=== PATIENT | female | born 1975 ===

== ENCOUNTER 2021-12-26 05:07 | Emergency (ER) | payer OTHER, SELFPAY ==
--- NOTE | ~2021-12-26 | XR_ITS ---
EXAMINATION: XR KNEE, LEFT CLINICAL INFORMATION: Pain, heard pop in knee COMPARISON: None TECHNIQUE: Four views of the left knee. FINDINGS: Osseous alignment is anatomic. No acute fracture is seen. There is mild narrowing of the medial joint space with associated spurring. Patellofemoral joint space is suspected to be narrowed, though suboptimally assessed due to positioning. Small chronic appearing calcification noted near the lateral joint space. Small to moderate joint effusion is present. XR/XR knee LT 3V IMPRESSION: Joint effusion without acute osseous findings.
[2021-12-26 05:25] VITALS: BP 148/90; PULSE 109; RESP 22; TEMP 36.8; O2SAT 97; BMI 43.2
[2021-12-26 06:14] VITALS: BP 132/87; PULSE 98; RESP 20; O2SAT 98
--- NOTE | 2021-12-26 07:34 | ED_ITS ---
HPI - Extremity Injury (Lower) General Chief Complaint: Extremity Injury, Lower Stated Complaint: Left Knee inj Time Seen by Provider: 12/26/21 06:54 Source: patient Mode of arrival: ambulatory Limitations: no limitations History of Present Illness HPI Narrative: 46-year-old female history of bipolar disorder presents to the emergency department complaining of left knee pain. She states 5 days ago she was standi ng when her left knee buckled inwards she states it band medially. Since then she has had increased pain she has been taking ibuprofen without relief she has tried ice once. Patient denies fevers chills cough nausea vomiting or diarrhea. States she has no history of any knee injuries. complaint: knee injury Related Data Allergies Allergy/AdvReac Type Severity Reaction Status Date / Time No Known Allergies Allergy Verified 12/26/21 05:28 [No Known Allergies*] Chantix AdvReac Unknown worsening Uncoded 12/26/21 05:28 bipolar disorder Review of Systems Review of Systems: Review of systems: General: Patient denies any fever chills recent illness or falls Musculoskeletal: Denies back pain or body aches or other injuries HEENT: denies headache, runny nose, ear pain Respiratory: denies shortness of breath, cough Cardiovascular: no chest pain or palpitations : denies dysuria, frequency Abdomen: no nausea vomiting denies abdominal pain Extremities: Left knee pain and swelling Skin: no diaphoresis Yes all other systems are reviewed and are negative PMFSH Social History Social History Advance Directives: No Advance Directives Information Provided: Yes Patient : No Physical Exam Vital Signs: Vital Signs: Last Vital Signs Temp 98.2 F 12/26/21 05:25 Pulse 98 12/26/21 06:14 Resp 20 12/26/21 06:14 BP 132/87 12/26/21 06:14 Pulse Ox 98 12/26/21 06:14 BMI result Body Mass Index 43.2 General: Well-appearing well-nourished in no signs of distress HEENT: Normocephalic atraumatic Neck: No signs of JVD, no masses no tenderness or lymphadenopathy Cardiovascular: Regular rate and rhythm Respiratory: Clear to auscultation bilaterally Abdomen: Soft nontender no masses rectal exam performed guia 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 Extremities: Left knee tender to palpation no redness mild swelling no obvious ligamental laxity that I do feel there is a little more laxity to the lateral collateral ligament Normal pedal pulses no signs of edema Skin: Dry warm no rashes Back: No tenderness full ROM MDM - Extremity Injury (Lower) MDM Narrative Medical decision making narrative: Concern for internal knee injury including meniscus MCL ACL or LCL tears. X-ray is normal other than a small effusion I do not think the patient needs a tap do not think that they have septic joint patient otherwise looks well I will with patient and wrap have patient follow up I explained the need to ice 20 minutes on 20 minutes off now give the patient a note for work and have her follow-up with orthopedics. Discharge Plan Discharge Clinical Impression: Acute pain of left knee Patient Disposition: Home, Self-Care Instructions: Knee Pain (ED), Patellofemoral Pain Syndrome Exercises (ED) Additional Instructions: Please call to follow up with Orthopedics. If you have any other concerns please return to the ED. Referrals: Car Ontiveros MD [Physician] - 2 days (Please call to followup for your knee pain)
== END 2021-12-26 07:47 | disposition home or self-care (01) ==
PROVIDERS: Emergency Provider Student in an Organized Health Care Education/Training Program
DX: M25.562 Pain in left knee (principal)
CPT/HCPCS: 73562; 99283

== ENCOUNTER 2022-01-03 03:57 | Emergency (ER) | payer OTHER, SELFPAY ==
--- NOTE | ~2022-01-03 | XR_ITS ---
EXAMINATION: XR CHEST CLINICAL INFORMATION: Chest pain COMPARISON: None TECHNIQUE: Frontal view of the chest was obtained. FINDINGS: The lungs are well expanded. There is no focal consolidation, edema, or effusion. No pneumothorax. The cardiomediastinal silhouette is within normal limits. No acute osseous abnormality. XR/XR chest 1V IMPRESSION: Clear lungs.
[2022-01-03 04:05] VITALS: BP 114/88; BP 126/75; PULSE 95; PULSE 96; RESP 22; TEMP 36.6; O2SAT 97; BMI 39.9
--- NOTE | 2022-01-03 04:11 | ED.CHESTPAIN ---
HPI - Chest Pain General Chief Complaint: Chest Pain Stated Complaint: CP Time Seen by Provider: 01/03/22 04:11 Source: patient Mode of arrival: EMS Limitations: no limitations History of Present Illness HPI narrative: Patient complaining of mid chest pain and epigastric pain for last 1 week patient says that he has history of hypertension diabetes but blood sugars is normal and blood pressure also normal and she is not taking any medication for last few months patient described pain as a sharp pain comes and goes no relation with food or breathing or cough Related Data Previous Rx's Medication Instructions Recorded pantoprazole 40 mg granules 40 mg PO DAILY #30 ea 01/03/22 delayed-release for susp in packet (Protonix) sucralfate 1 gram tablet 1 g PO TID #90 tab 01/03/22 Allergies Allergy/AdvReac Type Severity Reaction Status Date / Time No Known Allergies Allergy Verified 12/26/21 05:28 [No Known Allergies*] Chantix AdvReac Unknown worsening Uncoded 12/26/21 05:28 bipolar disorder Review of Systems Review of Systems: Yes all other systems are reviewed and are negative [facility] Social History Social History Advance Directives: No Patient : No Physical Exam Vital Signs: Vital Signs: Last Vital Signs Temp 97.9 F 01/03/22 04:05 Pulse 96 01/03/22 04:05 Resp 22 H 01/03/22 04:05 BP 126/75 01/03/22 04:05 Pulse Ox 97 01/03/22 04:05 BMI result Body Mass Index 39.9 Appearance: Alert. Oriented X3. No acute distress. ENT: Pharynx normal. Oral Mucosa moist Neck: Normal inspection. Neck supple. CVS: Normal heart rate and rhythm. Pulses normal. Respiratory: No respiratory distress. Equal air entry bilateral, no wheezing/rales/rhonchi Abdomen: Soft and mild epigastric tenderness, Bowel sounds are present, no mass palpable, no CVA tenderness Skin: Skin warm and dry. Normal skin color. Normal skin turgor. Extremities: No lower extremity edema. No calf tenderness Neuro: Oriented X 3. No motor deficit. No sensory deficit.No cerebellar signs , cranial nerves II-XII intact MDM - Chest Pain MDM Narrative Medical decision making narrative: Patient's epigastric pain likely gastritis patient also does have anxiety labs are stable discharge patient home on Protonix Lab Data Attestation: I reviewed the patient's lab results. Result diagrams: 01/03/22 04:30 01/03/22 04:27 Labs: Lab Results 01/03/22 01/03/22 01/03/22 Range/Units 04:27 04:30 04:30 WBC 12.1 H (4.8-10.8) X10*3/uL RBC 4.83 (4.20-5.50) X10*6/uL Hgb 14.4 (12.0-16.0) g/dl Hct 42.6 (37.0-47.0) % MCV 88.2 (80.0-98.0) fL MCH 29.8 (27.0-33.0) pg MCHC 33.8 (31.0-35.0) g/dl RDW 12.5 (11.0-16.0) % Plt Count 241 (160-400) X10*3/uL MPV 11.3 (9.4-12.3) fL Immature Gran % (Auto) 0.3 (0.0-0.4) % Neut % (Auto) 54.6 (45-73) % Lymph % (Auto) 36.9 (20-40) % Harvey % (Auto) 6.3 (2-11) % Eos % (Auto) 1.7 (0-4) % Baso % (Auto) 0.2 (0-2) % Lymph # (Auto) 4.5 (1.2-4.9) X10*3/uL Harvey # (Auto) 0.8 (0.1-1.2) X10*3/uL Eos # (Auto) 0.2 (0.0-0.4) X10*3/uL Baso # (Auto) 0.0 (0.0-0.2) X10*3/uL Abs Immat Gran (auto) 0.04 H (0.00-0.03) X10*3/uL Absolute Neuts (auto) 6.6 (2.0-8.3) x10*3/uL Absolute Nucleated RBC 0.000 (0.0-0.012) X10*3/uL Nucleated RBC % (auto) 0.0 (0.0-0.2) /100WBC Sodium 140 (135-145) mmol/L Potassium 3.9 (3.3-5.1) mmol/L Chloride 106 (96-108) mmol/L Carbon Dioxide 22 (22-29) mmol/L Anion Gap 16 (12-20) BUN 17 H (9-16) mg/dL Creatinine 0.90 (0.5-1.4) mg/dL Estim Creat Clear Calc 96.9 Estimated GFR > 60 Random Glucose 191 H (60-115) mg/dL Calcium 9.8 (8.4-10.2) mg/dL Total Bilirubin 0.3 (0.0-1.0) mg/dL AST 42 H (5-31) U/L ALT 58 H (0-31) U/L Alkaline Phosphatase 92 (39-117) U/L Troponin I High Sens < 3.5 (<3.5-17.0) ng/L Total Protein 7.5 (6.5-8.0) g/dL Albumin 4.1 (3.5-5.0) g/dL Lipase 37 (8-78) U/L Urine Color Urine Appearance Urine pH (5.0-8.0) Ur Specific [place] (1.005-1.025) Urine Protein (NEG-TRACE) MG/DL Urine Glucose (UA) (NEG) MG/DL Urine Ketones (NEG) MG/DL Urine Blood (NEG) Urine Nitrite (NEG) Ur Leukocyte Esterase (NEG) COVID-19 (ANDREW) (Negative) COVID-19 Clin Com 01/03/22 01/03/22 Range/Units 05:13 05:13 WBC (4.8-10.8) X10*3/uL RBC (4.20-5.50) X10*6/uL Hgb (12.0-16.0) g/dl Hct (37.0-47.0) % MCV (80.0-98.0) fL MCH (27.0-33.0) pg MCHC (31.0-35.0) g/dl RDW (11.0-16.0) % Plt Count (160-400) X10*3/uL MPV (9.4-12.3) fL Immature Gran % (Auto) (0.0-0.4) % Neut % (Auto) (45-73) % Lymph % (Auto) (20-40) % Harvey % (Auto) (2-11) % Eos % (Auto) (0-4) % Baso % (Auto) (0-2) % Lymph # (Auto) (1.2-4.9) X10*3/uL Harvey # (Auto) (0.1-1.2) X10*3/uL Eos # (Auto) (0.0-0.4) X10*3/uL Baso # (Auto) (0.0-0.2) X10*3/uL Abs Immat Gran (auto) (0.00-0.03) X10*3/uL Absolute Neuts (auto) (2.0-8.3) x10*3/uL Absolute Nucleated RBC (0.0-0.012) X10*3/uL Nucleated RBC % (auto) (0.0-0.2) /100WBC Sodium (135-145) mmol/L Potassium (3.3-5.1) mmol/L Chloride (96-108) mmol/L Carbon Dioxide (22-29) mmol/L Anion Gap (12-20) BUN (9-16) mg/dL Creatinine (0.5-1.4) mg/dL Estim Creat Clear Calc Estimated GFR Random Glucose (60-115) mg/dL Calcium (8.4-10.2) mg/dL Total Bilirubin (0.0-1.0) mg/dL AST (5-31) U/L ALT (0-31) U/L Alkaline Phosphatase (39-117) U/L Troponin I High Sens (<3.5-17.0) ng/L Total Protein (6.5-8.0) g/dL Albumin (3.5-5.0) g/dL Lipase (8-78) U/L Urine Color YELLOW Urine Appearance HAZY Urine pH 5.5 (5.0-8.0) Ur Specific [place] >= 1.030 H (1.005-1.025) Urine Protein NEG (NEG-TRACE) MG/DL Urine Glucose (UA) NEG (NEG) MG/DL Urine Ketones 5 (NEG) MG/DL Urine Blood NEG (NEG) Urine Nitrite NEG (NEG) Ur Leukocyte Esterase NEG (NEG) COVID-19 (ANDREW) Negative (Negative) COVID-19 Clin Com See Note ECG Data ECG #1: Attestation: I personally reviewed and interpreted this ECG as follows: Interpretation: Is normal sinus rhythm heart rate 95 beats per minute normal axis normal intervals no acute ST-T changes no acute ischemia impression normal EKG Discharge Plan Discharge Clinical Impression: Atypical chest pain, Gastritis Patient Disposition: Home, Self-Care Instructions: Chest Pain (ED), Gastritis (ED) Additional Instructions: Avoid spicy/fried diet Take medication for gastritis as prescribed Follow up with PCP Prescriptions: New pantoprazole [Protonix] [address] for susp in packet 40 mg PO DAILY Qty: 30 0RF sucralfate 1 gram tablet 1 g PO TID Qty: 90 0RF
[2022-01-03] MEDS: Famotidine/PF 20 MG/2 ML VIAL IVPUSH (04:36)
[2022-01-03 04:41] LABS: MANUAL DIFF FLAG NO
[2022-01-03 04:43] LABS: Basophils Percent Auto 0.2 % (0-2); Eosinophils Absolute Auto 0.2 X10*3/uL (0.0-0.4); Eosinophils Percent Auto 1.7 % (0-4); Hematocrit 42.6 % (37.0-47.0); Hemoglobin 14.4 g/dl (12.0-16.0); Imm Gran Abs Auto 0.04 X10*3/uL (0.00-0.03); Imm Gran Pct Auto 0.3 % (0.0-0.4); Lymphocytes Absolute Auto 4.5 X10*3/uL (1.2-4.9); Lymphocytes Percent Auto 36.9 % (20-40); Mean Corpuscular HGB Conc 33.8 g/dl (31.0-35.0); Mean Corpuscular Hemoglobin 29.8 pg (27.0-33.0); Mean Corpuscular Volume 88.2 fL (80.0-98.0); Mean Platelet Volume 11.3 fL (9.4-12.3); Monocytes Absolute Auto 0.8 X10*3/uL (0.1-1.2); Monocytes Percent Auto 6.3 % (2-11); Neutrophils Absolute Auto 6.6 x10*3/uL (2.0-8.3); Neutrophils Percent Auto 54.6 % (45-73); Platelet Count 241 X10*3/uL (160-400); Red Blood Count 4.83 X10*6/uL (4.20-5.50); Red Cell Distribution Width 12.5 % (11.0-16.0); White Blood Count 12.1 X10*3/uL (4.8-10.8)
[2022-01-03 04:58] LABS: Alanine Aminotransferase 58 U/L (0-31); Albumin Level 4.1 g/dL (3.5-5.0); Alkaline Phosphatase 92 U/L (39-117); Anion Gap 16 (12-20); Aspartate Amino Transferase 42 U/L (5-31); Bilirubin Total 0.3 mg/dL (0.0-1.0); Blood Urea Nitrogen 17 mg/dL (9-16); Calcium 9.8 mg/dL (8.4-10.2); Carbon Dioxide 22 mmol/L (22-29); Chloride 106 mmol/L (96-108); Creatinine Clr Calc Pharmacy 96.9; Estimated Glomerular Filt Rate > 60; Glucose Random 191 mg/dL (60-115); Lipase 37 U/L (8-78); Potassium 3.9 mmol/L (3.3-5.1); Sodium 140 mmol/L (135-145); Total Protein 7.5 g/dL (6.5-8.0)
[2022-01-03 05:07] LABS: Troponin-I High Sensitivity < 3.5 ng/L (<3.5-17.0)
[2022-01-03 05:21] LABS: Appearance Urine HAZY; Color Urine YELLOW; Glucose Urine UA NEG (NEG); Leukocyte Esterase Urine NEG (NEG); Nitrite Urine NEG (NEG); PH 5.5 (5.0-8.0); Specific Gravity - Urine >= 1.030 (1.005-1.025); Urine Blood NEG (NEG); Urine Ketones 5 MG/DL (NEG); Urine Protein NEG (NEG-TRACE)
[2022-01-03] MEDS: 0.9 % Sodium Chloride 1,000 ML 999 ML IV (05:21)
[2022-01-03 05:34] LABS: COVID-19 Test Negative (Negative)
[2022-01-03 06:18] VITALS: BP 131/80; PULSE 89; RESP 18; O2SAT 98
--- NOTE | 2022-01-03 08:59 | ECG_ITS ---
Test Reason : CHEST PAIN Blood Pressure : / mmHG Vent. Rate : 095 BPM Atrial Rate : 095 BPM P-R Int : 148 ms QRS Dur : 078 ms QT Int : 356 ms P-R-T Axes : 057 018 039 degrees QTc Int : 447 ms Normal sinus rhythm Normal ECG When compared with ECG of 29-MAR-2016 19:47, No significant change was found Referred By: Seth Jackson Electronically Signed By:DONNA THOMPSON
== END 2022-01-03 06:23 | disposition home or self-care (01) ==
PROVIDERS: Emergency Provider Internal Medicine; PCP Internal Medicine
DX: K29.70 Gastritis, unspecified, without bleeding (principal); R07.9 Chest pain, unspecified; R10.13 Epigastric pain; R05.9 Cough, unspecified; Z20.822 Contact with and (suspected) exposure to COVID-19; Z79.899 Other long term (current) drug therapy
CPT/HCPCS: 36415; 71045; 80053; 81003; 83690; 84484; 85025; 87635; 93005; 96361; 96374; 99284

== ENCOUNTER 2022-01-11 09:05 | Outpatient (REF) | payer OTHER, SELFPAY ==
--- NOTE | ~2022-01-11 | XR_ITS ---
EXAMINATION: LEFT KNEE X-RAY CLINICAL INFORMATION: Left knee pain COMPARISON: Left knee x-rays 12/26/2021 TECHNIQUE: Patellar sunrise view of the left knee XR/XR knee LT 1V FINDINGS/IMPRESSION: No gross patellar fracture. Patellofemoral joint space is relatively well-maintained. Prominent patellar osteophyte projecting laterally. No gross soft tissue swelling.
== END 2022-01-11 09:06 | disposition home or self-care (01) ==
LOC: HO.HOSX 09:05
PROVIDERS: Visit Provider Physician Assistant
DX: M17.12 Unilateral primary osteoarthritis, left knee (principal); F17.200 Nicotine dependence, unspecified, uncomplicated; Z71.6 Tobacco abuse counseling
CPT/HCPCS: 20610; 73560; 99202; J1040

== ENCOUNTER 2022-04-01 04:28 | Emergency (ER) | payer OTHER, SELFPAY ==
--- NOTE | ~2022-04-01 | XR_ITS ---
EXAMINATION: XR CHEST CLINICAL INFORMATION: Chest pain COMPARISON: Chest x-rays of 01/03/2022 TECHNIQUE: Frontal view of the chest was obtained. FINDINGS: The cardiomediastinal silhouette is normal. No abnormal tracheal deviation. The lungs are symmetrically well expanded. No focal consolidation, pleural effusions, pulmonary edema or pneumothorax. Right cardiophrenic density noted is a stable finding compared to last study and likely reflects prominent paracardiac fat pad. Regional skeleton is intact. Visualized upper abdomen is unremarkable. XR/XR chest 1V IMPRESSION: No radiographic evidence of pneumonia. No acute pulmonary process. No significant interval change is noted compared to last x-ray.
[2022-04-01 04:35] VITALS: BP 153/83; PULSE 82; RESP 16; TEMP 36.6; O2SAT 99; BMI 38.2
[2022-04-01 04:38] VITALS: BP 153/83; PULSE 87; RESP 16; TEMP 36.6; O2SAT 138
[2022-04-01 05:05] LABS: COVID-19 Test Negative (Negative)
[2022-04-01 05:06] LABS: Alanine Aminotransferase 37 U/L (0-31); Albumin Level 4.2 g/dL (3.5-5.0); Alkaline Phosphatase 98 U/L (39-117); Anion Gap 13 (12-20); Aspartate Amino Transferase 22 U/L (5-31); Bilirubin Total 0.4 mg/dL (0.0-1.0); Blood Urea Nitrogen 13 mg/dL (9-16); Calcium 9.2 mg/dL (8.4-10.2); Carbon Dioxide 26 mmol/L (22-29); Chloride 104 mmol/L (96-108); Creatinine Clr Calc Pharmacy 110.6; Estimated Glomerular Filt Rate > 60; Glucose Random 165 mg/dL (60-115); Potassium 3.8 mmol/L (3.3-5.1); Sodium 139 mmol/L (135-145); Total Protein 7.6 g/dL (6.5-8.0)
[2022-04-01 05:12] LABS: Troponin-I High Sensitivity < 3.5 ng/L (<3.5-17.0)
[2022-04-01 05:27] VITALS: BP 135/77; PULSE 93; RESP 17; O2SAT 96
--- NOTE | 2022-04-01 06:32 | ECG_ITS ---
Test Reason : CHEST PAIN Blood Pressure : / mmHG Vent. Rate : 089 BPM Atrial Rate : 089 BPM P-R Int : 148 ms QRS Dur : 080 ms QT Int : 372 ms P-R-T Axes : 057 028 038 degrees QTc Int : 452 ms Normal sinus rhythm Normal ECG When compared with ECG of 03-JAN-2022 04:02, No significant change was found Referred By: Tri Juares Electronically Signed By:DONNA THOMPSON
--- NOTE | 2022-04-01 06:47 | ED_ITS ---
HPI - Chest Pain General Chief Complaint: Chest Pain Stated Complaint: cp Time Seen by Provider: 04/01/22 06:32 History of Present Illness HPI narrative: Patient is a 46-year-old female with a history of hypertension history of smoking history of obesity presented today with having chest pain that is dull it is lasting for the last 5 hours it is ongoing. Not associated with shortness of breath or diaphoresis. No fever no chills no cough and no congestion or upper respiratory symptoms It is mid chest nonradiating. patient also has headache with nausea similar to previous bouts of migraine. It is worse with loud voice. Worse with light. Patient had workup for this headache and dizziness in the past. Including an MRI and a CT scan that were all negative for approximately 4 months prior. Patient denies any coughing congestion upper respiratory symptoms. She is immunized with COVID vaccine x1. There is no diaphoresis. No fever. No focal weakness. Related Data Previous Rx's Medication Instructions Recorded pantoprazole 40 mg granules 40 mg PO DAILY 30 days #30 ea 01/03/22 delayed-release for susp in packet (Protonix) quetiapine 100 mg tablet 100 mg PO BEDTIME 30 days #30 tabs 01/03/22 sucralfate 1 gram tablet 1 g PO TID 30 days #90 tabs 01/03/22 Allergies Allergy/AdvReac Type Severity Reaction Status Date / Time No Known Allergies Allergy Verified 01/11/22 12:19 [No Known Allergies*] Chantix AdvReac Unknown worsening Uncoded 01/11/22 12:19 bipolar disorder Review of Systems Review of Systems: Headache dizziness chest pain Yes all other systems are reviewed and are negative [facility] Past Medical History Attestation statement: The following information was validated with the patient. Medical History Bipolar disorder Bulimia nervosa Gastritis Hyperlipidemia Impaired fasting glucose Obesity (BMI 30-39.9) Surgical History H/O bursectomy History of carpal tunnel surgery History of cholecystectomy History of colonoscopy History of endometrial ablation History of hernia surgery History of tubal ligation Family History Family History Mother High blood pressure Dementia Kidney stones Arthritis Father Hepatitis B Cirrhosis of liver Other Mental health problem Social History Social History Housing: Apartment Alcohol intake: current Alcohol intake frequency: does not drink Patient Tobacco Use Status: Current everyday Tobacco user Cigarettes Per Day: 5 Second Hand Smoke Exposure: Yes Advance Directives: No Advance Directives Information Provided: Yes service: No Current occupational status: employed 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 Oriented X3. No acute distress. Eyes: Pupils equal, round and reactive to light. ENT: Pharynx normal. Neck: Normal inspection. Neck supple. No lymph nodes noted. No crepitus CVS: Normal heart rate and rhythm. Pulses normal. Normal S1 and S2 Respiratory: No respiratory distress. Breath sounds normal. No Wheezing. No rales Abdomen: Soft and nontender. No rigidity. No distention. good BS x4 Skin: Skin warm and dry. Normal skin color. Normal skin turgor. Extremities: No lower extremity edema. Neurovascular intact to all extremities. No Lacerations. No Rash Neuro: Oriented X 3. No motor deficit. No sensory deficit. Moving all extermities. No slurred speech MDM - Chest Pain MDM Narrative Medical decision making narrative: Patient's EKG showed a sinus pattern heart rate is 90 TN cares QT within normal limits is no acute ST segment elevation. Patient has atypical chest pain does have multiple risk factor is she is 46 however cardiac enzymes negative her EKG is normal. Her heart score still less than 3. Unlikely patient has ACS. Patient has headache along with nausea, worsening with noise and sound. This is similar to previous bouts of migraine. Will give treatment for migraine including Reglan IV fluid Benadryl. Will monitor patient carefully. In no distress.. Differential Diagnosis Differential diagnosis: Likely fracture of rib, stable angina, unstable angina pectoris, atypical chest pain, st elevation myocardial infarction, costochondritis and chest pain Lab Data Result diagrams: 04/01/22 04:45 Labs: Lab Results 04/01/22 04/01/22 04/01/22 Range/Units 04:45 04:45 04:45 Sodium 139 (135-145) mmol/L Potassium 3.8 (3.3-5.1) mmol/L Chloride 104 (96-108) mmol/L Carbon Dioxide 26 (22-29) mmol/L Anion Gap 13 (12-20) BUN 13 (9-16) mg/dL Creatinine 0.77 (0.5-1.4) mg/dL Estim Creat Clear Calc 110.6 Estimated GFR > 60 Random Glucose 165 H (60-115) mg/dL Calcium 9.2 D (8.4-10.2) mg/dL Total Bilirubin 0.4 (0.0-1.0) mg/dL AST 22 D (5-31) U/L ALT 37 H (0-31) U/L Alkaline Phosphatase 98 (39-117) U/L Troponin I High Sens < 3.5 (<3.5-17.0) ng/L Total Protein 7.6 (6.5-8.0) g/dL Albumin 4.2 (3.5-5.0) g/dL COVID-19 (ANDREW) Negative (Negative) COVID-19 Clin Com See Note Discharge Plan Discharge Clinical Impression: Chest pain, Migraine Patient Disposition: Still a Patient Prescriptions: No Action quetiapine 100 mg tablet 100 mg PO BEDTIME 30 Days Qty: 30 3RF pantoprazole [Protonix] [address] for susp in packet 40 mg PO DAILY 30 Days Qty: 30 3RF sucralfate 1 gram tablet 1 g PO TID 30 Days Qty: 90 2RF
[2022-04-01] MEDS: 0.9 % Sodium Chloride 1,000 ML 999 ML IV (06:50)
[2022-04-01] MEDS: diphenhydrAMINE HCL 50 MG/ML VIAL 25 MG IVPUSH (06:51)
[2022-04-01] MEDS: Ketorolac Tromethamine 15 MG/ML VIAL IVPUSH (06:52)
[2022-04-01] MEDS: Metoclopramide HCl 10 MG/2 ML VIAL IVPUSH (06:52)
[2022-04-01 08:01] LABS: Troponin-I High Sensitivity < 3.5 ng/L (<3.5-17.0)
[2022-04-01 08:12] VITALS: BP 131/74; PULSE 77; RESP 18; O2SAT 100
== END 2022-04-01 09:28 | disposition home or self-care (01) ==
PROVIDERS: Emergency Provider Emergency Medicine Emergency Medical Services; PCP Internal Medicine
DX: R07.9 Chest pain, unspecified (principal); G43.009 Migraine without aura, not intractable, without status migrainosus; I10 Essential (primary) hypertension; F17.210 Nicotine dependence, cigarettes, uncomplicated; Z20.822 Contact with and (suspected) exposure to COVID-19
CPT/HCPCS: 36415; 71045; 80053; 84484; 87635; 93005; 96361; 96374; 96375; 99284; 99285; J1200; J1885; J2765

== ENCOUNTER 2022-05-14 11:50 | Outpatient (REF) | payer OTHER, SELFPAY ==
--- NOTE | ~2022-05-14 | MM_ITS ---
EXAMINATION: MM SCREENING DIGITAL BREAST TOMOSYNTHESIS, BILATERAL CLINICAL INFORMATION: Screening. Asymptomatic. Benign left breast biopsy 11/12/2014 (fragments of benign breast tissue with fibrocystic changes, including an area of papillary apocrine metaplasia). The lifetime risk of breast cancer based on the Tyrer-Cuzick Model is 10%. COMPARISON: Mammography: 11/12/2014, 11/09/2014; ultrasound-guided biopsy left breast 11/12/2014. TECHNIQUE: Digital breast tomosynthesis is performed in both the craniocaudal and mediolateral oblique views along with computer-aided detection (CAD). Synthesized 2D images are generated from the tomosynthesis. FINDINGS: There are scattered areas of fibroglandular density (ACR BI-RADS breast composition Category b). There are no significant masses, abnormal calcifications, or other abnormalities. Parenchymal pattern is similar to prior studies. The axilla are unremarkable. MM/MM tomosynthesis screening BI IMPRESSION: No mammographic evidence of malignancy. ASSESSMENT: BI-RADS 1: Negative RECOMMENDATION: Routine annual mammography screening. This patient's information was entered into a reminder system with a target due date for their next mammogram.
== END 2022-05-14 11:51 | disposition home or self-care (01) ==
LOC: HO.MAMMO 11:50
PROVIDERS: Visit Provider Internal Medicine
DX: Z12.31 Encounter for screening mammogram for malignant neoplasm of breast (principal)
CPT/HCPCS: 77063; 77067

== ENCOUNTER 2022-06-05 10:15 | Outpatient (REF) | payer OTHER, SELFPAY ==
[2022-06-09 14:37] LABS: HPV mRNA E6/E7 rflx Not Detected (Not Detected)
== END 2022-06-05 10:16 | disposition home or self-care (01) ==
LOC: HO.LAB 10:15
PROVIDERS: Visit Provider Obstetrics & Gynecology
DX: Z01.419 Encounter for gynecological examination (general) (routine) without abnormal findings (principal)
CPT/HCPCS: 87624; 88142

== ENCOUNTER 2022-06-13 15:26 | Outpatient (REF) | payer OTHER, SELFPAY ==
--- NOTE | ~2022-06-13 | US_ITS ---
EXAMINATION: US THYROID CLINICAL INFORMATION: Dysphagia, unspecified. COMPARISON: None. TECHNIQUE: Linear transducer grayscale and color Doppler examination with attention to the region of the thyroid. FINDINGS: SIZE: Measurements of the thyroid lobes and nodules are given in sagittal, anteroposterior and transverse dimensions respectively. Right Thyroid Lobe: 4.9 x 1.4 x 2.0 cm, volume 7.2 mL. Parenchyma: The gland echotexture is homogeneous. Thyroid vascularity is normal. Left Thyroid Lobe: 5.1 x 1.1 x 1.6 cm, volume 4.7 mL. Parenchyma: The gland echotexture is homogeneous. Thyroid vascularity is normal. Isthmus: 0.4 cm in maximum AP dimension. No focal thyroid nodule is seen. NODES: No lymphadenopathy is seen in the tissue surrounding the thyroid gland. US/US thyroid IMPRESSION: Slight right thyroid enlargement compared to left side. No focal lesions or hypervascularity seen. ACR TI-RADS RECOMMENDATION REFERENCE: Ultrasound-guided fine-needle aspiration, followup ultrasound, no further follow up. * TR1 (0 point) and TR 2 (2 points): No FNA or follow up * TR3 (3 points): FNA if more than or equal to 2.5 cm in maximum dimension, followup ultrasound in 1, 3 and 5 years if 1.5 to 2.4 cm in maximum dimension. * TR4 (4-6 points): FNA if more than or equal to 1.5 cm in maximum dimension, followup ultrasound in 1, 2, 3 and 5 years if 1 to 1.4 cm in maximum dimension. * TR5 (more than or equal to 7 points): FNA if more than or equal to 1 cm in maximum dimension, followup ultrasound every year for 5 years if 0.5 to 0.9 cm in maximum dimension. * TR3, TR4 or TR5 nodules that are below the size threshold for follow up receive no follow up.
== END 2022-06-13 15:27 | disposition home or self-care (01) ==
LOC: HO.US 15:26
PROVIDERS: Visit Provider Nurse Practitioner Family
DX: R13.10 Dysphagia, unspecified (principal)
CPT/HCPCS: 76536

== ENCOUNTER 2022-06-15 11:45 | Outpatient (REF) | payer OTHER, SELFPAY ==
[2022-06-15 12:08] LABS: MANUAL DIFF FLAG NO
[2022-06-15 13:41] LABS: Basophils Absolute Auto 0.1 X10*3/uL (0.0-0.2); Basophils Percent Auto 0.6 % (0-2); Eosinophils Absolute Auto 0.2 X10*3/uL (0.0-0.4); Eosinophils Percent Auto 2.6 % (0-4); Hematocrit 43.7 % (37.0-47.0); Hemoglobin 14.7 g/dl (12.0-16.0); Imm Gran Abs Auto 0.03 X10*3/uL (0.00-0.03); Imm Gran Pct Auto 0.4 % (0.0-0.4); Lymphocytes Percent Auto 34.7 % (20-40); Mean Corpuscular HGB Conc 33.6 g/dl (31.0-35.0); Mean Corpuscular Hemoglobin 29.3 pg (27.0-33.0); Mean Corpuscular Volume 87.2 fL (80.0-98.0); Mean Platelet Volume 11.5 fL (9.4-12.3); Monocytes Absolute Auto 0.4 X10*3/uL (0.1-1.2); Monocytes Percent Auto 5.1 % (2-11); Neutrophils Absolute Auto 4.9 x10*3/uL (2.0-8.3); Neutrophils Percent Auto 56.6 % (45-73); Platelet Count 226 X10*3/uL (160-400); Red Blood Count 5.01 X10*6/uL (4.20-5.50); Red Cell Distribution Width 12.7 % (11.0-16.0); White Blood Count 8.6 X10*3/uL (4.8-10.8)
[2022-06-15 14:03] LABS: Alanine Aminotransferase 46 U/L (0-31); Albumin Level 4.2 g/dL (3.5-5.0); Alkaline Phosphatase 89 U/L (39-117); Anion Gap 16 (12-20); Aspartate Amino Transferase 34 U/L (5-31); Bilirubin Total 0.5 mg/dL (0.0-1.0); Blood Urea Nitrogen 11 mg/dL (9-16); Carbon Dioxide 24 mmol/L (22-29); Chloride 106 mmol/L (96-108); Cholesterol 211 mg/dL; Estimated Glomerular Filt Rate > 60; Glucose Fasting 157 mg/dL (60-99); HDL Cholesterol 37 mg/dL; LDL Cholesterol Calculated 138 mg/dl; Potassium 4.5 mmol/L (3.3-5.1); Sodium 141 mmol/L (135-145); Total Protein 7.3 g/dL (6.5-8.0); Triglycerides 183 mg/dL
[2022-06-15 14:25] LABS: TSH reflex Free T4 1.01 uIU/mL (0.32-4.0); Vitamin D 25-OH Total 10.2 ng/mL (>30)
== END 2022-06-15 11:46 | disposition home or self-care (01) ==
LOC: HO.LAB 11:45
PROVIDERS: PCP Internal Medicine; Visit Provider Nurse Practitioner Family
DX: Z13.29 Encounter for screening for other suspected endocrine disorder (principal); Z13.220 Encounter for screening for lipoid disorders; R43.9 Unspecified disturbances of smell and taste; R13.10 Dysphagia, unspecified
CPT/HCPCS: 36415; 80053; 80061; 82306; 84443; 85025

== ENCOUNTER → 2022-07-17 08:09 | Outpatient (BNVA) | payer OTHER, SELFPAY | PROVIDERS: PCP Internal Medicine; Visit Provider Internal Medicine Endocrinology, Diabetes & Metabolism | DX: E04.9 Nontoxic goiter, unspecified (principal) | CPT/HCPCS: 99202 ==

== ENCOUNTER 2022-10-05 23:13 | Emergency (ER) | payer OTHER, SELFPAY ==
[2022-10-05 23:28] VITALS: BP 155/98; PULSE 93; RESP 20; TEMP 36.8; O2SAT 98; BMI 38.4
[2022-10-05 23:57] VITALS: BP 151/77; PULSE 88; RESP 18; TEMP 37.2; O2SAT 98
--- NOTE | 2022-10-06 00:06 | ECG_ITS ---
Test Reason : CHEST PAIN Blood Pressure : / mmHG Vent. Rate : 085 BPM Atrial Rate : 085 BPM P-R Int : 162 ms QRS Dur : 082 ms QT Int : 362 ms P-R-T Axes : 049 007 022 degrees QTc Int : 430 ms Normal sinus rhythm Normal EKG When compared with ECG of 01-APR-2022 06:35, No significant change was found Referred By: Yamila Anand Electronically Signed By:DONNA THOMPSON
--- NOTE | 2022-10-06 00:23 | ED_ITS ---
HPI - General Adult General Chief complaint: General Medical Stated complaint: flu symptoms Time Seen by Provider: 10/05/22 23:51 Source: patient Mode of arrival: ambulatory History of Present Illness HPI narrative: 47-year-old female states that she is having cough, body aches as well as subjective fevers, chills and nasal congestion since Saturday. Patient denies any fevers today and states that she has recently returned from [place]. Related Data Previous Rx's Medication Instructions Recorded omeprazole 20 mg capsule,delayed 20 mg PO DAILY #30 caps 06/14/22 release cholecalciferol (vitamin D3) 50 50 mcg PO DAILY #90 tabs 06/19/22 mcg (2,000 unit) tablet quetiapine 100 mg tablet 100 mg PO BEDTIME 30 days #30 tabs 08/08/22 benzonatate 200 mg capsule 200 mg PO TID PRN cough #14 caps 10/06/22 Allergies Allergy/AdvReac Type Severity Reaction Status Date / Time No Known Allergies Allergy Verified 07/17/22 08:19 [No Known Allergies*] Chantix AdvReac Unknown worsening Uncoded 07/17/22 08:19 bipolar disorder Review of Systems Review of Systems: Pertinent positives and negatives as stated in HPI 10 point review of systems is otherwise negative. [facility] Past Medical History Source: nursing notes reviewed Medical History Bipolar disorder Bulimia nervosa Gastritis Hyperlipidemia Impaired fasting glucose Obesity (BMI 30-39.9) Surgical History H/O bursectomy History of carpal tunnel surgery History of cholecystectomy History of colonoscopy History of endometrial ablation History of hernia surgery History of tubal ligation Family History Family History Mother High blood pressure Dementia Kidney stones Arthritis Father Hepatitis B Cirrhosis of liver Other Mental health problem Social History Social History Household Members: None Housing: Apartment Alcohol intake: never Patient Tobacco Use Status: Current everyday Tobacco user Cigarettes Per Day: 5 Smoked in Last 30 Days: Yes Second Hand Smoke Exposure: Yes Use of substances other than those prescribed or required for medical reasons: No Advance Directives: No Advance Directives Information Provided: Yes Patient : No service: No Current occupational status: employed 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 GENERAL: Well developed, well nourished, in no acute distress. HEAD: Normocephalic/atraumatic EYES: PERRLA, EOMI EARS: Ext canals without abnormality, TMs non-bulging and non-erythematous NOSE: Nares patent bilateral OROPHARYNX: no oral lesions noted, posterior pharynx clear and non-erythematous without noted tonsillar enlargement/erythema/exudates NECK: Supple, no adenopathy LUNGS: Normal breath sounds. No adventitious sounds or accessory muscle use. SpO2<98> CARDIOVASCULAR: Regular rate and rhythm without noted murmurs ABDOMEN: Soft, non-tender, non-distended with bowel sounds. MUSCULOSKELETAL: No tenderness, deformities, or effusions noted on gross inspection. EXTREMITIES: No cyanosis, clubbing or edema. SKIN: Inspection of the skin reveals no rashes NEUROLOGIC: Alert and oriented x 4. Strength and sensation to light touch were grossly intact x 4. Course Course Course Narrative: 47-year-old female with history and clinical presentation most consistent with viral syndrome, patient is an everyday smoker which is likely contributing to her upper respiratory symptoms. I have reviewed all of the patient's lab work which does not suggest an acute bacterial infection, patient is afebrile here in the emergency room and is oxygenating well on room air. Patient received combination analgesics for body aches and also received Tessalon for cough control. Medical Decision Making Lab Data Result Diagrams: 10/06/22 00:27 10/06/22 00:27 Labs: Lab Results 10/05/22 10/06/22 10/06/22 Range/Units 23:34 00:26 00:27 WBC 6.2 (4.8-10.8) X10*3/uL RBC 4.90 (4.20-5.50) X10*6/uL Hgb 14.5 (12.0-16.0) g/dl Hct 42.5 (37.0-47.0) % MCV 86.7 (80.0-98.0) fL MCH 29.6 (27.0-33.0) pg MCHC 34.1 (31.0-35.0) g/dl RDW 12.4 (11.0-16.0) % Plt Count 180 (160-400) X10*3/uL MPV 11.8 (9.4-12.3) fL Absolute Nucleated RBC 0.000 (0.0-0.012) X10*3/uL Nucleated RBC % (auto) 0.0 (0.0-0.2) /100WBC Sodium (135-145) mmol/L Potassium (3.3-5.1) mmol/L Chloride (96-108) mmol/L Carbon Dioxide (22-29) mmol/L Anion Gap (12-20) BUN (9-16) mg/dL Creatinine (0.5-1.4) mg/dL Estim Creat Clear Calc Estimated GFR Random Glucose (60-115) mg/dL Calcium (8.4-10.2) mg/dL Troponin I High Sens < 3.5 (<3.5-17.0) ng/L Influenza Type A (PCR) NEGATIVE (Negative) Influenza Type B (PCR) NEGATIVE (Negative) RSV RNA Qual (PCR) POSITIVE A (Negative) SARS-CoV-2 RNA (RT-PCR) NEGATIVE (Negative) 10/06/22 Range/Units 00:27 WBC (4.8-10.8) X10*3/uL RBC (4.20-5.50) X10*6/uL Hgb (12.0-16.0) g/dl Hct (37.0-47.0) % MCV (80.0-98.0) fL MCH (27.0-33.0) pg MCHC (31.0-35.0) g/dl RDW (11.0-16.0) % Plt Count (160-400) X10*3/uL MPV (9.4-12.3) fL Absolute Nucleated RBC (0.0-0.012) X10*3/uL Nucleated RBC % (auto) (0.0-0.2) /100WBC Sodium 139 (135-145) mmol/L Potassium 4.4 (3.3-5.1) mmol/L Chloride 107 (96-108) mmol/L Carbon Dioxide 23 (22-29) mmol/L Anion Gap 13 (12-20) BUN 11 (9-16) mg/dL Creatinine 0.68 (0.5-1.4) mg/dL Estim Creat Clear Calc 124.2 Estimated GFR > 60 Random Glucose 185 H (60-115) mg/dL Calcium 9.3 (8.4-10.2) mg/dL Troponin I High Sens (<3.5-17.0) ng/L Influenza Type A (PCR) (Negative) Influenza Type B (PCR) (Negative) RSV RNA Qual (PCR) (Negative) SARS-CoV-2 RNA (RT-PCR) (Negative) Independent Interpretation I performed an independent interpretation of an: EKG Interpretation: Normal sinus rhythm, HR-85, no STEMI, VT/QRS/QTC is within normal limits. Discharge Plan Discharge Clinical Impression: Viral syndrome, Respiratory syncytial virus (RSV) Patient Disposition: Home, Self-Care Instructions: Respiratory Syncytial Virus (ED), Viral Syndrome (ED) Additional Instructions: 1. Tylenol 1000 mg, orally, every 6 hours as needed for body aches, headaches, temperatures greater than 100.4 Do not exceed 4000 mg within 24 hours. Be sure and check any [id number] cough medications that you by to ensure no additional Tylenol/acetaminophen is listed in the ingredients. 2. Ibuprofen 400 mg, orally with milk or food, every 6 hours as needed for body aches, headaches, temperatures greater than 100.4. You may take this medication with Tylenol. 3. Recommend bedside cool mist humidifier and do not lie completely flat at night instead proper self up on a couple of pills to help reduce nighttime cough. 4. Follow-up with your primary care provider in the next 2-3 days for re- evaluation. Return to the ER for worsening symptoms. Prescriptions: New benzonatate 200 mg capsule 200 mg PO TID PRN (Reason: cough) Qty: 14 0RF No Action omeprazole 20 mg capsule,delayed release(DR/EC) 20 mg PO DAILY Qty: 30 0RF cholecalciferol (vitamin D3) 50 mcg (2,000 unit) tablet 50 mcg PO DAILY Qty: 90 0RF quetiapine 100 mg tablet 100 mg PO BEDTIME 30 Days Qty: 30 3RF Referrals: Narendra Jeff MD [Primary Care Provider] - Stand Alone Forms: Work/School Release
[2022-10-06 00:33] LABS: Hematocrit 42.5 % (37.0-47.0); Hemoglobin 14.5 g/dl (12.0-16.0); Mean Corpuscular HGB Conc 34.1 g/dl (31.0-35.0); Mean Corpuscular Hemoglobin 29.6 pg (27.0-33.0); Mean Corpuscular Volume 86.7 fL (80.0-98.0); Mean Platelet Volume 11.8 fL (9.4-12.3); Platelet Count 180 X10*3/uL (160-400); Red Cell Distribution Width 12.4 % (11.0-16.0); White Blood Count 6.2 X10*3/uL (4.8-10.8)
[2022-10-06 00:50] LABS: Anion Gap 13 (12-20); Blood Urea Nitrogen 11 mg/dL (9-16); Calcium 9.3 mg/dL (8.4-10.2); Carbon Dioxide 23 mmol/L (22-29); Chloride 107 mmol/L (96-108); Creatinine Clr Calc Pharmacy 124.2; Estimated Glomerular Filt Rate > 60; Glucose Random 185 mg/dL (60-115); Potassium 4.4 mmol/L (3.3-5.1); Sodium 139 mmol/L (135-145)
[2022-10-06 00:56] LABS: Troponin-I High Sensitivity < 3.5 ng/L (<3.5-17.0)
[2022-10-06 01:12] LABS: Influenza A PCR NEGATIVE (Negative); Influenza B PCR NEGATIVE (Negative); Resp Syncy Virus RNA Qual PCR POSITIVE (Negative); SARS COV2 PCR INHOUSE NEGATIVE (Negative)
[2022-10-06] MEDS: Ibuprofen 400 MG TABLET PO (02:06)
[2022-10-06] MEDS: Benzonatate 100 MG CAPSULE 200 MG PO (02:06)
[2022-10-06] MEDS: Acetaminophen 325 MG TABLET 975 MG PO (02:06)
== END 2022-10-06 02:20 | disposition home or self-care (01) ==
PROVIDERS: Emergency Provider Student in an Organized Health Care Education/Training Program; PCP Internal Medicine
DX: R05.9 Cough, unspecified (principal); B97.4 Respiratory syncytial virus as the cause of diseases classified elsewhere; Z20.822 Contact with and (suspected) exposure to COVID-19
CPT/HCPCS: 0241U; 36415; 80048; 84484; 85027; 93005; 99283; 99284

== ENCOUNTER 2022-10-07 02:08 | Emergency (ER) | payer OTHER, SELFPAY ==
[2022-10-07 02:41] VITALS: BP 150/100; BP 158/107; PULSE 79; PULSE 85; RESP 20; TEMP 36.5; O2SAT 97; O2SAT 98; BMI 38.2
[2022-10-07 03:02] LABS: MANUAL DIFF FLAG NO
[2022-10-07 03:03] LABS: Basophils Percent Auto 0.6 % (0-2); Eosinophils Absolute Auto 0.2 X10*3/uL (0.0-0.4); Eosinophils Percent Auto 3.1 % (0-4); Hematocrit 40.9 % (37.0-47.0); Imm Gran Abs Auto 0.01 X10*3/uL (0.00-0.03); Imm Gran Pct Auto 0.2 % (0.0-0.4); Lymphocytes Absolute Auto 2.7 X10*3/uL (1.2-4.9); Mean Corpuscular HGB Conc 34.2 g/dl (31.0-35.0); Mean Corpuscular Hemoglobin 30.3 pg (27.0-33.0); Mean Corpuscular Volume 88.5 fL (80.0-98.0); Mean Platelet Volume 11.7 fL (9.4-12.3); Monocytes Absolute Auto 0.5 X10*3/uL (0.1-1.2); Monocytes Percent Auto 8.3 % (2-11); Neutrophils Absolute Auto 2.9 x10*3/uL (2.0-8.3); Neutrophils Percent Auto 44.8 % (45-73); Platelet Count 172 X10*3/uL (160-400); Red Blood Count 4.62 X10*6/uL (4.20-5.50); Red Cell Distribution Width 12.3 % (11.0-16.0); White Blood Count 6.4 X10*3/uL (4.8-10.8)
[2022-10-07 03:23] LABS: Anion Gap 13 (12-20); Blood Urea Nitrogen 11 mg/dL (9-16); Calcium 9.3 mg/dL (8.4-10.2); Carbon Dioxide 24 mmol/L (22-29); Chloride 104 mmol/L (96-108); Creatinine Clr Calc Pharmacy 106.7; Estimated Glomerular Filt Rate > 60; Glucose Random 173 mg/dL (60-115); Potassium 4.2 mmol/L (3.3-5.1); Sodium 137 mmol/L (135-145)
[2022-10-07 03:44] LABS: Influenza A PCR NEGATIVE (Negative); Influenza B PCR NEGATIVE (Negative); Resp Syncy Virus RNA Qual PCR POSITIVE (Negative); SARS COV2 PCR INHOUSE NEGATIVE (Negative)
--- NOTE | 2022-10-07 07:35 | ED.URI ---
HPI - URI/Sore Throat General Chief Complaint: Upper Respiratory Symptoms Stated Complaint: rsv+ multiple complaints Time Seen by Provider: 10/07/22 07:34 Source: patient Mode of arrival: ambulatory Limitations: no limitations History of Present Illness HPI Narrative: Feels worse for the past three days, diffuse myalgias MD elicited complaint: fever, cough and sore throat Onset (ago): day(s) Consistency: constant Severity: mild Context: sick contacts Associated symptoms: fever, chills and myalgias Treatments prior to arrival: none Related Data Previous Rx's Medication Instructions Recorded omeprazole 20 mg capsule,delayed 20 mg PO DAILY #30 caps 06/14/22 release cholecalciferol (vitamin D3) 50 50 mcg PO DAILY #90 tabs 06/19/22 mcg (2,000 unit) tablet quetiapine 100 mg tablet 100 mg PO BEDTIME 30 days #30 tabs 08/08/22 benzonatate 200 mg capsule 200 mg PO TID PRN cough #14 caps 10/06/22 fluticasone propionate 50 1 spray intranasal Q12H #16 grams 10/07/22 mcg/actuation nasal spray,suspension (Flonase Allergy Relief) naproxen 500 mg tablet (Naprosyn) 500 mg PO BID #20 tabs 10/07/22 [id number] 2.5 20 ml PO Q4H PRN cold symptoms 10/07/22 mg-5 mg-50 mg/5 mL oral liquid #118 mL (Robitussin Cough and Cold CF) Allergies Allergy/AdvReac Type Severity Reaction Status Date / Time No Known Allergies Allergy Verified 07/17/22 08:19 [No Known Allergies*] Chantix AdvReac Unknown worsening Uncoded 07/17/22 08:19 bipolar disorder Review of Systems Review of Systems: Yes all other systems are reviewed and are negative Constitutional: Constitutional: Reports fatigue, Reports fever(s) and Reports headache(s) ENT: Reports headache(s) Musculoskeletal: Musculoskeletal: Reports other (myalgias) Neurologic: Reports headache(s) and Denies Sensory deficit (Neuro) Endocrine: Endocrine: Reports fatigue PMFSH Past Medical History Medical History Bipolar disorder Bulimia nervosa Gastritis Hyperlipidemia Impaired fasting glucose Obesity (BMI 30-39.9) Surgical History H/O bursectomy History of carpal tunnel surgery History of cholecystectomy History of colonoscopy History of endometrial ablation History of hernia surgery History of tubal ligation Family History Family History Mother High blood pressure Dementia Kidney stones Arthritis Father Hepatitis B Cirrhosis of liver Other Mental health problem Social History Social History Household Members: None Housing: Apartment Alcohol intake: never Patient Tobacco Use Status: Current everyday Tobacco user Cigarettes Per Day: 5 Second Hand Smoke Exposure: Yes Advance Directives: No Advance Directives Information Provided: No service: No Current occupational status: employed 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[employer] 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 Exam Vital Signs: Vital Signs: Last Vital Signs Temp 97.7 F 10/07/22 02:41 Pulse 79 10/07/22 02:41 Resp 20 10/07/22 02:41 BP 158/107 H 10/07/22 02:41 Pulse Ox 97 10/07/22 02:41 O2 Del Method 10/07/22 02:41 BMI result Body Mass Index 38.2 Const: General: healthy appearing Nutritional Appearance: obese Orientation/consciousness: oriented to person and patient oriented x3 Limitations: no limitations HEENT: Head: Yes normal to inspection Ears: external ears normal General nose exam: Other nasal findings present (rhinorrhea and congestion) Mouth: Normal oral and palatal mucosa present and oropharynx normal Throat: Yes posterior oropharynx normal Eyes: General: appearance normal, both eyes and all related structures Neck: Other: supple Neck: Yes normal visual inspection Chest: Chest palpation & inspection: normal inspection of the chest Resp: Auscultation: clear to auscultation bilaterally Cardio: Jugular venous distension: no JVD Rate: regular rate Rhythm: regular rhythm Heart sounds: S1 normal heart sound present and S2 normal heart sound present GI: Inspection: Yes normal to inspection Palpation (GI): Soft to palpation, nontender and No hepatosplenomegaly present Auscultation: normal bowel sounds : General: Yes no CVA tenderness Back/Spine/Pelvis: Back: no CVA tenderness Skin: General skin exam: no rashes or lesions noted Neuro: General: oriented to person and patient oriented x3 Cranial nerves: Yes CN's II-XII intact bilaterally Motor exam (neuro): 5/5 motor strength present throughout Sensory Exam: No Sensory deficit (Neuro) Extrem: General: Yes normal to inspection Psych: Appearance: grossly normal Course Reevaluation(s) Reevaluation #1: patient with RSV will place on nasonex, robitussin and naprosyn for symptoms Time: 07:42 Medical Decision Making Lab Data Result Diagrams: 10/07/22 02:55 10/07/22 02:55 Labs: Lab Results 10/07/22 10/07/22 10/07/22 Range/Units 02:55 02:55 02:55 WBC 6.4 (4.8-10.8) X10*3/uL RBC 4.62 (4.20-5.50) X10*6/uL Hgb 14.0 (12.0-16.0) g/dl Hct 40.9 (37.0-47.0) % MCV 88.5 (80.0-98.0) fL MCH 30.3 (27.0-33.0) pg MCHC 34.2 (31.0-35.0) g/dl RDW 12.3 (11.0-16.0) % Plt Count 172 (160-400) X10*3/uL MPV 11.7 (9.4-12.3) fL Immature Gran % (Auto) 0.2 (0.0-0.4) % Neut % (Auto) 44.8 L (45-73) % Lymph % (Auto) 43.0 H (20-40) % Whiteside % (Auto) 8.3 (2-11) % Eos % (Auto) 3.1 (0-4) % Baso % (Auto) 0.6 (0-2) % Lymph # (Auto) 2.7 (1.2-4.9) X10*3/uL Whiteside # (Auto) 0.5 (0.1-1.2) X10*3/uL Eos # (Auto) 0.2 (0.0-0.4) X10*3/uL Baso # (Auto) 0.0 (0.0-0.2) X10*3/uL Abs Immat Gran (auto) 0.01 (0.00-0.03) X10*3/uL Absolute Neuts (auto) 2.9 (2.0-8.3) x10*3/uL Absolute Nucleated RBC 0.000 (0.0-0.012) X10*3/uL Nucleated RBC % (auto) 0.0 (0.0-0.2) /100WBC Sodium 137 (135-145) mmol/L Potassium 4.2 (3.3-5.1) mmol/L Chloride 104 (96-108) mmol/L Carbon Dioxide 24 (22-29) mmol/L Anion Gap 13 (12-20) BUN 11 (9-16) mg/dL Creatinine 0.79 (0.5-1.4) mg/dL Estim Creat Clear Calc 106.7 Estimated GFR > 60 Random Glucose 173 H (60-115) mg/dL Calcium 9.3 (8.4-10.2) mg/dL Influenza Type A (PCR) NEGATIVE (Negative) Influenza Type B (PCR) NEGATIVE (Negative) RSV RNA Qual (PCR) POSITIVE A (Negative) SARS-CoV-2 RNA (RT-PCR) NEGATIVE (Negative) Discharge Plan Discharge Clinical Impression: Upper respiratory infection, Respiratory syncytial virus (RSV) Patient Disposition: Home, Self-Care Prescriptions: New Robitussin Cough and Cold CF 2.5-5-50 mg/5 mL liquid 20 ml PO Q4H PRN (Reason: cold symptoms) Qty: 118 0RF naproxen [Naprosyn] 500 mg tablet 500 mg PO BID Qty: 20 0RF fluticasone propionate [Flonase Allergy Relief] 50 mcg/actuation spray,suspension 1 spray intranasal Q12H Qty: 16 0RF Rx Instructions: administer into each nostril No Action omeprazole 20 mg capsule,delayed release(DR/EC) 20 mg PO DAILY Qty: 30 0RF cholecalciferol (vitamin D3) 50 mcg (2,000 unit) tablet 50 mcg PO DAILY Qty: 90 0RF quetiapine 100 mg tablet 100 mg PO BEDTIME 30 Days Qty: 30 3RF benzonatate 200 mg capsule 200 mg PO TID PRN (Reason: cough) Qty: 14 0RF Referrals: Physician,Unknown J [Primary Care Provider] - 1 week
== END 2022-10-07 08:45 | disposition home or self-care (01) ==
PROVIDERS: Emergency Provider Emergency Medicine
DX: J06.9 Acute upper respiratory infection, unspecified (principal); B97.4 Respiratory syncytial virus as the cause of diseases classified elsewhere; R50.9 Fever, unspecified; M79.10 Myalgia, unspecified site; R05.9 Cough, unspecified; Z20.822 Contact with and (suspected) exposure to COVID-19; Z79.899 Other long term (current) drug therapy
CPT/HCPCS: 0241U; 80048; 85025; 99282; 99283

== ENCOUNTER 2022-11-02 11:10 | Emergency (ER) | payer OTHER, SELFPAY ==
--- NOTE | ~2022-11-02 | CT_ITS ---
EXAMINATION: CT HEAD WITHOUT CONTRAST CLINICAL INFORMATION: Dizziness. Numbness. COMPARISON: None. TECHNIQUE: Contiguous axial imaging was performed from the skull base to vertex without intravenous administration of contrast. Coronal and sagittal reformatted images are performed at the CT scanner. [This CT examination was performed using dose optimization techniques as appropriate, variously including the following: *Automated exposure control *Adjustment of mA and/or kV according to patient size (this includes techniques or standardized protocols for targeted exams where dose is matched to indication/reason for exam; i.e. extremities or head) *Use of iterative reconstruction technique] DLP: 782 mGy-cm. FINDINGS: There is no evidence of acute intracranial hemorrhage or territorial infarction. No abnormal mass-effect or midline shift is seen. Ross to white matter differentiation is well preserved. No extra-axial fluid collections are identified. The ventricles are normal in size. There is no abnormal attenuation within the brain parenchyma. There is no osseous abnormality. The mastoid air cells and visualized portions of the paranasal sinuses are well-aerated. CT/CT head/brain wo IV con IMPRESSION: No acute intracranial pathology.
--- NOTE | ~2022-11-02 | XR_ITS ---
EXAMINATION: XR CHEST CLINICAL INFORMATION: Weakness. COMPARISON: Chest x-ray 04/01/2022 TECHNIQUE: Frontal portable view of the chest was obtained. 1314 hours FINDINGS: No significant abnormality is noted involving the heart, lungs, mediastinum, bony thorax or soft tissues. XR/XR chest 1V IMPRESSION: Unremarkable examination.
[2022-11-02 11:21] VITALS: BP 175/88; PULSE 88; RESP 16; TEMP 36.6; O2SAT 96; BMI 38.2
--- NOTE | 2022-11-02 12:08 | ECG_ITS ---
Test Reason : WEAKNESS Blood Pressure : / mmHG Vent. Rate : 069 BPM Atrial Rate : 069 BPM P-R Int : 160 ms QRS Dur : 082 ms QT Int : 392 ms P-R-T Axes : 022 004 028 degrees QTc Int : 420 ms Normal sinus rhythm Normal ECG When compared to the previous EKG of No significant changes seen Referred By: Bailey Arteaga Electronically Signed By:Harpreet Terrell
--- NOTE | 2022-11-02 12:10 | ED.NEUROSD ---
HPI - Neuro Symptoms/Deficit General Chief Complaint: Neuro Symptoms/Deficit Stated Complaint: Body Numbness Diff Breathing Time Seen by Provider: 11/02/22 11:46 Source: patient Mode of arrival: ambulatory History of Present Illness HPI Narrative: 47-year-old female with a past medical history of bipolar, gastritis, HLD, obesity, presenting to the ED complaining of generalized fatigue, body numbness, intermittent room spinning dizziness and lightheadedness, nausea, intermittent chest pain and shortness of breath x2 weeks. Reports legs feel heavy. Also reports fingers and toes become cold and turn purple. Denies headache, vision change/loss, vomiting, diarrhea, abdominal pain Onset (ago): week(s) Related Data Previous Rx's Medication Instructions Recorded omeprazole 20 mg capsule,delayed 20 mg PO DAILY #30 caps 06/14/22 release cholecalciferol (vitamin D3) 50 50 mcg PO DAILY #90 tabs 06/19/22 mcg (2,000 unit) tablet quetiapine 100 mg tablet 100 mg PO BEDTIME 30 days #30 tabs 08/08/22 benzonatate 200 mg capsule 200 mg PO TID PRN cough #14 caps 10/06/22 fluticasone propionate 50 1 spray intranasal Q12H #16 grams 10/07/22 mcg/actuation nasal spray,suspension (Flonase Allergy Relief) naproxen 500 mg tablet (Naprosyn) 500 mg PO BID #20 tabs 10/07/22 [id number] 2.5 20 ml PO Q4H PRN cold symptoms 10/07/22 mg-5 mg-50 mg/5 mL oral liquid #118 mL (Robitussin Cough and Cold CF) meclizine 25 mg tablet 25 mg PO TID PRN dizziness #14 tabs 11/02/22 Allergies Allergy/AdvReac Type Severity Reaction Status Date / Time No Known Allergies Allergy Verified 07/17/22 08:19 [No Known Allergies*] Chantix AdvReac Unknown worsening Uncoded 07/17/22 08:19 bipolar disorder Review of Systems Review of Systems: Constitutional: No Fever, No Chills, No Fatigue, No Malaise ENT/Mouth: No Ear Pain, No Nasal Congestion, No sore throat, No Rhinorrhea, No Swallowing Difficulty Eyes: No Eye Pain, No Swelling, No Redness, No Vision Changes Cardiovascular: + Chest Pain, + SOB, No Edema, No Palpitations Respiratory: No Cough, No Sputum, No Dyspnea Gastrointestinal: + Nausea, No Vomiting, No Diarrhea, No Constipation, No Abdominal pain Genitourinary: No irregular bleeding, No Dysuria, No Urinary Frequency, No Hematuria, No Flank Pain Musculoskeletal: No joint pain, No Myalgias, No Joint Swelling Skin: No Skin Lesions, No rash Neuro: + Weakness, + Numbness, + Paresthesias, No Loss of Consciousness, + Dizziness, No Headache Yes all other systems are reviewed and are negative Constitutional: Constitutional: Reports as per HPI Neurologic: Denies Abnormal speech present [facility] Past Medical History Attestation statement: The following information was validated with the patient. Medical History Bipolar disorder Bulimia nervosa Gastritis Hyperlipidemia Impaired fasting glucose Obesity (BMI 30-39.9) Surgical History H/O bursectomy History of carpal tunnel surgery History of cholecystectomy History of colonoscopy History of endometrial ablation History of hernia surgery History of tubal ligation Family History Family History Mother High blood pressure Dementia Kidney stones Arthritis Father Hepatitis B Cirrhosis of liver Other Mental health problem Social History Social History Household Members: None Housing: Apartment Alcohol intake: never Patient Tobacco Use Status: Current everyday Tobacco user Cigarettes Per Day: 5 Smoked in Last 30 Days: Yes Second Hand Smoke Exposure: Yes Use of substances other than those prescribed or required for medical reasons: No Advance Directives: No Advance Directives Information Provided: No Patient : No service: No Current occupational status: employed 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[employer] Physical Exam Vital Signs: Vital Signs: Last Vital Signs Temp 98.0 F 11/02/22 14:32 Pulse 73 11/02/22 14:58 Resp 16 11/02/22 14:58 BP 186/91 H 11/02/22 14:58 Pulse Ox 99 11/02/22 14:58 O2 Del Method 11/02/22 14:58 BMI result Body Mass Index 38.2 Const: General: cooperative, healthy appearing, comfortable, no acute distress, alert and awake Orientation/consciousness: patient oriented x3 Limitations: no limitations HEENT: Head: Yes normal to inspection and Yes atraumatic Ears: hearing grossly normal bilaterally General nose exam: Normal external nose present Face and sinus: Yes normal facial exam Throat: Yes posterior oropharynx normal, Yes tonsils normal, Yes uvula midline, No peritonsillar mass and No uvular edema Eyes: General: appearance normal, both eyes and all related structures Pupils: Equal, round and reactive pupils present EOM: EOMs intact bilaterally Neck: Neck: Yes normal visual inspection and Yes no meningeal signs Resp: Effort & Inspection: normal respiratory effort and no respiratory distress Auscultation: clear to auscultation bilaterally, no crackles, no rales, no rhonchi and no wheezes Cardio: Rate: regular rate Heart sounds: S1 normal heart sound present and S2 normal heart sound present GI: Inspection: Yes normal to inspection Palpation (GI): Soft to palpation, nontender, no guarding and not rigid Skin: Rashes: no rashes Wounds: no wounds Neuro: General: patient oriented x3, gait normal, tone normal, moves all extremities, no meningeal signs, no focal motor deficits and CN's II-XI intact bilaterally Cranial nerves: Yes Equal, round and reactive pupils present Cognition (Neuro): normal cognition Speech: No Abnormal speech present Gait exam (Neuro): Normal gait present Motor exam (neuro): 5/5 motor strength present throughout and Pronator motor function not present Sensory Exam: other (Reported decreased/different sensation to light touch throughout) Deep tendon reflexes (DTR's): Right patellar reflex intensity grade: 2+ and Left patellar reflex intensity grade: 2+ Coordination: [id number] test normal Romberg Test: Negative Extrem: General: Yes normal to inspection Course Course Course Narrative: -labs reassuring. Chronic elevated AST/ALT. Troponin negative -UA not infected. COVID 19/influenza negative -head CT and chest x-ray unremarkable -orthostatic vital signs negative 1507--on re-evaluation patient reports mild symptomatic improvement. Results discussed. Recommended close PCP follow-up. Results discussed with patient including worrisome signs and symptoms and strict return precautions, and when to return to the emergency department. They verbalized understanding and feel safe for discharge at this time. Medications Administered Discontinued Medications Generic Name Dose Route Start Last Admin Trade Name Freq PRN Reason Stop Dose Admin Diphenhydramine HCl 12.5 mg 11/02/22 14:43 11/02/22 14:54 Diphenhydramine Hcl 50 Mg/Ml Vial IVPUSH 11/02/22 14:44 12.5 mg ONCE ONE Administration Sodium Chloride 1,000 mls @ 999 mls/hr 11/02/22 12:15 11/02/22 13:57 Ns IV 11/02/22 13:15 Infused .Q1H1M CHRIS Infusion Lorazepam 0.5 mg 11/02/22 14:43 11/02/22 14:54 Lorazepam 0.5 Mg Tablet PO 11/02/22 14:44 Not Given ONCE ONE Meclizine HCl 25 mg 11/02/22 12:08 11/02/22 12:49 Meclizine Hcl 25 Mg Tablet PO 11/02/22 12:09 25 mg ONCE ONE Administration Medical Decision Making Medical Decision Making MDM Narrative: 47-year-old female with a past medical history of bipolar, gastritis, HLD, obesity, presenting to the ED complaining of generalized fatigue, body numbness, intermittent room spinning dizziness and lightheadedness, nausea, intermittent chest pain and shortness of breath x2 weeks. On exam vital signs stable, NAD, nontoxic appearing, no focal neuro deficits, ambulating with steady gait. Reported decreased sensation throughout to light touch. Patellar DTRs WNL. Concern for paresthesias vs viral illness vs dehydration/metabolic abnormalities. Symptoms atypical for ACS/PE or CVA/TIA. Low suspicion for SAH. Plan: EKG, labs, UA, CXR, head CT, IVF, orthostatics, re-evaluate Please refer to course for remaining clinical decision making, interpretation of labs/imaging results, and discussions with consultants and/or family members. Differential Diagnosis Differential Diagnoses: The differential diagnosis associated with the presentation includes As above Admission/Observation Consideration of admission/observation: Escalation of care including admission/observation considered Lab Data [facility] Lab Attestation statement: I reviewed the patient's lab results. 11/02/22 12:28 11/02/22 12:28 Labs: Lab Results 11/02/22 11/02/22 11/02/22 Range/Units 12:28 12:28 12:28 WBC 8.8 (4.8-10.8) X10*3/uL RBC 5.15 (4.20-5.50) X10*6/uL Hgb 15.3 (12.0-16.0) g/dl Hct 44.7 (37.0-47.0) % MCV 86.8 (80.0-98.0) fL MCH 29.7 (27.0-33.0) pg MCHC 34.2 (31.0-35.0) g/dl RDW 12.4 (11.0-16.0) % Plt Count 207 (160-400) X10*3/uL MPV 11.2 (9.4-12.3) fL Immature Gran % (Auto) 0.3 (0.0-0.4) % Neut % (Auto) 54.7 (45-73) % Lymph % (Auto) 37.5 (20-40) % Sur[place] % (Auto) 4.1 (2-11) % Eos % (Auto) 2.8 (0-4) % Baso % (Auto) 0.6 (0-2) % Lymph # (Auto) 3.3 (1.2-4.9) X10*3/uL Surry # (Auto) 0.4 (0.1-1.2) X10*3/uL Eos # (Auto) 0.3 (0.0-0.4) X10*3/uL Baso # (Auto) 0.1 (0.0-0.2) X10*3/uL Abs Immat Gran (auto) 0.03 (0.00-0.03) X10*3/uL Absolute Neuts (auto) 4.8 (2.0-8.3) x10*3/uL Absolute Nucleated RBC 0.000 (0.0-0.012) X10*3/uL Nucleated RBC % (auto) 0.0 (0.0-0.2) /100WBC Sodium 138 (135-145) mmol/L Potassium 4.1 (3.3-5.1) mmol/L Chloride 105 (96-108) mmol/L Carbon Dioxide 24 (22-29) mmol/L Anion Gap 13 (12-20) BUN 8 L (9-16) mg/dL Creatinine 0.75 (0.5-1.4) mg/dL Estim Creat Clear Calc 112.3 Estimated GFR > 60 Random Glucose 172 H (60-115) mg/dL Calcium 9.3 (8.4-10.2) mg/dL Magnesium 2.0 (1.6-2.6) mg/dL Total Bilirubin 0.4 (0.0-1.0) mg/dL Direct Bilirubin < 0.2 (0.0-0.5) mg/dL AST 48 H (5-31) U/L ALT 70 H (0-31) U/L Alkaline Phosphatase 98 (39-117) U/L Troponin I High Sens < 3.5 (<3.5-17.0) ng/L Total Protein 7.1 (6.5-8.0) g/dL Albumin 4.2 (3.5-5.0) g/dL Urine Color Urine Appearance Urine pH (5.0-9.0) Ur Specific [place] (1.005-1.025) Urine Protein (Neg-Trace) mg/dL Urine Glucose (UA) (Negative) mg/dL Urine Ketones (Negative) mg/dL Urine Blood (Negative) Urine Nitrite (Negative) Ur Leukocyte Esterase (Negative) Urine RBC (0-2) /HPF Urine WBC (0-5) /HPF Ur Squamous Epith Cells (0-2) /HPF Urine Bacteria (None Seen) Hyaline Casts (0-2) /LPF COVID-19 (ANDREW) (Negative) COVID-19 Clin Com Influenza Type A ([facility]ILTON) (Negative) Influenza Type B ([facility]ILTON) (Negative) Influenza A & B Note 11/02/22 11/02/22 11/02/22 Range/Units 12:28 12:28 12:29 WBC (4.8-10.8) X10*3/uL RBC (4.20-5.50) X10*6/uL Hgb (12.0-16.0) g/dl Hct (37.0-47.0) % MCV (80.0-98.0) fL MCH (27.0-33.0) pg MCHC (31.0-35.0) g/dl RDW (11.0-16.0) % Plt Count (160-400) X10*3/uL MPV (9.4-12.3) fL Immature Gran % (Auto) (0.0-0.4) % Neut % (Auto) (45-73) % Lymph % (Auto) (20-40) % Surry % (Auto) (2-11) % Eos % (Auto) (0-4) % Baso % (Auto) (0-2) % Lymph # (Auto) (1.2-4.9) X10*3/uL Surry # (Auto) (0.1-1.2) X10*3/uL Eos # (Auto) (0.0-0.4) X10*3/uL Baso # (Auto) (0.0-0.2) X10*3/uL Abs Immat Gran (auto) (0.00-0.03) X10*3/uL Absolute Neuts (auto) (2.0-8.3) x10*3/uL Absolute Nucleated RBC (0.0-0.012) X10*3/uL Nucleated RBC % (auto) (0.0-0.2) /100WBC Sodium (135-145) mmol/L Potassium (3.3-5.1) mmol/L Chloride (96-108) mmol/L Carbon Dioxide (22-29) mmol/L Anion Gap (12-20) BUN (9-16) mg/dL Creatinine (0.5-1.4) mg/dL Estim Creat Clear Calc Estimated GFR Random Glucose (60-115) mg/dL Calcium (8.4-10.2) mg/dL Magnesium (1.6-2.6) mg/dL Total Bilirubin (0.0-1.0) mg/dL Direct Bilirubin (0.0-0.5) mg/dL AST (5-31) U/L ALT (0-31) U/L Alkaline Phosphatase (39-117) U/L Troponin I High Sens (<3.5-17.0) ng/L Total Protein (6.5-8.0) g/dL Albumin (3.5-5.0) g/dL Urine Color Yellow Urine Appearance Cloudy Urine pH 5.5 (5.0-9.0) Ur Specific [place] 1.010 (1.005-1.025) Urine Protein Negative (Neg-Trace) mg/dL Urine Glucose (UA) Negative (Negative) mg/dL Urine Ketones Negative (Negative) mg/dL Urine Blood Negative (Negative) Urine Nitrite Negative (Negative) Ur Leukocyte Esterase Trace H (Negative) Urine RBC 0-2 (0-2) /HPF Urine WBC 0-5 (0-5) /HPF Ur Squamous Epith Cells 11-20 (0-2) /HPF Urine Bacteria Trace (None Seen) Hyaline Casts 0-2 (0-2) /LPF COVID-19 (ANDREW) Negative (Negative) COVID-19 Clin Com See Note Influenza Type A (MILTON) Negative (Negative) Influenza Type B ([facility]ILTON) Negative (Negative) Influenza A & B Note See Note Independent Interpretation I performed an independent interpretation of an: EKG Radiology Impression Discussion of test interpretation with radiology: I have reviewed the radiologist's reading. External Record Review External record reviewed: Office record Prior ED record Chronic Conditions Patient?s care impacted by: Hypertension Discharge Plan Discharge Clinical Impression: Paresthesia, Dizziness Patient Disposition: Home, Self-Care Instructions: Paresthesia (ED), Dizziness (ED) Additional Instructions: Your blood work and CT scan were unremarkable/reassuring today in the emergency department. Please follow-up with her doctor Meclizine is for dizziness, take as needed. Stay hydrated. If symptoms persist or worsen you develop weakness, headache, your unable to eat or drink return to the emergency department Prescriptions: New meclizine 25 mg tablet 25 mg PO TID PRN (Reason: dizziness) Qty: 14 0RF No Action omeprazole 20 mg capsule,delayed release(DR/EC) 20 mg PO DAILY Qty: 30 0RF cholecalciferol (vitamin D3) 50 mcg (2,000 unit) tablet 50 mcg PO DAILY Qty: 90 0RF quetiapine 100 mg tablet 100 mg PO BEDTIME 30 Days Qty: 30 3RF benzonatate 200 mg capsule 200 mg PO TID PRN (Reason: cough) Qty: 14 0RF Robitussin Cough and Cold CF 2.5-5-50 mg/5 mL liquid 20 ml PO Q4H PRN (Reason: cold symptoms) Qty: 118 0RF naproxen [Naprosyn] 500 mg tablet 500 mg PO BID Qty: 20 0RF fluticasone propionate [Flonase Allergy Relief] 50 mcg/actuation spray,suspension 1 spray intranasal Q12H Qty: 16 0RF Rx Instructions: administer into each nostril Referrals: [facility] [place] Neuro/Sleep [Provider Group] (Call to make an appointment) Narendra Jeff MD [Primary Care Provider] - 3 days Interventions: ED Discharge Assessment Last Done: 11/02/22 15:49 Discharge Date/Time: 11/02/22 15:50
[2022-11-02 12:36] LABS: MANUAL DIFF FLAG NO
[2022-11-02 12:37] VITALS: BP 174/89; PULSE 69
[2022-11-02 12:37] LABS: Basophils Absolute Auto 0.1 X10*3/uL (0.0-0.2); Basophils Percent Auto 0.6 % (0-2); Eosinophils Absolute Auto 0.3 X10*3/uL (0.0-0.4); Eosinophils Percent Auto 2.8 % (0-4); Hematocrit 44.7 % (37.0-47.0); Hemoglobin 15.3 g/dl (12.0-16.0); Imm Gran Abs Auto 0.03 X10*3/uL (0.00-0.03); Imm Gran Pct Auto 0.3 % (0.0-0.4); Lymphocytes Absolute Auto 3.3 X10*3/uL (1.2-4.9); Lymphocytes Percent Auto 37.5 % (20-40); Mean Corpuscular HGB Conc 34.2 g/dl (31.0-35.0); Mean Corpuscular Hemoglobin 29.7 pg (27.0-33.0); Mean Corpuscular Volume 86.8 fL (80.0-98.0); Mean Platelet Volume 11.2 fL (9.4-12.3); Monocytes Absolute Auto 0.4 X10*3/uL (0.1-1.2); Monocytes Percent Auto 4.1 % (2-11); Neutrophils Absolute Auto 4.8 x10*3/uL (2.0-8.3); Neutrophils Percent Auto 54.7 % (45-73); Platelet Count 207 X10*3/uL (160-400); Red Blood Count 5.15 X10*6/uL (4.20-5.50); Red Cell Distribution Width 12.4 % (11.0-16.0); White Blood Count 8.8 X10*3/uL (4.8-10.8)
[2022-11-02 12:40] LABS: Appearance Urine Cloudy; Color Urine Yellow; Glucose Urine UA Negative (Negative); Leukocyte Esterase Urine Trace (Negative); Nitrite Urine Negative (Negative); PH 5.5 (5.0-9.0); UMIC TRIGGER UACC YES; Urine Blood Negative (Negative); Urine Ketones Negative (Negative); Urine Protein Negative (Neg-Trace)
[2022-11-02 12:41] VITALS: BP 165/99; PULSE 70
[2022-11-02 12:42] VITALS: BP 174/96; PULSE 79
[2022-11-02] MEDS: 0.9 % Sodium Chloride 1,000 ML 999 ML IV (12:49)
[2022-11-02] MEDS: Meclizine HCl 25 MG TABLET PO (12:49)
[2022-11-02 12:54] LABS: COVID-19 Test Negative (Negative); IDNOW Serial# 16C4AD1C
[2022-11-02 12:55] LABS: IDNOW Serial# BCCEAD1C; Influenza A Negative (Negative); Influenza B2 Negative (Negative)
[2022-11-02 13:02] LABS: Alanine Aminotransferase 70 U/L (0-31); Albumin Level 4.2 g/dL (3.5-5.0); Alkaline Phosphatase 98 U/L (39-117); Anion Gap 13 (12-20); Aspartate Amino Transferase 48 U/L (5-31); Bilirubin Direct < 0.2 mg/dL (0.0-0.5); Bilirubin Total 0.4 mg/dL (0.0-1.0); Blood Urea Nitrogen 8 mg/dL (9-16); Calcium 9.3 mg/dL (8.4-10.2); Carbon Dioxide 24 mmol/L (22-29); Chloride 105 mmol/L (96-108); Creatinine Clr Calc Pharmacy 112.3; Estimated Glomerular Filt Rate > 60; Glucose Random 172 mg/dL (60-115); Potassium 4.1 mmol/L (3.3-5.1); Sodium 138 mmol/L (135-145); Total Protein 7.1 g/dL (6.5-8.0)
[2022-11-02 13:09] LABS: Troponin-I High Sensitivity < 3.5 ng/L (<3.5-17.0)
--- NOTE | 2022-11-02 13:14 | PC.NURSE ---
negative orthos, states slight dizziness when sitting to standing though steady and able to do so without assistance.
[2022-11-02 13:55] LABS: Bacteria Urine Trace (None Seen); Hyaline Casts Urine 0-2 /LPF (0-2); RBC Urine 0-2 /HPF (0-2); WBC Urine 0-5 /HPF (0-5)
[2022-11-02 14:32] VITALS: BP 181/93; PULSE 70; RESP 16; TEMP 36.7; O2SAT 96
[2022-11-02] MEDS: diphenhydrAMINE HCL 50 MG/ML VIAL 12.5 MG IVPUSH (14:54)
[2022-11-02 14:58] VITALS: BP 186/91; PULSE 73; RESP 16; O2SAT 99
== END 2022-11-02 15:50 | disposition home or self-care (01) ==
PROVIDERS: Physician Assistant; Emergency Provider Emergency Medicine; PCP Internal Medicine
DX: R06.02 Shortness of breath (principal); M79.10 Myalgia, unspecified site; R53.1 Weakness; R20.2 Paresthesia of skin; R42 Dizziness and giddiness; R51.9 Headache, unspecified; F17.210 Nicotine dependence, cigarettes, uncomplicated; Z20.822 Contact with and (suspected) exposure to COVID-19; Z20.828 Contact with and (suspected) exposure to other viral communicable diseases; Z71.6 Tobacco abuse counseling
CPT/HCPCS: 36415; 70450; 71045; 80048; 80076; 81001; 83735; 84484; 85025; 87502; 87635; 93005; 96361; 96374; 99284; 99285; J1200

== ENCOUNTER 2022-11-16 16:16 | Outpatient (REF) | payer OTHER, SELFPAY ==
[2022-11-16 17:01] LABS: Estimated Average Glucose 157 mg/dL; Hemoglobin A1c % 7.1 %
[2022-11-16 17:46] LABS: TSH reflex Free T4 0.74 uIU/mL (0.32-4.0); Vitamin D 25-OH Total 10.2 ng/mL (>30)
[2022-11-16 17:59] LABS: Folate 12.8 ng/mL (> or = 4.0); Vitamin B12 540 pg/mL (200-900)
== END 2022-11-16 16:17 | disposition home or self-care (01) ==
LOC: HO.LAB 16:16
PROVIDERS: PCP Internal Medicine; Visit Provider Nurse Practitioner Family
DX: R20.0 Anesthesia of skin (principal); R73.01 Impaired fasting glucose
CPT/HCPCS: 36415; 82306; 82607; 82746; 83036; 84443

== ENCOUNTER 2023-01-07 09:28 | Outpatient (REF) | payer OTHER, SELFPAY ==
[2023-01-07 09:57] LABS: MANUAL DIFF FLAG NO
[2023-01-07 10:37] LABS: Basophils Absolute Auto 0.1 X10*3/uL (0.0-0.2); Basophils Percent Auto 0.9 % (0-2); Eosinophils Absolute Auto 0.5 X10*3/uL (0.0-0.4); Eosinophils Percent Auto 4.9 % (0-4); Hematocrit 43.1 % (37.0-47.0); Hemoglobin 14.7 g/dl (12.0-16.0); Imm Gran Abs Auto 0.04 X10*3/uL (0.00-0.03); Imm Gran Pct Auto 0.4 % (0.0-0.4); Lymphocytes Absolute Auto 3.4 X10*3/uL (1.2-4.9); Mean Corpuscular HGB Conc 34.1 g/dl (31.0-35.0); Mean Corpuscular Hemoglobin 30.2 pg (27.0-33.0); Mean Corpuscular Volume 88.7 fL (80.0-98.0); Mean Platelet Volume 11.6 fL (9.4-12.3); Monocytes Absolute Auto 0.6 X10*3/uL (0.1-1.2); Monocytes Percent Auto 5.8 % (2-11); Neutrophils Absolute Auto 4.9 x10*3/uL (2.0-8.3); Platelet Count 199 X10*3/uL (160-400); Red Blood Count 4.86 X10*6/uL (4.20-5.50); Red Cell Distribution Width 12.2 % (11.0-16.0); White Blood Count 9.5 X10*3/uL (4.8-10.8)
[2023-01-07 10:45] LABS: Estimated Average Glucose 197 mg/dL; Hemoglobin A1c % 8.5 %
[2023-01-07 11:07] LABS: Appearance Urine Turbid; Color Urine Dark Yellow; Glucose Urine UA 100 mg/dL (Negative); Leukocyte Esterase Urine Trace (Negative); Nitrite Urine Negative (Negative); Specific Gravity - Urine >= 1.030 (1.005-1.025); UMIC TRIGGER UACC YES; Urine Blood Negative (Negative); Urine Ketones Negative (Negative); Urine Protein 30 (1+) mg/dL (Neg-Trace)
[2023-01-07 11:23] LABS: Bacteria Urine 4+ (None Seen); Squamous Epithelial Cell Urine >20 /HPF (0-2); UACC Culture Trigger YES
[2023-01-07 12:02] LABS: Alanine Aminotransferase 91 U/L (0-31); Albumin Level 4.2 g/dL (3.5-5.0); Alkaline Phosphatase 105 U/L (39-117); Anion Gap 19 (12-20); Aspartate Amino Transferase 83 U/L (5-31); Bilirubin Total 0.5 mg/dL (0.0-1.0); Blood Urea Nitrogen 13 mg/dL (9-16); Calcium 9.6 mg/dL (8.4-10.2); Carbon Dioxide 22 mmol/L (22-29); Chloride 102 mmol/L (96-108); Cholesterol 246 mg/dL; Estimated Glomerular Filt Rate > 60; Glucose Fasting 240 mg/dL (60-99); HDL Cholesterol 37 mg/dL; LDL Cholesterol Calculated 133 mg/dl; Potassium 4.7 mmol/L (3.3-5.1); Sodium 138 mmol/L (135-145); Total Protein 7.3 g/dL (6.5-8.0); Triglycerides 380 mg/dL
[2023-01-07 12:05] LABS: TSH reflex Free T4 1.89 uIU/mL (0.32-4.0); Vitamin D 25-OH Total 12.1 ng/mL (>30)
[2023-01-07 12:05] LABS: Microalbum/Creatinine Ratio Ur 39.9 ug/mg cr
[2023-01-08 17:38] LABS: C Peptide 3.81 ng/mL (0.80-3.85)
[2023-01-12 20:53] LABS: Glutamic acid decarboxylase Ab <5 IU/mL (<5)
== END 2023-01-07 09:29 | disposition home or self-care (01) ==
LOC: HO.LAB 09:28
PROVIDERS: PCP Internal Medicine; Visit Provider Internal Medicine
DX: E11.9 Type 2 diabetes mellitus without complications (principal); I10 Essential (primary) hypertension; E55.9 Vitamin D deficiency, unspecified; E78.00 Pure hypercholesterolemia, unspecified
CPT/HCPCS: 36415; 80053; 80061; 81001; 81003; 82043; 82306; 83036; 84443; 84681; 85025; 86341; 87086

== ENCOUNTER 2023-07-03 10:18 | Outpatient (AMB) | payer OTHER, SELFPAY ==
--- NOTE | 2023-07-03 10:21 | MHC.PC.OV ---
Vital Signs 07/03/23 10:39 07/03/23 11:14 Height 5 ft 5 in Weight 217 lb BMI 36.1 BP 150/98 H 166/100 H Blood Pressure Location Lt brachial Lt brachial Position Sitting Sitting Pulse 101 H Pulse Source Pulse Oximeter Temp Source Skin Pulse Oximetry (%) 99 Oxygen Delivery Method Room Air Intake Visit Reasons: DM, chest pressure, HTN, hyperlipidemia Allergies Chantix Adverse Reaction (Unknown, Uncoded 07/03/23 10:59) worsening bipolar disorder Medication List - Last Reconciled 07/03/23 by RAYMOND Vazquez blood pressure kit-extra large As directed lisinopril 5 mg PO DAILY metformin ER 1,000 mg (2 x 500 mg) PO BID 30 days Tobacco use date assessed: 07/03/23 Dental Screening Dental Screen Date: 07/03/23 Did you have a dental visit in the last 12 months?: Yes Did you have a dental problem in the last 6 months where you did not have access to dental care?: No Was dental information given to patient?: Patient has dentist HPI DM, chest pressure, HTN, hyperlipidemia HPI Details Patient is a 47-year-old female who presents today to follow-up on her chronic conditions. Patient of Dr. Jeff. Medical history significant for bipolar disorder obesity, migraine, GERD, fatty liver, hypertension, diabetes, intermittent chest pressure-has order for stress test-will follow-up on this, elevated LFTs. Patient has requested STI screening, denies STI exposure. Patient reports that she stopped all of her medications 3 months ago, patient reports that she is sick and tired of taking medications . Patient reports systolic blood pressures at home in 130s and 140s. She has an upcoming diabetic eye exam 07/2023. In addition, patient reports that she is following low-sodium, low-cholesterol, low-carbohydrate diet. She did lost some weight intentionally. In addition, patient reports left hand 2nd finger skin lump which is increasing in size for the past some time and would like evaluation for this. No shortness of breath or chest pain. FORMERLY [facility], [facility]–1983 Medical History Elevated LFTs Vitamin D deficiency Pure hypercholesterolemia Benign essential hypertension Obesity (BMI 30-39.9) Gastritis Bulimia nervosa Bipolar disorder Impaired fasting glucose Hyperlipidemia Surgical History History of endometrial ablation History of cholecystectomy History of colonoscopy History of hernia surgery History of tubal ligation History of carpal tunnel surgery H/O bursectomy Family History Mother High blood pressure Dementia Kidney stones Arthritis Father Hepatitis B Cirrhosis of liver Other Mental health problem Social History Household Members: None Housing: Apartment Alcohol intake: never Patient Tobacco Use Status: Current everyday Tobacco user Tobacco use type: Cigarette Cigarettes Per Day: 5 e-Cigarette/Vaping Use: Never Used Second Hand Smoke Exposure: Yes service: No Current occupational status: employed 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 How often do you have a drink containing alcohol?: Monthly or less 2. How many drinks containing alcohol do you have on a typical day when you are drinking?: 1 or 2 3. How often do you have six or more drinks on one occasion?: Never Total Score: 1 Score Reviewed/Action Taken: No GABI-7 AMB Questionnaire GABI-7 Date GABI - 7 assessed: 11/16/22 Source: Developed by Drs. Malcolm Sauceda, Lilliana Biswas, Francis Schmitt and colleagues, with an educational rich from [employer]. Review of Systems Const Denies body aches, Denies chills, Denies fever(s) and Reports headache(s) Eyes Denies change in vision ENT Reports dizziness, Denies otalgia, Reports headache(s), Denies nasal discharge, Denies sinus pain and Denies sore throat Card Details: Intermittent chest pressure/palpitations Reports as per HPI, Denies chest pain, Denies edema, Denies lightheadedness and Denies dyspnea Resp Denies cough and Denies dyspnea GI Denies constipation, Denies diarrhea, Denies nausea and Denies vomiting Denies dysuria Musc Denies myalgias, Denies arthralgias, Denies joint swelling, Reports numbness and Reports tingling Skin/Breast Denies lesions and Denies rash Neuro Reports dizziness, Reports headache(s), Reports numbness and Reports tingling Physical exam (Primary Care) Vital Signs: Last Vital Signs Pulse 101 H 07/03/23 10:39 BP 166/100 H 07/03/23 11:14 Pulse Ox 99 07/03/23 10:39 Oxygen Delivery Method Room Air 07/03/23 10:39 BMI result Body Mass Index 36.1 Tobacco/Smoking Status: Tobacco use Status Tobacco use date assessed 07/03/23 07/03/23 10:44 Patient Tobacco Use Status Current everyday Tobacco 07/03/23 10:21 Tobacco use type Cigarette 07/03/23 10:21 e-Cigarette/Vaping Use Never Used 07/03/23 10:21 Thrive Assessment: Date of Thrive Assessment Date Thrive assessed 12/04/22 07/03/23 10:21 Const General: cooperative and no acute distress Orientation/consciousness: patient oriented x3 HENMT Head: Yes normocephalic and Yes atraumatic Mouth: oropharynx normal and moist mucous membranes Throat: Yes posterior oropharynx normal Eyes General: appearance normal, both eyes and all related structures Pupils: Equal, round and reactive pupils present Neck Neck: Yes normal visual inspection, Yes full ROM and Yes no lymphadenopathy Resp Effort & Inspection: normal respiratory effort and able to speak in complete sentences Auscultation: clear to auscultation bilaterally, no crackles, no rales, no rhonchi and no wheezes Cardio Rate: regular rate Rhythm: regular rhythm Heart sounds: S1 normal heart sound present, S2 normal heart sound present and no murmurs GI Auscultation: normal bowel sounds Skin Other: Left hand 2nd finger dorsal aspect raised area about 5mm diameter, skin is intact, no signs of infection noted Neuro General: patient oriented x3 Cranial nerves: Yes Equal, round and reactive pupils present Gait exam (Neuro): Normal gait present Extrem General: Yes full ROM and No edema Results AMB Hemoglobin A1c AMB Hemoglobin A1c 12.2 % Last Edit by ALMA Lagunas on 07/03/23 10:51 Results Reviewed Results Reviewed: Laboratory Last Values Hgb A1c (Clinic) 12.2 % (4.0-6.0) H 07/03/23 10:22 Assessment and Plan Assessment & Plan (1) Routine screening for STI (sexually transmitted infection): Code(s): Z11.3 - Encounter for screening for infections with a predominantly sexual mode of transmission Plan: STI screening ordered (2) Lump of skin: Code(s): R22.9 - Localized swelling, mass and lump, unspecified Plan: Left hand 2nd finger dorsal aspect raised area about 5mm diameter, skin is intact, no signs of infection noted Will obtain ultrasound ? cyst/lipoma (3) Pure hypercholesterolemia: Code(s): E78.00 - Pure hypercholesterolemia, unspecified Plan: LDL 133 12/2022, goal less than 100 Reinforced low-cholesterol diet (4) Benign essential hypertension: Code(s): I10 - Essential (primary) hypertension Plan: Goal BP equal or less than 140/90 Patient reports better blood pressures at home Blood pressure is elevated in the office today Patient was educated to restart her lisinopril 5 mg daily-patient agreed with the plan Follow-up with nurse in 2 weeks for BP recheck Continue low-sodium diet Signs and symptoms reviewed when to notify provider go to the emergency department Monitor blood pressures at home (5) Chest pressure: Comment: intermittent Code(s): R07.89 - Other chest pain Plan: Patient reports intermittent chest pressure, denies shortness of breath or chest pain, will follow-up on stress test (6) Diabetes mellitus: Code(s): E11.9 - Type 2 diabetes mellitus without complications Qualifiers: Diabetes mellitus type: type 2 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 Diabetes mellitus complication status: with hyperglycemia Qualified Code(s): E11.65 - Type 2 diabetes mellitus with hyperglycemia Plan: A1c 12.2 today, previous 8.5, goal less than 7 Patient reports that she stopped taking all of her medications 3 months ago due to being sick and tired of taking medications and also them not working per patient Patient reports that she is following low-carbohydrate diet Patient was educated on the benefit of restarting diabetes medication, patient declined restarting metformin or ozempic - patient agreed to try Januvia Started Januvia 50 mg daily-possible adverse reactions reviewed with the patient and when to notify provider Patient declined referral for diabetes Education Reinforced low-carbohydrate diet Patient was educated about diabetes complications Check blood sugars at home daily Plan Follow-up with PCP in 3 months or sooner as needed Orders: Orders Microalbumin, Random (w Creat) Today E11.9 - Type 2 diabetes mellitus without complications, I10 - Essential (primary) hypertension US extremity nonvascular melvin Today R22.9 - Localized swelling, mass and lump, unspecified Syphilis Screen Today Z11.3 - Encounter for screening for infections with a predominantly sexual mode of transmission Hepatitis B,C Profile Today Z11.3 - Encounter for screening for infections with a predominantly sexual mode of transmission HIV Ab/Ag Today Z11.3 - Encounter for screening for infections with a predominantly sexual mode of transmission AMB Hemoglobin A1c Today E11.9 - Type 2 diabetes mellitus without complications Medications: New blood sugar diagnostic (FreeStyle Lite Strips) test daily 100 ea 2RF E11.9 - Type 2 diabetes mellitus without complications sitagliptin phosphate (Januvia) 50 mg PO DAILY 90 tabs 1RF E11.9 - Type 2 diabetes mellitus without complications blood-glucose meter (FreeStyle Lite Meter kit) test daily 1 ea 0RF E11.9 - Type 2 diabetes mellitus without complications lancets (FreeStyle Lancets) test daily 100 ea 2RF E11.9 - Type 2 diabetes mellitus without complications Refilled blood pressure kit-extra large As directed 1 ea 0RF I10 - Essential (primary) hypertension lisinopril 5 mg PO DAILY 90 tabs 1RF I10 - Essential (primary) hypertension Discontinued metformin ER Discontinued Reason: Patient no longer taking 1,000 mg (2 x 500 mg) PO BID 30 days 120 tabs 3RF E11.9 - Type 2 diabetes mellitus without complications Coding Level of Care Code Est Pt Level 4 (78249) Diagnoses Routine screening for STI (sexually transmitted infection) Z11.3 Lump of skin R22.9 Pure hypercholesterolemia E78.00 Benign essential hypertension I10 Chest pressure R07.89 Type 2 diabetes mellitus with hyperglycemia, without long-term current use of insulin E11.65 Diabetes mellitus type: type 2 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
[2023-07-03 10:39] VITALS: BP 150/98; PULSE 101; O2SAT 99; BMI 36.1
[2023-07-03 11:14] VITALS: BP 166/100
== END 2023-07-03 11:35 | disposition home or self-care (01) ==
PROVIDERS: PCP Internal Medicine; Visit Provider Nurse Practitioner Family
DX: I10 Essential (primary) hypertension (principal); E11.65 Type 2 diabetes mellitus with hyperglycemia; Z11.3 Encounter for screening for infections with a predominantly sexual mode of transmission; R22.9 Localized swelling, mass and lump, unspecified; E78.00 Pure hypercholesterolemia, unspecified; R07.89 Other chest pain
CPT/HCPCS: 83036; 99214

== ENCOUNTER 2023-07-08 08:37 | Outpatient (REF) | payer OTHER, SELFPAY ==
[2023-07-08 10:34] LABS: Creatinine Urine 355.18 mg/dL; Microalbum/Creatinine Ratio Ur 37.7 ug/mg cr (<30)
[2023-07-09 04:46] LABS: Syphilis Screen Nonreactive (Nonreactive)
[2023-07-09 05:00] LABS: HBS Num1 0.08 mIU/mL (0-7.99); HBc Num1 0.08 S/CO (0.00-0.79); HBsAGNum1 0.32 S/CO (0.00-0.99); HIV AB/AG Nonreactive (Nonreactive); HIV Num 1 0.05 S/CO (0.00-0.99); Hepatitis B Core Antibody Nonreactive (Nonreactive); Hepatitis B Surface Antigen Negative (Negative); ~Hepatitis B Surface Antibody NONREACTIVE (Nonreactive); ~Hepatitis C Antibody Nonreactive (Nonreactive)
== END 2023-07-08 08:38 | disposition home or self-care (01) ==
LOC: HO.LAB 08:37
PROVIDERS: PCP Internal Medicine; Visit Provider Nurse Practitioner Family
DX: I10 Essential (primary) hypertension (principal); E11.9 Type 2 diabetes mellitus without complications; Z11.3 Encounter for screening for infections with a predominantly sexual mode of transmission
CPT/HCPCS: 36415; 82043; 82570; 86704; 86706; 86780; 86803; 87340; 87389

== ENCOUNTER 2023-07-12 11:29 | Outpatient (REF) | payer OTHER, SELFPAY ==
--- NOTE | ~2023-07-12 | MM_ITS ---
EXAMINATION: MM SCREENING DIGITAL BREAST TOMOSYNTHESIS, BILATERAL CLINICAL INFORMATION: Screening. Asymptomatic. COMPARISON: Mammography: This study is compared with prior exams dating back to 2015. TECHNIQUE: Digital breast tomosynthesis is performed in both the craniocaudal and mediolateral oblique views along with computer-aided detection (CAD). Synthesized 2D images are generated from the tomosynthesis. FINDINGS: There are scattered areas of fibroglandular density (ACR BI-RADS breast composition Category b). There are no significant masses, abnormal calcifications, or other abnormalities. There is a tissue marker in the upper outer quadrant of the left breast from prior benign percutaneous biopsy. . MM/MM tomosynthesis screening BI IMPRESSION: No mammographic evidence of malignancy. ASSESSMENT: BI-RADS BI-RADS 2 - Benign Findings RECOMMENDATION: Routine annual mammography screening. 1 year F/U This examination should not preclude the clinical evaluation of a suspicious palpable abnormality. This patient's information was entered into a reminder system with a target due date for their next mammogram.
== END 2023-07-12 11:30 | disposition home or self-care (01) ==
LOC: HO.MAMMO 11:29
PROVIDERS: PCP Internal Medicine; Visit Provider Internal Medicine
DX: Z12.31 Encounter for screening mammogram for malignant neoplasm of breast (principal)
CPT/HCPCS: 77063; 77067

== ENCOUNTER → 2023-07-12 12:15 | Outpatient (BNV) | payer OTHER, SELFPAY | PROVIDERS: PCP Internal Medicine; Visit Provider Radiology Diagnostic Radiology | DX: Z12.31 Encounter for screening mammogram for malignant neoplasm of breast (principal) | CPT/HCPCS: 77063; 77067 ==

== ENCOUNTER 2023-07-16 12:11 | Outpatient (REF) | payer OTHER, SELFPAY ==
--- NOTE | ~2023-07-16 | US_ITS ---
EXAMINATION: Left upper extremity nonvascular ultrasound limited CLINICAL INFORMATION: Palpable lump left index finger COMPARISON: None. TECHNIQUE: The patient directed the cutter aluminum sheet to the area of palpable concern. Targeted ultrasound was performed. FINDINGS: 2 x 3 x 2 mm simple cyst. US/US extremity nonvascular melvin IMPRESSION: 3 mm simple cyst at the area of palpable concern.
== END 2023-07-16 12:12 | disposition home or self-care (01) ==
LOC: HO.US 12:11
PROVIDERS: PCP Internal Medicine; Visit Provider Nurse Practitioner Family
DX: R22.9 Localized swelling, mass and lump, unspecified (principal)
CPT/HCPCS: 76882

== ENCOUNTER 2023-08-20 23:31 | Emergency (ER) | payer OTHER, SELFPAY ==
--- NOTE | 2023-08-20 | ECG_ITS ---
Test Reason : CHEST TIGHTNESS Blood Pressure : / mmHG Vent. Rate : 089 BPM Atrial Rate : 089 BPM P-R Int : 162 ms QRS Dur : 092 ms QT Int : 370 ms P-R-T Axes : 046 004 033 degrees QTc Int : 450 ms Normal sinus rhythm Nonspecific ST abnormality Lateral leads Abnormal ECG When compared with ECG of 02-NOV-2022 12:31, No significant change was found Referred By: Generic ED Physician Electronically Signed By:DEANNE FRANCO MD
[2023-08-20 23:34] VITALS: BP 146/91; PULSE 98; RESP 16; TEMP 36.6; O2SAT 97; BMI 36.3
--- NOTE | 2023-08-20 23:52 | MHC.EDTECH ---
Patient brought in from triage,EKG taken and labs were obtained and sent to lab and patient brought back to waiting room.
[2023-08-20 23:57] LABS: MANUAL DIFF FLAG NO
[2023-08-21 00:14] LABS: COVID-19 Test Negative (Negative); IDNOW Serial# 08D9AD1C; IDNOW Serial# BCCEAD1C; Influenza A Negative (Negative); Influenza B2 Negative (Negative)
[2023-08-21 00:15] LABS: Basophils Absolute Auto 0.1 X10*3/uL (0.0-0.2); Basophils Percent Auto 0.5 % (0-2); Eosinophils Absolute Auto 0.2 X10*3/uL (0.0-0.4); Hematocrit 43.5 % (37.0-47.0); Hemoglobin 15.2 g/dl (12.0-16.0); Imm Gran Abs Auto 0.03 X10*3/uL (0.00-0.03); Imm Gran Pct Auto 0.3 % (0.0-0.4); Lymphocytes Absolute Auto 4.2 X10*3/uL (1.2-4.9); Lymphocytes Percent Auto 37.9 % (20-40); Mean Corpuscular HGB Conc 34.9 g/dl (31.0-35.0); Mean Corpuscular Hemoglobin 29.4 pg (27.0-33.0); Mean Corpuscular Volume 84.1 fL (80.0-98.0); Mean Platelet Volume 11.6 fL (9.4-12.3); Monocytes Absolute Auto 0.6 X10*3/uL (0.1-1.2); Monocytes Percent Auto 5.4 % (2-11); Neutrophils Percent Auto 53.9 % (45-73); Platelet Count 202 X10*3/uL (160-400); Red Blood Count 5.17 X10*6/uL (4.20-5.50); White Blood Count 11.2 X10*3/uL (4.8-10.8)
[2023-08-21 00:27] LABS: Alanine Aminotransferase 90 U/L (0-31); Alkaline Phosphatase 111 U/L (39-117); Anion Gap 16 (12-20); Aspartate Amino Transferase 71 U/L (5-31); Bilirubin Total 0.5 mg/dL (0.0-1.0); Blood Urea Nitrogen 13 mg/dL (9-16); Carbon Dioxide 22 mmol/L (22-29); Chloride 106 mmol/L (96-108); Creatinine Clr Calc Pharmacy 94.1; Estimated Glomerular Filt Rate > 60; Glucose Random 200 mg/dL (60-115); Lipase 70 U/L (8-78); Potassium 4.1 mmol/L (3.3-5.1); Sodium 140 mmol/L (135-145); Total Protein 7.9 g/dL (6.5-8.0)
[2023-08-21 00:35] LABS: Troponin-I High Sensitivity < 2.7 ng/L (<3.5-17.0)
--- NOTE | 2023-08-21 00:48 | ED_ITS ---
HPI - General Adult General Chief complaint: General Medical Stated complaint: body aches Time Seen by Provider: 08/21/23 00:37 Source: patient Mode of arrival: ambulatory Limitations: no limitations History of Present Illness HPI narrative: Patient complaining of generalized body aches chills nausea and had 5 loose bowels in last few hours No cough no upper respiratory symptoms no urinary symptom no vomiting does feel very tired no fever or chills no other family member sick no recent travel no seafood Related Data Previous Rx's Medication Instructions Recorded blood pressure kit-extra large #1 ea 07/03/23 blood sugar diagnostic (FreeStyle #100 ea 07/03/23 Lite Strips) blood-glucose meter (FreeStyle #1 ea 07/03/23 Lite Meter kit) lancets 28 gauge (FreeStyle #100 ea 07/03/23 Lancets) lisinopril 5 mg tablet 5 mg PO DAILY #90 tabs 07/03/23 semaglutide 0.25 mg or 0.5 mg (2 0.25 mg (0.368 mL) subcut QWEEK #3 07/18/23 mg/3 mL) subcutaneous pen injector mL (Ozempic) loperamide 2 mg tablet (Imodium 2 mg PO Q6H PRN loose stool #7 tabs 08/21/23 A-D) ondansetron 4 mg disintegrating 4 mg PO Q6-8H PRN nausea and 08/21/23 tablet vomiting #7 tabs Allergies Allergy/AdvReac Type Severity Reaction Status Date / Time Chantix AdvReac Unknown worsening Uncoded 07/03/23 10:59 bipolar disorder Review of Systems 2 Review of Systems: Yes all other systems are reviewed and are negative PMFSH Past Medical History Medical History Elevated LFTs Vitamin D deficiency Pure hypercholesterolemia Benign essential hypertension Obesity (BMI 30-39.9) Gastritis Bulimia nervosa Bipolar disorder Impaired fasting glucose Hyperlipidemia Surgical History History of endometrial ablation History of cholecystectomy History of colonoscopy History of hernia surgery History of tubal ligation History of carpal tunnel surgery H/O bursectomy Family History Family History Mother High blood pressure Dementia Kidney stones Arthritis Father Hepatitis B Cirrhosis of liver Other Mental health problem Social History Social History Household Members: None Housing: Apartment Alcohol intake: never Patient Tobacco Use Status: Current everyday Tobacco user Tobacco use type: Cigarette Cigarettes Per Day: 5 Smoked in Last 30 Days: No e-Cigarette/Vaping Use: Never Used Second Hand Smoke Exposure: Yes Use of substances other than those prescribed or required for medical reasons: No Advance Directives: No Advance Directives Information Provided: No Patient : No service: No Current occupational status: employed 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 Oriented X3. No acute distress. Eyes: PERRLA, No Nystagmus ENT: Pharynx normal. Oral Mucosa moist Neck: Normal inspection. Neck supple. CVS: Normal heart rate and rhythm. Pulses normal. Respiratory: No respiratory distress. Equal air entry bilateral, no wheezing/rales/rhonchi Abdomen: Soft and nontender. Bowel sounds are present, no mass palpable, no CVA tenderness Skin: Skin warm and dry. Normal skin color. Normal skin turgor. Extremities: No lower extremity edema. No calf tenderness Neuro: Oriented X 3. No motor deficit. No sensory deficit.No cerebellar signs , cranial nerves II-XII intact Medical Decision Making Medical Decision Making MDM Narrative: Patient is stable will give symptomatic treatment for diarrhea and nausea Differential Diagnosis Differential Diagnoses: The differential diagnosis associated with the presentation includes Viral gastroenteritis/enteritis Lab Data [facility] Lab Attestation statement: I reviewed the patient's lab results. 08/20/23 23:47 08/20/23 23:47 Labs: Lab Results 08/20/23 08/21/23 Range/Units 23:47 01:21 WBC 11.2 H (4.8-10.8) X10*3/uL RBC 5.17 (4.20-5.50) X10*6/uL Hgb 15.2 (12.0-16.0) g/dl Hct 43.5 (37.0-47.0) % MCV 84.1 (80.0-98.0) fL MCH 29.4 (27.0-33.0) pg MCHC 34.9 (31.0-35.0) g/dl RDW 12.0 (11.0-16.0) % Plt Count 202 (160-400) X10*3/uL MPV 11.6 (9.4-12.3) fL Immature Gran % (Auto) 0.3 (0.0-0.4) % Neut % (Auto) 53.9 (45-73) % Lymph % (Auto) 37.9 (20-40) % [place] % (Auto) 5.4 (2-11) % Eos % (Auto) 2.0 (0-4) % Baso % (Auto) 0.5 (0-2) % Lymph # (Auto) 4.2 (1.2-4.9) X10*3/uL [place] # (Auto) 0.6 (0.1-1.2) X10*3/uL Eos # (Auto) 0.2 (0.0-0.4) X10*3/uL Baso # (Auto) 0.1 (0.0-0.2) X10*3/uL Abs Immat Gran (auto) 0.03 (0.00-0.03) X10*3/uL Absolute Neuts (auto) 6.0 (2.0-8.3) x10*3/uL Absolute Nucleated RBC 0.000 (0.0-0.012) X10*3/uL Nucleated RBC % (auto) 0.0 (0.0-0.2) /100WBC Sodium 140 (135-145) mmol/L Potassium 4.1 (3.3-5.1) mmol/L Chloride 106 (96-108) mmol/L Carbon Dioxide 22 (22-29) mmol/L Anion Gap 16 (12-20) BUN 13 (9-16) mg/dL Creatinine 0.86 (0.5-1.4) mg/dL Estim Creat Clear Calc 94.1 Estimated GFR > 60 Random Glucose 200 H (60-115) mg/dL Calcium 10.0 (8.4-10.2) mg/dL Total Bilirubin 0.5 (0.0-1.0) mg/dL AST 71 H (5-31) U/L ALT 90 H (0-31) U/L Alkaline Phosphatase 111 (39-117) U/L Troponin I High Sens < 2.7 (<3.5-17.0) ng/L Total Protein 7.9 (6.5-8.0) g/dL Albumin 4.0 (3.5-5.0) g/dL Lipase 70 (8-78) U/L Urine Color Dark Yellow Urine Appearance Cloudy Urine pH 5.5 (5.0-9.0) Ur Specific [place] >= 1.030 H (1.005-1.025) Urine Protein Trace (Neg-Trace) mg/dL Urine Glucose (UA) 100 H (Negative) mg/dL Urine Ketones Trace (Negative) mg/dL Urine Blood Negative (Negative) Urine Nitrite Negative (Negative) Ur Leukocyte Esterase Trace H (Negative) Urine RBC 0-2 (0-2) /HPF Urine WBC 0-5 (0-5) /HPF Ur Squamous Epith Cells >20 (0-2) /HPF Calcium Oxalate Crystal Present Urine Bacteria 4+ (None Seen) Hyaline Casts 3-5 (0-2) /LPF COVID-19 ([facility]W) Negative (Negative) COVID-19 Clin Com See Note Influenza Type A ([facility]) Negative (Negative) Influenza Type B ([facility]) Negative (Negative) Influenza A & B Note See Note Discharge Plan Discharge Clinical Impression: Viral gastroenteritis Patient Disposition: Home, Self-Care Instructions: Gastroenteritis (ED) Additional Instructions: Drink plenty of fluids Medicine for nausea as prescribed Imodium for severe diarrhea Follow-up with PCP if not better Prescriptions: New ondansetron 4 mg tablet,disintegrating 4 mg PO Q6-8H PRN (Reason: nausea and vomiting) Qty: 7 0RF loperamide [Imodium A-D] 2 mg tablet 2 mg PO Q6H PRN (Reason: loose stool) Qty: 7 0RF No Action Ozempic 0.25 mg or 0.5 mg (2 mg/3 mL) pen injector 0.25 mg subcut QWEEK Qty: 3 0RF (DME) blood pressure kit-extra large Kit See Rx Instructions .Route Qty: 1 0RF Rx Instructions: As directed (DME) blood-glucose meter [FreeStyle Lite Meter] Kit See Rx Instructions .MEDSUPPLY Qty: 1 0RF Rx Instructions: test daily (DME) FreeStyle Lite Strips Strip See Rx Instructions .MEDSUPPLY Qty: 100 2RF Rx Instructions: test daily (DME) lancets [FreeStyle Lancets] 28 gauge misc See Rx Instructions .MEDSUPPLY Qty: 100 2RF Rx Instructions: test daily lisinopril 5 mg tablet 5 mg PO DAILY Qty: 90 1RF Interventions: ED Discharge Assessment Last Done: 08/21/23 02:13
[2023-08-21 01:28] LABS: Appearance Urine Cloudy; Color Urine Dark Yellow; Glucose Urine UA 100 mg/dL (Negative); Leukocyte Esterase Urine Trace (Negative); Nitrite Urine Negative (Negative); PH 5.5 (5.0-9.0); Specific Gravity - Urine >= 1.030 (1.005-1.025); UMIC TRIGGER UACC YES; Urine Blood Negative (Negative); Urine Ketones Trace mg/dL (Negative); Urine Protein Trace mg/dL (Neg-Trace)
[2023-08-21 01:39] LABS: Bacteria Urine 4+ (None Seen); Calcium Oxalate Crystals Urine Present; RBC Urine 0-2 /HPF (0-2); Squamous Epithelial Cell Urine >20 /HPF (0-2); WBC Urine 0-5 /HPF (0-5)
[2023-08-21 01:48] VITALS: BP 143/83; PULSE 87; RESP 18; TEMP 36.7; O2SAT 98
[2023-08-21] MEDS: Ondansetron ODT 4 MG TAB.RAPDIS TRANSLINGU (02:10)
[2023-08-21] MEDS: Loperamide HCl 2 MG CAPSULE 4 MG PO (02:10)
== END 2023-08-21 02:13 | disposition home or self-care (01) ==
PROVIDERS: Emergency Provider Internal Medicine; PCP Internal Medicine
DX: A08.4 Viral intestinal infection, unspecified (principal); M79.10 Myalgia, unspecified site; Z11.52 Encounter for screening for COVID-19; I10 Essential (primary) hypertension; E78.00 Pure hypercholesterolemia, unspecified; F17.210 Nicotine dependence, cigarettes, uncomplicated
CPT/HCPCS: 36415; 80053; 81001; 83690; 84484; 85025; 87502; 87635; 93005; 99283; 99284

== ENCOUNTER 2023-08-27 22:54 | Emergency (ER) | payer OTHER, SELFPAY ==
[2023-08-27 23:23] VITALS: BP 170/102; PULSE 87; RESP 20; TEMP 36.1; O2SAT 99; BMI 37.5
[2023-08-28 00:44] VITALS: BP 156/117; PULSE 96; RESP 18; TEMP 36.6; O2SAT 100
--- NOTE | 2023-08-28 00:46 | ED_ITS ---
HPI - Headache General Chief Complaint: Headache Stated Complaint: Migraine Time Seen by Provider: 08/28/23 00:42 Source: patient Mode of arrival: ambulatory Limitations: no limitations History of Present Illness HPI Narrative: 48 yo female with PMH of HLD, HTN, DM, GERD, migraines, bipolar disorder here with c/o being at rest tonight then around 730am started with a typical headache and then it worsened throughout the night and she started with photophobia, vomiting, temporal throbbing. She notes she has had a headache this severe before. She denies trauma, fevers, or AC therapy MD elicited complaint: migraine Pertinent past history: migraines Onset (ago): hour(s) (730pm) Onset description: gradually Location: temporal Severity: similar to previous episodes Quality & Timing: throbbing Exacerbating factors: light and noise Relieving factors: rest Context: occurred at rest Associated symptoms: nausea, vomiting and photophobia Treatments prior to arrival: other (benadryl) Related Data Previous Rx's Medication Instructions Recorded blood pressure kit-extra large #1 ea 07/03/23 blood sugar diagnostic (FreeStyle #100 ea 07/03/23 Lite Strips) blood-glucose meter (FreeStyle #1 ea 07/03/23 Lite Meter kit) lancets 28 gauge (FreeStyle #100 ea 07/03/23 Lancets) lisinopril 5 mg tablet 5 mg PO DAILY #90 tabs 07/03/23 semaglutide 0.25 mg or 0.5 mg (2 0.25 mg (0.368 mL) subcut QWEEK #3 07/18/23 mg/3 mL) subcutaneous pen injector mL (Ozempic) loperamide 2 mg tablet (Imodium 2 mg PO Q6H PRN loose stool #7 tabs 08/21/23 A-D) ondansetron 4 mg disintegrating 4 mg PO Q6-8H PRN nausea and 08/21/23 tablet vomiting #7 tabs ondansetron 4 mg disintegrating 4 mg PO Q8H PRN nausea and 08/28/23 tablet vomiting #20 tabs Allergies Allergy/AdvReac Type Severity Reaction Status Date / Time Chantix AdvReac Unknown worsening Uncoded 07/03/23 10:59 bipolar disorder Review of Systems 2 Review of Systems: Constitutional : No Fever, No Chills, No Fatigue ENT/Mouth : No sore throat, No Rhinorrhea Eyes: No Eye Pain, No Swelling, No Redness Cardiovascular : No Chest Pain, No SOB, No Dyspnea on Exertion Respiratory : No Cough, No Sputum Gastrointestinal : pos Nausea, pos Vomiting, No Diarrhea, No abdominal Pain Genitourinary : No Dysuria, No Urinary Frequency, No Hematuria, Musculoskeletal : No joint pain, No Myalgias, No Joint Swelling Skin : No Skin Lesions, No rash Neuro : No Weakness, No Numbness, No Dizziness, positive Headache Psych : No Anxiety/Panic, No Depression Heme/Lymph: No Bruising, No Bleeding,No Lymphadenopathy Endocrine : No Polyuria, No Polydipsia All other systems reviewed and are negative [facility] Past Medical History Attestation statement: The following information was validated with the patient. Source: old records reviewed Medical History Elevated LFTs Vitamin D deficiency Pure hypercholesterolemia Benign essential hypertension Obesity (BMI 30-39.9) Gastritis Bulimia nervosa Bipolar disorder Impaired fasting glucose Hyperlipidemia Surgical History History of endometrial ablation History of cholecystectomy History of colonoscopy History of hernia surgery History of tubal ligation History of carpal tunnel surgery H/O bursectomy Family History Family History Mother High blood pressure Dementia Kidney stones Arthritis Father Hepatitis B Cirrhosis of liver Other Mental health problem Social History Social History Household Members: None Housing: Apartment Alcohol intake: never Patient Tobacco Use Status: Current everyday Tobacco user Tobacco use type: Cigarette Cigarettes Per Day: 5 Smoked in Last 30 Days: No e-Cigarette/Vaping Use: Never Used Second Hand Smoke Exposure: Yes Use of substances other than those prescribed or required for medical reasons: No Advance Directives: No Advance Directives Information Provided: Yes service: No Current occupational status: employed 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 Oriented X3. anxious in pain mild acute distress. Eyes: Pupils equal, round and reactive to light. ENT: Pharynx normal. Neck: Normal inspection. Neck supple. no meningeal signs CVS: Normal heart rate and rhythm. Pulses normal. Respiratory: No respiratory distress. Breath sounds normal. Abdomen: Soft and nontender. Skin: Skin warm and dry. Normal skin color. Normal skin turgor. Extremities: No lower extremity edema. No calf ttp Neuro: Oriented X 3. No motor deficit. No sensory deficit. CN2-12 intact Medications Administered Discontinued Medications Generic Name Dose Route Start Last Admin Trade Name Freq PRN Reason Stop Dose Admin Sodium Chloride 1,000 mls @ 999 mls/hr 08/28/23 01:00 08/28/23 02:20 Ns IV 08/28/23 02:00 Infused .Q1H1M CHRIS Infusion Ketorolac Tromethamine 15 mg 08/28/23 00:59 08/28/23 01:03 Ketorolac Tromethamine 15 Mg/Ml Vial IVPUSH 08/28/23 01:00 15 mg ONCE ONE Administration Metoclopramide HCl 10 mg 08/28/23 00:59 08/28/23 01:03 Metoclopramide Hcl 10 Mg/2 Ml Vial IVPUSH 08/28/23 01:00 10 mg ONCE ONE Administration Medical Decision Making Medical Decision Making [facility] Narrative: 48 yo female with PMH of HLD, HTN, DM, GERD, migraines, bipolar disorder here with gradual onset headache that worsened now with photophobia n/v and hx of severe migraine like this in the past. At this time will need basic labs, IV migraine cocktail. 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 She reports hx of same in past and gradual onset doubt SAH. Differential Diagnosis Differential Diagnoses: The differential diagnosis associated with the presentation includes dehydration, migraine, tension headache Admission/Observation Consideration of admission/observation: Escalation of care including admission/observation considered feels much better stable for DC Lab Data [facility] Lab Attestation statement: I reviewed the patient's lab results. 08/28/23 00:43 08/28/23 00:43 Labs: Lab Results 08/28/23 Range/Units 00:43 WBC 13.5 H (4.8-10.8) X10*3/uL RBC 5.23 (4.20-5.50) X10*6/uL Hgb 15.3 (12.0-16.0) g/dl Hct 44.4 (37.0-47.0) % MCV 84.9 (80.0-98.0) fL MCH 29.3 (27.0-33.0) pg MCHC 34.5 (31.0-35.0) g/dl RDW 11.9 (11.0-16.0) % Plt Count 211 (160-400) X10*3/uL MPV 11.7 (9.4-12.3) fL Immature Gran % (Auto) 0.3 (0.0-0.4) % Neut % (Auto) 49.4 (45-73) % Lymph % (Auto) 43.0 H (20-40) % [place] % (Auto) 5.2 (2-11) % Eos % (Auto) 1.7 (0-4) % Baso % (Auto) 0.4 (0-2) % Lymph # (Auto) 5.8 H (1.2-4.9) X10*3/uL [place] # (Auto) 0.7 (0.1-1.2) X10*3/uL Eos # (Auto) 0.2 (0.0-0.4) X10*3/uL Baso # (Auto) 0.1 (0.0-0.2) X10*3/uL Abs Immat Gran (auto) 0.04 H (0.00-0.03) X10*3/uL Absolute Neuts (auto) 6.7 (2.0-8.3) x10*3/uL Absolute Nucleated RBC 0.000 (0.0-0.012) X10*3/uL Nucleated RBC % (auto) 0.0 (0.0-0.2) /100WBC Smear Tech's Comments VERIFIED Sodium 138 (135-145) mmol/L Potassium 4.1 (3.3-5.1) mmol/L Chloride 101 (96-108) mmol/L Carbon Dioxide 27 (22-29) mmol/L Anion Gap 14 (12-20) BUN 10 (9-16) mg/dL Creatinine 0.87 (0.5-1.4) mg/dL Estim Creat Clear Calc 94.7 Estimated GFR > 60 Random Glucose 253 H (60-115) mg/dL Calcium 9.7 (8.4-10.2) mg/dL Total Bilirubin 0.5 (0.0-1.0) mg/dL Direct Bilirubin 0.1 (0.0-0.5) mg/dL AST 52 H (5-31) U/L ALT 66 H (0-31) U/L Alkaline Phosphatase 115 (39-117) U/L Total Protein 8.2 H (6.5-8.0) g/dL Albumin 4.3 (3.5-5.0) g/dL Lipase 32 (8-78) U/L External Record Review External record reviewed: Inpatient record Discharge Plan Discharge Clinical Impression: Migraine Qualifiers: Migraine type: unspecified Status migrainosus presence: without status migrainosus Intractability: not intractable Qualified Code(s): G43.909 - Migraine, unspecified, not intractable, without status migrainosus Patient Disposition: Home, Self-Care Instructions: Migraine Headache (ED) Additional Instructions: return for worsening symptoms - confusion, pain, vomiting, numbness, weakness or any other concerns. Prescriptions: New ondansetron 4 mg tablet,disintegrating 4 mg PO Q8H PRN (Reason: nausea and vomiting) Qty: 20 0RF No Action Ozempic 0.25 mg or 0.5 mg (2 mg/3 mL) pen injector 0.25 mg subcut QWEEK Qty: 3 0RF ondansetron 4 mg tablet,disintegrating 4 mg PO Q6-8H PRN (Reason: nausea and vomiting) Qty: 7 0RF loperamide [Imodium A-D] 2 mg tablet 2 mg PO Q6H PRN (Reason: loose stool) Qty: 7 0RF (DME) blood pressure kit-extra large Kit See Rx Instructions .Route Qty: 1 0RF Rx Instructions: As directed (DME) blood-glucose meter [FreeStyle Lite Meter] Kit See Rx Instructions .MEDSUPPLY Qty: 1 0RF Rx Instructions: test daily (DME) FreeStyle Lite Strips Strip See Rx Instructions .MEDSUPPLY Qty: 100 2RF Rx Instructions: test daily (DME) lancets [FreeStyle Lancets] 28 gauge misc See Rx Instructions .MEDSUPPLY Qty: 100 2RF Rx Instructions: test daily lisinopril 5 mg tablet 5 mg PO DAILY Qty: 90 1RF
[2023-08-28 00:53] LABS: Basophils Absolute Auto 0.1 X10*3/uL (0.0-0.2); Basophils Percent Auto 0.4 % (0-2); Eosinophils Absolute Auto 0.2 X10*3/uL (0.0-0.4); Eosinophils Percent Auto 1.7 % (0-4); Hematocrit 44.4 % (37.0-47.0); Hemoglobin 15.3 g/dl (12.0-16.0); Imm Gran Abs Auto 0.04 X10*3/uL (0.00-0.03); Imm Gran Pct Auto 0.3 % (0.0-0.4); Lymphocytes Absolute Auto 5.8 X10*3/uL (1.2-4.9); MANUAL DIFF FLAG SCAN; Mean Corpuscular HGB Conc 34.5 g/dl (31.0-35.0); Mean Corpuscular Hemoglobin 29.3 pg (27.0-33.0); Mean Corpuscular Volume 84.9 fL (80.0-98.0); Mean Platelet Volume 11.7 fL (9.4-12.3); Monocytes Absolute Auto 0.7 X10*3/uL (0.1-1.2); Monocytes Percent Auto 5.2 % (2-11); Neutrophils Absolute Auto 6.7 x10*3/uL (2.0-8.3); Neutrophils Percent Auto 49.4 % (45-73); Platelet Count 211 X10*3/uL (160-400); Red Blood Count 5.23 X10*6/uL (4.20-5.50); Red Cell Distribution Width 11.9 % (11.0-16.0); SCAN SMEAR FLAG 1; White Blood Count 13.5 X10*3/uL (4.8-10.8)
[2023-08-28] MEDS: Ketorolac Tromethamine 15 MG/ML VIAL IVPUSH (01:03)
[2023-08-28] MEDS: Metoclopramide HCl 10 MG/2 ML VIAL IVPUSH (01:03)
[2023-08-28] MEDS: 0.9 % Sodium Chloride 1,000 ML 999 ML IV (01:04)
[2023-08-28 01:09] LABS: Alanine Aminotransferase 66 U/L (0-31); Albumin Level 4.3 g/dL (3.5-5.0); Alkaline Phosphatase 115 U/L (39-117); Anion Gap 14 (12-20); Aspartate Amino Transferase 52 U/L (5-31); Bilirubin Direct 0.1 mg/dL (0.0-0.5); Bilirubin Total 0.5 mg/dL (0.0-1.0); Blood Urea Nitrogen 10 mg/dL (9-16); Calcium 9.7 mg/dL (8.4-10.2); Carbon Dioxide 27 mmol/L (22-29); Chloride 101 mmol/L (96-108); Creatinine Clr Calc Pharmacy 94.7; Estimated Glomerular Filt Rate > 60; Glucose Random 253 mg/dL (60-115); Lipase 32 U/L (8-78); Potassium 4.1 mmol/L (3.3-5.1); Sodium 138 mmol/L (135-145); Total Protein 8.2 g/dL (6.5-8.0)
[2023-08-28 01:28] LABS: SLIDE REVIEW VERIFIED
[2023-08-28 02:31] VITALS: BP 131/72; PULSE 90; RESP 16; TEMP 36.7; O2SAT 96
[2023-08-28] MEDS: diazePAM 2 MG TABLET PO (02:50)
== END 2023-08-28 02:59 | disposition home or self-care (01) ==
PROVIDERS: Emergency Provider Emergency Medicine; PCP Internal Medicine
DX: G43.909 Migraine, unspecified, not intractable, without status migrainosus (principal); R11.2 Nausea with vomiting, unspecified; F17.210 Nicotine dependence, cigarettes, uncomplicated; Z71.6 Tobacco abuse counseling; Z79.899 Other long term (current) drug therapy
CPT/HCPCS: 36415; 80048; 80076; 83690; 85025; 96361; 96374; 96375; 99284; J1885; J2765

== ENCOUNTER 2023-09-04 10:21 | Outpatient (AMB) | payer OTHER, SELFPAY ==
[2023-09-04 10:43] VITALS: BP 132/80; BMI 37.4
--- NOTE | 2023-09-04 10:43 | A.OFFVIS_ITS ---
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 No complaints. Last Pap/HPV was negative in 06/11 Last Mammogram was BI-RADS 2 in 07/13 Last screening colonoscopy was in 2019, the patient is due for next screening colonoscopy in 2029 according to her [facility] Medical History Elevated LFTs Vitamin D deficiency Pure hypercholesterolemia Benign essential hypertension Obesity (BMI 30-39.9) Gastritis Bulimia nervosa Bipolar disorder Impaired fasting glucose Hyperlipidemia Surgical History History of endometrial ablation History of cholecystectomy History of colonoscopy History of hernia surgery History of tubal ligation History of carpal tunnel surgery H/O bursectomy Family History Mother High blood pressure Dementia Kidney stones Arthritis Father Hepatitis B Cirrhosis of liver Other Mental health problem Social History Household Members: None Housing: Apartment Alcohol intake: never Patient Tobacco Use Status: Current everyday Tobacco user Tobacco use type: Cigarette Cigarettes Per Day: 5 e-Cigarette/Vaping Use: Never Used Second Hand Smoke Exposure: Yes service: No Current occupational status: employed 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[employer] Current occupational exposures/hazards: No Cognitive needs: No Hearing needs: No Vision needs: Yes Female Reproductive History Menstrual Age of Menarche: 13 control method: permanent sterilization Total pregnancies: 3 Full term: 2 Ab spontaneous: 1 Date of last pap smear: 06/06/22 Date of Mammogram: 07/12/23 Review of Systems Const All systems reviewed & are unremarkable except as noted in HPI and below Card Reports as per HPI Resp Reports as per HPI GI Reports as per HPI and Reports no additional complaints Reports as per HPI Physical Exam Vital Signs: Last Vital Signs BP 132/80 09/04/23 10:43 BMI result Body Mass Index 37.4 Const General: cooperative, healthy appearing and comfortable Chest Chest palpation & inspection: normal inspection of the chest and normal palpation of entire chest wall Breast/axilla inspection: normal inspection of the breasts and normal inspection of the axillae Breast/axilla palpation: normal palpation of the breasts, normal palpation of the axillae and no axillary lymphadenopathy Resp Effort & Inspection: normal respiratory effort Auscultation: clear to auscultation bilaterally Percussion: percussion normal Cardio Palpation: normal PMI Rate: regular rate Rhythm: regular rhythm Heart sounds: no murmurs and no rubs Peripheral pulses: Peripheral pulses 2+ throughout GI Inspection: Yes normal to inspection Palpation (GI): Soft to palpation, nontender, no guarding, not rigid and No hepatosplenomegaly present Percussion: Yes normal to percussion Auscultation: normal bowel sounds Rectal Exam - Female: deferred General: Yes bladder normal to palpation External Female Exam: No lesion Speculum Exam - Vagina: normal appearance of the vagina, normal palpation, normal vaginal discharge and not erythematous Speculum Exam - Cervix: normal appearance of the cervix and normal palpation Bimanual exam- vagina & uterus: normal bimanual exam, normal palpation, uterine size normal, bladder normal to palpation, consistency normal and normal palpation Bimanual Exam- Adnexa, other: normal adnexae, no masses and no tenderness Assessment & Plan Assessment & Plan (1) Well woman exam: Code(s): Z01.419 - Encounter for gynecological examination (general) (routine) without abnormal findings Plan: Cotesting not indicated. Instructions given the patient to schedule her next screening Mammogram in 07/14 Counseled the patient about the recommended dietary allowance of 1000 mg of Calcium & 600 IU of vitamin D. The patient was instructed to perform monthly self-breast exams and to schedule an annual exam in a year; All questions answered and the patient verbalized understanding. Instructed the patient to schedule annual exam in a year Coding Level of Care Code Est Pt Prev Care 40-64y(18216) Diagnoses Well woman exam Z01.419
== END 2023-09-04 11:31 | disposition home or self-care (01) ==
PROVIDERS: PCP Internal Medicine; Visit Provider Obstetrics & Gynecology
DX: Z01.419 Encounter for gynecological examination (general) (routine) without abnormal findings (principal)
CPT/HCPCS: 99396

== ENCOUNTER → 2023-09-04 10:21 | Outpatient (BNVA) | payer OTHER, SELFPAY | PROVIDERS: PCP Internal Medicine; Visit Provider Obstetrics & Gynecology ==

== ENCOUNTER 2023-10-09 01:24 | Emergency (ER) | payer OTHER, SELFPAY ==
--- NOTE | 2023-10-09 | ECG_ITS ---
Test Reason : CHEST APIN Blood Pressure : / mmHG Vent. Rate : 095 BPM Atrial Rate : 095 BPM P-R Int : 152 ms QRS Dur : 082 ms QT Int : 358 ms P-R-T Axes : 040 000 020 degrees QTc Int : 449 ms Normal sinus rhythm Normal ECG When compared with ECG of 20-AUG-2023 23:41, No significant change was found Referred By: Generic ED Physician Electronically Signed By:CELINA WILKINS MD
--- NOTE | ~2023-10-09 | CT_ITS ---
EXAMINATION: CT HEAD WITHOUT CONTRAST CT ANGIOGRAM HEAD AND NECK CLINICAL INFORMATION: Right-sided numbness COMPARISON: 11/02/2022 TECHNIQUE: CT evaluation of the head was performed initially without contrast. Test bolus sequences followed by intravenous administration 70 mL of Omnipaque 300 intravenous contrast. Helical imaging was performed in the axial plane from the mediastinum to the skull vertex. Delayed postcontrast imaging of the head was also performed. The data was processed at the registered vascular technologist (rvt)'s workstation for generation of MIP sequences. Three-dimensional volume rendered reformatted images were also generated at an offline 3-D workstation. This CT examination was performed using dose optimization techniques as appropriate, variously including the following: *Automated exposure control *Adjustment of mA and/or kV according to patient size (this includes techniques or standardized protocols for targeted exams where dose is matched to indication/reason for exam; i.e. extremities or head) *Use of iterative reconstruction technique The degree of stenosis determined by NASCET criteria. DLP: 2394 mGy-cm FINDINGS: BONES, SOFT TISSUES AND LUNG APICES: No overt abnormality is appreciated. CTA NECK: The aortic arch has a classic configuration and the major arch vessel origins are non-stenotic. The vertebral arteries are co-dominant and both vertebral origins are widely patent. Both common carotid arteries are normal in course and caliber. Both internal carotid arteries are widely patent. CTA HEAD: There is normal opacification of the major intracranial vessels. Bilateral P1 segments are diminutive with larger bilateral posterior communicating arteries ie bilateral origins of the posterior cerebral arteries. No acute proximal large vessel occlusion, focal flow-limiting stenosis, or saccular intracranial aneurysm is identified. No abnormal parenchymal enhancement or regional oligemia is visualized. HEAD (noncontrast and delayed): No intracranial mass, intercerebral edema, hemorrhage, or midline shift is evident. The ventricles and sulci are stable in size and configuration. No extra-axial collections are appreciated. No pathologic intracranial enhancement. Dural sinuses are patent. Mucous retention cysts in the bilateral maxillary sinuses. CT/CT angio head neck IMPRESSION: * No acute intracranial pathology. * No large vessel occlusion or hemodynamically significant stenosis within the intracranial or extracranial arterial vasculature.
--- NOTE | ~2023-10-09 | MR_ITS ---
MRI OF THE BRAIN WITHOUT IV CONTRAST INDICATION: Right-sided numbness/paresthesias. COMPARISON: CTA head and neck October 09, 2023 TECHNIQUE: Multiplanar multisequence MR imaging of the brain was obtained without IV contrast. FINDINGS: There are multiple T2 signal hyperintense lesions within the supratentorial periventricular and subcortical white matter with the distribution suggestive of the sequela of demyelinating disease. Clinical correlation is advised. If there is any clinical concern for active demyelination. There is no hydrocephalus, extra-axial surface collection, or herniation. The major flow voids at the skull base are preserved. There is no acute infarct on diffusion-weighted imaging. There is no intracranial hemorrhage on the gradient recalled echo acquisition. The midline structures are normal. The cerebellar tonsils are normally positioned. The cerebellum and brainstem are normal. The craniocervical junction is normal. 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 High resolution post contrast imaging advised to exclude alternative etiologies. Retention cysts within the maxillary sinuses bilaterally. MR/MR head/brain wo con IMPRESSION: - There are multiple T2 signal hyperintense lesions within the supratentorial periventricular and subcortical white matter with the distribution suggestive of the sequela of demyelinating disease. Clinical correlation is advised. If there is any clinical concern for active demyelination. 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 High resolution post contrast imaging advised to exclude alternative etiologies.
[2023-10-09 01:30] VITALS: BP 133/93; PULSE 92; RESP 18; TEMP 36.8; O2SAT 100; BMI 36.3
[2023-10-09 01:56] VITALS: PULSE 101
--- NOTE | 2023-10-09 03:23 | ED_ITS ---
HPI - Neuro Symptoms/Deficit General Chief Complaint: Weakness Stated Complaint: right sided numbness Time Seen by Provider: 10/09/23 02:57 Source: patient Mode of arrival: ambulatory Limitations: no limitations History of Present Illness HPI Narrative: 48 yo female with PMH of HTN, DM, bipolar disorder, notes she donated blood in R arm for the second time yesterday finished around 6/630pm she then started to feel funny during it her arm was heavy and tingling, she states it was very fast donation and when she went to her car she was very dizzy and her whole R side of the body went numb. Bystanders helped her and EMS brought her to [facility] [place] she sat in the waiting room and could not wait any longer so she came here. She states her numbness remains in the fingers a little and the thigh. Onset (ago): day(s) (yesterday 630pm) Location: other (numbness R side of body) History of same: No Severity: moderate Quality: numb Relieving factors: none Exacerbating factors: none Context: sudden onset On Anticoagulants: No Associated symptoms: other (felt dizzy and fatigued) Treatments Prior to Arrival: none Related Data Previous Rx's Medication Instructions Recorded blood pressure kit-extra large #1 ea 07/03/23 blood sugar diagnostic (FreeStyle #100 ea 07/03/23 Lite Strips) blood-glucose meter (FreeStyle #1 ea 07/03/23 Lite Meter kit) lancets 28 gauge (FreeStyle #100 ea 07/03/23 Lancets) lisinopril 5 mg tablet 5 mg PO DAILY #90 tabs 07/03/23 semaglutide 0.25 mg or 0.5 mg (2 0.25 mg (0.368 mL) subcut QWEEK #3 07/18/23 mg/3 mL) subcutaneous pen injector mL (Ozempic) loperamide 2 mg tablet (Imodium 2 mg PO Q6H PRN loose stool #7 tabs 08/21/23 A-D) ondansetron 4 mg disintegrating 4 mg PO Q6-8H PRN nausea and 08/21/23 tablet vomiting #7 tabs ondansetron 4 mg disintegrating 4 mg PO Q8H PRN nausea and 08/28/23 tablet vomiting #20 tabs Allergies Allergy/AdvReac Type Severity Reaction Status Date / Time Chantix AdvReac Unknown worsening Uncoded 10/09/23 01:36 bipolar disorder Review of Systems 2 Review of Systems: Constitutional : No Fever, No Chills, No Fatigue ENT/Mouth : No sore throat, No Rhinorrhea Eyes: No Eye Pain, No Swelling, No Redness Cardiovascular : No Chest Pain, No SOB, No Dyspnea on Exertion Respiratory : No Cough, No Sputum Gastrointestinal : No Nausea, No Vomiting, No Diarrhea, No abdominal Pain Genitourinary : No Dysuria, No Urinary Frequency, No Hematuria, Musculoskeletal : No joint pain, No Myalgias, No Joint Swelling Skin : No Skin Lesions, No rash Neuro : No Weakness, pos Numbness, No Dizziness, no Headache Psych : No Anxiety/Panic, No Depression Heme/Lymph: No Bruising, No Bleeding,No Lymphadenopathy Endocrine : No Polyuria, No Polydipsia All other systems reviewed and are negative [facility] Past Medical History Attestation statement: The following information was validated with the patient. Medical History Elevated LFTs Vitamin D deficiency Pure hypercholesterolemia Benign essential hypertension Obesity (BMI 30-39.9) Gastritis Bulimia nervosa Bipolar disorder Impaired fasting glucose Hyperlipidemia Surgical History History of endometrial ablation History of cholecystectomy History of colonoscopy History of hernia surgery History of tubal ligation History of carpal tunnel surgery H/O bursectomy Family History Family History Mother High blood pressure Dementia Kidney stones Arthritis Father Hepatitis B Cirrhosis of liver Other Mental health problem Social History Social History Household Members: None Housing: Apartment Alcohol intake: never Patient Tobacco Use Status: Current everyday Tobacco user Tobacco use type: Cigarette Cigarettes Per Day: 5 e-Cigarette/Vaping Use: Never Used Second Hand Smoke Exposure: Yes Advance Directives: No Advance Directives Information Provided: No service: No Current occupational status: employed 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 Oriented X3. No acute distress. Eyes: Pupils equal, round and reactive to light. ENT: Pharynx normal. Neck: Normal inspection. Neck supple. CVS: Normal heart rate and rhythm. Pulses normal. Respiratory: No respiratory distress. Breath sounds normal. Abdomen: Soft and nontender. Skin: Skin warm and dry. Normal skin color. Normal skin turgor. Extremities: No lower extremity edema. No calf ttp Neuro: Oriented X 3. No motor deficit. No sensory deficit. Medications Administered Discontinued Medications Generic Name Dose Route Start Last Admin Trade Name Freq PRN Reason Stop Dose Admin Sodium Chloride 1,000 mls @ 999 mls/hr 10/09/23 04:00 10/09/23 05:33 Ns IV 10/09/23 05:00 Infused .Q1H1M CHRIS Infusion Iohexol 70 ml 10/09/23 04:37 10/09/23 04:37 Iohexol 350 Mg/Ml 100 Ml Infus..Btl IV 10/09/23 04:38 70 ml ONCE ONE Administration Medical Decision Making Medical Decision Making [facility] Narrative: 48 yo female with PMH of HTN, DM donated blood today then reports feeling dizzy and resulting R sided numbness - started at 6pm has residual feelings of numbness on R fingers and R thigh NIH is 0. At this time will obtain labs, CTA. presenting 6.5 to 7 hours after onset and it is very atypical without deficits would not be candidate for TNK and doubt LVO Differential Diagnosis Differential Diagnoses: The differential diagnosis associated with the presentation includes anxiety, weakness, parasthesias Admission/Observation Consideration of admission/observation: Escalation of care including admission/observation considered patient wants MRI to be sure it was not stroke clinically would be very low risk but she does have some risk factors and I have no other reason as to why this happened Lab Data [facility] Lab Attestation statement: I reviewed the patient's lab results. 10/09/23 03:36 10/09/23 03:36 Labs: Lab Results 10/09/23 Range/Units 03:36 WBC 15.3 H (4.8-10.8) X10*3/uL RBC 5.60 H (4.20-5.50) X10*6/uL Hgb 16.3 H (12.0-16.0) g/dl Hct 47.9 H (37.0-47.0) % MCV 85.5 (80.0-98.0) fL MCH 29.1 (27.0-33.0) pg MCHC 34.0 (31.0-35.0) g/dl RDW 12.3 (11.0-16.0) % Plt Count 262 (160-400) X10*3/uL MPV 10.9 (9.4-12.3) fL Immature Gran % (Auto) 0.5 H (0.0-0.4) % Neut % (Auto) 63.4 (45-73) % Lymph % (Auto) 30.9 (20-40) % [place] % (Auto) 3.9 (2-11) % Eos % (Auto) 0.9 (0-4) % Baso % (Auto) 0.4 (0-2) % Lymph # (Auto) 4.7 (1.2-4.9) X10*3/uL [place] # (Auto) 0.6 (0.1-1.2) X10*3/uL Eos # (Auto) 0.1 (0.0-0.4) X10*3/uL Baso # (Auto) 0.1 (0.0-0.2) X10*3/uL Abs Immat Gran (auto) 0.08 H (0.00-0.03) X10*3/uL Absolute Neuts (auto) 9.7 H (2.0-8.3) x10*3/uL Absolute Nucleated RBC 0.000 (0.0-0.012) X10*3/uL Nucleated RBC % (auto) 0.0 (0.0-0.2) /100WBC Sodium 137 (135-145) mmol/L Potassium 4.4 (3.3-5.1) mmol/L Chloride 103 (96-108) mmol/L Carbon Dioxide 24 (22-29) mmol/L Anion Gap 14 (12-20) BUN 15 (9-16) mg/dL Creatinine 0.72 (0.5-1.4) mg/dL Estim Creat Clear Calc 112.5 Estimated GFR > 60 Random Glucose 311 H (60-115) mg/dL Calcium 9.2 (8.4-10.2) mg/dL Magnesium 1.8 (1.6-2.6) mg/dL Total Bilirubin 0.6 (0.0-1.0) mg/dL Direct Bilirubin 0.2 (0.0-0.5) mg/dL AST 70 H (5-31) U/L ALT 77 H (0-31) U/L Alkaline Phosphatase 93 (39-117) U/L Troponin I High Sens < 2.7 (<3.5-17.0) ng/L Total Protein 7.1 (6.5-8.0) g/dL Albumin 3.7 (3.5-5.0) g/dL Independent Interpretation I performed an independent interpretation of an: EKG and CT Scan (normal ) Interpretation: Rate: 90 Rhythm: NSR [place]: normal Normal P waves. Normal PRIYANK. Normal QRS complex. ST T wave : normal no REJI, inverted t wave III qTC: normal prior studies: no acute ischemia The study has been interpreted contemporaneously by me. . Radiology Impression Discussion of test interpretation with radiology: I have reviewed the radiologist's reading. External Record Review External record reviewed: Inpatient record NIH Stroke Scale Internal: Initial- Upon Arrival Level of Consciousness: Alert Level of Consciousness Questions: Answers both questions correctly Level of Consciousness Commands: Performs both tasks correctly Best Gaze: Normal Visual: No visual loss Facial Palsy: Normal Motor Arm (Right): No drift Motor Arm (Left): No drift Motor Leg (Right): No drift Motor Leg (Left): No drift Limb Ataxia: Absent Sensory: Normal Best Language: No aphasia Dysarthia: Normal Extinction and Inattention: No abnormality Score: 0 Discharge Plan Discharge Clinical Impression: Paresthesia Patient Disposition: Still a Patient Instructions: Paresthesia (ED) Additional Instructions: return for fevers, vomiting, weakness, chest pain, trouble breathing or any other concerns. Prescriptions: No Action Ozempic 0.25 mg or 0.5 mg (2 mg/3 mL) pen injector 0.25 mg subcut QWEEK Qty: 3 0RF ondansetron 4 mg tablet,disintegrating 4 mg PO Q6-8H PRN (Reason: nausea and vomiting) Qty: 7 0RF loperamide [Imodium A-D] 2 mg tablet 2 mg PO Q6H PRN (Reason: loose stool) Qty: 7 0RF ondansetron 4 mg tablet,disintegrating 4 mg PO Q8H PRN (Reason: nausea and vomiting) Qty: 20 0RF (DME) blood pressure kit-extra large Kit See Rx Instructions .Route Qty: 1 0RF Rx Instructions: As directed (DME) blood-glucose meter [FreeStyle Lite Meter] Kit See Rx Instructions .MEDSUPPLY Qty: 1 0RF Rx Instructions: test daily (DME) FreeStyle Lite Strips Strip See Rx Instructions .MEDSUPPLY Qty: 100 2RF Rx Instructions: test daily (DME) lancets [FreeStyle Lancets] 28 gauge misc See Rx Instructions .MEDSUPPLY Qty: 100 2RF Rx Instructions: test daily lisinopril 5 mg tablet 5 mg PO DAILY Qty: 90 1RF Referrals: Narendra Jeff MD [Primary Care Provider] - (as needed) Stand Alone Forms: Work/School Release
[2023-10-09 03:41] LABS: Basophils Absolute Auto 0.1 X10*3/uL (0.0-0.2); Basophils Percent Auto 0.4 % (0-2); Eosinophils Absolute Auto 0.1 X10*3/uL (0.0-0.4); Eosinophils Percent Auto 0.9 % (0-4); Hematocrit 47.9 % (37.0-47.0); Hemoglobin 16.3 g/dl (12.0-16.0); Imm Gran Abs Auto 0.08 X10*3/uL (0.00-0.03); Imm Gran Pct Auto 0.5 % (0.0-0.4); Lymphocytes Absolute Auto 4.7 X10*3/uL (1.2-4.9); Lymphocytes Percent Auto 30.9 % (20-40); MANUAL DIFF FLAG NO; Mean Corpuscular Hemoglobin 29.1 pg (27.0-33.0); Mean Corpuscular Volume 85.5 fL (80.0-98.0); Mean Platelet Volume 10.9 fL (9.4-12.3); Monocytes Absolute Auto 0.6 X10*3/uL (0.1-1.2); Monocytes Percent Auto 3.9 % (2-11); Neutrophils Absolute Auto 9.7 x10*3/uL (2.0-8.3); Neutrophils Percent Auto 63.4 % (45-73); Platelet Count 262 X10*3/uL (160-400); Red Cell Distribution Width 12.3 % (11.0-16.0); White Blood Count 15.3 X10*3/uL (4.8-10.8)
[2023-10-09 03:57] LABS: Alanine Aminotransferase 77 U/L (0-31); Albumin Level 3.7 g/dL (3.5-5.0); Alkaline Phosphatase 93 U/L (39-117); Anion Gap 14 (12-20); Aspartate Amino Transferase 70 U/L (5-31); Bilirubin Direct 0.2 mg/dL (0.0-0.5); Bilirubin Total 0.6 mg/dL (0.0-1.0); Blood Urea Nitrogen 15 mg/dL (9-16); Calcium 9.2 mg/dL (8.4-10.2); Carbon Dioxide 24 mmol/L (22-29); Chloride 103 mmol/L (96-108); Creatinine Clr Calc Pharmacy 112.5; Estimated Glomerular Filt Rate > 60; Glucose Random 311 mg/dL (60-115); Magnesium 1.8 mg/dL (1.6-2.6); Potassium 4.4 mmol/L (3.3-5.1); Sodium 137 mmol/L (135-145); Total Protein 7.1 g/dL (6.5-8.0)
[2023-10-09 04:00] VITALS: BP 142/77; PULSE 93; RESP 12; O2SAT 98
[2023-10-09 04:03] LABS: Troponin-I High Sensitivity < 2.7 ng/L (<3.5-17.0)
[2023-10-09] MEDS: 0.9 % Sodium Chloride 1,000 ML 999 ML IV (04:37)
[2023-10-09] MEDS: iohexoL 350 MG/ML 100 ML INFUS..BTL 70 ML IV (04:37)
--- NOTE | 2023-10-09 07:28 | PC.NURSE ---
Assumed care of pt at this time.
--- NOTE | 2023-10-09 07:28 | PC.NURSE ---
Pt being transported to MRI at this time.
[2023-10-09 08:17] VITALS: BP 145/71; PULSE 99; RESP 16; TEMP 36.5; O2SAT 96
== END 2023-10-09 11:19 | disposition home or self-care (01) ==
PROVIDERS: Emergency Medicine; Emergency Provider Emergency Medicine Emergency Medical Services; PCP Internal Medicine
DX: R20.2 Paresthesia of skin (principal); E11.9 Type 2 diabetes mellitus without complications; I10 Essential (primary) hypertension; E78.00 Pure hypercholesterolemia, unspecified; F17.210 Nicotine dependence, cigarettes, uncomplicated; R29.700 NIHSS score 0; Z79.899 Other long term (current) drug therapy
CPT/HCPCS: 36415; 70496; 70498; 70551; 80048; 80076; 83735; 84484; 85025; 93005; 96360; 99285; Q9967

== ENCOUNTER → 2023-10-09 01:42 | Outpatient (BNV) | payer OTHER, SELFPAY | PROVIDERS: Emergency Provider Emergency Medicine; PCP Internal Medicine; Visit Provider Internal Medicine Cardiovascular Disease | DX: R07.89 Other chest pain (principal) | CPT/HCPCS: 93010 ==

== ENCOUNTER 2023-10-10 10:02 | Emergency (ER) | payer OTHER, SELFPAY ==
[2023-10-10 10:04] VITALS: BP 145/83; PULSE 94; RESP 20; TEMP 37.2; O2SAT 98; BMI 38.2
--- OUTSIDE RECORDS SUMMARY | 2023-10-10 18:42 | XMS_ITS | Continuity of Care Document ---
Author Name Unknown Organization [facility] ter Address [address] [place] [id number]- Care Team Providers Care Residential Sales Executive Name Role Phone Narendra Jeff MD Primary Care Physician [phone] Encounter [facility] Date(s): 10/08/23 - 10/09/[address] [id number]- Discharge Disposition: A-D/C Walkout Attending Physician: Not on Staff, Attending MD Admitting Physician: Not on Staff, Admitting MD Referring Physician: Not on Staff, Referring MD Allergies, Adverse Reactions, Alerts No Known Allergies Medications lorazepam 2 mg oral tablet 1 tablet = 2 mg, By Mouth, Daily, 0 Refills, Maintenance Start Date: 11/03/13 Status: Ordered Seroquel 50 mg oral tablet 2 tablet = 100 mg, By Mouth, Daily, 0 Refills, Maintenance Start Date: 11/03/13 Status: Ordered Problem List Condition Confirmation Course Effective Dates Status Health St atus Informant Low back pain Confirmed Active Results Radiology Reports * Exam Date Time Procedure Performing Provider Status 10/08/23 10:45 PM Chest 2 Views Frontal and Lat Laport e , Mazin; Auth (Verified) Notes: (Chest 2 Views Frontal and Lat) Reason For Exam: Chest Pain;Other: RESULT: Chest 2 Views Frontal and Lat Chest 2 Views Frontal and Lat Hx of Present Illness: Was walking to car after donating blood and felt right sdied tingling, dizziness, and reproducable chest pain on deep insp and cough.; Reason: Other:; Chest Pain; Clinical Question(s): Other: COMPARISON: None. FINDINGS: LINES AND TUBES: None. LUNGS AND PLEURA: Clear lungs. Normal pulmonary vascularity. No pleural effusion. No pneumothorax. HEART, MEDIASTINUM AND ASTRID: Heart is normal in size. Normal mediastinal and hilar contour. BONES AND SOFT TISSUES: No acute abnormality. IMPRESSION: No acute abnormality. WSN: [id number] Ordering Physician: Margaret Burciaga Dictated By: Gabe Leon MD Dictated Date/Time: 10/08/23 11:11 p Reviewed By: Gabe Leon MD Signed By: Gabe Leon MD Signed Date/Time: 10/08/23 11:11 pm Transcribed By: CHASE Transcribed Date/Time: 10/08/23 11:11 pm Vital Signs Most recent to oldest [Reference Range]: 1 2 Oxygen Saturation [94-100 %] 99 % (10/08/23 10:03 PM) 99 % (10/08/23 9:04 PM) Pulse Rate [55-90 bpm] 92 bpm *H* (10/08/23 10:03 PM) 98 bpm *H* (10/08/23 9:04 PM) Blood Pressure [90-138/55-84 mm Hg] 136/ 108mm Hg (10/08/23 10:03 PM) 126/80mm Hg (10/08/23 9:04 PM) Respiratory Rate [16-30 br/min] 18 br/mi n (10/08/23 10:03 PM) 16 br/min (10/08/23 9:04 PM) Temperature [96.8-100.4 DegF] 97.9 DegF (10/08/23 9:04 PM) Mode of Delivery (Oxygen) Room air (10/08/23 10:03 PM) Room air (10/08/23 9:04 PM) Blood pressure sites Arm, left (10/08/23 10:03 PM) Arm, right (10/08/23 9:04 PM) Temperature Route Oral (10/08/23 9:04 PM) EKG study * Event Display: EKG Authored Date: Patient Care team information Care Team Personnel Name: Narendra Jeff MD Position: Reference Physician Member Role: PCP Address: Address: [address] [place] [address] Drive [address] [place] [id number]- Care Team Related Persons Name: TYRESE TAYLOR Address: home [address] [place] [id number]
== END 2023-10-10 18:46 | disposition left against medical advice (07) ==
LOC: HO.ED 18:41
PROVIDERS: Emergency Provider Emergency Medicine; PCP Internal Medicine
DX: R42 Dizziness and giddiness (principal); R06.02 Shortness of breath
CPT/HCPCS: 99281

== ENCOUNTER 2023-10-12 17:53 | Inpatient (IN) | payer OTHER, SELFPAY ==
--- NOTE | ~2023-10-12 | MR_ITS ---
MRI OF THE BRAIN WITH AND WITHOUT IV CONTRAST INDICATION: Question MS flare. COMPARISON: Brain MRI 10/09/2023. TECHNIQUE: Multiplanar multisequence MR imaging of the brain was obtained without and following the administration of 10 mL of Gadavist without complication. FINDINGS: Redemonstrated multiple T2 signal hyperintense lesions within the supratentorial periventricular and subcortical white matter that remain most suggestive of the sequela of demyelinating disease. There are no enhancing lesions to suggest active demyelination. 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 There is no hydrocephalus, extra-axial surface collection, or herniation. The major flow voids at the skull base are preserved. There is no acute infarct on diffusion-weighted imaging. There is no intracranial hemorrhage on the gradient recalled echo acquisition. The midline structures are normal. The cerebellar tonsils are normally positioned. The cerebellum and brainstem are normal. The craniocervical junction is normal. Retention cysts within the maxillary sinuses bilaterally. There is a partially imaged lesion within the upper cervical spinal cord at C1-C2. If there is any clinical concern for spinal cord pathology causing the patient's right-sided weakness and numbness given the above findings, a dedicated cervical and thoracic spine MRI with and without IV contrast can be obtained. MR/MR head/brain wo/w con IMPRESSION: - Redemonstrated multiple T2 signal hyperintense lesions within the supratentorial periventricular and subcortical white matter that remain most suggestive of the sequela of demyelinating disease. There are no enhancing lesions to suggest active demyelination. - There is a partially imaged lesion within the upper cervical spinal cord at C1-C2. If there is any clinical concern for spinal cord pathology causing the patient's right-sided weakness and numbness given the above findings, a dedicated cervical and thoracic spine MRI with and without IV contrast can be obtained. 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
--- NOTE | ~2023-10-12 | CT_ITS ---
EXAMINATION: CT HEAD WITHOUT CONTRAST CLINICAL INFORMATION: Right-sided weakness and numbness. COMPARISON: MRI brain dated 10/09/2023. TECHNIQUE: Contiguous axial imaging was performed from the skullbase to vertex without intravenous administration of contrast. This CT examination was performed using dose optimization techniques as appropriate, variously including the following: *Automated exposure control *Adjustment of mA and/or kV according to patient size (this includes techniques or standardized protocols for targeted exams where dose is matched to indication/reason for exam; i.e. extremities or head) *Use of iterative reconstruction technique DLP: 649 mGy-cm. FINDINGS: There is no evidence of acute intracranial hemorrhage or territorial infarction. No abnormal mass effect or midline shift is seen. Ross to white matter differentiation is well preserved. No extra-axial fluid collections are identified. The ventricles are normal in size. Subcentimeter low-attenuation foci in the cerebral white matter are better characterized on the recent prior MRI study. The osseous structures and soft tissues are normal. The mastoid air cells and visualized portions of the paranasal sinuses are well aerated. CT/CT head/brain wo IV con IMPRESSION: No acute intracranial hemorrhage or territorial infarction. Given prior MRI findings in the cerebral white matter, correlate for any history or symptomatology relating to underlying demyelinating disease.
[2023-10-12 17:56] VITALS: BP 157/91; PULSE 90; RESP 18; TEMP 36.6; O2SAT 98; BMI 38.5
--- NOTE | 2023-10-12 17:57 | ED.GENADULT ---
HPI - General Adult General Chief complaint: General Medical Stated complaint: right side of body numbness Time Seen by Provider: 10/12/23 18:30 Source: patient Mode of arrival: ambulatory Limitations: no limitations History of Present Illness HPI narrative: A 48-year-old female came in for evaluation of intermittent episodes of numbness in the right side of her body. Patient's symptoms started 4 days ago with right-sided numbness and weakness lasted for about 15 minutes patient came to the hospital for evaluation after all her symptoms were resolved, patient had negative CT/CTA and MRI which is questioning demyelinating disease, patient returned today for feeling tongue numbness, right-sided numbness and right upper extremities heaviness. Patient declined taking any hormonal therapy or contraception. Strong family history of stroke mother started to have a stroke in her 40s. Patient otherwise healthy. Related Data Previous Rx's Medication Instructions Recorded blood pressure kit-extra large #1 ea 07/03/23 blood sugar diagnostic (FreeStyle #100 ea 07/03/23 Lite Strips) blood-glucose meter (FreeStyle #1 ea 07/03/23 Lite Meter kit) lancets 28 gauge (FreeStyle #100 ea 07/03/23 Lancets) lisinopril 5 mg tablet 5 mg PO DAILY #90 tabs 07/03/23 semaglutide 0.25 mg or 0.5 mg (2 0.25 mg (0.368 mL) subcut QWEEK #3 07/18/23 mg/3 mL) subcutaneous pen injector mL (Ozempic) loperamide 2 mg tablet (Imodium 2 mg PO Q6H PRN loose stool #7 tabs 08/21/23 A-D) ondansetron 4 mg disintegrating 4 mg PO Q6-8H PRN nausea and 08/21/23 tablet vomiting #7 tabs ondansetron 4 mg disintegrating 4 mg PO Q8H PRN nausea and 08/28/23 tablet vomiting #20 tabs Allergies Allergy/AdvReac Type Severity Reaction Status Date / Time Chantix AdvReac Unknown worsening Uncoded 10/09/23 01:36 bipolar disorder Review of Systems Review of Systems: All other systems are reviewed and are negative Constitutional: Reports as per HPI and Reports no additional constitutional complaints Eyes: Reports as per HPI and Reports no additional eye complaints Reports system reviewed and no additional complaints, except as documented Cardiovascular: Reports as per HPI and Reports no additional cardiovascular complaints Respiratory: Reports as per HPI and Reports no additional respiratory complaints Gastrointestinal: Reports as per HPI and Reports no additional gastrointestinal complaints Genitourinary: Reports no additional female genitourinary complaints Musculoskeletal: Reports no additional musculoskeletal complaints Skin/Breast: Reports system reviewed and no additional complaints, except as docu Psychiatric: Reports no additional psychiatric complaints Endocrine: Reports no additional endocrine complaints Hematologic/Lymphatic: Reports no additional hematologic/lymphatic complaints Allergic/Immunologic: Reports no additional allergic/immunologic complaints Reports system reviewed and no additional complaints, except as documented and Reports Abnormal speech present [facility] Past Medical History Medical History Elevated LFTs Vitamin D deficiency Pure hypercholesterolemia Benign essential hypertension Obesity (BMI 30-39.9) Gastritis Bulimia nervosa Bipolar disorder Impaired fasting glucose Hyperlipidemia Surgical History History of endometrial ablation History of cholecystectomy History of colonoscopy History of hernia surgery History of tubal ligation History of carpal tunnel surgery H/O bursectomy Family History Family History Mother High blood pressure Dementia Kidney stones Arthritis Father Hepatitis B Cirrhosis of liver Other Mental health problem Social History Social History Household Members: None Housing: Apartment Alcohol intake: never Patient Tobacco Use Status: Current everyday Tobacco user Tobacco use type: Cigarette Cigarettes Per Day: 5 e-Cigarette/Vaping Use: Never Used Second Hand Smoke Exposure: Yes Advance Directives: No Advance Directives Information Provided: No service: No Current occupational status: employed 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 Blood pressure elevated. Heart rate normal. Respiratory rate normal. Temperature normal. Oxygen saturation normal. Appearance: Alert. Oriented X3. No acute distress. Head: Normal external exam. Normocephalic. Atraumatic. No Mckinley signs noted. No raccoon eyes noted Eyes: PERRLA. EOMI. Conjunctiva and sclera normal. Eyelids normal. ENT: TM's Normal. Pharynx normal. Uvula midline. Moist mucous membranes. No trismus noted. No drooling noted. No muffled voice noted. Neck: Normal inspection. Neck supple. FROM. No adenopathy. Thyroid Normal. No meningeal signs. No neck mass noted. CVS: Normal heart rate and rhythm. Heart sound normal. No murmurs noted. Pulses normal throughout. Respiratory: No respiratory distress. Painless inspiration. Breath sounds normal. No wheezes/rales/rhonchi noted. Chest nontender. No accessory muscle usage noted or decreased air movement noted. Abdomen: Soft and nontender. Bowel sounds normal in all 4 quadrants. No distention noted. No organomegaly noted. No visible injury noted. Back: No CVA tenderness. Full range of motion noted. Skin: Skin warm and dry. Normal skin color. Normal skin turgor. No rashes/lesions/lacerations noted. Extremities: No lower extremity edema. Extremities exhibit normal range of motion. Extremities nontender. Neuro: Oriented X 3. Cranial nerve exam: II-XII are grossly intact Mild right pronator drift, decreased light touch sensation. Reflexes normal. NIH Stroke Scale Time: 19:21 Level of Consciousness: Alert Level of Consciousness Questions: Answers both questions correctly Level of Consciousness Commands: Performs both tasks correctly Best Gaze: Normal Visual: No visual loss Facial Palsy: Normal Motor Arm (Right): Drift Motor Arm (Left): No drift Motor Leg (Right): No drift Motor Leg (Left): No drift Limb Ataxia: Absent Sensory: Mild to moderate sensory loss Best Language: No aphasia Dysarthia: Normal Extinction and Inattention: No abnormality Score: 2 Course Course Course Narrative: RME performed by Elisha Khoury PA-C. Patient is a 48 year old assigned female at presenting to the emergency department with right sided numbness. Patient was seen here on 10/09/2023 for a similar presentation and had a brain MRI and head / neck CTA. MRI findings suggestive of MS, was discharged at that time. Labs ordered. Patient placed back in the waiting room pending room availability and results. Reevaluation(s) Reevaluation #1: The case discussed with Dr. Hogan all the radiographic studies were reviewed, recommended to start the patient on Solu-Medrol 1 g IV and admit, repeat MRI in the morning. Time: 20:02 Medical Decision Making Differential Diagnosis Differential Diagnoses: The differential diagnosis associated with the presentation includes (CVA, intracranial hemorrhage, demyelinating disease, severe electrolyte abnormality, severe anemia.) Admission/Observation Consideration of admission/observation: Escalation of care including admission/observation considered Consult Healthcare Provider Management of the patient was discussed with: Hospitalist (Dr. Galeana) Lab Data MDM Lab Attestation statement: I reviewed the patient's lab results. 10/12/23 18:09 10/12/23 18:09 Labs: Lab Results 10/12/23 Range/Units 18:09 WBC 9.4 (4.8-10.8) X10*3/uL RBC 4.82 (4.20-5.50) X10*6/uL Hgb 14.3 (12.0-16.0) g/dl Hct 40.9 (37.0-47.0) % MCV 84.9 (80.0-98.0) fL MCH 29.7 (27.0-33.0) pg MCHC 35.0 (31.0-35.0) g/dl RDW 12.1 (11.0-16.0) % Plt Count 224 (160-400) X10*3/uL MPV 11.2 (9.4-12.3) fL Immature Gran % (Auto) 0.2 (0.0-0.4) % Neut % (Auto) 56.0 (45-73) % Lymph % (Auto) 36.2 (20-40) % Duchesne % (Auto) 5.3 (2-11) % Eos % (Auto) 1.9 (0-4) % Baso % (Auto) 0.4 (0-2) % Lymph # (Auto) 3.4 (1.2-4.9) X10*3/uL Duchesne # (Auto) 0.5 (0.1-1.2) X10*3/uL Eos # (Auto) 0.2 (0.0-0.4) X10*3/uL Baso # (Auto) 0.0 (0.0-0.2) X10*3/uL Abs Immat Gran (auto) 0.02 (0.00-0.03) X10*3/uL Absolute Neuts (auto) 5.3 (2.0-8.3) x10*3/uL Absolute Nucleated RBC 0.000 (0.0-0.012) X10*3/uL Nucleated RBC % (auto) 0.0 (0.0-0.2) /100WBC Sodium 140 (135-145) mmol/L Potassium 4.0 (3.3-5.1) mmol/L Chloride 104 (96-108) mmol/L Carbon Dioxide 25 (22-29) mmol/L Anion Gap 15 (12-20) BUN 10 (9-16) mg/dL Creatinine 0.68 (0.5-1.4) mg/dL Estim Creat Clear Calc 122.9 Estimated GFR > 60 Random Glucose 235 H (60-115) mg/dL Calcium 9.2 (8.4-10.2) mg/dL Magnesium 1.8 (1.6-2.6) mg/dL Total Bilirubin 0.3 (0.0-1.0) mg/dL AST 116 H (5-31) U/L ALT 115 H (0-31) U/L Alkaline Phosphatase 101 (39-117) U/L Total Protein 7.1 (6.5-8.0) g/dL Albumin 3.9 (3.5-5.0) g/dL Independent Interpretation I performed an independent interpretation of an: CT Scan (Head:No acute intracranial hemorrhage or territorial infarction. Given prior MRI findings in the cerebral white matter, correlate for any history or symptomatology relating to underlying demyelinating disease.) Radiology Impression Discussion of test interpretation with radiology: I have reviewed the radiologist's reading. Discharge Plan Discharge Clinical Impression: Paresthesia, Demyelinating disease Patient Disposition: Admitted As Inpatient Prescriptions: No Action Ozempic 0.25 mg or 0.5 mg (2 mg/3 mL) pen injector 0.25 mg subcut QWEEK Qty: 3 0RF ondansetron 4 mg tablet,disintegrating 4 mg PO Q6-8H PRN (Reason: nausea and vomiting) Qty: 7 0RF loperamide [Imodium A-D] 2 mg tablet 2 mg PO Q6H PRN (Reason: loose stool) Qty: 7 0RF ondansetron 4 mg tablet,disintegrating 4 mg PO Q8H PRN (Reason: nausea and vomiting) Qty: 20 0RF (DME) blood pressure kit-extra large Kit See Rx Instructions .Route Qty: 1 0RF Rx Instructions: As directed (DME) blood-glucose meter [FreeStyle Lite Meter] Kit See Rx Instructions .MEDSUPPLY Qty: 1 0RF Rx Instructions: test daily (DME) FreeStyle Lite Strips Strip See Rx Instructions .MEDSUPPLY Qty: 100 2RF Rx Instructions: test daily (DME) lancets [FreeStyle Lancets] 28 gauge misc See Rx Instructions .MEDSUPPLY Qty: 100 2RF Rx Instructions: test daily lisinopril 5 mg tablet 5 mg PO DAILY Qty: 90 1RF
[2023-10-12 18:13] LABS: MANUAL DIFF FLAG NO
[2023-10-12 18:17] LABS: Basophils Percent Auto 0.4 % (0-2); Eosinophils Absolute Auto 0.2 X10*3/uL (0.0-0.4); Eosinophils Percent Auto 1.9 % (0-4); Hematocrit 40.9 % (37.0-47.0); Hemoglobin 14.3 g/dl (12.0-16.0); Imm Gran Abs Auto 0.02 X10*3/uL (0.00-0.03); Imm Gran Pct Auto 0.2 % (0.0-0.4); Lymphocytes Absolute Auto 3.4 X10*3/uL (1.2-4.9); Lymphocytes Percent Auto 36.2 % (20-40); Mean Corpuscular Hemoglobin 29.7 pg (27.0-33.0); Mean Corpuscular Volume 84.9 fL (80.0-98.0); Mean Platelet Volume 11.2 fL (9.4-12.3); Monocytes Absolute Auto 0.5 X10*3/uL (0.1-1.2); Monocytes Percent Auto 5.3 % (2-11); Neutrophils Absolute Auto 5.3 x10*3/uL (2.0-8.3); Platelet Count 224 X10*3/uL (160-400); Red Blood Count 4.82 X10*6/uL (4.20-5.50); Red Cell Distribution Width 12.1 % (11.0-16.0); White Blood Count 9.4 X10*3/uL (4.8-10.8)
[2023-10-12 18:31] LABS: Alanine Aminotransferase 115 U/L (0-31); Albumin Level 3.9 g/dL (3.5-5.0); Alkaline Phosphatase 101 U/L (39-117); Anion Gap 15 (12-20); Aspartate Amino Transferase 116 U/L (5-31); Bilirubin Total 0.3 mg/dL (0.0-1.0); Blood Urea Nitrogen 10 mg/dL (9-16); Calcium 9.2 mg/dL (8.4-10.2); Carbon Dioxide 25 mmol/L (22-29); Chloride 104 mmol/L (96-108); Creatinine Clr Calc Pharmacy 122.9; Estimated Glomerular Filt Rate > 60; Glucose Random 235 mg/dL (60-115); Magnesium 1.8 mg/dL (1.6-2.6); Sodium 140 mmol/L (135-145); Total Protein 7.1 g/dL (6.5-8.0)
[2023-10-12] MEDS: Enoxaparin Sodium 40 MG/0.4 ML SYRINGE SUBCUT (20:27)
[2023-10-12] MEDS: methylPREDNISolone Sod Succ 125 MG/2 ML VIAL IVPUSH (20:27)
--- NOTE | 2023-10-12 20:32 | P.HPHOSP_ITS ---
History of Present Illness Date of Service: 10/12/23 Attending physician on admission: Edgar Galeana Chief Complaint: Right-sided numbness and weakness Pt is a 48-year-old female with a PMH significant for?HTN, [id number] diabetes type 2, depression and anxiety, and bipolar disorder who presents to the ED with?right-sided numbness and weakness. Patient states symptoms began 3 days ago when she initially presented to the ED complaining of right-sided numbness of face, arm, and leg, along with SOB, lightheadedness, dizziness, and blurred vision. Pt had just given blood and was getting into her car when symptoms started. Found herself unable to open her car door with her right arm and then had difficulty speaking d/t numbness of the tongue. Symptoms lasted 15 minutes with only residual slight tingling in her fingers and feet. In the ED her neurologic exam was nonfocal but MRI showed multiple T2 signal hyperintense lesions within the supratentorial periventricular and subcortical white matter with a distribution suggestive of demyelinating disease. Patient was sent home then with a working diagnosis of a hyperventilation/panic attack from an unknown trigger, and was started on aspirin 81 mg daily. Patient states that after being home she has had 3 more similar episodes, though not as serious or as prolonged. This morning when she had a repeat episode of right sided numbness and heaviness she decided to re-present to the emergency department. Patient states she currently feels ?unbalanced? and has a ?heaviness in her head?, but otherwise her numbness and weakness have resolved. Of note, she had a previous MRI in 2004 that showed similar findings of T2 hypodense foci, and she reports having similar episodes of lightheadedness, tingling, and lack of coordination throughout the past 10+ years, though nothing as serious or significant as those she has experienced this past week. In the ED pt was slightly hypertensive up to 157/91, but vitals otherwise WNL. Labs were significant for POC of 207, otherwise grossly unremarkable. No leukocytosis. Stable H&H. Electrolytes WNL. Renal and hepatic function WNL. CT?of head showed no acute intracranial hemorrhage or territorial infarction. Pt was treated with Solu-Medrol 125 mg IV. The ED contacted Neurology who suggested admission, treating with high dosed steroids, and obtaining an MRI of the brain with and without contrast tomorrow. Pt will be admitted to the hospital for treatment and further workup of potential potential demyelinating disease. Review of Systems 2 Review of Systems: Right-sided numbness, tingling, weakness of face, arm and leg Ataxia Dysarthria Denies chest pain/pressure, palpitations No shortness of breath [facility] Medical History (Updated 10/12/23 @ 21:36 by OMAR De La Cruz) Elevated LFTs Vitamin D deficiency Pure hypercholesterolemia Benign essential hypertension Obesity (BMI 30-39.9) Gastritis Bulimia nervosa Bipolar disorder Impaired fasting glucose Hyperlipidemia Family History Mother High blood pressure Dementia Kidney stones Arthritis Father Hepatitis B Cirrhosis of liver Other Mental health problem Surgical History History of endometrial ablation History of cholecystectomy History of colonoscopy History of hernia surgery History of tubal ligation History of carpal tunnel surgery H/O bursectomy Social History Household Members: None Housing: Apartment Alcohol intake: never Patient Tobacco Use Status: Never used Tobacco Tobacco use type: Cigarette Cigarettes Per Day: 5 Smoked in Last 30 Days: No e-Cigarette/Vaping Use: Never Used Second Hand Smoke Exposure: Yes Use of substances other than those prescribed or required for medical reasons: No Advance Directives: No Advance Directives Information Provided: No Nutrition Risks: No Nutritional Risk Patient : No service: No Current occupational status: employed 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 Enoxaparin Sodium (Enoxaparin Sodium 40 Mg/0.4 Ml Syringe) 40 mg SUBCUT Q24H [facility] Last Admin: 10/12/23 20:27 Dose: 40 mg Glucose (Glucose Gel 15 Gm Gel..Gram.) 15 gm PO Q15M PRN; Protocol PRN Reason: per Hypoglycemia Standing Ord. Methylprednisolone Sodium Succinate 1,000 mg/ Sodium Chloride 66 mls @ 66 mls/hr IV DAILY@2100 [facility] Insulin Human Lispro (Insulin Lispro 100 Unit/Ml 3 Ml Vial) 0 unit SUBCUT QIDACHS [facility]; Protocol Melatonin (Melatonin 3 Mg Tablet) 6 mg PO BEDTIME PRN PRN Reason: Insomnia Ondansetron HCl (Ondansetron Hcl 4 Mg/2 Ml Vial) 4 mg IVPUSH Q8H PRN PRN Reason: Nausea and Vomiting Sodium Chloride (0.9 % Sodium Chloride Flush 3 Ml Syringe) 3 ml IVFLUSH QSHIFT [facility] Physical Exam 2 Vital Signs and Narrative: Vital Signs: Last Vital Signs Temp 97.8 F 10/12/23 17:56 Pulse 90 10/12/23 17:56 Resp 18 10/12/23 17:56 BP 157/91 H 10/12/23 17:56 Pulse Ox 98 10/12/23 17:56 O2 Del Method Room Air 10/12/23 17:56 BMI result Body Mass Index 38.5 Constitutional: Alert, in no acute distress. Mental Status: Oriented to person, place and time. Eyes: Pupils are equal, round, and reactive to light. Ear, Nose, and Throat: Oropharynx clear, mucous membranes moist. Ears and nose without deformities. Trachea midline. Respiratory: Clear to auscultation bilaterally. No wheezing, rales, or rhonchi. Cardiovascular: S1, S2 regular. No murmurs, rubs, or gallops. Gastrointestinal: Abdomen soft, non-tender, non-distended. Normal bowel sounds. Neurologic: Cranial nerves II-XII are grossly intact bilaterally. No focal neurological deficits. Moves all extremities spontaneously. Negative pronator drift. Sensation to light touch intact bilaterally on face, upper extremities, and lower extremities. Negative [id number] test. Negative heel to campbell test. Skin: Warm, dry. Musculoskeletal: No cyanosis or clubbing. Extremities: No edema. Psychiatric: Normal mood and affect. Results Labs 10/12/23 18:09 10/12/23 18:09 Labs: Laboratory Results - last 24 hr 10/12/23 18:09 MCV 84.9 MCH 29.7 MCHC 35.0 RDW 12.1 Plt Count 224 MPV 11.2 Immature Gran % (Auto) 0.2 Neut % (Auto) 56.0 Lymph % (Auto) 36.2 [place] % (Auto) 5.3 Eos % (Auto) 1.9 Baso % (Auto) 0.4 Lymph # (Auto) 3.4 [place] # (Auto) 0.5 Eos # (Auto) 0.2 Baso # (Auto) 0.0 Abs Immat Gran (auto) 0.02 Absolute Neuts (auto) 5.3 Absolute Nucleated RBC 0.000 Nucleated RBC % (auto) 0.0 Anion Gap 15 Estim Creat Clear Calc 122.9 Estimated GFR > 60 Random Glucose 235 H Calcium 9.2 Magnesium 1.8 Total Bilirubin 0.3 AST 116 H ALT 115 H Alkaline Phosphatase 101 Total Protein 7.1 Albumin 3.9 Imaging Radiologist's Impressions: Impressions Head CT 10/12/23 19:31 IMPRESSION: No acute intracranial hemorrhage or territorial infarction. Given prior MRI findings in the cerebral white matter, correlate for any history or symptomatology relating to underlying demyelinating disease. Assessment and Plan (1) Right sided weakness: Status: Acute (2) Right sided numbness: Status: Acute Plan Pt is a 48-year-old female with a PMH significant for?HTN, sue-dttycoq-jiyublzjm diabetes type 2, depression and anxiety, and bipolar disorder who presents to the ED with?right-sided numbness and weakness. Pt will be admitted to the hospital for treatment and further workup of potential potential demyelinating disease. Right-sided numbness and weakness Pt with intermittent episodes x4 days, with similar less severe episodes over the past 10+ years MRI showing multiple T2 signal hyperintense lesions suggestive of demyelinating disease, similar findings on MRI from 2004 Will treat with high-dose steroids, Solu-Medrol 1g IV, day 1/5 MRI of head/brain wo/w contrast Neurology consult HTN Continue lisinopril Bul-jpuubpk-plzywstht diabetes type 2 Hold metformin Sliding-scale insulin, diabetic diet Mood disorder Continue home meds Full Code Attending:?Dr. Galeana DVT Prophylaxis: Lovenox Pt will require a hospitalization of at least two nights for treatment of?right- sided numbness and weakness concerning for demyelinating disease. Patient require high dose IV steroids and specialist consultation. Quality Stroke Does the patient have a stroke diagnosis?: No VTE Prior VTE?: No VTE Risk Level:: Medical - moderate - high VTE Device Contraindication: Treatment Not Indicated VTE Drug Contraindication: N/A - Med Ordered
[2023-10-12] MEDS: Insulin Lispro 100 UNIT/ML 3 ML VIAL SUBCUT (20:38)
[2023-10-12 20:39] LABS: Glucose, Whole Blood 207 mg/dL (60-115)
[2023-10-12] MEDS: methylPREDNISolone Sod Succ 1,000 MG in 0.9 % Sodium Chloride 50 ML 66 MG IV (20:47)
[2023-10-12 22:12] VITALS: BP 154/81; PULSE 83; RESP 22; TEMP 36.9; O2SAT 92
[2023-10-12] MEDS: 0.9 % Sodium Chloride Flush 3 ML SYRINGE IVFLUSH (23:02)
[2023-10-12 23:03] VITALS: BP 180/92; PULSE 92; RESP 20; TEMP 36.6; O2SAT 96
[2023-10-12 23:04] VITALS: BMI 38.2
[2023-10-13 00:37] VITALS: BP 140/84
[2023-10-13 03:40] VITALS: BP 148/84; PULSE 94; RESP 18; TEMP 36.5; O2SAT 98
--- NOTE | 2023-10-13 05:40 | ECG_ITS ---
Test Reason : chest tightness Blood Pressure : / mmHG Vent. Rate : 100 BPM Atrial Rate : 100 BPM P-R Int : 178 ms QRS Dur : 090 ms QT Int : 366 ms P-R-T Axes : 034 005 029 degrees QTc Int : 472 ms Normal sinus rhythm Normal ECG When compared with ECG of 09-OCT-2023 01:42, No significant change was found Referred By: Jonathan Galeana Electronically Signed By:CELINA WILKINS MD
[2023-10-13 06:01] LABS: Glucose, Whole Blood 345 mg/dL (60-115)
[2023-10-13 06:17] LABS: MANUAL DIFF FLAG NO
[2023-10-13 06:22] LABS: Basophils Percent Auto 0.1 % (0-2); Eosinophils Percent Auto 0.1 % (0-4); Hematocrit 42.7 % (37.0-47.0); Imm Gran Abs Auto 0.04 X10*3/uL (0.00-0.03); Imm Gran Pct Auto 0.4 % (0.0-0.4); Lymphocytes Absolute Auto 1.7 X10*3/uL (1.2-4.9); Lymphocytes Percent Auto 16.7 % (20-40); Mean Corpuscular HGB Conc 35.1 g/dl (31.0-35.0); Mean Corpuscular Hemoglobin 29.4 pg (27.0-33.0); Mean Corpuscular Volume 83.7 fL (80.0-98.0); Mean Platelet Volume 11.2 fL (9.4-12.3); Monocytes Percent Auto 0.3 % (2-11); Neutrophils Absolute Auto 8.6 x10*3/uL (2.0-8.3); Neutrophils Percent Auto 82.4 % (45-73); Platelet Count 221 X10*3/uL (160-400); Red Cell Distribution Width 12.1 % (11.0-16.0); White Blood Count 10.5 X10*3/uL (4.8-10.8)
[2023-10-13 07:27] LABS: Glucose, Whole Blood 364 mg/dL (60-115)
[2023-10-13 07:29] LABS: Troponin-I High Sensitivity < 2.7 ng/L (<3.5-17.0)
[2023-10-13 07:32] VITALS: BP 130/100; PULSE 105; RESP 18; TEMP 36.7; O2SAT 98
[2023-10-13 07:35] LABS: Estimated Average Glucose 229 mg/dL; Hemoglobin A1c % 9.6 % (<6.0)
[2023-10-13 07:41] LABS: Anion Gap 17 (12-20); Blood Urea Nitrogen 13 mg/dL (9-16); Calcium 9.8 mg/dL (8.4-10.2); Carbon Dioxide 19 mmol/L (22-29); Chloride 105 mmol/L (96-108); Creatinine Clr Calc Pharmacy 100.2; Estimated Glomerular Filt Rate > 60; Glucose Random 379 mg/dL (60-115); Potassium 3.8 mmol/L (3.3-5.1); Sodium 137 mmol/L (135-145)
[2023-10-13] MEDS: Insulin Lispro 100 UNIT/ML 3 ML VIAL SUBCUT ×5 (08:03→20:25)
--- NOTE | 2023-10-13 08:12 | PHA.MEDREC ---
Pharmacy Consult ? Medication Reconciliation Pharmacy has completed the medication reconciliation. spoke with patient to confirm medications.
--- NOTE | 2023-10-13 09:51 | P.PNIM_ITS ---
Subjective Subjective Date of Service: 10/13/23 Review of Systems Follow up numbness and weakness still with some numbness to hands and some speech difficulties Physical Exam 2 Vital Signs: Vital Signs: Last Vital Signs Temp 98.0 F 10/13/23 07:32 Pulse 105 H 10/13/23 07:32 Resp 18 10/13/23 07:32 BP 130/100 H 10/13/23 07:32 Pulse Ox 98 10/13/23 07:32 O2 Del Method Room Air 10/13/23 07:32 BMI result Body Mass Index 38.2 Appearing in no acute distress lung sounds are clear to auscultation heart regular rate rhythm, clear S1, S2 positive bowel sounds, abdomen is soft, nontender neuro patient is alert x3, no focal deficits Objective Data Active Medications Acetaminophen (Acetaminophen 325 Mg Tablet) 650 mg PO Q6H PRN PRN Reason: Pain, Mild (Pain Scale 1-3) Dextrose (Dextrose 50 % 25 Gm/50 Ml Syringe) 25 gm IVPUSH Q15M PRN; Protocol PRN Reason: per Hypoglycemia Standing Ord. Enoxaparin Sodium (Enoxaparin Sodium 40 Mg/0.4 Ml Syringe) 40 mg SUBCUT Q24H [facility] Last Admin: 10/12/23 20:27 Dose: 40 mg Documented By: ARAM Glucose (Glucose Gel 15 Gm Gel..Gram.) 15 gm PO Q15M PRN; Protocol PRN Reason: per Hypoglycemia Standing Ord. Methylprednisolone Sodium Succinate 1,000 mg/ Sodium Chloride 66 mls @ 66 mls/hr IV DAILY@2100 [facility] Last Infusion: 10/12/23 22:04 Dose: Infused Documented By: ZEKE Insulin Human Lispro (Insulin Lispro 100 Unit/Ml 3 Ml Vial) 0 unit SUBCUT QIDACHS [facility]; Protocol Last Admin: 10/13/23 08:03 Dose: 10 unit Documented By: NIRAJ Lisinopril (Lisinopril 5 Mg Tablet) 5 mg PO DAILY [facility]; Protocol Melatonin (Melatonin 3 Mg Tablet) 6 mg PO BEDTIME PRN PRN Reason: Insomnia Ondansetron HCl (Ondansetron Hcl 4 Mg/2 Ml Vial) 4 mg IVPUSH Q8H PRN PRN Reason: Nausea and Vomiting Sodium Chloride (0.9 % Sodium Chloride Flush 3 Ml Syringe) 3 ml IVFLUSH QSHIFT [facility] Last Admin: 10/13/23 08:04 Dose: Not Given Documented By: NIRAJ Non-Admin Reason: Previously Administered Labs 10/13/23 05:58 10/13/23 05:58 Labs: Laboratory Results - last 24 hr 10/12/23 10/12/23 10/13/23 18:09 20:32 05:54 MCV 84.9 MCH 29.7 MCHC 35.0 RDW 12.1 Plt Count 224 MPV 11.2 Immature Gran % (Auto) 0.2 Neut % (Auto) 56.0 Lymph % (Auto) 36.2 [place] % (Auto) 5.3 Eos % (Auto) 1.9 Baso % (Auto) 0.4 Lymph # (Auto) 3.4 [place] # (Auto) 0.5 Eos # (Auto) 0.2 Baso # (Auto) 0.0 Abs Immat Gran (auto) 0.02 Absolute Neuts (auto) 5.3 Absolute Nucleated RBC 0.000 Nucleated RBC % (auto) 0.0 Anion Gap 15 Estim Creat Clear Calc 122.9 Estimated GFR > 60 POC Glucose 207 H 345 H Random Glucose 235 H Estimat Average Glucose 229 Hemoglobin A1c % 9.6 H Calcium 9.2 Magnesium 1.8 Total Bilirubin 0.3 AST 116 H ALT 115 H Alkaline Phosphatase 101 Total Protein 7.1 Albumin 3.9 10/13/23 10/13/23 05:58 07:16 MCV 83.7 MCH 29.4 MCHC 35.1 H RDW 12.1 Plt Count 221 MPV 11.2 Immature Gran % (Auto) 0.4 Neut % (Auto) 82.4 H Lymph % (Auto) 16.7 L [place] % (Auto) 0.3 L Eos % (Auto) 0.1 Baso % (Auto) 0.1 Lymph # (Auto) 1.7 [place] # (Auto) 0.0 L Eos # (Auto) 0.0 Baso # (Auto) 0.0 Abs Immat Gran (auto) 0.04 H Absolute Neuts (auto) 8.6 H Absolute Nucleated RBC 0.000 Nucleated RBC % (auto) 0.0 Anion Gap 17 Estim Creat Clear Calc 100.2 Estimated GFR > 60 POC Glucose 364 H* Random Glucose 379 H* Estimat Average Glucose Hemoglobin A1c % Calcium 9.8 D Magnesium Total Bilirubin AST ALT Alkaline Phosphatase Total Protein Albumin Assessment and Plan (1) Right sided numbness: Status: Acute Plan Pt is a 48-year-old female with a PMH significant for?HTN, fbh-bnkisqa-qmzjwkghn diabetes type 2, depression and anxiety, and bipolar disorder who presents to the ED with?right-sided numbness and weakness. Pt will be admitted to the hospital for treatment and further workup of potential potential demyelinating disease. Right-sided numbness and weakness Pt with intermittent episodes x4 days, with similar less severe episodes over the past 10+ years MRI showing multiple T2 signal hyperintense lesions suggestive of demyelinating disease, similar findings on MRI from 2004 Will treat with high-dose steroids, Solu-Medrol 1g IV, day 1/ MRI of head/brain wo/w contrast pending Neurology consult pending HTN Continue lisinopril Yqr-pyhkaqb-jiekvghly diabetes type 2 A1C 9.6 Hold metformin Sliding-scale insulin, diabetic diet Mood disorder Continue home meds Full Code Attending:? DVT Prophylaxis: Lovenox continue hospital stay for treatment of?right-sided numbness and weakness concerning for demyelinating disease. Patient require high dose IV steroids and specialist consultation. Quality Stroke Does the patient have a stroke diagnosis?: No VTE Prior VTE?: No VTE Risk Level:: Medical - moderate - high VTE Device Contraindication: Treatment Not Indicated VTE Drug Contraindication: N/A - Med Ordered
[2023-10-13 09:55] VITALS: BP 142/83
[2023-10-13] MEDS: lisinopriL 5 MG TABLET PO (09:58)
[2023-10-13] MEDS: gadobutroL 10 ML VIAL IVPUSH (11:01)
[2023-10-13 11:42] LABS: Glucose, Whole Blood 340 mg/dL (60-115)
--- NOTE | 2023-10-13 15:40 | PM.NEUROCN ---
History of Present Illness Data of Consult Service Date: 10/13/23 Primary Care Provider: Narendra Jeff MD HPI Reason for consult: Right sided numbness This is a 48-year-old female with a h/o ?HTN, jud-kglqqsq-zjbmbzdci diabetes type 2, depression and anxiety, and bipolar disorder who presented to the ED with?right-sided numbness and weakness. Patient states symptoms began 3 days ago when she initially presented to the ED complaining of right-sided numbness of face, arm, and leg, along with SOB, lightheadedness, dizziness, and blurred vision. Found herself unable to open her car door with her right arm and then had difficulty speaking d/t numbness of the tongue. Symptoms lasted 15 minutes with only residual slight tingling in her fingers and feet. In the ED her neurologic exam was nonfocal but MRI showed multiple T2 signal hyperintense lesions within the supratentorial periventricular and subcortical white matter with a distribution suggestive of demyelinating disease. CTA of heaad and neck were negative. Patient was sent home with a working diagnosis of a hyperventilation/panic attack from an unknown trigger, and was started on aspirin 81 mg daily. Patient states that after being home she has had 3 more similar episodes, though not as serious or as prolonged. This morning when she had a repeat episode of right sided numbness and heaviness she decided to re-present to the emergency department. Patient states she currently feels ?unbalanced? and has a ?heaviness in her head?, but otherwise her numbness and weakness have resolved. Of note, she was seen by Dr. Ojeda and had a previous MRI in 2004 that showed a few T2 hyperintense foci, and she reports having similar episodes of lightheadedness, tingling, and lack of coordination throughout the past 10+ years, though nothing as serious or significant as those she has experienced this past week. She has had 2 doses of Solumedrol and her symptoms have resolved. Review of Systems Review of Systems: Follow up numbness and weakness still with some numbness to hands and some speech difficulties PMFSH Past Medical History Medical History (Updated 10/12/23 @ 21:36 by OMAR De La Cruz) Elevated LFTs Vitamin D deficiency Pure hypercholesterolemia Benign essential hypertension Obesity (BMI 30-39.9) Gastritis Bulimia nervosa Bipolar disorder Impaired fasting glucose Hyperlipidemia Family History Family History Mother High blood pressure Dementia Kidney stones Arthritis Father Hepatitis B Cirrhosis of liver Other Mental health problem Surgical History Surgical History History of endometrial ablation History of cholecystectomy History of colonoscopy History of hernia surgery History of tubal ligation History of carpal tunnel surgery H/O bursectomy Social History Social History Household Members: None Housing: Apartment Do you presently have visiting nurse or other home services: No Alcohol intake: never Patient Tobacco Use Status: Never used Tobacco Tobacco use type: Cigarette Cigarettes Per Day: 5 e-Cigarette/Vaping Use: Never Used Second Hand Smoke Exposure: No service: No Current occupational status: employed 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 Enoxaparin Sodium (Enoxaparin Sodium 40 Mg/0.4 Ml Syringe) 40 mg SUBCUT Q24H [facility] Last Admin: 10/12/23 20:27 Dose: 40 mg Glucose (Glucose Gel 15 Gm Gel..Gram.) 15 gm PO Q15M PRN; Protocol PRN Reason: per Hypoglycemia Standing Ord. Methylprednisolone Sodium Succinate 1,000 mg/ Sodium Chloride 66 mls @ 66 mls/hr IV DAILY@2100 [facility] Last Infusion: 10/12/23 22:04 Dose: Infused Insulin Human Lispro (Insulin Lispro 100 Unit/Ml 3 Ml Vial) 0 unit SUBCUT QIDACHS [facility]; Protocol Last Admin: 10/13/23 12:16 Dose: 8 unit Lisinopril (Lisinopril 5 Mg Tablet) 5 mg PO DAILY [facility]; Protocol Last Admin: 10/13/23 09:58 Dose: 5 mg Melatonin (Melatonin 3 Mg Tablet) 6 mg PO BEDTIME PRN PRN Reason: Insomnia Ondansetron HCl (Ondansetron Hcl 4 Mg/2 Ml Vial) 4 mg IVPUSH Q8H PRN PRN Reason: Nausea and Vomiting Sodium Chloride (0.9 % Sodium Chloride Flush 3 Ml Syringe) 3 ml IVFLUSH QSHIFT [facility] Last Admin: 10/13/23 08:04 Dose: Not Given Home Medications Medication Instructions Recorded Confirmed Last Taken Type semaglutide 0.25 mg or 0.5 mg (2 0.25 mg subcut SA 10/13/23 10/13/23 10/12/23 History mg/3 mL) subcutaneous pen injector (Ozempic) Physical Exam Vital Signs: Vital Signs: Last Vital Signs Temp 98.0 F 10/13/23 07:32 Pulse 105 H 10/13/23 07:32 Resp 18 10/13/23 07:32 BP 142/83 H 10/13/23 09:55 Pulse Ox 98 10/13/23 07:32 O2 Del Method Room Air 10/13/23 07:32 BMI result Body Mass Index 38.2 Neuro: Other: Normal , non focal exam except right plantar response is equivocal , while left is cleraly flexor Results Labs 10/13/23 05:58 10/13/23 05:58 Labs: Short CBC 10/12/23 10/13/23 Range/Units 18:09 05:58 WBC 9.4 10.5 (4.8-10.8) X10*3/uL Hgb 14.3 15.0 (12.0-16.0) g/dl Hct 40.9 42.7 (37.0-47.0) % Plt Count 224 221 (160-400) X10*3/uL BMP 10/12/23 10/13/23 18:09 05:58 Sodium 140 137 Potassium 4.0 3.8 Chloride 104 105 Carbon Dioxide 25 19 L BUN 10 13 Creatinine 0.68 0.83 Calcium 9.2 9.8 D Liver Function 10/12/23 Range/Units 18:09 Total Bilirubin 0.3 (0.0-1.0) mg/dL AST 116 H (5-31) U/L ALT 115 H (0-31) U/L Alkaline Phosphatase 101 (39-117) U/L Albumin 3.9 (3.5-5.0) g/dL Assessment and Plan (1) Right sided numbness: Status: Acute Sx related to MS rather than vascular disease. Recom. IV Solumedrol 1gm x 3 days. Can be discharged tomorrow after her Solumedrol dose. OP f/u with Dr. Rusty Leavitt Pt is a 48-year-old female with a PMH significant for?HTN, gms-zstfzxa-lrltosiwm diabetes type 2, depression and anxiety, and bipolar disorder who presents to the ED with?right-sided numbness and weakness. Pt will be admitted to the hospital for treatment and further workup of potential potential demyelinating disease. Right-sided numbness and weakness Pt with intermittent episodes x4 days, with similar less severe episodes over the past 10+ years MRI showing multiple T2 signal hyperintense lesions suggestive of demyelinating disease, similar findings on MRI from 2004 Will treat with high-dose steroids, Solu-Medrol 1g IV, day 1/5 MRI of head/brain wo/w contrast pending Neurology consult pending HTN Continue lisinopril Mif-ubkcszu-yidkknxug diabetes type 2 A1C 9.6 Hold metformin Sliding-scale insulin, diabetic diet Mood disorder Continue home meds Full Code Attending:? DVT Prophylaxis: Lovenox continue hospital stay for treatment of?right-sided numbness and weakness concerning for demyelinating disease. Patient require high dose IV steroids and specialist consultation. Procedures Date of Service Date of Service: 10/13/23
[2023-10-13 15:57] VITALS: BP 134/72; PULSE 99; RESP 16; TEMP 36.3; O2SAT 97
--- NOTE | 2023-10-13 16:10 | MHC.CM.PN ---
PT REPORTS SHE LIVES ALONE AND IS INDEPENDENT WITH CARE SHE HAS NO SERVICES AND NO DME PT COMPLETED A HCP TODAY NAMING HER DAUGHTER, LIANER, HER AGENT PCP: KARINA GIL DCP: HOME NO SERVICES VIA SELF TRANSPORT
[2023-10-13 16:30] LABS: Glucose, Whole Blood 280 mg/dL (60-115)
[2023-10-13] MEDS: 0.9 % Sodium Chloride Flush 3 ML SYRINGE IVFLUSH ×2 (17:17→20:26)
[2023-10-13 19:47] VITALS: BP 147/77; PULSE 103; RESP 16; TEMP 36; O2SAT 96
[2023-10-13 20:17] LABS: Glucose, Whole Blood 302 mg/dL (60-115)
[2023-10-13] MEDS: Enoxaparin Sodium 40 MG/0.4 ML SYRINGE SUBCUT (20:24)
[2023-10-13] MEDS: methylPREDNISolone Sod Succ 1,000 MG in 0.9 % Sodium Chloride 50 ML 66 MG IV (20:26)
[2023-10-13] MEDS: diphenhydrAMINE HCL 25 MG CAPSULE 50 MG PO (21:34)
--- NOTE | 2023-10-14 03:36 | PC.NURSE ---
Pt requested for a sleep med and claimed she used 50 mg benadryl and Unisom at home, Dr. Galeana was notified, Benadryl 50 mgpo ordered, pt slept well.
[2023-10-14 03:43] VITALS: BP 136/72; PULSE 104; RESP 14; TEMP 36.1; O2SAT 96
[2023-10-14 07:19] LABS: Glucose, Whole Blood 386 mg/dL (60-115)
[2023-10-14 07:29] VITALS: BP 141/83; PULSE 86; RESP 20; TEMP 36.5; O2SAT 97
[2023-10-14] MEDS: Insulin Lispro 100 UNIT/ML 3 ML VIAL SUBCUT ×4 (07:50→21:16)
[2023-10-14] MEDS: lisinopriL 5 MG TABLET PO (07:50)
[2023-10-14] MEDS: 0.9 % Sodium Chloride Flush 3 ML SYRINGE IVFLUSH ×3 (07:53→21:02)
--- NOTE | 2023-10-14 08:58 | HO.PM.IMPN ---
Subjective Subjective Date of Service: 10/14/23 Review of Systems Follow up numbness and weakness still with some numbness to hands and some speech difficulties Physical Exam Vital Signs: Vital Signs: Last Vital Signs Temp 97.7 F 10/14/23 07:29 Pulse 86 10/14/23 07:29 Resp 20 10/14/23 07:29 BP 141/83 H 10/14/23 07:29 Pulse Ox 97 10/14/23 07:29 O2 Del Method Room Air 10/14/23 07:29 BMI result Body Mass Index 38.2 Appearing in no acute distress, some occasional slow speech lung sounds are clear to auscultation heart regular rate rhythm, clear S1, S2 positive bowel sounds, abdomen is soft, nontender neuro patient is alert x3, no focal deficits Objective Data Active Medications Acetaminophen (Acetaminophen 325 Mg Tablet) 650 mg PO Q6H PRN PRN Reason: Pain, Mild (Pain Scale 1-3) Dextrose (Dextrose 50 % 25 Gm/50 Ml Syringe) 25 gm IVPUSH Q15M PRN; Protocol PRN Reason: per Hypoglycemia Standing Ord. Enoxaparin Sodium (Enoxaparin Sodium 40 Mg/0.4 Ml Syringe) 40 mg SUBCUT Q24H [facility] Last Admin: 10/13/23 20:24 Dose: 40 mg Documented By: ANG Glucose (Glucose Gel 15 Gm Gel..Gram.) 15 gm PO Q15M PRN; Protocol PRN Reason: per Hypoglycemia Standing Ord. Methylprednisolone Sodium Succinate 1,000 mg/ Sodium Chloride 66 mls @ 66 mls/hr IV DAILY@2100 [facility] Last Infusion: 10/13/23 21:38 Dose: Infused Documented By: ANG Insulin Human Lispro (Insulin Lispro 100 Unit/Ml 3 Ml Vial) 0 unit SUBCUT QIDACHS [facility]; Protocol Last Admin: 10/14/23 07:50 Dose: 10 unit Documented By: CHASIDY Lisinopril (Lisinopril 5 Mg Tablet) 5 mg PO DAILY [facility]; Protocol Last Admin: 10/14/23 07:50 Dose: 5 mg Documented By: CHASIDY Melatonin (Melatonin 3 Mg Tablet) 6 mg PO BEDTIME PRN PRN Reason: Insomnia Ondansetron HCl (Ondansetron Hcl 4 Mg/2 Ml Vial) 4 mg IVPUSH Q8H PRN PRN Reason: Nausea and Vomiting Sodium Chloride (0.9 % Sodium Chloride Flush 3 Ml Syringe) 3 ml IVFLUSH QSHIFT [facility] Last Admin: 10/14/23 07:53 Dose: 3 ml Documented By: CHASIDY Labs 10/13/23 05:58 10/13/23 05:58 Labs: Laboratory Results - last 24 hr 10/13/23 10/13/23 10/13/23 11:35 16:17 19:49 POC Glucose 340 H 280 H 302 H 10/14/23 07:09 POC Glucose 386 H* Assessment and Plan (1) Right sided numbness: Status: Acute Plan Pt is a 48-year-old female with a PMH significant for?HTN, oiy-dvtvnnk-lxjsecnbe diabetes type 2, depression and anxiety, and bipolar disorder who presents to the ED with?right-sided numbness and weakness. Pt will be admitted to the hospital for treatment and further workup of potential potential demyelinating disease. Right-sided numbness and weakness with mild speech impairment Pt with intermittent episodes x4 days, with similar less severe episodes over the past 10+ years Will treat with high-dose steroids, Solu-Medrol 1g IV, day 1/5 MRI of head/brain wo/w contrast showing T2 signal hyperintense lesions within the supratentorial prep periventricular and subcortical white matter suggestive of demyelinating disease, also lesions within the upper cervical spinal cord as C1-C2. Plan for MRI of C-spine and thoracic spine tomorrow Neurology consult> symptoms related to MS rather than vascular disease, complete 3 days of 1 g of IV Solu-Medrol then discharge to follow-up with Neurology outpatient HTN Continue lisinopril Bcs-piqaxua-lcrovlude diabetes type 2 A1C 9.6 Hold metformin Sliding-scale insulin, diabetic diet Mood disorder Continue home meds Full Code Attending:? DVT Prophylaxis: Lovenox continue hospital stay for treatment of?right-sided numbness and weakness concerning for demyelinating disease. Patient require high dose IV steroids and specialist consultation. Quality Stroke Does the patient have a stroke diagnosis?: No VTE Prior VTE?: No VTE Risk Level:: Medical - moderate - high VTE Device Contraindication: Treatment Not Indicated VTE Drug Contraindication: N/A - Med Ordered
--- NOTE | 2023-10-14 10:10 | MHC.CM.PN ---
HCP SCANNED IN TO EMR. COPIES GIVEN TO THE PATIENT.
[2023-10-14 11:10] LABS: Glucose, Whole Blood 389 mg/dL (60-115)
[2023-10-14 13:04] LABS: Glucose, Whole Blood 381 mg/dL (60-115)
[2023-10-14 14:44] VITALS: BP 129/65; PULSE 74; RESP 20; TEMP 36.1; O2SAT 96
[2023-10-14] MEDS: polyethylene glycoL 3350 17 GM POWD.PACK PO (14:46)
[2023-10-14] MEDS: ondansetron HCL 4 MG/2 ML VIAL IVPUSH (14:46)
[2023-10-14 15:22] VITALS: BP 152/83; PULSE 72; RESP 18; TEMP 36.6; O2SAT 99
[2023-10-14 16:29] LABS: Glucose, Whole Blood 234 mg/dL (60-115)
[2023-10-14 18:58] VITALS: BP 126/71; PULSE 67; RESP 18; TEMP 37; O2SAT 96
[2023-10-14] MEDS: methylPREDNISolone Sod Succ 1,000 MG in 0.9 % Sodium Chloride 50 ML 66 MG IV (21:01)
[2023-10-14] MEDS: diphenhydrAMINE HCL 25 MG CAPSULE 50 MG PO (21:03)
[2023-10-14 21:16] LABS: Glucose, Whole Blood 249 mg/dL (60-115)
[2023-10-14] MEDS: Insulin Glargine,Hum.rec.anlog 100 UNIT/ML 10 ML VIAL 12 UNIT SUBCUT (21:16)
[2023-10-15 04:00] VITALS: BP 135/62; PULSE 70; RESP 16; TEMP 36; O2SAT 96
[2023-10-15 07:10] VITALS: BP 138/66; PULSE 94; RESP 18; TEMP 36.6; O2SAT 95
--- NOTE | 2023-10-15 07:12 | PM.DS ---
DS: Providers Provider Date of Service: 10/15/23 Date of admission: 10/12/23 20:00 Primary care physician: Narendra Jeff MD Consults: 10/12/23 20:04 Consult to Neurology Routine Consulting Provider: [facility] Reason for consultation: right sided numbness ?MS flare DS: Diagnosis Discharge Diagnosis (1) Right sided numbness: Status: Acute DS: Summary Hospital Course Hospital Course: History and physical as per admitting provider. Pt is a 48-year-old female with a PMH significant for?HTN, tmg-lrouxxu-updawnhji diabetes type 2, depression and anxiety, and bipolar disorder who presents to the ED with?right-sided numbness and weakness. Patient states symptoms began 3 days ago when she initially presented to the ED complaining of right-sided numbness of face, arm, and leg, along with SOB, lightheadedness, dizziness, and blurred vision. Pt had just given blood and was getting into her car when symptoms started. Found herself unable to open her car door with her right arm and then had difficulty speaking d/t numbness of the tongue. Symptoms lasted 15 minutes with only residual slight tingling in her fingers and feet. In the ED her neurologic exam was nonfocal but MRI showed multiple T2 signal hyperintense lesions within the supratentorial periventricular and subcortical white matter with a distribution suggestive of demyelinating disease. Patient was sent home then with a working diagnosis of a hyperventilation/panic attack from an unknown trigger, and was started on aspirin 81 mg daily. Patient states that after being home she has had 3 more similar episodes, though not as serious or as prolonged. This morning when she had a repeat episode of right sided numbness and heaviness she decided to re-present to the emergency department. Patient states she currently feels ?unbalanced? and has a ?heaviness in her head?, but otherwise her numbness and weakness have resolved. Of note, she had a previous MRI in 2004 that showed similar findings of T2 hypodense foci, and she reports having similar episodes of lightheadedness, tingling, and lack of coordination throughout the past 10+ years, though nothing as serious or significant as those she has experienced this past week. In the ED pt was slightly hypertensive up to 157/91, but vitals otherwise WNL. Labs were significant for POC of 207, otherwise grossly unremarkable. No leukocytosis. Stable H&H. Electrolytes WNL. Renal and hepatic function WNL. CT?of head showed no acute intracranial hemorrhage or territorial infarction. Pt was treated with Solu-Medrol 125 mg IV. The ED contacted Neurology who suggested admission, treating with high dosed steroids, and obtaining an MRI of the brain with and without contrast tomorrow. Pt will be admitted to the hospital for treatment and further workup of potential potential demyelinating disease. 48 year old women treated for right sided numbness and weakness. MRI showing T2 signal hyperintense lesions within the supratentorial periventricular and subcortical white matter suggestive of demyelinating disease with lesions in the upper cervical spine at C1-C2. MRI from 2004 showing similar lesions. She was seen evaluated by Neurology who thought symptoms were more related to muscular sclerosis rather than vascular disease. She completed 3 doses of 1 g of IV Solu-Medrol. She will need to follow-up closely with Neurology for treatment of multiple sclerosis. She does have some mild speech difficulties such as slow speech. She did report some continued numbness in her hands that waxes and wanes. She should follow-up with primary care provider to refer her for MRI of the cervical and thoracic spine to further investigate lesions that were found on brain MRI. She will also be sent home with a new Lantus pen, 12 units at bedtime. At this time patient is stable for discharge and should follow-up with Neurology and her primary care provider. Hypertension. Continue lisinopril Diabetes mellitus type 2. Continue metformin, Lantus added Time Attestation Discharge coordination time: Greater than 30 minutes Quality: Safe Use of Opioids Does Pt have an Active Cancer Diagnosis on the Problem List?: No Quality: Stroke Does the patient have a stroke diagnosis?: No Physical Exam Vital Signs: Vital Signs: Last Vital Signs Temp 96.8 F 10/15/23 04:00 Pulse 70 10/15/23 04:00 Resp 16 10/15/23 04:00 BP 135/62 10/15/23 04:00 Pulse Ox 96 10/15/23 04:00 O2 Del Method Room Air 10/15/23 04:00 BMI result Body Mass Index 38.2 Appearing in no acute distress head is normocephalic atraumatic eyes pupils are PERRLA sclera is anicteric mouth throat mucous membranes are intact and moist neck is supple no lymphadenopathy, no JVD noted lung sounds are clear to auscultation heart regular rate rhythm, clear S1, S2 positive bowel sounds, abdomen is soft, nontender neuro patient is alert x3, no focal deficits DS: Data Data Completed and Pending Labs on day of discharge: Laboratory Results - last 24 hr 10/14/23 10/14/23 10/14/23 07:09 11:04 13:00 POC Glucose 386 H* 389 H* 381 H* 10/14/23 10/14/23 16:24 21:10 POC Glucose 234 H 249 H Discharge Plan Discharge Anticipated Discharge Date/Time: 10/15/23 07:10 Patient Disposition: Home, Self-Care Discharge Diagnosis: Weakness, numbness Multiple sclerosis symptoms Referrals: Narendra Jeff MD [Primary Care Provider] - 1 Week Selene Ojeda MD [Physician] - 1 Week (Follow up for multiple sclerosis symptoms ) Discharge Medications: New insulin glargine [Lantus Solostar U-100 Insulin] 100 unit/mL (3 mL) insulin pen 12 unit SUBCUT DAILY Qty: 15 0RF (DME) pen needle, diabetic 32 gauge x 1/4 needle Qty: 100 0RF Rx Instructions: Use four times a day or as directed. Continued Ozempic 0.25 mg or 0.5 mg (2 mg/3 mL) pen injector 0.25 mg subcut SA (DME) blood pressure kit-extra large Kit See Rx Instructions .Route Qty: 1 0RF Rx Instructions: As directed (DME) blood-glucose meter [FreeStyle Lite Meter] Kit See Rx Instructions .MEDSUPPLY Qty: 1 0RF Rx Instructions: test daily (DME) FreeStyle Lite Strips Strip See Rx Instructions .MEDSUPPLY Qty: 100 2RF Rx Instructions: test daily (DME) lancets [FreeStyle Lancets] 28 gauge misc See Rx Instructions .MEDSUPPLY Qty: 100 2RF Rx Instructions: test daily lisinopril 5 mg tablet 5 mg PO DAILY Qty: 90 1RF Discharge Orders: Discharge Order (Routine); Ordered 10/15/23 Ordered By: Thu Schwartz Diet: Advance to usual diet Activity on Discharge: As tolerated Stand Alone Forms: Patient Portal Discharge page Other Ambulatory Orders: MR cervical spine wo/w con (Routine) Timeframe: 1 Day Facility: [facility] - Location: MRI Ordered By: Thu Schwartz MR thoracic spine wo/w con (Routine) Timeframe: 1 Week Facility: [facility] - Location: MRI Ordered By: Thu Schwartz Care Plan Goals: Complete resolution of symptoms Give the MRI requisitions to your primary care provider so their office can send a referral to have MRIs completed Take Lantus at Bedtime Health Concerns: Weakness, numbness Multiple sclerosis symptoms Plan of Treatment: Follow up with neurology for symptoms of Multiple Sclerosis Completed 3 doses of high dose solumedrol Assessment: See discharge summary
[2023-10-15 07:28] LABS: Glucose, Whole Blood 384 mg/dL (60-115)
[2023-10-15] MEDS: Insulin Lispro 100 UNIT/ML 3 ML VIAL SUBCUT (07:52)
[2023-10-15] MEDS: 0.9 % Sodium Chloride Flush 3 ML SYRINGE IVFLUSH (07:53)
[2023-10-15] MEDS: lisinopriL 5 MG TABLET PO (07:53)
--- NOTE | 2023-10-15 10:13 | MHC.CM.PN ---
pt dcd home no skilled services will be mneeeded
== END 2023-10-15 10:51 | disposition home or self-care (01) | DRG 43 ==
LOC: HO.ED 20:05 → HO.EDOVER 20:24 → HO.S3 21:08
PROVIDERS: Physician Assistant Medical; Admitting Provider Student in an Organized Health Care Education/Training Program; Emergency Provider Emergency Medicine; PCP Internal Medicine; Visit Provider Nurse Practitioner Acute Care
DX: G35 Multiple sclerosis (principal); R20.2 Paresthesia of skin; Z79.4 Long term (current) use of insulin; Z87.891 Personal history of nicotine dependence; Z79.85 Long-term (current) use of injectable non-insulin antidiabetic drugs
CPT/HCPCS: 36415; 70450; 70553; 80048; 80053; 82947; 83036; 83735; 84484; 85025; 93005; 99285; A9585; J1650; J2405; J2930

== ENCOUNTER 2023-10-12 20:00 | Outpatient (BNV) | payer OTHER, SELFPAY | END 2023-10-13 05:40 | PROVIDERS: Admitting Provider Student in an Organized Health Care Education/Training Program; Emergency Provider Emergency Medicine; PCP Internal Medicine; Visit Provider Internal Medicine Cardiovascular Disease | DX: R07.89 Other chest pain (principal) | CPT/HCPCS: 93010 ==

== ENCOUNTER → 2023-10-12 20:00 | Outpatient (BNV) | payer OTHER, SELFPAY | PROVIDERS: Admitting Provider Student in an Organized Health Care Education/Training Program; Emergency Provider Emergency Medicine; PCP Internal Medicine; Visit Provider Student in an Organized Health Care Education/Training Program | DX: R20.0 Anesthesia of skin (principal) | CPT/HCPCS: 99223; 99232; 99239 ==

== ENCOUNTER 2023-10-18 12:25 | Outpatient (AMB) | payer OTHER, SELFPAY ==
--- NOTE | 2023-10-18 12:32 | MHC.PC.OV ---
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 semaglutide (Ozempic) 0.25 mg subcut SA Tobacco use date assessed: 07/03/23 Dental Screening Dental Screen Date: 10/18/23 Did you have a dental visit in the last 12 months?: Yes Did you have a dental problem in the last 6 months where you did not have access to dental care?: No Was dental information given to patient?: Patient has dentist HPI DM, HTN, HLD HPI Details Patient comes in today for her follow up visit Patient went to the hospital a couple of times over the past 2 weeks - the 1st time was on 10/09/2023 after she donated blood when her arm started tingling and feeling heavy while she was on her way to the car States that she started feeling dizzy and the whole right side of her body went numb when she got into the car She was brought by bystanders to the emergency room at [facility] but states that she left after waiting for what she felt was a long time in the waiting room and came to the emergency room here at [facility] instead Relates that by the time she got to the ER here, the numbness on her right side have subsided a little bit with only her fingers and her right thigh feeling numb at the time On workup, [place] [address]; her H/H were slightly elevated at 16.3/47.9; random blood sugar was high at 311 mg/dL and LFTs were elevated with AST at 70 and ALT at 77 EKG done came back normal MRI of the brain done revealed multiple T2 signal hyperintense lesions within the supratentorial, periventricular and subcortical white matter with distributions suggestive of sequela of demyelinating disease She was started on low-dose aspirin 81 mg QD, was reassured that she did not have any evidence of a stroke and was discharged home with instructions to follow-up with PCP AKILA Patient states that she had recurrence of the same symptoms a few times over the next 3 days, prompting her to go back to the ER for further evaluation Neurology was consulted again and they recommended admission to the hospital, treating with high-dose steroids and obtaining an MRI of the brain with and without contrast for further evaluation She was treated with and completed 3 doses of 1 g of IV Solu-Medrol, which appears to have stabilized her symptoms Repeat MRI showed T2 signal hyperintense lesions within the supratentorial, periventricular and subcortical white matter suggestive of demyelinating disease with lesions and upper cervical spine at C1-C2 She has MRI of the cervical and thoracic spine ordered upon discharge for further evaluation of her cervical and thoracic spine lesion seen incidentally on brain MRI and these are still pending scheduling at present Patient reports that she continues to experience some mild slow speech and recurrent numbness in her hands She denies any headaches or dizziness lately Denies any chest pains, no shortness of breath No nausea/ vomiting, no abdominal pain No change in bowel habits noted PFSH Medical History Demyelinating disease Elevated LFTs Vitamin D deficiency Pure hypercholesterolemia Benign essential hypertension Obesity (BMI 30-39.9) Gastritis Bulimia nervosa Bipolar disorder Impaired fasting glucose Hyperlipidemia Surgical History History of endometrial ablation History of cholecystectomy History of colonoscopy History of hernia surgery History of tubal ligation History of carpal tunnel surgery H/O bursectomy Family History Mother High blood pressure Dementia Kidney stones Arthritis Father Hepatitis B Cirrhosis of liver Other Mental health problem Social History Household Members: None Housing: Apartment Do you presently have visiting nurse or other home services: No Alcohol intake: never Patient Tobacco Use Status: Never used Tobacco Tobacco use type: Cigarette Cigarettes Per Day: 5 e-Cigarette/Vaping Use: Never Used Second Hand Smoke Exposure: No service: No Current occupational status: employed 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[employer] Current occupational exposures/hazards: No Cognitive needs: No Hearing needs: No Vision needs: Yes Female Reproductive History Menstrual Age of Menarche: 13 Questionnaire Thrive Questionnaire Date Thrive assessed: 10/13/23 I am a: Patient What is your living situation today?: I have a steady place to live Within the past 12 months, did the food you bought not last and you didn't have the money to get more?: Never true Within the past 12 months, did you worry whether your food would run out before you got money to buy more?: Never true Do you have trouble paying for medicines?: No Do you have trouble getting transportation to medical appointments?: No Do you have trouble paying your heating and electricity bill?: No Do you have trouble taking care of your child, family member or friend?: No Do you have trouble with day-to-day activities such as bathing, preparing meals, shopping, managing finances, etc.?: No Are you currently unemployed and looking for a job?: No Are you interested in more education?: No Currently or been in a relationship where the following occur: no concerns reported GABI-7 AMB Questionnaire GABI-7 Date GABI - 7 assessed: 11/16/22 Source: Developed by Drs. Malcolm Sauceda, Lilliana Biswas, Francis Schmitt and colleagues, with an educational rich from [employer]. Review of Systems Const Denies chills, Reports fatigue, Denies fever(s), Denies headache(s) and Reports weight gain ENT Denies dysphagia, Denies dizziness, Denies otalgia, Denies headache(s), Denies odynophagia and Denies sore throat Card Denies chest pain, Denies palpitations and Denies dyspnea Resp Denies cough, Denies dyspnea and Denies wheezing GI Denies abdominal pain, Denies constipation, Denies dysphagia, Denies heartburn, Denies diarrhea, Denies nausea, Denies odynophagia and Denies vomiting Denies difficulty voiding, Denies nocturia, Denies dysuria and Denies urinary incontinence Musc Denies numbness (on and off, over the right side and in both hands recently) and Reports tingling (right-sided, on and off) Skin/Breast Denies rash Neuro Reports Abnormal speech present (slow speech), Denies confusion, Denies dizziness, Denies headache(s), Denies numbness (on and off, over the right side and in both hands recently) and Reports tingling (right-sided, on and off) Psych Denies confusion Endo Reports fatigue and Denies palpitations Aller/Immun Denies wheezing Physical exam (Primary Care) Vital Signs: Last Vital Signs Pulse 94 10/18/23 12:33 BP 150/88 H 10/18/23 12:33 Pulse Ox 99 10/18/23 12:33 Oxygen Delivery Method Room Air 10/18/23 12:33 BMI result Body Mass Index 37.4 Tobacco/Smoking Status: Tobacco use Status Tobacco use date assessed 07/03/23 10/18/23 12:33 Patient Tobacco Use Status Never used Tobacco 10/18/23 12:33 Tobacco use type Cigarette 10/18/23 12:33 e-Cigarette/Vaping Use Never Used 10/18/23 12:33 Thrive Assessment: Date of Thrive Assessment Date Thrive assessed 10/13/23 10/18/23 12:33 Currently or been in a relationship where the following occur: no concerns reported Const General: no acute distress and alert; No confusion Orientation/consciousness: patient oriented x3 and No confusion HENMT Ears: TM's normal bilaterally and EAC's normal Throat: Yes posterior oropharynx normal and Yes tonsils normal (no TP congestion) Neck Neck: Yes no lymphadenopathy and Yes supple Thyroid: Thyroid normal Resp Auscultation: clear to auscultation bilaterally, no rales and no wheezes Cardio Rate: regular rate Rhythm: regular rhythm Heart sounds: no murmurs GI Palpation (GI): Soft to palpation and nontender Auscultation: normal bowel sounds Skin Rashes: no rashes Neuro General: patient oriented x3, gait normal, moves all extremities, no focal motor deficits, CN's II-XI intact bilaterally and No confusion Speech: Abnormal speech present (slow speech) Gait exam (Neuro): Normal gait present Extrem General: Yes no clubbing, cyanosis or edema Results Reviewed Results Reviewed: Laboratory Tests 10/12/23 10/12/23 10/13/23 18:09 18:09 05:58 WBC 10.5 Hgb 15.0 Hct 42.7 Plt Count 221 Sodium Potassium Creatinine 0.83 Estimated GFR > 60 Hemoglobin A1c % 9.6 H Calcium Magnesium 1.8 AST 116 H ALT 115 H 10/13/23 10/13/23 05:58 05:58 WBC Hgb Hct Plt Count Sodium 137 Potassium 3.8 Creatinine Estimated GFR Hemoglobin A1c % Calcium 9.8 D Magnesium AST ALT Assessment and Plan Assessment & Plan (1) Multiple sclerosis: Code(s): G35 - Multiple sclerosis Plan: Her brain MRI done recently revealed the presence of multiple T2 signal hyperintense lesions within the supratentorial, periventricular and subcortical white matter with distribution suggestive of sequela of demyelinating disease Advised patient that coupled with her recent recurrent symptoms, these are all suggestive of a demyelinating disorder of which multiple sclerosis is the most likely She recently received 3 doses of 1 g IV Solu-Medrol in the hospital with some relief of her symptoms She is also referred for an MRI of the cervical and thoracic spine for further evaluation of lesion seen incidentally on her brain imaging and these are currently still awaiting scheduling Will refer her to Neurology for further evaluation and management (2) Diabetes mellitus: Code(s): E11.9 - Type 2 diabetes mellitus without complications Qualifiers: Diabetes mellitus type: type 2 Diabetes mellitus halfway insulin use: without intermediate designer use Diabetes mellitus complication status: with hyperglycemia Qualified Code(s): E11.65 - Type 2 diabetes mellitus with hyperglycemia Plan: HgbA1c was at 9.6% when checked last week (in-office HgbA1c was at 12.2 back in June 2023) - goal is <7.0% Reinforced diabetic diet Continue Lantus Solostar 12 units QD and Ozempic 0.25 mg SQ once a week She was previously on Metformin ER 1000 mg BID as well and at one point was started on Januvia 50 mg QD but patient self-discontinued her meds a few months ago, claiming that she was sick and tired of taking so many medications She was previously also being seen by Dr. Tinajero for endocrinology follow-up but it appears that she has not been seen in over a year now Will refer patient to filler machine operator for diabetes education - she appears to need a lot of help in managing her conditions as despite all of our past efforts, she clearly does not seem to comprehend the severity of her medical issues; compliance has also been a problem for patient as she tends to miss several of her appointments Will also try referring her back to Endocrinology for further evaluation and management of her diabetes (3) Benign essential hypertension: Code(s): I10 - Essential (primary) hypertension Plan: Reinforced low sodium diet - goal is systolic BP of 120 mm or less Continue Lisinopril 5 mg QD - she stopped taking all of her meds a while back and just started back on Lisinopril sometime in June 2023 Patient is reminded to monitor her BP regularly although doubt that she is going to be able to do this (4) Pure hypercholesterolemia: Code(s): E78.00 - Pure hypercholesterolemia, unspecified Plan: Reinforced low cholesterol diet We have been unable to start her on statins in the past due to frequent elevations of LFTs on her part (5) Elevated LFTs: Code(s): R79.89 - Other specified abnormal findings of blood chemistry Plan: Is most likely related to her weight (hepatosteatosis) Will continue to monitor her LFTs regularly She has been advised that this should improve with weight loss but her weight continues to be a struggle for her Will need abdominal US if her LFTs continue to increase (6) Vitamin D deficiency: Code(s): E55.9 - Vitamin D deficiency, unspecified Plan: Continue Vitamin D3 2000 units QD (7) Gastritis: Code(s): K29.70 - Gastritis, unspecified, without bleeding Qualifiers: Gastritis type: unspecified gastritis Chronicity: unspecified Gastritis bleeding: without bleeding Qualified Code(s): K29.70 - Gastritis, unspecified, without bleeding Plan: Dietary restrictions reinforced Was on Pantoprazole 40 mg QD and Carafate 1 gm TID previously but states that she has not taken these or any PPI in a while now (8) Bipolar disorder: Code(s): F31.9 - Bipolar disorder, unspecified Qualifiers: Active/Remission status: currently active Current bipolar episode type: mixed Current episode severity: unspecified Qualified Code(s): F31.60 - Bipolar disorder, current episode mixed, unspecified Plan: Patient used to take Hydroxyzine 25 mg Q HS and Quetiapine 100 mg Q HS but she has not taken these in months since she decided to stop taking all of her meds earlier this year (9) Obesity (BMI 30-39.9): Code(s): E66.9 - Obesity, unspecified Plan: Reinforced diet/exercise as tolerated/lose weight Plan Follow up in 2 months Orders: Referrals Neurology Referral G35 - Multiple sclerosis Endocrinology Referral E11.65 - Type 2 diabetes mellitus with hyperglycemia Intelligence Group Supervisor Nutrition Referral E11.65 - Type 2 diabetes mellitus with hyperglycemia Coding Level of Care Code Est Pt Level 4 (46675) Diagnoses Multiple sclerosis G35 Type 2 diabetes mellitus with hyperglycemia, without long-term current use of insulin E11.65 Diabetes mellitus type: type 2 Diabetes mellitus intermediate designer insulin use: without intermediate designer use Diabetes mellitus complication status: with hyperglycemia Benign essential hypertension I10 Pure hypercholesterolemia E78.00 Elevated LFTs R79.89 Vitamin D deficiency E55.9 Gastritis without bleeding, unspecified chronicity, unspecified gastritis type K29.70 Gastritis type: unspecified gastritis Chronicity: unspecified Gastritis bleeding: without bleeding Bipolar affective disorder, current episode mixed, current episode severity unspecified F31.60 Active/Remission status: currently active Current bipolar episode type: mixed Current episode severity: unspecified Obesity (BMI 30-39.9) E66.9
[2023-10-18 12:33] VITALS: BP 150/88; PULSE 94; O2SAT 99; BMI 37.4
== END 2023-10-18 13:17 | disposition home or self-care (01) ==
PROVIDERS: PCP Internal Medicine; Visit Provider Internal Medicine
DX: G35 Multiple sclerosis (principal); E11.65 Type 2 diabetes mellitus with hyperglycemia; F31.60 Bipolar disorder, current episode mixed, unspecified; I10 Essential (primary) hypertension; E78.00 Pure hypercholesterolemia, unspecified; R79.89 Other specified abnormal findings of blood chemistry; E55.9 Vitamin D deficiency, unspecified; K29.70 Gastritis, unspecified, without bleeding; E66.9 Obesity, unspecified; Z68.37 Body mass index [BMI] 37.0-37.9, adult
CPT/HCPCS: 99214

== ENCOUNTER 2023-10-22 09:33 | Outpatient (REF) | payer OTHER, SELFPAY ==
[2023-10-24 16:52] LABS: H Pylori Breath Test Negative (Negative)
== END 2023-10-22 09:34 | disposition home or self-care (01) ==
LOC: HO.LNP 09:33
PROVIDERS: PCP Internal Medicine; Visit Provider Physician Assistant
DX: K21.9 Gastro-esophageal reflux disease without esophagitis (principal); E66.9 Obesity, unspecified; Z68.37 Body mass index [BMI] 37.0-37.9, adult; Z87.19 Personal history of other diseases of the digestive system; Z11.0 Encounter for screening for intestinal infectious diseases
CPT/HCPCS: 83013; 99202

== ENCOUNTER 2023-10-22 09:33 | Outpatient (AMB) | payer OTHER, SELFPAY ==
--- NOTE | 2023-10-22 09:45 | A.OFFVIS_ITS ---
Intake Vital Signs 10/22/23 09:56 Height 5 ft 5 in Weight 228 lb BMI 37.9 BP 132/72 Blood Pressure Location Lt brachial Position Sitting Pulse 102 H Intake Visit Reasons: Diverticulitis of intestine Intake Note: Patient new consult for Diverticulitis of intestine. Patient cc: abdominal pain with bloating, nauseas, GERD with burning sensation, swallowing problems, and between diarrhea and constipation. 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 Accompanied by: Self / Same As Patient Allergies Chantix Adverse Reaction (Unknown, Uncoded 10/21/23 14:10) worsening bipolar disorder Medication List - Last Reconciled 10/22/23 by Valeria Shanks PA-C blood pressure kit-extra large As directed blood sugar diagnostic (FreeStyle Lite Strips) test daily blood-glucose meter (FreeStyle Lite Meter kit) test daily insulin glargine (Lantus Solostar U-100 Insulin) 12 units (0.12 mL) subcut DAILY lancets (FreeStyle Lancets) test daily lisinopril 5 mg PO DAILY pantoprazole 40 mg (2 x 20 mg) PO ONCE 30 days pen needle, diabetic Use four times a day or as directed. semaglutide (Ozempic) 0.25 mg subcut SA HPI HPI Comments History of Present Illness Details 48-year-old female - for the past years she has c/o abdominal pain- when she has a BM-she has rectal pain- BRBPR-on occasion when she pushes- She has acid reflux- with everything- food or liquid-no dysphagia-feels like food is not digesting She has lost 80 pounds in the past year- not intentional-she was a smoker quit 9 months ago She has previous GI following well in [place] history of diverticulitis.She had a colonoscopy - GI history is unclear, will need further evaluation Recent DX- MS-awaiting appointment with Dr. Ojeda Diabetes, blood sugars well controlled, she is prescribed Ozempic however she does not take it-does not like to induce chemicals in to her body No vomiting, hematemesis, fever or chills PFSH Medical History Demyelinating disease Elevated LFTs Vitamin D deficiency Pure hypercholesterolemia Benign essential hypertension Obesity (BMI 30-39.9) Gastritis Bulimia nervosa Bipolar disorder Impaired fasting glucose Hyperlipidemia Surgical History History of endometrial ablation History of cholecystectomy History of colonoscopy History of hernia surgery History of tubal ligation History of carpal tunnel surgery H/O bursectomy Family History Mother High blood pressure Dementia Kidney stones Arthritis Father Hepatitis B Cirrhosis of liver Other Mental health problem Social History Household Members: None Housing: Apartment Do you presently have visiting nurse or other home services: No Alcohol intake: never Patient Tobacco Use Status: Never used Tobacco Tobacco use type: Cigarette Cigarettes Per Day: 5 e-Cigarette/Vaping Use: Never Used Second Hand Smoke Exposure: No service: No Current occupational status: employed 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[employer] Current occupational exposures/hazards: No Cognitive needs: No Hearing needs: No Vision needs: Yes Female Reproductive History Menstrual Age of Menarche: 13 Review of Systems Const All systems reviewed & are unremarkable except as noted in HPI and below ENT Denies neck pain Card Denies chest pain and Denies dyspnea Resp Denies dyspnea GI Reports abdominal pain (Vague epigastric intermittent), Reports constipation and Reports heartburn Musc Denies back pain, Denies myalgias, Denies arthralgias and Denies neck pain Psych Reports anxiety Aller/Immun Reports GI upset with certain foods Physical Exam Vital Signs: Last Vital Signs Pulse 102 H 10/22/23 09:56 BP 132/72 10/22/23 09:56 BMI result Body Mass Index 37.9 Const General: cooperative, comfortable and anxious Orientation/consciousness: patient oriented x3 Limitations: no limitations Eyes Sclerae: sclerae normal Resp Effort & Inspection: normal respiratory effort and able to speak in complete sentences Auscultation: clear to auscultation bilaterally, no rales, no rhonchi and no wheezes Cardio Rate: tachycardic (Jan) Rhythm: regular rhythm Heart sounds: S1 normal heart sound present and S2 normal heart sound present GI Other: Declined rectal exam/inspection Palpation (GI): Soft to palpation, Tenderness to palpation present (GI) in the epigastrum (mild), no guarding and not rigid Percussion: Yes normal to percussion Auscultation: normal bowel sounds Skin General skin exam: no rashes or lesions noted Neuro General: patient oriented x3 Extrem General: Yes full ROM Psych Appearance: well kempt Mental Status: mental status grossly normal Speech and movement: Normal speech and movement present Affect: Animated affect present and Anxious affect present Attitude: cooperative Assessment & Plan Assessment & Plan (1) Obesity (BMI 30-39.9): Comment: Pleasant, anxious/animated 48-year-old recent MS-presents with persistent acid reflux, bloating, chronic constipation-may likely have functional component however needs further eval GI history is unclear- Code(s): E66.9 - Obesity, unspecified Plan: dietary precautions (2) History of diverticulitis: Comment: 3 years ago-maintain high-fiber diet Code(s): Z87.19 - Personal history of other diseases of the digestive system Plan: schedule colonoscopy- when able to have routine BM (3) GERD (gastroesophageal reflux disease): Comment: HP if-pos tx Code(s): K21.9 - Gastro-esophageal reflux disease without esophagitis Plan: HP- if positive will tx may take pantoprazole 20 mg Qd She will call for results Plan HP if pos tx pantoprazole/ carafate reflux precautions GES- DM- consistent bowel regimen High-fiber diet, Orders: Orders H Pylori Breath Test 6 Weeks A04.8 - Other specified bacterial intestinal infections Medications: New sucralfate 1 g PO BID 4 weeks PRN 56 tabs 0RF reflux polyethylene glycol 3350 (Miralax) 17 grams PO DAILY 510 grams 6RF pantoprazole 40 mg (2 x 20 mg) PO ONCE 30 days 60 tabs 6RF hydrocortisone 2.5% (Proctosol HC) 1 appl [place] BEDTIME PRN 30 grams 3RF hemorrhoids Patient Instructions: HP if pos tx pantoprazole/ carafate reflux precautions GES- DM- consistent bowel regimen Maintain high-fiber diet Avoid straining Rectal cream Encouraged to call questions or concerns Coding Level of Care Code New Pt Level 4 (85280) Diagnoses Obesity (BMI 30-39.9) E66.9 History of diverticulitis Z87.19 GERD (gastroesophageal reflux disease) K21.9 Time Spent (min) 40
[2023-10-22 09:56] VITALS: BP 132/72; PULSE 102; BMI 37.9
== END 2023-10-22 10:33 | disposition home or self-care (01) ==
PROVIDERS: PCP Internal Medicine; Visit Provider Physician Assistant
DX: E66.9 Obesity, unspecified (principal); Z87.19 Personal history of other diseases of the digestive system; K21.9 Gastro-esophageal reflux disease without esophagitis
CPT/HCPCS: 99204

== ENCOUNTER 2023-12-17 09:57 | Outpatient (AMB) | payer OTHER, SELFPAY ==
[2023-12-17 10:00] VITALS: BP 133/89; PULSE 92; BMI 37.8
--- NOTE | 2023-12-17 10:00 | MHC.OFFVIS ---
Intake Vital Signs 12/17/23 10:00 Height 5 ft 5 in Weight 227 lb BMI 37.8 BP 133/89 Blood Pressure Location Lt brachial Position Sitting Pulse 92 Intake Visit Reasons: 8 week follow up Intake Note: 8 week follow-up. Pt c/o; reports no changes. 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 Accompanied by: Self / Same As Patient Allergies Chantix Adverse Reaction (Unknown, Uncoded 12/17/23 10:03) worsening bipolar disorder Medication List - Last Reconciled 12/17/23 by Valeria Shanks PA-C blood pressure kit-extra large As directed blood sugar diagnostic (FreeStyle Lite Strips) test daily blood-glucose meter (FreeStyle Lite Meter kit) test daily hydrocortisone 2.5% (Proctosol HC) 1 appl [place] BEDTIME PRN insulin glargine (Lantus Solostar U-100 Insulin) 12 units (0.12 mL) subcut DAILY lancets (FreeStyle Lancets) test daily lisinopril 5 mg PO DAILY pantoprazole 40 mg (2 x 20 mg) PO ONCE 30 days pen needle, diabetic Use four times a day or as directed. polyethylene glycol 3350 (Miralax) 17 grams PO DAILY semaglutide (Ozempic) 0.25 mg subcut SA sucralfate 1 g PO BID PRN 4 weeks HPI HPI Comments History of Present Illness Details A 48 y/o f/u with acid reflux- episode of bloating- gas-symptoms have been chronic chronic nausea-early satiety-for years- now taking Ozempic- had d/cd no her symptoms Hpylori negative BS elevated- No vomiting, hematemesis, hematochezia fever or chills PFSH Medical History Demyelinating disease Elevated LFTs Vitamin D deficiency Pure hypercholesterolemia Benign essential hypertension Obesity (BMI 30-39.9) Gastritis Bulimia nervosa Bipolar disorder Impaired fasting glucose Hyperlipidemia Surgical History History of endometrial ablation History of cholecystectomy History of colonoscopy History of hernia surgery History of tubal ligation History of carpal tunnel surgery H/O bursectomy Family History Mother High blood pressure Dementia Kidney stones Arthritis Father Hepatitis B Cirrhosis of liver Other Mental health problem Social History Household Members: None Housing: Apartment Do you presently have visiting nurse or other home services: No Alcohol intake: never Patient Tobacco Use Status: Never used Tobacco Tobacco use type: Cigarette Cigarettes Per Day: 5 e-Cigarette/Vaping Use: Never Used Second Hand Smoke Exposure: No service: No Current occupational status: employed 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[employer] Current occupational exposures/hazards: No Cognitive needs: No Hearing needs: No Vision needs: Yes Female Reproductive History Menstrual Age of Menarche: 13 Review of Systems Const All systems reviewed & are unremarkable except as noted in HPI and below Card Denies chest pain and Denies dyspnea Resp Denies dyspnea GI Reports abdominal pain, Reports early satiety, Reports heartburn, Reports nausea and Denies vomiting Physical Exam Vital Signs: Last Vital Signs Pulse 92 12/17/23 10:00 BP 133/89 12/17/23 10:00 BMI result Body Mass Index 37.8 Const General: cooperative, healthy appearing, comfortable and no acute distress Orientation/consciousness: patient oriented x3 Limitations: no limitations Eyes Sclerae: sclerae normal Resp Effort & Inspection: normal respiratory effort and able to speak in complete sentences Auscultation: clear to auscultation bilaterally, no rhonchi and no wheezes Cardio Rate: regular rate Rhythm: regular rhythm Heart sounds: S1 normal heart sound present and S2 normal heart sound present GI Inspection: Yes obesity Palpation (GI): Soft to palpation and nontender Auscultation: normal bowel sounds Skin General skin exam: no rashes or lesions noted Neuro General: patient oriented x3 Extrem General: Yes full ROM Psych Appearance: grossly normal and well kempt Mental Status: mental status grossly normal Speech and movement: Normal speech and movement present Affect: normal affect Attitude: cooperative Thought process: Normal thought process present Thought content: Normal thought content present Assessment & Plan Assessment & Plan (1) Chronic constipation: Code(s): K59.09 - Other constipation (2) GERD (gastroesophageal reflux disease): Code(s): K21.9 - Gastro-esophageal reflux disease without esophagitis (3) Early satiety: Code(s): R68.81 - Early satiety (4) Fatty liver: Comment: per patient Code(s): K76.0 - Fatty (change of) liver, not elsewhere classified (5) Elevated LFTs: Comment: Patient very frustrated since she has been diagnosed with fatty liver-I will do liver workup to include labs and ultrasound Code(s): R79.89 - Other specified abnormal findings of blood chemistry Plan EGD-stop Oempic stop x 7 days Half dose insulin evening before note diabetes medication morning of procedure U/S-assess for fatty liver/GB Labs Orders: Orders Smooth Muscle Antibody 12/17/23 R74.8 - Abnormal levels of other serum enzymes YAQUELIN Reflex Titer and Pattern 12/17/23 R74.01 - Elevation of levels of liver transaminase levels Ceruloplasmin 12/17/23 K76.0 - Fatty (change of) liver, not elsewhere classified, R79.89 - Other specified abnormal findings of blood chemistry Hemoglobin A1c 12/17/23 E11.9 - Type 2 diabetes mellitus without complications Mitochondrial Antibody 12/17/23 R74.01 - Elevation of levels of liver transaminase levels Soluble Liver Ag Autoantibody 12/17/23 R79.89 - Other specified abnormal findings of blood chemistry EDG - GI Use Only 12/17/23 K21.9 - Gastro-esophageal reflux disease without esophagitis, R68.81 - Early satiety Comprehensive Met. Panel 12/17/23 K58.9 - Irritable bowel syndrome without diarrhea Complete Blood Count Auto Diff 12/17/23 R68.81 - Early satiety, R79.89 - Other specified abnormal findings of blood chemistry Lipid Panel 12/17/23 K76.0 - Fatty (change of) liver, not elsewhere classified Thyroid Stimulating Hormone 12/17/23 R19.8 - Other specified symptoms and signs involving the digestive system and abdomen Ferritin 12/17/23 D64.9 - Anemia, unspecified US abdomen complete 12/17/23 E11.9 - Type 2 diabetes mellitus without complications, K76.0 - Fatty (change of) liver, not elsewhere classified, R79.89 - Other specified abnormal findings of blood chemistry Patient Instructions: Pleasant 48-year-old diabetic female acid reflux, early satiety EGD-rule out pud, nonulcer dyspepsia, esophagitis or other endoscopic findings to account for her symptoms Discussed procedure, rare risks need for escort Reviewed diabetes/fatty liver will proceed with workup to include ultrasound as well as blood work to rule out other underlying causes of elevated liver enzymes Opportunity for questions Encouraged to call with questions or concerns We will see her back in follow-up , plan of care dependent on above Coding Level of Care Code Est Pt Level 4 (04680) Diagnoses Chronic constipation K59.09 GERD (gastroesophageal reflux disease) K21.9 Early satiety R68.81 Fatty liver K76.0 Elevated LFTs R79.89 Time Spent (min) 40
== END 2023-12-17 11:46 | disposition home or self-care (01) ==
PROVIDERS: PCP Internal Medicine; Visit Provider Physician Assistant
DX: K59.09 Other constipation (principal); K21.9 Gastro-esophageal reflux disease without esophagitis; R68.81 Early satiety; K76.0 Fatty (change of) liver, not elsewhere classified; R79.89 Other specified abnormal findings of blood chemistry
CPT/HCPCS: 99214

== ENCOUNTER → 2023-12-17 09:57 | Outpatient (BNVA) | payer OTHER, SELFPAY | PROVIDERS: PCP Internal Medicine; Visit Provider Physician Assistant | DX: K59.09 Other constipation (principal); K21.9 Gastro-esophageal reflux disease without esophagitis; K76.0 Fatty (change of) liver, not elsewhere classified; R68.81 Early satiety; R79.89 Other specified abnormal findings of blood chemistry | CPT/HCPCS: 99212 ==

== ENCOUNTER 2024-01-01 08:43 | Outpatient (REF) | payer OTHER, SELFPAY ==
--- NOTE | ~2024-01-01 | US_ITS ---
EXAMINATION: US ABDOMEN COMPLETE CLINICAL INFORMATION: Elevated liver function. Comment on CBD. COMPARISON: CT abdomen and pelvis 06/06/2016. TECHNIQUE: Real-time imaging of the abdominal viscera. FINDINGS: PANCREAS: Normal. ABDOMINAL AORTA: The proximal, mid, and distal segments are normal in caliber. INFERIOR VENA CAVA: Visualized portions are normal. LIVER: The liver is normal in size. The liver contour is normal. Increased echogenicity and attenuation of the sound beam suggesting steatosis. No focal hepatic lesion. There is no intrahepatic biliary duct dilatation seen. GALLBLADDER: Surgically absent. COMMON BILE DUCT: Normal in caliber measuring 0.6 cm in diameter. RIGHT KIDNEY: Normal. No hydronephrosis. No renal calculi or focal parenchymal lesions. The kidney measures 11.7 cm in maximum dimension. LEFT KIDNEY: Normal. No hydronephrosis. No renal calculi or focal parenchymal lesions. The kidney measures 11.5 cm in maximum dimension. SPLEEN: Normal in size measuring 12.4 cm in maximum dimension. A splenule is seen. FREE FLUID: None. US/US abdomen complete IMPRESSION: Hepatic steatosis. No biliary ductal dilatation.
[2024-01-01 09:08] LABS: MANUAL DIFF FLAG NO
[2024-01-01 09:30] LABS: Basophils Absolute Auto 0.1 X10*3/uL (0.0-0.2); Basophils Percent Auto 0.6 % (0-2); Eosinophils Absolute Auto 0.2 X10*3/uL (0.0-0.4); Eosinophils Percent Auto 2.3 % (0-4); Hematocrit 44.3 % (37.0-47.0); Hemoglobin 15.1 g/dl (12.0-16.0); Imm Gran Abs Auto 0.05 X10*3/uL (0.00-0.03); Imm Gran Pct Auto 0.5 % (0.0-0.4); Lymphocytes Absolute Auto 3.9 X10*3/uL (1.2-4.9); Lymphocytes Percent Auto 37.2 % (20-40); Mean Corpuscular HGB Conc 34.1 g/dl (31.0-35.0); Mean Corpuscular Hemoglobin 29.3 pg (27.0-33.0); Mean Corpuscular Volume 85.9 fL (80.0-98.0); Mean Platelet Volume 11.4 fL (9.4-12.3); Monocytes Absolute Auto 0.6 X10*3/uL (0.1-1.2); Monocytes Percent Auto 5.8 % (2-11); Neutrophils Absolute Auto 5.7 x10*3/uL (2.0-8.3); Neutrophils Percent Auto 53.6 % (45-73); Platelet Count 241 X10*3/uL (160-400); Red Blood Count 5.16 X10*6/uL (4.20-5.50); White Blood Count 10.6 X10*3/uL (4.8-10.8)
[2024-01-01 09:39] LABS: Estimated Average Glucose 209 mg/dL; Hemoglobin A1c % 8.9 % (<6.0)
[2024-01-01 10:14] LABS: Alanine Aminotransferase 63 U/L (0-31); Albumin Level 4.2 g/dL (3.5-5.0); Alkaline Phosphatase 104 U/L (39-117); Anion Gap 13 (12-20); Aspartate Amino Transferase 44 U/L (5-31); Bilirubin Total 0.4 mg/dL (0.0-1.0); Blood Urea Nitrogen 10 mg/dL (9-16); Calcium 9.5 mg/dL (8.4-10.2); Carbon Dioxide 26 mmol/L (22-29); Chloride 100 mmol/L (96-108); Cholesterol 224 mg/dL (<200); Estimated Glomerular Filt Rate > 60; Glucose Random 316 mg/dL (60-115); HDL Cholesterol 37 mg/dL (>40); LDL Cholesterol Calculated 136 mg/dL (<100); Sodium 135 mmol/L (135-145); Total Protein 7.6 g/dL (6.5-8.0); Triglycerides 255 mg/dL (<150)
[2024-01-01 10:22] LABS: Ferritin 262 ng/mL (10-250); Thyroid Stimulating Hormone 1.22 uIU/mL (0.32-4.0)
[2024-01-03 13:29] LABS: Mitochondrial Antibodies NEGATIVE (NEGATIVE)
[2024-01-03 21:13] LABS: Ceruloplasmin 31 mg/dL (18-53)
[2024-01-05 11:48] LABS: Smooth Muscle Antibody <20 U (<20)
[2024-01-07 13:39] LABS: Soluble Liver Ag Autoantibody <20.1 U (0.0-20.0)
[2024-01-07 13:47] LABS: Anti Nuclear Antibody Screen NEGATIVE (NEGATIVE)
== END 2024-01-01 08:44 | disposition home or self-care (01) ==
LOC: HO.US 08:43
PROVIDERS: PCP Internal Medicine; Visit Provider Physician Assistant
DX: R74.01 Elevation of levels of liver transaminase levels (principal)
CPT/HCPCS: 36415; 76700; 80053; 80061; 82390; 82728; 83036; 83520; 84443; 85025; 86015; 86038; 86381

== ENCOUNTER 2024-03-24 10:16 | Day surgery (SDC) | payer OTHER, SELFPAY ==
--- NOTE | 2023-12-18 08:36 | HO.ANESPROP2 ---
HPI - Anesthesia Eval Anesthesia Pre-Procedure Meds Is the patient on any of the following meds?: Semaglutide (Ozempic) PMFSH Active Problems Active Problems: All Active Problems (Updated 12/17/23 @ 10:42 by Valeria Shanks PA-C) Early satiety (Acute) Chronic constipation (Acute) History of diverticulitis (Acute) Multiple sclerosis (Acute) Routine screening for STI (sexually transmitted infection) (Acute) Lump of skin (Acute) Elevated LFTs (Acute) Vitamin D deficiency (Acute) Pure hypercholesterolemia (Acute) Benign essential hypertension (Acute) Chest pressure (Acute) Insomnia (Acute) Diabetes mellitus (Acute) Hypertension (Acute) Dizziness (Acute) Numbness in both hands (Acute) Fatty liver (Acute) Elevated fasting glucose (Acute) Low vitamin D level (Acute) Enlarged thyroid gland (Acute) GERD (gastroesophageal reflux disease) (Acute) Well woman exam (Acute) Dysphagia (Acute) Screening for hypothyroidism (Acute) Screening for hyperlipidemia (Acute) Screening for diabetes mellitus (Acute) Smell and taste disorder (Acute) Migraine (Acute) Osteoarthritis of left knee (Acute) Internal derangement of left knee (Acute) Obesity (BMI 30-39.9) (Acute) Gastritis (Acute) Bipolar disorder (Acute) Past Medical History Medical History Demyelinating disease Elevated LFTs Vitamin D deficiency Pure hypercholesterolemia Benign essential hypertension Obesity (BMI 30-39.9) Gastritis Bulimia nervosa Bipolar disorder Impaired fasting glucose Hyperlipidemia Family History Family History Mother High blood pressure Dementia Kidney stones Arthritis Father Hepatitis B Cirrhosis of liver Other Mental health problem Surgical History Surgical History History of endometrial ablation History of cholecystectomy History of colonoscopy History of hernia surgery History of tubal ligation History of carpal tunnel surgery H/O bursectomy Social History Social History Household Members: None Housing: Apartment Do you presently have visiting nurse or other home services: No Alcohol intake: never Patient Tobacco Use Status: Never used Tobacco Tobacco use type: Cigarette Cigarettes Per Day: 5 e-Cigarette/Vaping Use: Never Used Second Hand Smoke Exposure: No service: No Current occupational status: employed 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[employer] Current occupational exposures/hazards: No Cognitive needs: No Hearing needs: No Vision needs: Yes Meds Allergies Allergy/AdvReac Type Severity Reaction Status Date / Time Chantix AdvReac Unknown worsening Uncoded 12/17/23 10:03 bipolar disorder Home Medications Medication Instructions Recorded Confirmed Last Taken Type semaglutide 0.25 mg or 0.5 mg (2 0.25 mg subcut SA 10/13/23 12/17/23 10/12/23 History mg/3 mL) subcutaneous pen injector (Ozempic) Exam Pertinent Lab Results Pertinent Lab Results: Laboratory Tests 10/13/23 05:58 WBC 10.5 Hgb 15.0 Hct 42.7 Plt Count 221 Sodium 137 Potassium 3.8 Chloride 105 Carbon Dioxide 19 L BUN 13 Creatinine 0.83 Narrative Narrative: EKG 09/2023 Vent. Rate : 100 BPM Atrial Rate : 100 BPM P-R Int : 178 ms QRS Dur : 090 ms QT Int : 366 ms P-R-T Axes : 034 005 029 degrees QTc Int : 472 ms Normal sinus rhythm Normal ECG When compared with ECG of 09-OCT-2023 01:42, No significant change was found
--- NOTE | 2024-03-20 14:43 | HO.ANESPROP2 ---
Documented by User: Susan Woodall NP 03/20/24 14:43 HPI - Anesthesia Eval Consult details Narrative: 48yo F for Upper Endoscopy Anesthesia Pre-Procedure Meds Is the patient on any of the following meds?: GLP1/DPP4 PMFSH Active Problems Active Problems: All Active Problems Early satiety (Acute) Chronic constipation (Acute) History of diverticulitis (Acute) Multiple sclerosis (Acute) Routine screening for STI (sexually transmitted infection) (Acute) Lump of skin (Acute) Elevated LFTs (Acute) Vitamin D deficiency (Acute) Pure hypercholesterolemia (Acute) Benign essential hypertension (Acute) Chest pressure (Acute) Insomnia (Acute) Diabetes mellitus (Acute) Hypertension (Acute) Dizziness (Acute) Numbness in both hands (Acute) Fatty liver (Acute) Elevated fasting glucose (Acute) Low vitamin D level (Acute) Enlarged thyroid gland (Acute) GERD (gastroesophageal reflux disease) (Acute) Well woman exam (Acute) Dysphagia (Acute) Screening for hypothyroidism (Acute) Screening for hyperlipidemia (Acute) Screening for diabetes mellitus (Acute) Smell and taste disorder (Acute) Migraine (Acute) Osteoarthritis of left knee (Acute) Internal derangement of left knee (Acute) Obesity (BMI 30-39.9) (Acute) Gastritis (Acute) Bipolar disorder (Acute) Past Medical History Medical History Demyelinating disease Elevated LFTs Vitamin D deficiency Pure hypercholesterolemia Benign essential hypertension Obesity (BMI 30-39.9) Gastritis Bulimia nervosa Bipolar disorder Impaired fasting glucose Hyperlipidemia Family History Family History Mother High blood pressure Dementia Kidney stones Arthritis Father Hepatitis B Cirrhosis of liver Other Mental health problem Surgical History Surgical History Hx of Achilles tendon repair History of endometrial ablation History of cholecystectomy History of colonoscopy History of hernia surgery History of tubal ligation History of carpal tunnel surgery H/O bursectomy Social History Social History Household Members: None Housing: Apartment Do you presently have visiting nurse or other home services: No Alcohol intake: never Patient Tobacco Use Status: Never used Tobacco Tobacco use type: Cigarette Cigarettes Per Day: 5 e-Cigarette/Vaping Use: Never Used Second Hand Smoke Exposure: No Use of substances other than those prescribed or required for medical reasons: No Are you DNR?: No Advance Directives: No Advance Directives Information Provided: Yes service: No Current occupational status: employed 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[employer] Current occupational exposures/hazards: No Cognitive needs: No Hearing needs: No Vision needs: Yes Meds Allergies Allergy/AdvReac Type Severity Reaction Status Date / Time Chantix AdvReac Unknown worsening Uncoded 03/24/24 12:03 bipolar disorder Assessment and Plan Assessment Anesthesia Assessment: Chart Reviewed Documented by User: Yamila Singh MD 03/24/24 12:59 PMFSH Past Medical History Medical History Demyelinating disease Elevated LFTs Vitamin D deficiency Pure hypercholesterolemia Benign essential hypertension Obesity (BMI 30-39.9) Gastritis Bulimia nervosa Bipolar disorder Impaired fasting glucose Hyperlipidemia Family History Family History Mother High blood pressure Dementia Kidney stones Arthritis Father Hepatitis B Cirrhosis of liver Other Mental health problem Surgical History Surgical History Hx of Achilles tendon repair History of endometrial ablation History of cholecystectomy History of colonoscopy History of hernia surgery History of tubal ligation History of carpal tunnel surgery H/O bursectomy History of Problems with Anesthesia: No Social History Social History Household Members: None Housing: Apartment Do you presently have visiting nurse or other home services: No Alcohol intake: never Patient Tobacco Use Status: Never used Tobacco Tobacco use type: Cigarette Cigarettes Per Day: 5 e-Cigarette/Vaping Use: Never Used Second Hand Smoke Exposure: No Use of substances other than those prescribed or required for medical reasons: No Are you DNR?: No Advance Directives: No Advance Directives Information Provided: Yes service: No Current occupational status: employed 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[employer] Current occupational exposures/hazards: No Cognitive needs: No Hearing needs: No Vision needs: Yes Meds Allergies Allergy/AdvReac Type Severity Reaction Status Date / Time Chantix AdvReac Unknown worsening Uncoded 03/24/24 12:03 bipolar disorder Exam Airway Mallampati Class: III TM Dist: >3cm Neck ROM: Full Loose/Missing/Broken Teeth: No Heart: RRR Lungs: CTA Assessment and Plan Final Anesthetic Review History of Problems with Anesthesia: No NPO: Yes ASA Class: III Final Preanesthetic Review: Meds/Allgs Chart Reviewed, Consent Obtained/Reviewed and Anes Risks/Benef Reviewed Patient Risk: Intermediate Procedure Risk: Intermediate Anesthetic Plan Anesthetic Plan: MAC: Disposition: Standard PACU
[2024-03-24 12:38] VITALS: BMI 36.6
[2024-03-24 12:40] VITALS: BP 157/92; PULSE 81; RESP 16; TEMP 36.7; O2SAT 96
[2024-03-24] MEDS: Lactated Ringers 1,000 ML 100 ML IVCONT (12:45)
--- NOTE | 2024-03-24 12:51 | MHC.SHP ---
Pre-Procedural Eval Section A - 24 Hr Update-Section A only Date of Service: 03/24/24 Section B - Complete if H&P > 30 days Chief Complaint: Gastro-esophageal reflux disease without esophagit Details of Present Illness: Demyelinating disease Elevated LFTs Vitamin D deficiency Pure hypercholesterolemia Benign essential hypertension Obesity (BMI 30-39.9) Gastritis Bulimia nervosa Bipolar disorder Impaired fasting glucose Hyperlipidemia Surgical History History of endometrial ablation History of cholecystectomy History of colonoscopy History of hernia surgery History of tubal ligation History of carpal tunnel surgery H/O bursectomy Allergies: Allergies Allergy/AdvReac Type Severity Reaction Status Date / Time Chantix AdvReac Unknown worsening Uncoded 03/24/24 12:03 bipolar disorder Review of Systems Review of Systems Comment: Ten point ROS negative Exam Exam Comment: Gen appear: No acute distress HEENT: no icterus Chest: No overt resp distress Abd: soft, nontender, nondistended Psych: Stable affect, answering questions appropriately Neuro: A/Ox3 noted to move all extremities spontaneously Ext: no peripheral edema Plan Diagnosis/Plan: Unchanged I have reviewed the history and physical and performed a pertinent physical examination on my patient. No changes have occurred unless specified. Of note - pt reports stopping Ozempic in December and symptoms of abd discomfort and N/V almost gone since then. Time Spent With Patient Time: Total time managing care of this patient today ____ minutes.
[2024-03-24 13:25] VITALS: BP 117/56; PULSE 88; RESP 18; TEMP 36.3; O2SAT 98
--- NOTE | 2024-03-24 13:28 | P.OP_ITS ---
Operative Note Operative Note Date of Service: 03/24/24 Narrative: Procedure: Esophagogastroduodenoscopy Endoscopist: Pita Velazquez MD Indication: Abd pain, N,V Anesthesia Provider: Dr Sharon Singh Anesthesia Type: MAC ?? EGD Procedure:?? The procedure, indications, preparation and potential complications were reviewed with the patient, who indicated understanding and gave written informed consent to proceed. A physical exam was performed. The endoscope was introduced through the mouth, and advanced to the second part of duodenum. The mucosa was carefully examined on slow withdrawal of the endoscope. The patient tolerated the procedure well. There were no immediate complications.? ? EGD Findings:? * Esophagus:? A small focus of heterotopic gastric mucosa was noted at the level of cricopharyngeus. Linear erosions and ulceration measuring > 5mm at the GEJ but not crossing across mucosal folds. The Z line was at 40 cm. Lower esophagus forceps biopsies were obtained for histology. * Stomach:? Erythema erosions and scant heme were noted in body and antrum. Retroflexion was performed in the cardia. Random gastric biopsies were taken to rule out H Pylori infection. * Duodenum:? Small ulcerations and edema in the duodenum to the extent examined. Cold forceps biopsies were taken from duodenal bulb and second portion of the duodenum to rule out celiac sprue. ? EGD Impressions:? * Inlet patch * Grade B esophagitis (biopsy) * Gastritis (biopsy) * Duodenitis (biopsy) ?? Recommendations:?? * Follow biopsy results. Our office will call or send a letter with results within 7-10 days. * Start PPI therapy. * Pt was also encouraged to discuss resumption of DM meds, as high blood sugars can also delayed gastric emptying. Above has been reviewed with the patient.
[2024-03-24 13:40] VITALS: BP 137/91; PULSE 87; RESP 18; TEMP 36.3; O2SAT 99
[2024-03-24 13:40] LABS: Glucose, Whole Blood 317 mg/dL (60-115)
== END 2024-03-24 13:57 | disposition home or self-care (01) ==
PROVIDERS: PCP Internal Medicine; Visit Provider Internal Medicine
PROC: 0DJ08ZZ Inspection of Upper Intestinal Tract, Via Natural or Artificial Opening Endoscopic (ICD-10-PCS; CPT 43235; principal; 2024-03-24 12:20)
DX: K21.00 Gastro-esophageal reflux disease with esophagitis, without bleeding (principal); R11.2 Nausea with vomiting, unspecified; R10.9 Unspecified abdominal pain; K29.90 Gastroduodenitis, unspecified, without bleeding; K29.80 Duodenitis without bleeding; I10 Essential (primary) hypertension; Q39.8 Other congenital malformations of esophagus
CPT/HCPCS: 43239; 82947; 88305; 88313; 88342; J2704

== ENCOUNTER → 2024-03-24 10:16 | Outpatient (BNV) | payer OTHER, SELFPAY | PROVIDERS: PCP Internal Medicine; Visit Provider Internal Medicine | DX: R11.2 Nausea with vomiting, unspecified (principal); K29.70 Gastritis, unspecified, without bleeding; K29.80 Duodenitis without bleeding; K20.90 Esophagitis, unspecified without bleeding | CPT/HCPCS: 43239 ==

== ENCOUNTER 2024-03-30 22:18 | Emergency (ER) | payer OTHER, SELFPAY ==
--- NOTE | ~2024-03-30 | XR_ITS ---
EXAMINATION: XR CHEST CLINICAL INFORMATION: Recent endoscopy. Concern for free intra-abdominal air. COMPARISON: 11/02/2022 TECHNIQUE: Frontal view of the chest was obtained. FINDINGS: No significant abnormality is noted involving the heart, lungs, mediastinum, bony thorax or soft tissues. XR/XR chest 1V IMPRESSION: Unremarkable examination.
[2024-03-30 22:26] VITALS: BP 167/96; PULSE 97; RESP 22; TEMP 36.5; O2SAT 95; BMI 37.7
[2024-03-31 00:41] VITALS: BP 192/80; PULSE 95; RESP 20; TEMP 36.5; O2SAT 95
[2024-03-31] MEDS: predniSONE 20 MG TABLET 60 MG PO (01:20)
[2024-03-31] MEDS: Ketorolac Tromethamine 30 MG/ML VIAL IM (01:20)
[2024-03-31] MEDS: Lidocaine 4 % Patch ADH..PATCH 1 PATCH TRANSDERMA (02:10)
[2024-03-31] MEDS: Morphine Sulfate 4 MG/ML CARTRIDGE IM (02:10)
[2024-03-31] MEDS: Cyclobenzaprine HCl 10 MG TABLET PO (02:10)
--- NOTE | 2024-03-31 02:12 | ED.GENADULT ---
HPI - General Adult General Chief complaint: Back Pain/Injury Stated complaint: R sided neck pain into arm Time Seen by Provider: 03/31/24 00:45 Source: patient, RN notes reviewed and old records reviewed Mode of arrival: ambulatory Limitations: no limitations History of Present Illness ED Provider: Cornell HPI narrative: 48-year-old female presents for evaluation of upper back and neck pain since yesterday. She reports the pain starts in her neck and radiates to her right arm. The pain is worse with any kind of movement Does have a history of MS but states this is different from the MS flare that she had last year as her symptoms are mostly numbness to her entire right side and she did not have significant pain Today her symptoms only involve the right upper back, neck and radiates to her right arm She denies any trauma, heavy lifting, twisting injuries or falls She has tried Naproxen, Jarvis-Gonzalez without any improvement Her pain is 10/10, dull, constant but worse with movement The patient reports that she had an upper endoscopy 6 days ago Related Data Previous Rx's ?Medication ?Instructions ?Recorded blood pressure kit-extra large #1 ea 07/03/23 blood sugar diagnostic (FreeStyle #100 ea 07/03/23 Lite Strips) blood-glucose meter (FreeStyle #1 ea 07/03/23 Lite Meter kit) lancets 28 gauge (FreeStyle #100 ea 07/03/23 Lancets) pen needle, diabetic 32 gauge x #100 ea 10/15/23 1/ lisinopril 5 mg tablet 5 mg PO DAILY #90 tabs 12/21/23 omeprazole 20 mg capsule,delayed 20 mg PO BID #60 caps 03/24/24 release cyclobenzaprine 10 mg tablet 10 mg PO TID PRN muscle spasm #15 03/31/24 tabs morphine 15 mg immediate release 15 mg PO Q8H PRN pain #9 tabs 03/31/24 tablet prednisone 20 mg tablet 40 mg (2 x 20 mg) PO DAILY #8 tabs 03/31/24 Allergies Allergy/AdvReac Type Severity Reaction Status Date / Time Chantix AdvReac Unknown worsening Uncoded 03/30/24 22:27 bipolar disorder Review of Systems Constitutional: Constitutional: Denies chills, Denies fever(s) and Denies headache(s) Eyes: Eyes: Denies blurry vision ENT: Denies vertigo, Denies dizziness, Denies headache(s), Denies neck mass and Reports neck pain Cardiovascular: Cardiovascular: Denies chest pain and Denies dyspnea Respiratory: Respiratory: Denies cough and Denies dyspnea Gastrointestinal: Gastrointestinal: Denies abdominal pain, Denies nausea and Denies vomiting Musculoskeletal: Musculoskeletal: Reports back pain, Reports arthralgias, Denies joint swelling, Denies limited range of motion, Reports neck pain and Reports radiating pain into limb Integumentary/Breasts: Skin/Breast: Denies rash Neurologic: Denies vertigo, Denies dizziness and Denies headache(s) [facility] Past Medical History Medical History Demyelinating disease Elevated LFTs Vitamin D deficiency Pure hypercholesterolemia Benign essential hypertension Obesity (BMI 30-39.9) Gastritis Bulimia nervosa Bipolar disorder Impaired fasting glucose Hyperlipidemia Surgical History Hx of Achilles tendon repair History of endometrial ablation History of cholecystectomy History of colonoscopy History of hernia surgery History of tubal ligation History of carpal tunnel surgery H/O bursectomy Family History Family History Mother High blood pressure Dementia Kidney stones Arthritis Father Hepatitis B Cirrhosis of liver Other Mental health problem Social History Social History Household Members: None Housing: Apartment Do you presently have visiting nurse or other home services: No Alcohol intake: never Patient Tobacco Use Status: Never used Tobacco Tobacco use type: Cigarette Cigarettes Per Day: 5 e-Cigarette/Vaping Use: Never Used Second Hand Smoke Exposure: No Use of substances other than those prescribed or required for medical reasons: No Advance Directives: No Advance Directives Information Provided: Yes Do you have a plan to hurt others: No Plan Patient : No service: No Current occupational status: employed 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[employer] Current occupational exposures/hazards: No Cognitive needs: No Hearing needs: No Vision needs: Yes Physical Exam ED Vital Signs: Vital Signs - 24 hr 03/30/24 22:26 03/31/24 00:41 Temperature 97.7 F 97.7 F Pulse Rate 97 95 Respiratory Rate 22 H 20 Blood Pressure 167/96 H 192/80 H Pulse Oximetry 95 95 Oxygen Delivery Method Room Air Room Air BMI result Body Mass Index 37.7 Const General: healthy appearing, no acute distress, alert and awake Nutritional Appearance: well nourished Orientation/consciousness: patient oriented x3 HENMT Head: Yes normocephalic and Yes atraumatic Eyes Eyelids: Yes eyelids normal Conjunctivae: conjunctivae normal Sclerae: sclerae normal Corneas: corneas normal Pupils: Equal, round and reactive pupils present EOM: EOMs intact bilaterally Neck Neck: Yes full ROM Resp Effort & Inspection: normal respiratory effort, able to speak in complete sentences and not labored Cardio Rate: regular rate Rhythm: regular rhythm GI Inspection: No distended Palpation (GI): Soft to palpation, not firm, nontender, no guarding and not rigid Back/Spine/Pelvis Other: Tenderness to the right lateral neck, right trapezius muscle group. There is no vertebral tenderness. Cervical Spine: cervical spasm and No Cervical spine tenderness Skin General skin exam: elasticity normal Neuro General: patient oriented x3 Cranial nerves: Yes Equal, round and reactive pupils present and Yes Bilaterally intact EOM present Cognition (Neuro): normal cognition Gait exam (Neuro): Normal gait present Motor exam (neuro): 5/5 motor strength present throughout and pronator drift Extrem Other: Moving all extremities well without any obvious deformities. Medications Administered Discontinued Medications Generic Name Dose Route Start Last Admin Trade Name Freq PRN Reason Stop Dose Admin Cyclobenzaprine HCl 10 mg 03/31/24 02:03 03/31/24 02:10 Cyclobenzaprine Hcl 10 Mg Tablet PO 03/31/24 02:04 10 mg ONCE ONE Administration Ketorolac Tromethamine 30 mg 03/31/24 01:07 03/31/24 01:20 Ketorolac Tromethamine 30 Mg/Ml Vial IM 03/31/24 01:08 30 mg ONCE ONE Administration Lidocaine 1 patch 03/31/24 02:03 03/31/24 02:10 Lidocaine 4 % Patch Adh..Patch TRANSDERMA 03/31/24 02:04 1 patch ONCE ONE Administration Protocol Morphine Sulfate 4 mg 03/31/24 02:03 03/31/24 02:10 Morphine Sulfate 4 Mg/Ml Cartridge IM 03/31/24 02:04 4 mg ONCE ONE Administration Protocol Prednisone 60 mg 03/31/24 01:03/31/24 01:20 Prednisone 20 Mg Tablet PO 03/31/24 01:08 60 mg ONCE ONE Administration Medical Decision Making Medical Decision Making MDM Narrative: 8-year-old female presents for evaluation of right-sided neck and upper back pain. Her history exam is most consistent with radiculopathy/muscle spasms. There was no traumatic event. She did have a colonoscopy 6 days ago, so a chest x-ray was ordered to rule out free air under the diaphragm. This chest x-ray was negative. I do not suspect a multiple sclerosis flare as the patient has no weakness. Her strength is 5/5 to the affected upper extremities as well as the bilateral lower extremities. The patient has no fever to suggest infectious cause of her symptoms. The patient was given Toradol and prednisone which did not touch her symptoms. States that she can not get a ride to pick her up this late at night. I discussed possible treatments the patient, she would like to be given morphine IM with cyclobenzaprine and agrees to wait in the ER a minimum of hours prior to being discharged home Differential Diagnosis Differential Diagnoses: The differential diagnosis associated with the presentation includes Muscle strain Radiculopathy Neck pain Disc herniation MS flare less likely Gastric perforation Independent Interpretation I performed an independent interpretation of an: Plain X-Ray (No free air) Discharge Plan Discharge Clinical Impression: Cervical radiculopathy Patient Disposition: Home, Self-Care Instructions: Cervical Radiculopathy (ED), Neck Pain (ED) Additional Instructions: Your symptoms are not consistent with a multiple sclerosis flare. Your pain is most likely related to muscle spasms and or a pinched nerve in your neck. Take prednisone 40 mg daily for the next 4 days. You may continue to use Tylenol as needed for pain. Use morphine as needed for severe breakthrough pain This may make you sleepy, did not drink alcohol or drive after taking it Follow-up with your primary doctor Prescriptions: New prednisone 20 mg tablet 40 mg PO DAILY Qty: 8 0RF cyclobenzaprine 10 mg tablet 10 mg PO TID PRN (Reason: muscle spasm) Qty: 15 0RF morphine 15 mg tablet 15 mg PO Q8H PRN (Reason: pain) Qty: 9 0RF Rx Instructions: Partial Fill upon patient request. No Action lisinopril 5 mg tablet 5 mg PO DAILY Qty: 90 1RF (DME) pen needle, diabetic 32 gauge x 1/4 needle Qty: 100 0RF Rx Instructions: Use four times a day or as directed. omeprazole 20 mg capsule,delayed release(DR/EC) 20 mg PO BID Qty: 60 1RF (DME) blood pressure kit-extra large Kit See Rx Instructions .Route Qty: 1 0RF Rx Instructions: As directed (DME) blood-glucose meter [FreeStyle Lite Meter] Kit See Rx Instructions .MEDSUPPLY Qty: 1 0RF Rx Instructions: test daily (DME) FreeStyle Lite Strips Strip See Rx Instructions .MEDSUPPLY Qty: 100 2RF Rx Instructions: test daily (DME) lancets [FreeStyle Lancets] 28 gauge misc See Rx Instructions .MEDSUPPLY Qty: 100 2RF Rx Instructions: test daily Stand Alone Forms: Work/School Release Print Language: Indonesian
--- NOTE | 2024-03-31 02:15 | PC.NURSE ---
Patient given PO cyclobenzaprine and 4m IM Morphine. Will need to stay 4 hours post administration per Grabiel NELSON due to driving self home.
[2024-03-31 05:01] VITALS: BP 184/80; PULSE 96; RESP 18; TEMP 36.4; O2SAT 95
--- NOTE | 2024-03-31 05:03 | PC.NURSE ---
Pt aox4, resting at the bedside. No apparent distress noted. Reports continued neck pain. MD made aware. Pt expresses desire to go home at this time as pt is not feeling drowsy or sleepy after Morphine administration. Ambulatory with steady gait. Discharge instructions reviewed with pt. Pt verbalizes understanding.
[2024-03-31 05:06] VITALS: BP 184/80; PULSE 96; RESP 18; TEMP 36.4; O2SAT 95
== END 2024-03-31 05:07 | disposition home or self-care (01) ==
PROVIDERS: Emergency Provider Student in an Organized Health Care Education/Training Program; PCP Internal Medicine
DX: M54.12 Radiculopathy, cervical region (principal); M79.601 Pain in right arm; M54.2 Cervicalgia; M54.50 Low back pain, unspecified; F17.210 Nicotine dependence, cigarettes, uncomplicated
CPT/HCPCS: 71045; 96372; 99284; J1885; J2270

== ENCOUNTER 2024-04-01 09:00 | Emergency (ER) | payer OTHER, SELFPAY ==
--- NOTE | 2024-04-01 09:02 | ECG_ITS ---
Test Reason : CHEST PAIN Blood Pressure : / mmHG Vent. Rate : 091 BPM Atrial Rate : 091 BPM P-R Int : 152 ms QRS Dur : 092 ms QT Int : 346 ms P-R-T Axes : 037 -06 009 degrees QTc Int : 425 ms Normal sinus rhythm Normal ECG When compared with ECG of 13-OCT-2023 05:37, No significant change was found Referred By: Generic ED Physician Electronically Signed By:DONNA THOMPSON
[2024-04-01 09:06] VITALS: BP 142/87; PULSE 96; RESP 18; TEMP 36.2; O2SAT 98; BMI 36.9
--- NOTE | 2024-04-01 09:36 | ED_ITS ---
HPI - General Adult General Chief complaint: General Medical Stated complaint: Chest pain, numbness R side Time Seen by Provider: 04/01/24 09:36 Source: patient Mode of arrival: ambulatory Limitations: no limitations History of Present Illness ED Provider: Dr. Rylan Lima HPI narrative: 48-year-old female with a history of demyelinating disease, elevated LFTs, hypercholesterolemia, hypertension, obesity, gastritis, bulimia nervosa, bipolar disorder, hyperlipidemia , diabetes who presents emergency department for evaluation of neck pain, right arm pain and numbness and chest pain. Patient states that she had gradual onset of pain in the back of her head radiating down her right neck and down her right arm since Saturday (2 days prior to evaluation) she states that the pain is now a constant, sharp, numb pain. The pain is worse with movement. She states the pain is 10/10. Patient states she has had similar pain in the past secondary to multiple sclerosis. She states the pain was severe in September of 2023, that time she was admitted to the hospital and treated with IV steroids. She states that the pain did improve but the pain is been constant since the 10/09/2023 admission. The patient was seen here in the emergency department yesterday with similar complaints. She was diagnosed with cervical radiculopathy. She was treated with cyclobenzaprine 10 mg orally, Toradol 30 mg IM, lidocaine patch, morphine 4 mg IM and prednisone 60 mg. She states she got no improved. She was discharged with prescriptions for prednisone 40 mg daily, morphine 15 mg every 8 hours as needed for pain and cyclobenzaprine 10 mg 3 times a day as needed for spasm. She states she has been taking these medications with no relief. She states that this morning she became concerned she developed chest pain. She states that the pain occurred at 07:30 hours, came on gradually, is located in the center of her chest, is a stabbing pain that comes and goes. She states she also felt her heart was beating rapidly. Related Data Previous Rx's ?Medication ?Instructions ?Recorded blood pressure kit-extra large #1 ea 07/03/23 blood sugar diagnostic (FreeStyle #100 ea 07/03/23 Lite Strips) blood-glucose meter (FreeStyle #1 ea 07/03/23 Lite Meter kit) lancets 28 gauge (FreeStyle #100 ea 07/03/23 Lancets) pen needle, diabetic 32 gauge x #100 ea 10/15/23 1/4 lisinopril 5 mg tablet 5 mg PO DAILY #90 tabs 12/21/23 omeprazole 20 mg capsule,delayed 20 mg PO BID #60 caps 03/24/24 release cyclobenzaprine 10 mg tablet 10 mg PO TID PRN muscle spasm #15 03/31/24 tabs morphine 15 mg immediate release 15 mg PO Q8H PRN pain #9 tabs 03/31/24 tablet prednisone 20 mg tablet 40 mg (2 x 20 mg) PO DAILY #8 tabs 03/31/24 acetaminophen 500 mg tablet 1,000 mg (2 x 500 mg) PO Q6H PRN 04/01/24 (Tylenol Extra Strength) fever or pain #20 tabs hydromorphone 4 mg tablet 4 mg PO Q6H PRN pain #10 tabs 04/01/24 (Dilaudid) ibuprofen 400 mg tablet 400 mg PO TID PRN fever or pain 04/01/24 #30 tabs Allergies Allergy/AdvReac Type Severity Reaction Status Date / Time Chantix AdvReac Unknown worsening Uncoded 04/01/24 09:09 bipolar disorder Review of Systems 2 Review of Systems: Yes all other systems are reviewed and are negative [facility] Past Medical History [facility] Narrative: Social history: She denies tobacco, alcohol and drug use Medical History Demyelinating disease Elevated LFTs Vitamin D deficiency Pure hypercholesterolemia Benign essential hypertension Obesity (BMI 30-39.9) Gastritis Bulimia nervosa Bipolar disorder Impaired fasting glucose Hyperlipidemia Surgical History Hx of Achilles tendon repair History of endometrial ablation History of cholecystectomy History of colonoscopy History of hernia surgery History of tubal ligation History of carpal tunnel surgery H/O bursectomy Family History Family History Mother High blood pressure Dementia Kidney stones Arthritis Father Hepatitis B Cirrhosis of liver Other Mental health problem Social History Social History Household Members: None Housing: Apartment Do you presently have visiting nurse or other home services: No Alcohol intake: never Patient Tobacco Use Status: Never used Tobacco Tobacco use type: Cigarette Cigarettes Per Day: 5 e-Cigarette/Vaping Use: Never Used Second Hand Smoke Exposure: No service: No Current occupational status: employed 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 She is moving around in the stretcher and can not get into a comfortable position Head: Normocephalic, atraumatic EENT: PERRL, Lids normal, sclera normal, conjunctiva normal, nose normal , ears normal, throat without erythema or exudates Neck: Tenderness palpation of the right trapezius muscle and right occipital area, his muscles are in spasm Lung: breath sounds symmetric, no wheezing, rales or rhonchi Chest: symmetric movement, nontender Heart: regular rate and rhythm, normal S1, S2 no murmurs or rubs Abdomen: soft, non-tender, nondistended, normal bowel sounds Back: no vertebral tenderness, no CVAT Extremities: no deformities, moves all extremities symmetrically Neuro: Awake, alert, oriented, normal speech, cranial nerves intact, moves all extremities symmetrically Psych: Pleasant, cooperative Medications Administered Discontinued Medications Generic Name Dose Route Start Last Admin Trade Name Freq PRN Reason Stop Dose Admin Cyclobenzaprine HCl 10 mg 04/01/24 10:44 04/01/24 11:04 Cyclobenzaprine Hcl 10 Mg Tablet PO 04/01/24 10:45 10 mg ONCE ONE Administration Hydromorphone HCl 1 mg 04/01/24 13:53 04/01/24 14:10 Hydromorphone Hcl 1 Mg/Ml Syringe IVPUSH 04/01/24 13:54 1 mg ONCE STA Administration Protocol Sodium Chloride 1,000 mls @ 999 mls/hr 04/01/24 10:44 06/12/24 12:06 Ns IV 04/01/24 11:44 Infused .Q1H1M STA Infusion Sodium Chloride 1,000 mls @ 999 mls/hr 04/01/24 13:53 04/01/24 14:10 Ns IV 04/01/24 14:53 999 mls/hr .Q1H1M STA Administration Insulin Human Regular 10 unit 04/01/24 10:44 04/01/24 11:08 Insulin Regular, Human 100 Unit/Ml 10 Ml Vial IVPUSH 04/01/24 10:45 10 unit ONCE ONE Administration Ketorolac Tromethamine 15 mg 04/01/24 10:44 04/01/24 11:04 Ketorolac Tromethamine 15 Mg/Ml Vial IVPUSH 04/01/24 10:45 15 mg ONCE STA Administration Medical Decision Making Medical Decision Making MDM Narrative: 48-year-old female with a history of demyelinating disease, elevated LFTs, hypercholesterolemia, hypertension, obesity, gastritis, bulimia nervosa, bipolar disorder, hyperlipidemia , diabetes who presents emergency department for evaluation of neck pain, right arm pain and numbness and chest pain. Patient was seen yesterday in the emergency department for similar pain in the right side of her neck radiating down her right arm and was diagnosed with radiculopathy. Patient was prescribed prednisone, lidocaine patches, cyclobenzaprine and morphine with no relief for pain. She states this pain is a chronic pain that she has had in the past and she attributes to her MS. She was concerned this morning since she developed chest pain at 07:30 hours, the pain is located in the center of her chest is intermittent, and a stabbing pain. Vital signs were normal physical examination did reveal right-sided trapezius muscle tenderness and spasm Differential diagnosis: ?Includes but is not limited to myocardial infarction, myocardial ischemia, musculoskeletal pain, musculoskeletal spasm, MS flare, anemia, electrolyte abnormalities Following evaluation was ordered: CBC, CMP, point of care glucose, troponin, EKG, chest x-ray Patient was initially treated with the following: Toradol 15 mg IV, insulin 10 units IV, cyclobenzaprine 10 mg orally, normal saline x2 L. Course: 15:49 hours My interpretation patient's laboratory evaluation is as follows: WBC elevated 12,900. Sodium low 134, BUN elevated 17, glucose elevated 442. AST and ALT elevated 45/91. Alk-phos elevated 135. High sensitive troponin I was below detectable limits. Chest x-ray revealed no evidence for pneumonia. Patient initially got no improvement with the above treatment of her neck pain with the above treatment. The patient was then given Dilaudid 1 mg IV and she has significant relief for pain at this time. The patient was advised to stop taking morphine and prednisone. She was prescribed ibuprofen and Dilaudid. She was advised to continue taking your cyclobenzaprine. Patient's glucose did improve. I did tell her that she will need to follow-up with her PCP to start insulin for diabetes. Admission/Observation Consideration of admission/observation: Escalation of care including admission/observation considered Lab Data MDM Lab Attestation statement: I reviewed the patient's lab results. 04/01/24 10:59 04/01/24 10:59 Labs: Lab Results 04/01/24 04/01/24 04/01/24 Range/Units 09:21 10:59 12:08 WBC 12.9 H (4.8-10.8) X10*3/uL RBC 5.32 (4.20-5.50) X10*6/uL Hgb 15.9 (12.0-16.0) g/dl Hct 44.7 (37.0-47.0) % MCV 84.0 (80.0-98.0) fL MCH 29.9 (27.0-33.0) pg MCHC 35.6 H (31.0-35.0) g/dl RDW 12.2 (11.0-16.0) % Plt Count 213 (160-400) X10*3/uL MPV 12.0 (9.4-12.3) fL Immature Gran % (Auto) 0.5 H (0.0-0.4) % Neut % (Auto) 65.1 (45-73) % Lymph % (Auto) 28.8 (20-40) % Dickson % (Auto) 4.3 (2-11) % Eos % (Auto) 0.9 (0-4) % Baso % (Auto) 0.4 (0-2) % Lymph # (Auto) 3.7 (1.2-4.9) X10*3/uL Dickson # (Auto) 0.6 (0.1-1.2) X10*3/uL Eos # (Auto) 0.1 (0.0-0.4) X10*3/uL Baso # (Auto) 0.1 (0.0-0.2) X10*3/uL Abs Immat Gran (auto) 0.07 H (0.00-0.03) X10*3/uL Absolute Neuts (auto) 8.4 H (2.0-8.3) x10*3/uL Absolute Nucleated RBC 0.000 (0.0-0.012) X10*3/uL Nucleated RBC % (auto) 0.0 (0.0-0.2) /100WBC Sodium 134 L (135-145) mmol/L Potassium 4.7 (3.3-5.1) mmol/L Chloride 99 (96-108) mmol/L Carbon Dioxide 26 (22-29) mmol/L Anion Gap 14 (12-20) BUN 17 H (9-16) mg/dL Creatinine 0.88 (0.5-1.4) mg/dL Estim Creat Clear Calc 92.9 Estimated GFR > 60 POC Glucose 467 H* 332 H (60-115) mg/dL Random Glucose 442 H* (60-115) mg/dL Calcium 10.1 D (8.4-10.2) mg/dL Total Bilirubin 0.4 (0.0-1.0) mg/dL AST 45 H (5-31) U/L ALT 91 H (0-31) U/L Alkaline Phosphatase 135 H (39-117) U/L Troponin I High Sens < 2.7 (<3.5-17.0) ng/L Total Protein 7.9 (6.5-8.0) g/dL Albumin 4.4 (3.5-5.0) g/dL Independent Interpretation I performed an independent interpretation of an: EKG and Plain X-Ray Interpretation: My independent interpretation patient's 12 EKG is as follows: Normal sinus rhythm with a rate of 91, normal CT interval, QRS duration QTC interval, no ST segment elevation, no ST segment depression, inverted T-wave in lead 3 and V1, no PACs, no PVCs. Compared to EKG dated 10/13/2023 there has no significant change. My impression of the patient's chest x-ray is as follows: No acute disease. Radiology Impression Discussion of test interpretation with radiology: I have reviewed the radiologist's reading. Radiologist Impression: XR chest 1V IMPRESSION: Unremarkable examination. Dictated By: Malcolm Huynh Prescription Management I considered prescription management with: Pain Medication Chronic Conditions Patient?s care impacted by: Diabetes Discharge Plan Discharge Clinical Impression: Cervical radiculopathy, Acute hyperglycemia, Volume depletion Patient Disposition: Home, Self-Care Instructions: Cervical Radiculopathy (ED) Additional Instructions: Your blood work was unremarkable except for an elevated blood sugar. You were treated with 2 L of normal saline IV and 10 units of insulin IV. You will need to talk to your doctor about starting insulin to help control your diabetes. If you get your sugars under control this will give you more energy and make you feel better. At this time, I do not have a clear cause for your neck pain, it is possible you may have a bulging disc or just pain/inflammation in the muscles of your neck causing inflammation of the nerves going down your arm. This is called cervical radiculopathy. I want you to stop taking prednisone and to stop taking morphine. Take ibuprofen 400 mg pills, 1 pills every 6 hours as needed for pain. Take Tylenol (acetaminophen) 2 pills every 6 hours as needed for pain. For pain not relieved by ibuprofen or Tylenol take Dilaudid 4 mg pills, 1 pill every 6 hours as needed for pain. This medication will make you sleepy, do not drive or work while taking this medication. Dilaudid is a narcotic medication and can be addicting. If you are concerned about addiction you can ask the pharmacist for less pills or do not get this prescription filled. Follow-up with your doctor in 2 days. Please return to the emergency department if your symptoms get worse or if you develop any symptoms that are concerning to you. Prescriptions: New hydromorphone [Dilaudid] 4 mg tablet 4 mg PO Q6H PRN (Reason: pain) Qty: 10 0RF Rx Instructions: Partial Fill upon patient request. acetaminophen [Tylenol Extra Strength] 500 mg tablet 1,000 mg PO Q6H PRN (Reason: fever or pain) Qty: 20 0RF ibuprofen 400 mg tablet 400 mg PO TID PRN (Reason: fever or pain) Qty: 30 0RF No Action lisinopril 5 mg tablet 5 mg PO DAILY Qty: 90 1RF (DME) pen needle, diabetic 32 gauge x 1/4 needle Qty: 100 0RF Rx Instructions: Use four times a day or as directed. omeprazole 20 mg capsule,delayed release(DR/EC) 20 mg PO BID Qty: 60 1RF prednisone 20 mg tablet 40 mg PO DAILY Qty: 8 0RF cyclobenzaprine 10 mg tablet 10 mg PO TID PRN (Reason: muscle spasm) Qty: 15 0RF morphine 15 mg tablet 15 mg PO Q8H PRN (Reason: pain) Qty: 9 0RF Rx Instructions: Partial Fill upon patient request. (DME) blood pressure kit-extra large Kit See Rx Instructions .Route Qty: 1 0RF Rx Instructions: As directed (DME) blood-glucose meter [FreeStyle Lite Meter] Kit See Rx Instructions .MEDSUPPLY Qty: 1 0RF Rx Instructions: test daily (DME) FreeStyle Lite Strips Strip See Rx Instructions .MEDSUPPLY Qty: 100 2RF Rx Instructions: test daily (DME) lancets [FreeStyle Lancets] 28 gauge misc See Rx Instructions .MEDSUPPLY Qty: 100 2RF Rx Instructions: test daily Print Language: Greek
[2024-04-01 09:58] LABS: Glucose, Whole Blood 467 mg/dL (60-115)
[2024-04-01 11:03] LABS: MANUAL DIFF FLAG NO
[2024-04-01] MEDS: Ketorolac Tromethamine 15 MG/ML VIAL IVPUSH (11:04)
[2024-04-01] MEDS: 0.9 % Sodium Chloride 1,000 ML 999 ML IV ×2 (11:04→14:10)
[2024-04-01] MEDS: Cyclobenzaprine HCl 10 MG TABLET PO (11:04)
[2024-04-01 11:08] LABS: Basophils Absolute Auto 0.1 X10*3/uL (0.0-0.2); Basophils Percent Auto 0.4 % (0-2); Eosinophils Absolute Auto 0.1 X10*3/uL (0.0-0.4); Eosinophils Percent Auto 0.9 % (0-4); Hematocrit 44.7 % (37.0-47.0); Hemoglobin 15.9 g/dl (12.0-16.0); Imm Gran Abs Auto 0.07 X10*3/uL (0.00-0.03); Imm Gran Pct Auto 0.5 % (0.0-0.4); Lymphocytes Absolute Auto 3.7 X10*3/uL (1.2-4.9); Lymphocytes Percent Auto 28.8 % (20-40); Mean Corpuscular HGB Conc 35.6 g/dl (31.0-35.0); Mean Corpuscular Hemoglobin 29.9 pg (27.0-33.0); Monocytes Absolute Auto 0.6 X10*3/uL (0.1-1.2); Monocytes Percent Auto 4.3 % (2-11); Neutrophils Absolute Auto 8.4 x10*3/uL (2.0-8.3); Neutrophils Percent Auto 65.1 % (45-73); Platelet Count 213 X10*3/uL (160-400); Red Blood Count 5.32 X10*6/uL (4.20-5.50); Red Cell Distribution Width 12.2 % (11.0-16.0); White Blood Count 12.9 X10*3/uL (4.8-10.8)
[2024-04-01] MEDS: Insulin Regular, Human 100 UNIT/ML 10 ML VIAL 10 UNIT IVPUSH (11:08)
[2024-04-01 11:20] VITALS: BP 173/88; PULSE 87; RESP 14; TEMP 36.4; O2SAT 94
[2024-04-01 11:20] LABS: Alanine Aminotransferase 91 U/L (0-31); Albumin Level 4.4 g/dL (3.5-5.0); Alkaline Phosphatase 135 U/L (39-117); Anion Gap 14 (12-20); Aspartate Amino Transferase 45 U/L (5-31); Bilirubin Total 0.4 mg/dL (0.0-1.0); Blood Urea Nitrogen 17 mg/dL (9-16); Calcium 10.1 mg/dL (8.4-10.2); Carbon Dioxide 26 mmol/L (22-29); Chloride 99 mmol/L (96-108); Creatinine Clr Calc Pharmacy 92.9; Estimated Glomerular Filt Rate > 60; Potassium 4.7 mmol/L (3.3-5.1); Sodium 134 mmol/L (135-145); Total Protein 7.9 g/dL (6.5-8.0)
[2024-04-01 11:24] LABS: Glucose Random 442 mg/dL (60-115)
[2024-04-01 11:26] LABS: Troponin-I High Sensitivity < 2.7 ng/L (<3.5-17.0)
[2024-04-01 12:13] LABS: Glucose, Whole Blood 332 mg/dL (60-115)
[2024-04-01] MEDS: HYDROmorphone HCl 1 MG/ML SYRINGE IVPUSH (14:10)
[2024-04-01 14:45] VITALS: BP 155/84; PULSE 87; RESP 16; TEMP 36.5; O2SAT 98
[2024-04-01 16:05] LABS: Glucose, Whole Blood 284 mg/dL (60-115)
[2024-04-01 16:11] VITALS: BP 163/91; PULSE 80; RESP 16; TEMP 36.6; O2SAT 98
[2024-04-01 16:22] VITALS: BP 153/87; PULSE 80; RESP 16; TEMP 36.6; O2SAT 95
== END 2024-04-01 16:23 | disposition home or self-care (01) ==
PROVIDERS: Emergency Provider Emergency Medicine Emergency Medical Services; PCP Internal Medicine
DX: M54.12 Radiculopathy, cervical region (principal); E11.65 Type 2 diabetes mellitus with hyperglycemia; E86.9 Volume depletion, unspecified; R07.9 Chest pain, unspecified; I10 Essential (primary) hypertension; M54.2 Cervicalgia; M79.601 Pain in right arm; Z79.4 Long term (current) use of insulin; Z79.899 Other long term (current) drug therapy
CPT/HCPCS: 36415; 80053; 82947; 84484; 85025; 93005; 96361; 96374; 96375; 99284; J1170; J1885

== ENCOUNTER → 2024-04-01 09:02 | Outpatient (BNV) | payer OTHER, SELFPAY | PROVIDERS: Emergency Provider Emergency Medicine Emergency Medical Services; PCP Internal Medicine; Visit Provider Internal Medicine | DX: R07.9 Chest pain, unspecified (principal) | CPT/HCPCS: 93010 ==

== ENCOUNTER 2024-04-10 10:30 | Outpatient (RCR) | payer OTHER, SELFPAY ==
[2024-04-07 09:49] VITALS: BMI 36.6
[2024-04-07 10:16] VITALS: BP 140/95; PULSE 118; RESP 20; TEMP 36.1; O2SAT 99
[2024-04-07] MEDS: methylPREDNISolone Sod Succ 1,000 MG in 0.9 % Sodium Chloride 100 ML 116 MG IV (10:34)
[2024-04-09 10:56] VITALS: BP 147/90; PULSE 106; RESP 20; TEMP 36.6; O2SAT 97
[2024-04-09] MEDS: methylPREDNISolone Sod Succ 1,000 MG in 0.9 % Sodium Chloride 100 ML 116 MG IV (11:14)
[2024-04-10 10:22] VITALS: BP 131/81; PULSE 101; RESP 18; TEMP 36.1
[2024-04-10] MEDS: methylPREDNISolone Sod Succ 1,000 MG in 0.9 % Sodium Chloride 100 ML 116 MG IV (10:34)
== END 2024-04-10 11:45 | disposition home or self-care (01) ==
LOC: HO.INF 10:30
PROVIDERS: Visit Provider Registered Nurse
DX: G35 Multiple sclerosis (principal)
CPT/HCPCS: 96365; J2919

== ENCOUNTER 2024-07-03 15:46 | Outpatient (AMB) | payer OTHER, SELFPAY ==
--- NOTE | 2024-07-03 16:00 | A.OFFPC_ITS ---
Vital Signs 07/03/24 16:01 Height 5 ft 5 in Weight 212 lb 4 oz BMI 35.3 BP 124/86 Blood Pressure Location Lt brachial Position Sitting Pulse 106 H Pulse Source Pulse Oximeter Pulse Oximetry (%) 97 Oxygen Delivery Method Room Air Intake Visit Reasons: annual exam/ med review Tack Cutter Required: No Accompanied by: Self / Same As Patient Allergies Chantix Adverse Reaction (Unknown, Uncoded 07/03/24 17:00) worsening bipolar disorder Medication List - Last Reconciled 07/03/24 by Narendra Jeff MD acetaminophen (Tylenol Extra Strength) 1,000 mg (2 x 500 mg) PO Q6H PRN blood pressure kit-extra large As directed blood sugar diagnostic (FreeStyle Lite Strips) test daily blood-glucose meter (FreeStyle Lite Meter kit) test daily cyclobenzaprine 10 mg PO TID PRN ibuprofen 400 mg PO TID PRN lancets (FreeStyle Lancets) test daily lisinopril 5 mg PO DAILY 90 days ofatumumab (Kesimpta Pen) 20 mg subcut .once a month omeprazole 20 mg PO BID pen needle, diabetic Use four times a day or as directed. Tobacco use date assessed: 07/03/24 Dental Screening Dental Screen Date: 07/03/24 Did you have a dental visit in the last 12 months?: Yes Did you have a dental problem in the last 6 months where you did not have access to dental care?: No Was dental information given to patient?: Patient has dentist HPI annual exam/ med review HPI Details Patient comes in today for her annual physical examination States that she has been very worried about what her EGD revealed when she had it done here at [facility] [facility] a few months ago in March 2024 States that she has tried contacting GI a few times about this after her procedure and has never gotten any response back from them and she finds this troubling but as she did not want to cause any problems for anyone, she did not pursue this further She also states that when she had her EGD done back in March 2024, she does not even recall seeing the doctor who did her procedure and it was a nurse who eventually gave her a copy of her EGD images but she does not know how to interpret the findings States that she has been taking her Omeprazole 20 mg BID as prescribed and that overall, her stomach has been feeling somewhat better recently although she still has a lot of problems with her bowel movements and still has constipation with intermittent bouts of diarrhea States that she had a lot of stomach problems, including abdominal pain, bloating and early satiety and now thinks that the Ozempic that she was taking before really messed up her stomach States that she has not taken her Ozempic in a while now but she is still inexplicably losing weight even though she has been eating a lot lately - is wondering if this is something she has to worry about now She was diagnosed with MS by neurology late last year when she was admitted for recurrent weakness, especially on the right side and she thinks that she may have had a flare up of her MS a couple of weeks after her EGD in March 2024 when she went to the ER with similar right-sided weakness (from last year) as well as chest pains She recall being given some Morphine or Dilaudid for pain and receiving IV Solumedrol infusion weekly for a while following her discharge to help calm down her symptoms She is currently on Kesimpta injections 20 mg SQ once a month for her MS She denies any headaches or dizziness Denies any exertional chest pains, no increased SOB No nausea/vomiting but still has on and off mild bloating; denies any abdominal pains lately She denies any acute urinary symptoms States that she had labs done over the past several months, most recently back in March 2024 when she went to the ER, but has not had any other labs done since She had her mammogram done last June (2022) and will be due for her yearly mammogram in another week or so She is scheduled to see Dr. Garcia in August 2024 for her yearly gynecology exam and pap smear States that she last had her colonoscopy sometime in 2019 when she was still residing in [facility] and recalls being advised that she will need repeat colonoscopy in about 5 years (2024) [facility] Medical History (Updated 07/03/24 @ 19:11 by Narendra Jeff MD) Multiple sclerosis Demyelinating disease Elevated LFTs Vitamin D deficiency Pure hypercholesterolemia Benign essential hypertension Obesity (BMI 30-39.9) Gastritis Bulimia nervosa Bipolar disorder Impaired fasting glucose Hyperlipidemia Surgical History Hx of Achilles tendon repair History of endometrial ablation History of cholecystectomy History of colonoscopy History of hernia surgery History of tubal ligation History of carpal tunnel surgery H/O bursectomy Family History Mother High blood pressure Dementia Kidney stones Arthritis Father Hepatitis B Cirrhosis of liver Other Mental health problem Social History Household Members: None Housing: Apartment Do you presently have visiting nurse or other home services: No Alcohol intake: never Patient Tobacco Use Status: Never used Tobacco Tobacco use type: Cigarette Cigarettes Per Day: 5 e-Cigarette/Vaping Use: Never Used Second Hand Smoke Exposure: No service: No Current occupational status: employed 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 1. Little interest or pleasure in doing things: not at all 2. Feeling down, depressed, or hopeless: nearly every day 3. Trouble falling or staying asleep, or sleeping too much: not at all 4. Feeling tired or having little energy: not at all 5. Poor appetite or overeating: not at all 6. Feeling bad about yourself - or that you are a failure or have let yourself or your family down: not at all 7. Trouble concentrating on things, such as reading the newspaper or watching television: not at all 8. Moving or speaking so slowly that other people could have noticed. Or the opposite - being so fidgety or restless that you have been moving around a lot more than usual: not at all 9. Thoughts that you would be better off or of hurting yourself in some way: not at all Total score: 3 Depression Screening Interpretation: Negative Depression Screening Done: Yes 31711 - PHQ-9 Billing: Yes Source: Developed by Drs. Malcolm Sauceda, Lilliana Biswas, Francis Schmitt and colleagues, with an educational rich from [employer]. Thrive Questionnaire Date Thrive assessed: 07/03/24 I am a: Patient What is your living situation today?: I have a steady place to live Within the past 12 months, did the food you bought not last and you didn't have the money to get more?: Often true Within the past 12 months, did you worry whether your food would run out before you got money to buy more?: Sometimes True Do you have trouble paying for medicines?: No Do you have trouble getting transportation to medical appointments?: Yes Do you have trouble paying your heating and electricity bill?: No Do you have trouble taking care of your child, family member or friend?: I choose not to answer this question Do you have trouble with day-to-day activities such as bathing, preparing meals, shopping, managing finances, etc.?: Yes Are you currently unemployed and looking for a job?: No Are you interested in more education?: No Please select the resources that you would like help with: Daily support and None Currently or been in a relationship where the following occur: No concerns reported THRIVE Score: 3 AUDIT C Alcohol Use Questionnaire (AUDIT-C) 1. How often do you have a drink containing alcohol?: Never 3. How often do you have six or more drinks on one occasion?: Never Total Score: 0 Score Reviewed/Action Taken: Yes GABI-7 AMB Questionnaire GABI-7 Date GABI - 7 assessed: 07/03/24 Feeling nervous, anxious, or on edge: 3 = Nearly every day Not being able to stop or control worryin = More than half the days Worrying too much about different things: 3 = Nearly every day Trouble relaxin = Nearly every day Being so restless that it is hard to sit still: 3 = Nearly every day Becoming easily annoyed or irritable: 2 = More than half the days Feeling afraid as if something awful might happen: 1 = Several days Total GABI-7 score (0-4 normal; 5-9 mild; 10-14 moderate; 15-21 severe): 17 Source: Developed by Drs. Malcolm Sauceda, Lilliana Biswas, Francis Schmitt and colleagues, with an educational rich from [employer]. Review of Systems Const Denies chills, Reports fatigue, Denies fever(s), Denies headache(s) and Reports weight loss Eyes Denies blurry vision, Denies diplopia, Denies irritation and Denies itchy eyes ENT Denies dysphagia, Denies dizziness, Denies otalgia, Denies headache(s), Denies neck pain, Denies odynophagia and Denies sore throat Card Denies chest pain, Denies palpitations and Denies dyspnea Resp Denies cough, Denies dyspnea and Denies wheezing GI Denies abdominal pain, Reports bloating, Reports constipation, Denies dysphagia, Denies heartburn, Reports diarrhea (intermittent, occurring between bouts of constipation), Denies nausea, Denies odynophagia and Denies vomiting Denies difficulty voiding, Denies nocturia, Denies dysuria and Denies urinary incontinence Musc Reports back pain (on and off), Denies neck pain, Reports numbness (on and off, over the right side and in both hands ) and Reports tingling (right-sided, on and off) Skin/Breast Denies breast pain, Denies breast mass, Denies lesions and Denies rash Neuro Denies Abnormal speech present, Denies confusion, Denies dizziness, Denies headache(s), Reports numbness (on and off, over the right side and in both hands ) and Reports tingling (right-sided, on and off) Psych Denies confusion Endo Reports fatigue and Denies palpitations Dorian/Lymph Denies easy bruising Aller/Immun Denies itchy eyes and Denies wheezing Physical exam (Primary Care) Vital Signs: Last Vital Signs Pulse 106 H 07/03/24 16:01 BP 124/86 07/03/24 16:01 Pulse Ox 97 07/03/24 16:01 Oxygen Delivery Method Room Air 07/03/24 16:01 BMI result Body Mass Index 35.3 Tobacco/Smoking Status: Tobacco use Status Tobacco use date assessed 07/03/24 07/03/24 16:02 Patient Tobacco Use Status Never used Tobacco 07/03/24 16:02 Tobacco use type Cigarette 07/03/24 16:02 e-Cigarette/Vaping Use Never Used 07/03/24 16:02 PHQ-9: PHQ-9 Score PHQ-9: Total score 3 07/03/24 16:19 Depression Screening Interpretation: Negative Thrive Assessment: Date of Thrive Assessment Date Thrive assessed 07/03/24 07/03/24 16:02 Currently or been in a relationship where the following occur: No concerns reported Const General: no acute distress and alert; No confusion Orientation/consciousness: patient oriented x3 and No confusion HENMT Head: Yes normocephalic and Yes atraumatic Ears: TM's normal bilaterally and EAC's normal General nose exam: No nasal discharge present Face and sinus: Yes normal facial exam and Yes sinuses nontender Teeth and gingiva: dentition normal Throat: Yes posterior oropharynx normal and Yes tonsils normal (no TP congestion) Eyes Eyelids: Yes eyelids normal Conjunctivae: conjunctivae normal Pupils: Equal, round and reactive pupils present EOM: EOMs intact bilaterally Neck Neck: Yes no lymphadenopathy and Yes supple Thyroid: Thyroid normal Resp Auscultation: clear to auscultation bilaterally, no rales and no wheezes Cardio Rate: regular rate Rhythm: regular rhythm Heart sounds: no murmurs GI Palpation (GI): Soft to palpation and nontender Auscultation: normal bowel sounds General: Yes no CVA tenderness Back/Spine/Pelvis Back: no CVA tenderness Cervical Spine: No Cervical spine tenderness Thoracic/Lumbar Spine: No lumbar spinal tenderness Skin Lesions: no lesions Rashes: no rashes Neuro General: patient oriented x3, moves all extremities, no focal motor deficits and No confusion Cranial nerves: Yes Equal, round and reactive pupils present Cognition (Neuro): normal cognition Speech: No Abnormal speech present Gait exam (Neuro): Normal gait present Extrem General: Yes no clubbing, cyanosis or edema Results Reviewed Results Reviewed: Laboratory Tests 01/01/24 04/01/24 09:05 10:59 WBC 10.6 12.9 H Hgb 15.1 15.9 Hct 44.3 44.7 Plt Count 241 213 Sodium 135 134 L Potassium 4.0 4.7 Creatinine 0.77 0.88 Estimated GFR > 60 > 60 Hemoglobin A1c % 8.9 H Calcium 9.5 10.1 D AST 44 H 45 H ALT 63 H 91 H Triglycerides 255 H Cholesterol 224 H LDL Cholesterol, Calc 136 H HDL Cholesterol 37 L TSH 1.22 Assessment and Plan Assessment & Plan (1) Annual physical exam: Code(s): Z00.00 - Encounter for general adult medical examination without abnormal findings Plan: Check labs Results of her previous labs reviewed and discussed with patient today She is up-to-date with her screening colonoscopy - reportedly has this done in [place] in 2019 and was advised repeat in 5 years (2024) She is scheduled to see Dr. Garcia in August 2024 for her annual gynecology exam and pap smear She will be due for her repeat annual mammogram in a couple of weeks - ordered (2) Multiple sclerosis: Code(s): G35 - Multiple sclerosis Plan: Her brain MRI done last year revealed the presence of multiple T2 signal hyperintense lesions within the supratentorial, periventricular and subcortical white matter with distribution suggestive of sequela of demyelinating disease She received 3 doses of 1 g IV Solu-Medrol in the hospital back then with some relief of her symptoms; went through similar issues in March 2024 that also eventually subsided with IV Solumedrol treatments She was seen by neurology last year and was diagnosed with multiple sclerosis and was started on Kesimpta, which she is still on at 20 mg SQ once a month Follow up with neurology as scheduled (3) Diabetes mellitus: Code(s): E11.9 - Type 2 diabetes mellitus without complications Qualifiers: Diabetes mellitus type: type 2 Diabetes mellitus usp insulin use: without long term care social worker use Diabetes mellitus complication status: with hyperglycemia Qualified Code(s): E11.65 - Type 2 diabetes mellitus with hyperglycemia Plan: HgbA1c was at 8.9% when last checked in December 2023 - goal is <7.0% Reinforced diabetic diet Continue Lantus Solostar 12 units QD; she used to take Ozempic 0.25 mg SQ once a week but has stopped taking this months ago She was previously on Metformin ER 1000 mg BID as well and at one point was started on Januvia 50 mg QD but patient self-discontinued her meds last year, claiming that she was sick and tired of taking so many medications She was previously also being seen by Dr. Tinajero for endocrinology follow-up but she has not followed up with them in over a year We referred patient to it associate for diabetes education when she was last seen in September 2023 as she appeared to need a lot of help in managing her conditions As previously mentioned, she seems to not truly comprehend the severity of her medical issues and compliance has often been a problem for her - she tends to miss her appointments and also has a tendency to self-discontinue her meds whenever she feels like it We tried referring her back to Endocrinology for further evaluation and management of her diabetes last year but it does not look like she was ever seen by them over the past year We will see how she is on her current labs once she gets them done and will then proceed appropriately (4) Benign essential hypertension: Code(s): I10 - Essential (primary) hypertension Plan: Reinforced low sodium diet - goal is systolic BP of 120 mm or less Continue Lisinopril 5 mg QD - she stopped taking all of her meds a while back and just started back on Lisinopril sometime in June 2023 and has been taking this regularly since Patient is reminded to monitor her BP regularly (5) Pure hypercholesterolemia: Code(s): E78.00 - Pure hypercholesterolemia, unspecified Plan: Reinforced low cholesterol diet Will recheck her labs and fasting lipids AKILA for follow up We have been unable to start her on statins in the past due to frequent eleva tions of LFTs on her part (6) Gastritis: Code(s): K29.70 - Gastritis, unspecified, without bleeding Qualifiers: Gastritis type: unspecified gastritis Chronicity: unspecified Gastritis bleeding: without bleeding Qualified Code(s): K29.70 - Gastritis, unspecified, without bleeding Plan: Dietary restrictions reinforced She was on Pantoprazole 40 mg QD and Carafate 1 gm TID previously but states that she has not taken these or any PPI in a while now She had her EGD done back in March 2024 but does not know how her test came out as no one has reportedly reached out to her to help explain these even though she has reportedly left messages to GI a few times asking for a call back Have advised her that based on her EGD findings, she has grade B esophagitis, gastritis and duodenitis and her biopsies have all come back normal or negative Continue Omeprazole 20 mg BID Follow up with GI as scheduled (7) Elevated LFTs: Comment: Patient very frustrated since she has been diagnosed with fatty liver-I will do liver workup to include labs and ultrasound Code(s): R79.89 - Other specified abnormal findings of blood chemistry Plan: This is most likely related to her weight (hepatosteatosis) Abdominal US done in December 2023 confirmed this - (+) hepatic steatosis and no biliary ductal dilatation seen She has been advised that this should improve with weight loss but her weight continues to be a struggle for her Will continue to monitor her LFTs regularly (8) Vitamin D deficiency: Code(s): E55.9 - Vitamin D deficiency, unspecified Plan: Continue Vitamin D3 2000 units QD (9) Bipolar disorder: Code(s): F31.9 - Bipolar disorder, unspecified Qualifiers: Active/Remission status: currently active Current bipolar episode type: mixed Current episode severity: unspecified Qualified Code(s): F31.60 - Bipolar disorder, current episode mixed, unspecified Plan: Patient used to take Hydroxyzine 25 mg Q HS and Quetiapine 100 mg Q HS but she has not taken these in over a year now since she decided to stop taking all of her meds last year (10) Obesity (BMI 30-39.9): Comment: Pleasant, anxious/animated 48-year-old recent MS-presents with persistent acid reflux, bloating, chronic constipation-may likely have functional component however needs further eval GI history is unclear- Code(s): E66.9 - Obesity, unspecified Plan: Reinforced diet/exercise as tolerated/lose weight - patient states that she has inexpicably continued to lose weight recently even though she is no longer on Ozempic States that she has actually been eating a lot more than she usually does lately and her weight continues to come down despite this (11) Breast cancer screening by mammogram: Code(s): Z12.31 - Encounter for screening mammogram for malignant neoplasm of breast Plan: Will send patient for her annual mammogram - she is due for repeat in a couple of weeks Plan Follow up in 4 months Orders: Orders Complete Blood Count Auto Diff 4 Months D64.9 - Anemia, unspecified Comprehensive Ivor. Panel Fast 4 Months E78.00 - Pure hypercholesterolemia, unspecified Lipid Panel 4 Months E78.00 - Pure hypercholesterolemia, unspecified Hemoglobin A1c 4 Months E11.9 - Type 2 diabetes mellitus without complications Vitamin D 25-OH Total 4 Months E55.9 - Vitamin D deficiency, unspecified Hemoglobin A1c Today E11.9 - Type 2 diabetes mellitus without complications, Z00.00 - Encounter for general adult medical examination without abnormal findings Microalbumin, Random (w Creat) Today E11.9 - Type 2 diabetes mellitus without complications, Z00.00 - Encounter for general adult medical examination without abnormal findings TSH reflex Free T4 Today E78.00 - Pure hypercholesterolemia, unspecified, Z00.00 - Encounter for general adult medical examination without abnormal findings MM tomosynthesis screening BI Today Z12.31 - Encounter for screening mammogram for malignant neoplasm of breast Microalbumin, Random (w Creat) 4 Months E11.9 - Type 2 diabetes mellitus without complications UA CC w/rflx Micro + Cult 4 Months R30.0 - Dysuria TSH reflex Free T4 4 Months E78.00 - Pure hypercholesterolemia, unspecified Complete Blood Count Auto Diff Today D64.9 - Anemia, unspecified, Z00.00 - Encounter for general adult medical examination without abnormal findings Comprehensive Ivor. Panel Fast Today E78.00 - Pure hypercholesterolemia, unspecified, Z00.00 - Encounter for general adult medical examination without abnormal findings Lipid Panel Today E78.00 - Pure hypercholesterolemia, unspecified, Z00.00 - Encounter for general adult medical examination without abnormal findings UA CC w/rflx Micro + Cult Today R30.0 - Dysuria, Z00.00 - Encounter for general adult medical examination without abnormal findings Vitamin B12 and Folate Today E53.8 - Deficiency of other specified B group vitamins, Z00.00 - Encounter for general adult medical examination without abnormal findings Vitamin D 25-OH Total Today E55.9 - Vitamin D deficiency, unspecified, Z00.00 - Encounter for general adult medical examination without abnormal findings Medications: Changed From lisinopril 5 mg PO DAILY 90 tabs 0RF I10 - Essential (primary) hypertension To lisinopril 5 mg PO DAILY 90 days 90 tabs 1RF I10 - Essential (primary) hypertension Coding Level of Care Code Est Pt Prev Care 40-64y([id number]) Diagnoses Annual physical exam Z00.00 Multiple sclerosis G35 Type 2 diabetes mellitus with hyperglycemia, without long-term current use of insulin E11.65 Diabetes mellitus type: type 2 Diabetes mellitus long term care social worker insulin use: without usp use Diabetes mellitus complication status: with hyperglycemia Benign essential hypertension I10 Pure hypercholesterolemia E78.00 Gastritis without bleeding, unspecified chronicity, unspecified gastritis type K29.70 Gastritis type: unspecified gastritis Chronicity: unspecified Gastritis bleeding: without bleeding Elevated LFTs R79.89 Vitamin D deficiency E55.9 Bipolar affective disorder, current episode mixed, current episode severity unspecified F31.60 Active/Remission status: currently active Current bipolar episode type: mixed Current episode severity: unspecified Obesity (BMI 30-39.9) E66.9 Breast cancer screening by mammogram Z12.31
[2024-07-03 16:01] VITALS: BP 124/86; PULSE 106; O2SAT 97; BMI 35.3
== END 2024-07-03 17:11 | disposition home or self-care (01) ==
PROVIDERS: PCP Internal Medicine; Visit Provider Internal Medicine
DX: Z00.00 Encounter for general adult medical examination without abnormal findings (principal); G35 Multiple sclerosis; E11.65 Type 2 diabetes mellitus with hyperglycemia; I10 Essential (primary) hypertension; E78.00 Pure hypercholesterolemia, unspecified; K29.70 Gastritis, unspecified, without bleeding; R79.89 Other specified abnormal findings of blood chemistry; E55.9 Vitamin D deficiency, unspecified
CPT/HCPCS: 99396

== ENCOUNTER 2024-07-09 10:52 | Outpatient (REF) | payer OTHER, SELFPAY ==
[2024-07-09 11:06] LABS: MANUAL DIFF FLAG NO
[2024-07-09 11:48] LABS: Basophils Absolute Auto 0.1 X10*3/uL (0.0-0.2); Basophils Percent Auto 0.6 % (0-2); Eosinophils Absolute Auto 0.2 X10*3/uL (0.0-0.4); Eosinophils Percent Auto 1.9 % (0-4); Hematocrit 44.3 % (37.0-47.0); Hemoglobin 15.7 g/dl (12.0-16.0); Imm Gran Abs Auto 0.04 X10*3/uL (0.00-0.03); Imm Gran Pct Auto 0.4 % (0.0-0.4); Lymphocytes Absolute Auto 3.1 X10*3/uL (1.2-4.9); Lymphocytes Percent Auto 33.2 % (20-40); Mean Corpuscular HGB Conc 35.4 g/dl (31.0-35.0); Mean Corpuscular Hemoglobin 29.8 pg (27.0-33.0); Mean Corpuscular Volume 84.2 fL (80.0-98.0); Monocytes Absolute Auto 0.5 X10*3/uL (0.1-1.2); Monocytes Percent Auto 4.9 % (2-11); Neutrophils Absolute Auto 5.5 x10*3/uL (2.0-8.3); Platelet Count 209 X10*3/uL (160-400); Red Blood Count 5.26 X10*6/uL (4.20-5.50); Red Cell Distribution Width 11.9 % (11.0-16.0); White Blood Count 9.3 X10*3/uL (4.8-10.8)
[2024-07-09 11:55] LABS: Estimated Average Glucose 315 mg/dL; Hemoglobin A1c % 12.6 % (<6.0)
[2024-07-09 12:04] LABS: Appearance Urine Cloudy; Color Urine Yellow; Glucose Urine UA >=1000 mg/dL (Negative); Leukocyte Esterase Urine Negative (Negative); Nitrite Urine Negative (Negative); PH 5.5 (5.0-9.0); Specific Gravity - Urine >= 1.030 (1.005-1.025); UMIC TRIGGER UACC YES; Urine Blood Negative (Negative); Urine Ketones 15 mg/dL (Negative); Urine Protein Trace mg/dL (Neg-Trace)
[2024-07-09 12:23] LABS: Bacteria Urine 2+ (None Seen); Hyaline Casts Urine 0-2 /LPF (0-2); RBC Urine 0-2 /HPF (0-2); UACC Culture Trigger YES
[2024-07-09 12:26] LABS: Creatinine Urine 93.53 mg/dL
[2024-07-09 12:35] LABS: Alanine Aminotransferase 102 U/L (0-31); Albumin Level 4.2 g/dL (3.5-5.0); Alkaline Phosphatase 121 U/L (39-117); Anion Gap 13 (12-20); Aspartate Amino Transferase 59 U/L (5-31); Bilirubin Total 0.4 mg/dL (0.0-1.0); Blood Urea Nitrogen 12 mg/dL (9-16); Carbon Dioxide 27 mmol/L (22-29); Chloride 101 mmol/L (96-108); Cholesterol 238 mg/dL (<200); Estimated Glomerular Filt Rate > 60; HDL Cholesterol 38 mg/dL (>40); LDL Cholesterol Calculated 144 mg/dL (<100); Potassium 4.5 mmol/L (3.3-5.1); Sodium 136 mmol/L (135-145); Total Protein 7.6 g/dL (6.5-8.0); Triglycerides 281 mg/dL (<150)
[2024-07-09 12:38] LABS: Glucose Fasting 414 mg/dL (60-99)
[2024-07-09 12:42] LABS: TSH reflex Free T4 0.78 uIU/mL (0.32-4.0); Vitamin D 25-OH Total 20.6 ng/mL (>30)
[2024-07-09 12:46] LABS: Folate 10.5 ng/mL (> or = 4.0); Vitamin B12 667 pg/mL (200-900)
== END 2024-07-09 10:53 | disposition home or self-care (01) ==
LOC: HO.LAB 10:52
PROVIDERS: PCP Internal Medicine; Visit Provider Internal Medicine
DX: Z00.00 Encounter for general adult medical examination without abnormal findings (principal); E11.9 Type 2 diabetes mellitus without complications; D64.9 Anemia, unspecified; E78.00 Pure hypercholesterolemia, unspecified; E55.9 Vitamin D deficiency, unspecified; E53.8 Deficiency of other specified B group vitamins
CPT/HCPCS: 36415; 80053; 80061; 81001; 81003; 82043; 82306; 82570; 82607; 82746; 83036; 84443; 85025; 87086

== ENCOUNTER 2024-07-30 12:35 | Outpatient (AMB) | payer OTHER, SELFPAY ==
--- NOTE | 2024-07-30 12:40 | A.OFFVIS_ITS ---
Vital Signs 07/30/24 12:43 Height 5 ft 5 in Weight 216 lb 0.848 oz BMI 35.9 BP 114/76 Blood Pressure Location Rt brachial Position Sitting Pulse 109 H Pulse Source Pulse Oximeter Intake Visit Reasons: T2DM w hyperglycemia/CONFIRMED Intake Note: Patient presents today to re-establish treatment for Type 2 Diabetes Mellitus with Hyperglycemia: Last Diabetic eye exam was on: DUE Last Podiatry exam was on: Does not see a Materials Handling Coordinator Most recent HbA1c: 12.6%, 07/09/2024 Random Glucose- 575 mg/dL, Today Deputy Prosecuting Attorney Required: No Accompanied by: Self / Same As Patient Allergies empagliflozin [From Jardiance] Adverse Reaction (Severe, Verified 07/30/24 12:54) UTI semaglutide [From Ozempic] Adverse Reaction (Severe, Verified 07/30/24 12:56) Gastrointestinal Upset Chantix Adverse Reaction (Unknown, Uncoded 07/30/24 12:41) worsening bipolar disorder HPI Comments Details: The patient is a 48 y/o female presenting for uncontrolled diabetes PMH: HTN, obesity, GERD Last A1C 12.6% 07/09/2014 She is not currently taking any medications. Was tolerating ozempic 0.25mg but when increased to 0.5 GI side effects became intolerable. Did not tolerate two types of insulin in the past. Intolerant of metformin, jardiance Not checking blood sugars. Blood glucose is 575. She feels completely normal No family history of diabetes. Neuropathy hands, feet-stable On DENIS ROS CONSTITUTIONAL: Denies weight loss, fever and chills. HEENT: Denies changes in vision and hearing. RESPIRATORY: Denies SOB and cough. CV: Denies palpitations and CP GI: Denies abdominal pain, nausea, vomiting and diarrhea. : Denies dysuria and urinary frequency. MSK: Denies new myalgia and joint pain. SKIN: Denies rash and pruritus. NEUROLOGICAL: Denies headache PSYCHIATRIC: Denies recent changes in mood. PHYSICAL EXAM: GENERAL: Alert and oriented x 3. NAD EYES: EOMI. Anicteric. HENT: Moist mucous membranes. No scleral icterus. No cervical lymphadenopathy. LUNGS: Clear to auscultation bilaterally. CARDIOVASCULAR: Regular rate and rhythm. ABDOMEN: Soft, non-tender +bs EXTREMITIES: No edema. Non-tender. SKIN: No rashes or lesions. Warm. NEUROLOGIC: No focal neurological deficits. CN II-XII grossly intact PSYCHIATRIC: Cooperative. Appropriate mood and affect [facility] Medical History Multiple sclerosis Demyelinating disease Elevated LFTs Vitamin D deficiency Pure hypercholesterolemia Benign essential hypertension Obesity (BMI 30-39.9) Gastritis Bulimia nervosa Bipolar disorder Impaired fasting glucose Hyperlipidemia Surgical History Hx of Achilles tendon repair History of endometrial ablation History of cholecystectomy History of colonoscopy History of hernia surgery History of tubal ligation History of carpal tunnel surgery H/O bursectomy Family History Mother High blood pressure Dementia Kidney stones Arthritis Father Hepatitis B Cirrhosis of liver Other Mental health problem Social History Household Members: None Housing: Apartment Do you presently have visiting nurse or other home services: No Alcohol intake: never Patient Tobacco Use Status: Never used Tobacco Tobacco use type: Cigarette Cigarettes Per Day: 5 e-Cigarette/Vaping Use: Never Used Second Hand Smoke Exposure: No service: No Current occupational status: employed 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[employer] Current occupational exposures/hazards: No Cognitive needs: No Hearing needs: No Vision needs: Yes Female Reproductive History Menstrual Age of Menarche: 13 Physical Exam Vital Signs: Last Vital Signs Pulse 109 H 07/30/24 12:43 BP 114/76 07/30/24 12:43 BMI result Body Mass Index 35.9 Assessment & Plan Assessment & Plan (1) Uncontrolled diabetes mellitus with hyperglycemia: Code(s): E11.65 - Type 2 diabetes mellitus with hyperglycemia Category: Medical Qualifiers: Diabetes mellitus type: type 2 Qualified Code(s): E11.65 - Type 2 diabetes mellitus with hyperglycemia Plan: Start ozempic 0.25mg daily which she has tolerated in the past In two weeks start actos 30mg daily Return in 4 weeks with glucose log Discussed micro/macrovascular complication of diabetes. Discussed goal A1C. Discussed necessity of annual eye exam in all diabetes. (2) Multiple sclerosis: Code(s): G35 - Multiple sclerosis Category: Medical Plan: continue neurology follow up Medications: New pioglitazone (Actos) 30 mg PO DAILY 90 tabs 3RF Ozempic (semaglutide) for 4 weeks 0.25 mg (0.368 mL) subcut QWEEK 12 weeks 4.416 mL 3RF NS Coding Level of Care Code Est Pt Level 4 (42682) Diagnoses Uncontrolled type 2 diabetes mellitus with hyperglycemia E11.65 Diabetes mellitus type: type 2 Multiple sclerosis G35
[2024-07-30 12:43] VITALS: BP 114/76; PULSE 109; BMI 35.9
[2024-07-31 14:34] LABS: Glucose, Whole Blood 575 mg/dL (60-115)
== END 2024-07-30 13:22 | disposition home or self-care (01) ==
PROVIDERS: PCP Internal Medicine; Visit Provider Internal Medicine
DX: E11.65 Type 2 diabetes mellitus with hyperglycemia (principal); G35 Multiple sclerosis

== ENCOUNTER → 2024-07-30 12:35 | Outpatient (BNVA) | payer OTHER, SELFPAY | PROVIDERS: PCP Internal Medicine; Visit Provider Internal Medicine | DX: E11.65 Type 2 diabetes mellitus with hyperglycemia (principal); G35 Multiple sclerosis | CPT/HCPCS: 82947; 99212 ==

== ENCOUNTER 2024-08-05 20:40 | Emergency (ER) | payer OTHER, SELFPAY ==
--- NOTE | ~2024-08-05 | XR_ITS ---
EXAMINATION: XR CHEST CLINICAL INFORMATION: Cough. Chest tightness. COMPARISON: March 31, 2024. TECHNIQUE: 2 views of the chest were obtained. FINDINGS: No significant abnormality is noted involving the heart, lungs, mediastinum, bony thorax or soft tissues. XR/XR chest 2V IMPRESSION: Unremarkable examination. Electronically signed by: Mika Huynh MD 08/06/2024 12:08 AM EDT
[2024-08-05 20:44] VITALS: BP 168/94; PULSE 130; RESP 20; TEMP 37.7; O2SAT 95; BMI 35.3
--- NOTE | 2024-08-05 20:46 | ED_ITS ---
HPI - General Adult General Chief complaint: Upper Respiratory Symptoms Stated complaint: ?allergic rx Time Seen by Provider: 08/06/24 01:38 History of Present Illness ED Provider: Erik BAEZ narrative: The patient is a 48-year-old female with a history of diabetes who has been feeling sick for about 3 days. She has had nasal congestion and a sore throat and a headache and body aches. She thinks that she has had a fever for about 2 days. Related Data Home Medications ?Medication ?Instructions ?Recorded ?Confirmed ofatumumab 20 mg/0.4 mL 20 mg subcut .once a month 07/03/24 07/03/24 subcutaneous pen injector (Kesimpta Pen) pantoprazole 20 mg tablet,delayed 20 mg PO BID 07/30/24 release Previous Rx's ?Medication ?Instructions ?Recorded blood pressure kit-extra large #1 ea 07/03/23 blood-glucose meter (FreeStyle #1 ea 07/03/23 Lite Meter kit) lancets 28 gauge (FreeStyle #100 ea 07/03/23 Lancets) pen needle, diabetic 32 gauge x #100 ea 10/15/23/ omeprazole 20 mg capsule,delayed 20 mg PO BID #60 caps 03/24/24 release cyclobenzaprine 10 mg tablet 10 mg PO TID PRN muscle spasm #15 03/31/24 tabs acetaminophen 500 mg tablet 1,000 mg (2 x 500 mg) PO Q6H PRN 04/01/24 (Tylenol Extra Strength) fever or pain #20 tabs ibuprofen 400 mg tablet 400 mg PO TID PRN fever or pain 04/01/24 #30 tabs blood sugar diagnostic (FreeStyle #50 ea 05/04/24 Lite Strips) lisinopril 5 mg tablet 5 mg PO DAILY 90 days #90 tabs 07/03/24 Ozempic 0.25 mg or 0.5 mg (2 mg/3 0.25 mg (0.368 mL) subcut QWEEK 12 07/30/24 mL) subcutaneous pen injector weeks #4.416 mL (semaglutide) pioglitazone 30 mg tablet (Actos) 30 mg PO DAILY #90 tabs 07/30/24 amoxicillin 875 mg-potassium 1 tab PO BID #14 tabs 08/06/24 clavulanate 125 mg tablet Allergies Allergy/AdvReac Type Severity Reaction Status Date / Time empagliflozin AdvReac Severe UTI Verified 08/05/24 20:47 [From Jardiance] semaglutide [From Ozempic] AdvReac Severe Gastrointestinal Verified 08/05/24 20:47 Upset Chantix AdvReac Unknown worsening Uncoded 08/05/24 20:47 bipolar disorder Review of Systems 2 Review of Systems: Yes all other systems are reviewed and are negative [facility] Past Medical History Medical History Multiple sclerosis Demyelinating disease Elevated LFTs Vitamin D deficiency Pure hypercholesterolemia Benign essential hypertension Obesity (BMI 30-39.9) Gastritis Bulimia nervosa Bipolar disorder Impaired fasting glucose Hyperlipidemia Surgical History Hx of Achilles tendon repair History of endometrial ablation History of cholecystectomy History of colonoscopy History of hernia surgery History of tubal ligation History of carpal tunnel surgery H/O bursectomy Family History Family History Mother High blood pressure Dementia Kidney stones Arthritis Father Hepatitis B Cirrhosis of liver Other Mental health problem Social History Social History Household Members: None Housing: Apartment Do you presently have visiting nurse or other home services: No Alcohol intake: never Patient Tobacco Use Status: Never used Tobacco Tobacco use type: Cigarette Cigarettes Per Day: 5 Smoked in Last 30 Days: No e-Cigarette/Vaping Use: Never Used Second Hand Smoke Exposure: No Use of substances other than those prescribed or required for medical reasons: No Advance Directives: No Advance Directives Information Provided: No Patient : No service: No Current occupational status: employed 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[employer] Current occupational exposures/hazards: No Cognitive needs: No Hearing needs: No Vision needs: Yes Physical Exam ED Vital Signs: Vital Signs - 24 hr 08/05/24 20:44 08/06/24 00:25 08/06/24 02:55 Temperature 99.9 F 101.0 F H 99.2 F Pulse Rate 130 H 135 H 117 H Respiratory Rate 20 20 16 Blood Pressure 168/94 H 147/86 H 121/65 Pulse Oximetry 95 97 98 Oxygen Delivery Method Room Air Room Air Room Air 08/06/24 03:24 Temperature 99.2 F Pulse Rate 117 H Respiratory Rate 16 Blood Pressure 121/65 Pulse Oximetry 98 Oxygen Delivery Method Room Air BMI result Body Mass Index 35.3 Const Other: The patient is awake and alert. She looks somewhat unwell but not acutely toxic. She sounds as though she has a stuffy nose. HENMT Other: There is some clear nasal discharge. The posterior pharynx is unremarkable. Airway clear. Eyes General: appearance normal, both eyes and all related structures Neck Other: No significant lymphadenopathy Neck: Yes full ROM Resp Effort & Inspection: normal respiratory effort Auscultation: clear to auscultation bilaterally Cardio Rate: tachycardic Rhythm: regular rhythm Heart sounds: S1 normal heart sound present and S2 normal heart sound present GI Other: The abdomen is soft and nontender Skin Other: Skin is dry and unremarkable. No rashes. Neuro Other: The patient is awake and alert with a normal mental status. Cranial nerves are grossly intact. She does not have a stiff neck. She is moving her extremities normally and appropriately. Extrem Other: No peripheral edema Course Course Course Narrative: This is a Rapid Medical Examination (RME) performed by Keo Mccann PA-C in triage. Full HPI, ROS, assessment and treatment plan per primary provider in the Main ED. 48 yo female hx of MS, bipolar disorder, HDL, bulimia nervosa, HTN, DM here for eval of cough, fever, sore throat, chills x 2-3 days. recently started pioglitazone for DM, concerned this may be a reaction to this medication. no known sick contacts. Plan: viral/ strep swab, cxr Medications Administered Discontinued Medications Generic Name Dose Route Start Last Admin Trade Name Freq PRN Reason Stop Dose Admin Acetaminophen 975 mg 08/06/24 01:47 08/06/24 01:55 Acetaminophen 325 Mg Tablet PO 08/06/24 01:48 975 mg ONCE ONE Administration Amoxicillin/Clavulanate Potassium 875 mg 08/06/24 03:15 08/06/24 03:22 Amoxicillin/Potassium Clav 875 Mg Tablet PO 08/06/24 03:16 875 mg ONCE ONE Administration Diphenhydramine HCl 25 mg 08/06/24 01:47 08/06/24 02:00 Diphenhydramine Hcl 50 Mg/Ml Vial IVPUSH 08/06/24 01:48 25 mg ONCE ONE Administration Sodium Chloride 1,000 mls @ 999 mls/hr 08/06/24 02:00 08/06/24 03:45 Ns IV 08/06/24 03:00 Infused .Q1H1M CHRIS Infusion Ketorolac Tromethamine 10 mg 08/06/24 01:47 08/06/24 02:01 Ketorolac Tromethamine 15 Mg/Ml Vial IVPUSH 08/06/24 01:48 10 mg ONCE ONE Administration Metoclopramide HCl 10 mg 08/06/24 01:47 08/06/24 02:01 Metoclopramide Hcl 10 Mg/2 Ml Vial IVPUSH 08/06/24 01:48 10 mg ONCE ONE Administration Medical Decision Making Medical Decision Making [facility] Narrative: The patient is a very pleasant 48-year-old. She has a history of type 2 diabetes. she presents with a fever and upper respiratory symptoms. Her chest x-ray shows no pneumonia. I do not think she is showing any findings of a concerning soft tissue neck infection. It is possible she might have sinusitis. Her viral swab is negative for COVID, influenza, and RSV. A throat swab is negative for strep. She was febrile andtachycardic but did not seem toxic and I do not think she is frankly septic. Her white count is mildly elevated at 11.9. She does not have much in the way of a left shift. Her CRP is fairly elevated at 6.4. She was hyperglycemic. She was treated symptomatically for her headache and discomfort. She was given a L of IV normal saline. She will be started on Augmentin for possible sinusitis. She felt better and seemed comfortable being discharged. She should follow up with her PCP. She is advised to drink a lot of fluids. She should return if worse. Lab Data 08/06/24 00:48 08/06/24 00:48 Labs: Lab Results 08/05/24 08/06/24 Range/Units 21:07 00:48 WBC 11.9 H (4.8-10.8) X10*3/uL RBC 5.28 (4.20-5.50) X10*6/uL Hgb 15.4 (12.0-16.0) g/dl Hct 44.1 (37.0-47.0) % MCV 83.5 (80.0-98.0) fL MCH 29.2 (27.0-33.0) pg MCHC 34.9 (31.0-35.0) g/dl RDW 11.9 (11.0-16.0) % Plt Count 174 (160-400) X10*3/uL MPV 11.4 (9.4-12.3) fL Immature Gran % (Auto) 0.3 (0.0-0.4) % Neut % (Auto) 73.9 H (45-73) % Lymph % (Auto) 18.6 L (20-40) % [place] % (Auto) 6.0 (2-11) % Eos % (Auto) 0.7 (0-4) % Baso % (Auto) 0.5 (0-2) % Lymph # (Auto) 2.2 (1.2-4.9) X10*3/uL [place] # (Auto) 0.7 (0.1-1.2) X10*3/uL Eos # (Auto) 0.1 (0.0-0.4) X10*3/uL Baso # (Auto) 0.1 (0.0-0.2) X10*3/uL Abs Immat Gran (auto) 0.03 (0.00-0.03) X10*3/uL Absolute Neuts (auto) 8.8 H (2.0-8.3) x10*3/uL Absolute Nucleated RBC 0.000 (0.0-0.012) X10*3/uL Nucleated RBC % (auto) 0.0 (0.0-0.2) /100WBC Sodium 137 (135-145) mmol/L Potassium 4.1 (3.3-5.1) mmol/L Chloride 103 (96-108) mmol/L Carbon Dioxide 22 (22-29) mmol/L Anion Gap 16 (12-20) BUN 16 (9-16) mg/dL Creatinine 0.90 (0.5-1.4) mg/dL Estim Creat Clear Calc 88.6 Estimated GFR > 60 Random Glucose 358 H* (60-115) mg/dL Calcium 10.2 (8.4-10.2) mg/dL Total Bilirubin 0.5 (0.0-1.0) mg/dL AST 46 H (5-31) U/L ALT 74 H (0-31) U/L Alkaline Phosphatase 131 H (39-117) U/L C-Reactive Protein 6.49 H (< or = 0.50) mg/dL Total Protein 7.7 (6.5-8.0) g/dL Albumin 4.4 (3.5-5.0) g/dL Lipase 59 (8-78) U/L Urine Color Yellow Urine Appearance Clear Urine pH 5.5 (5.0-9.0) Ur Specific Harris >= 1.030 H (1.005-1.025) Urine Protein Negative (Neg-Trace) mg/dL Urine Glucose (UA) >=1000 H (Negative) mg/dL Urine Ketones 15 (Negative) mg/dL Urine Blood Negative (Negative) Urine Nitrite Negative (Negative) Ur Leukocyte Esterase Negative (Negative) Urine RBC 0-2 (0-2) /HPF Urine WBC 6-10 H (0-5) /HPF Ur Squamous Epith Cells 6-10 (0-2) /HPF Urine Bacteria None Seen (None Seen) Hyaline Casts 0-2 (0-2) /LPF Influenza Type A (PCR) NEGATIVE (Negative) Influenza Type B (PCR) NEGATIVE (Negative) RSV RNA Qual (PCR) NEGATIVE (Negative) SARS-CoV-2 RNA (RT-PCR) NEGATIVE (Negative) S. pyogenes GrpA MILTON Negative (Negative) Discharge Plan Discharge Clinical Impression: Sinusitis Patient Disposition: Home, Self-Care Additional Instructions: Your fever may be the result of sinusitis. You have been started on the antibiotic amoxicillin/clavulanate (also known as Augmentin). Please take this antibiotic 2 times a day as prescribed (approximately every 12 hours). Please complete the entire course. Drink lot of fluids. Use ibuprofen and acetaminophen as needed for discomfort. Please follow up soon with your regular doctor for a recheck. If at any point you are feeling significantly worse please return to the emergency room for further evaluation here. Prescriptions: New amoxicillin-pot clavulanate 875-125 mg tablet 1 tab PO BID Qty: 14 0RF No Action (DME) FreeStyle Lite Strips Strip See Rx Instructions .MEDSUPPLY Qty: 50 0RF Rx Instructions: test daily (DME) pen needle, diabetic 32 gauge x 1/4 needle Qty: 100 0RF Rx Instructions: Use four times a day or as directed. omeprazole 20 mg capsule,delayed release(DR/EC) 20 mg PO BID Qty: 60 1RF cyclobenzaprine 10 mg tablet 10 mg PO TID PRN (Reason: muscle spasm) Qty: 15 0RF acetaminophen [Tylenol Extra Strength] 500 mg tablet 1,000 mg PO Q6H PRN (Reason: fever or pain) Qty: 20 0RF ibuprofen 400 mg tablet 400 mg PO TID PRN (Reason: fever or pain) Qty: 30 0RF (DME) blood pressure kit-extra large Kit See Rx Instructions .Route Qty: 1 0RF Rx Instructions: As directed (DME) blood-glucose meter [FreeStyle Lite Meter] Kit See Rx Instructions .MEDSUPPLY Qty: 1 0RF Rx Instructions: test daily (DME) lancets [FreeStyle Lancets] 28 gauge misc See Rx Instructions .MEDSUPPLY Qty: 100 2RF Rx Instructions: test daily lisinopril 5 mg tablet 5 mg PO DAILY 90 Days Qty: 90 1RF Kesimpta Pen 20 mg/0.4 mL pen injector 20 mg subcut .once a month pantoprazole 20 mg tablet,delayed release (DR/EC) 20 mg PO BID Ozempic 0.25 mg or 0.5 mg (2 mg/3 mL) pen injector 0.25 mg subcut QWEEK 84 Days Qty: 4.416 3RF Rx Instructions: for 4 weeks pioglitazone [Actos] 30 mg tablet 30 mg PO DAILY Qty: 90 3RF Referrals: Narendra Jeff MD [Primary Care Provider] - (Possible sinusitis) Interventions: ED Discharge Assessment Last Done: 08/06/24 03:24 Discharge Date/Time: 08/06/24 03:50 Print Language: Cook Islander
[2024-08-05 21:45] LABS: IDNOW Serial# 6674DD1D
[2024-08-05 21:46] LABS: Strep A Nucleic Acid Negative (Negative)
[2024-08-05 21:53] LABS: Influenza A PCR NEGATIVE (Negative); Influenza B PCR NEGATIVE (Negative); Resp Syncy Virus RNA Qual PCR NEGATIVE (Negative); SARS COV2 PCR INHOUSE NEGATIVE (Negative)
[2024-08-06 00:25] VITALS: BP 147/86; PULSE 135; RESP 20; TEMP 38.3; O2SAT 97
[2024-08-06 00:56] LABS: MANUAL DIFF FLAG NO
[2024-08-06 00:57] LABS: Basophils Absolute Auto 0.1 X10*3/uL (0.0-0.2); Basophils Percent Auto 0.5 % (0-2); Eosinophils Absolute Auto 0.1 X10*3/uL (0.0-0.4); Eosinophils Percent Auto 0.7 % (0-4); Hematocrit 44.1 % (37.0-47.0); Hemoglobin 15.4 g/dl (12.0-16.0); Imm Gran Abs Auto 0.03 X10*3/uL (0.00-0.03); Imm Gran Pct Auto 0.3 % (0.0-0.4); Lymphocytes Absolute Auto 2.2 X10*3/uL (1.2-4.9); Lymphocytes Percent Auto 18.6 % (20-40); Mean Corpuscular HGB Conc 34.9 g/dl (31.0-35.0); Mean Corpuscular Hemoglobin 29.2 pg (27.0-33.0); Mean Corpuscular Volume 83.5 fL (80.0-98.0); Mean Platelet Volume 11.4 fL (9.4-12.3); Monocytes Absolute Auto 0.7 X10*3/uL (0.1-1.2); Neutrophils Absolute Auto 8.8 x10*3/uL (2.0-8.3); Neutrophils Percent Auto 73.9 % (45-73); Platelet Count 174 X10*3/uL (160-400); Red Blood Count 5.28 X10*6/uL (4.20-5.50); Red Cell Distribution Width 11.9 % (11.0-16.0); White Blood Count 11.9 X10*3/uL (4.8-10.8)
[2024-08-06 00:58] LABS: Appearance Urine Clear; Color Urine Yellow; Glucose Urine UA >=1000 mg/dL (Negative); Leukocyte Esterase Urine Negative (Negative); Nitrite Urine Negative (Negative); PH 5.5 (5.0-9.0); Specific Gravity - Urine >= 1.030 (1.005-1.025); UMIC TRIGGER UACC YES; Urine Blood Negative (Negative); Urine Ketones 15 mg/dL (Negative); Urine Protein Negative (Neg-Trace)
[2024-08-06 01:00] LABS: Bacteria Urine None Seen (None Seen); Hyaline Casts Urine 0-2 /LPF (0-2); RBC Urine 0-2 /HPF (0-2); UACC Culture Trigger YES
[2024-08-06 01:20] LABS: Alanine Aminotransferase 74 U/L (0-31); Albumin Level 4.4 g/dL (3.5-5.0); Alkaline Phosphatase 131 U/L (39-117); Anion Gap 16 (12-20); Aspartate Amino Transferase 46 U/L (5-31); Bilirubin Total 0.5 mg/dL (0.0-1.0); Blood Urea Nitrogen 16 mg/dL (9-16); Calcium 10.2 mg/dL (8.4-10.2); Carbon Dioxide 22 mmol/L (22-29); Chloride 103 mmol/L (96-108); Creatinine Clr Calc Pharmacy 88.6; Estimated Glomerular Filt Rate > 60; Glucose Random 358 mg/dL (60-115); Lipase 59 U/L (8-78); Potassium 4.1 mmol/L (3.3-5.1); Sodium 137 mmol/L (135-145); Total Protein 7.7 g/dL (6.5-8.0)
[2024-08-06] MEDS: Acetaminophen 325 MG TABLET 975 MG PO (01:55)
[2024-08-06 01:58] LABS: C Reactive Protein 6.49 mg/dL (< or = 0.50)
[2024-08-06] MEDS: diphenhydrAMINE HCL 50 MG/ML VIAL 25 MG IVPUSH (02:00)
[2024-08-06] MEDS: Metoclopramide HCl 10 MG/2 ML VIAL IVPUSH (02:01)
[2024-08-06] MEDS: Ketorolac Tromethamine 15 MG/ML VIAL 10 MG IVPUSH (02:01)
[2024-08-06] MEDS: 0.9 % Sodium Chloride 1,000 ML 999 ML IV (02:11)
[2024-08-06 02:55] VITALS: BP 121/65; PULSE 117; RESP 16; TEMP 37.3; O2SAT 98
[2024-08-06] MEDS: Amoxicillin/Potassium Clav 875 MG TABLET PO (03:22)
[2024-08-06 03:24] VITALS: BP 121/65; PULSE 117; RESP 16; TEMP 37.3; O2SAT 98
== END 2024-08-06 03:50 | disposition home or self-care (01) ==
PROVIDERS: Physician Assistant Medical; Emergency Provider Emergency Medicine; PCP Internal Medicine
DX: J32.9 Chronic sinusitis, unspecified (principal); R05.9 Cough, unspecified; J02.9 Acute pharyngitis, unspecified; Z03.818 Encounter for observation for suspected exposure to other biological agents ruled out; E11.9 Type 2 diabetes mellitus without complications; I10 Essential (primary) hypertension; E78.00 Pure hypercholesterolemia, unspecified; G35 Multiple sclerosis
CPT/HCPCS: 0241U; 36415; 71046; 80053; 81001; 83690; 85025; 86140; 87086; 87651; 96361; 96374; 96375; 99284; 99285; J1200; J1885; J2765

== ENCOUNTER 2024-08-14 09:29 | Outpatient (AMB) | payer OTHER, SELFPAY ==
[2024-08-14 09:42] VITALS: BP 106/80; PULSE 90; O2SAT 98; BMI 35.3
--- NOTE | 2024-08-14 09:42 | MHC.PC.OV ---
Vital Signs 08/14/24 09:42 Height 5 ft 5 in Weight 212 lb 6 oz BMI 35.3 BP 106/80 Blood Pressure Location Lt brachial Position Sitting Pulse 90 Pulse Source Pulse Oximeter Pulse Oximetry (%) 98 Oxygen Delivery Method Room Air Intake Visit Reasons: [facility] [place] allergic rx Awning Frame Maker Required: No Accompanied by: Self / Same As Patient Allergies empagliflozin [From Jardiance] Adverse Reaction (Severe, Verified 08/14/24 10:27) UTI semaglutide [From Ozempic] Adverse Reaction (Severe, Verified 08/14/24 10:27) Gastrointestinal Upset Chantix Adverse Reaction (Unknown, Uncoded 08/14/24 10:27) worsening bipolar disorder Medication List - Last Reconciled 08/14/24 by Narendra Jeff MD acetaminophen (Tylenol Extra Strength) 1,000 mg (2 x 500 mg) PO Q6H PRN blood pressure kit-extra large As directed blood sugar diagnostic (FreeStyle Lite Strips) test daily blood-glucose meter (FreeStyle Lite Meter kit) test daily cyclobenzaprine 10 mg PO TID PRN dulaglutide (Trulicity) 0.75 mg (0.5 mL) subcut QWEEK ibuprofen 400 mg PO TID PRN lancets (FreeStyle Lancets) test daily lisinopril 5 mg PO DAILY 90 days ofatumumab (Kesimpta Pen) 20 mg subcut .once a month Ozempic (semaglutide) 0.25 mg (0.368 mL) subcut QWEEK 12 weeks NS pantoprazole 20 mg PO BID pen needle, diabetic Use four times a day or as directed. pioglitazone (Actos) 30 mg PO DAILY Tobacco use date assessed: 07/03/24 Dental Screening Dental Screen Date: 07/03/24 HPI [facility] [place]06 allergic rx HPI Details Patient comes in today for her HDF follow-up visit She went to the emergency room last week for increasing nasal congestion, sore throat, headaches and generalized body aches for 3 days Workups done in the ER were mostly unrevealing She was treated symptomatically for her headaches and other symptoms and given some IV fluid hydration before she was discharged home with a prescription for Augmentin empirically for possible sinusitis She was instructed to follow-up with her PCP in a week or so to ensure resolution of her symptoms Patient states that her nasal congestion improved with antibiotic treatment but most of her other symptoms, including fatigue, sore throat, malaise and body aches have persisted She denies any fever; denies any headaches or dizziness States that she still has recurrent sore throat as well as symptoms of dry mouth Denies any chest pains, no increased shortness of breath No nausea/vomiting, no abdominal pain No change in bowel habits noted States that she has been on Omeprazole for a few months now but feels that this is not really helping much She had her follow up labs done last month - to discuss her results Would also like to get her flu shot today COUNTS INCLUDE 234 BEDS AT THE [facility] Medical History Multiple sclerosis Demyelinating disease Elevated LFTs Vitamin D deficiency Pure hypercholesterolemia Benign essential hypertension Obesity (BMI 30-39.9) Gastritis Bulimia nervosa Bipolar disorder Impaired fasting glucose Hyperlipidemia Surgical History Hx of Achilles tendon repair History of endometrial ablation History of cholecystectomy History of colonoscopy History of hernia surgery History of tubal ligation History of carpal tunnel surgery H/O bursectomy Family History Mother High blood pressure Dementia Kidney stones Arthritis Father Hepatitis B Cirrhosis of liver Other Mental health problem Social History Household Members: None Housing: Apartment Do you presently have visiting nurse or other home services: No Alcohol intake: never Patient Tobacco Use Status: Never used Tobacco Tobacco use type: Cigarette Cigarettes Per Day: 5 e-Cigarette/Vaping Use: Never Used Second Hand Smoke Exposure: No service: No Current occupational status: employed 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[employer] Current occupational exposures/hazards: No Cognitive needs: No Hearing needs: No Vision needs: Yes Female Reproductive History Menstrual Age of Menarche: 13 Questionnaire Thrive Questionnaire Date Thrive assessed: 06/26/24 I am a: Patient What is your living situation today?: I have a steady place to live Within the past 12 months, did the food you bought not last and you didn't have the money to get more?: Often true Within the past 12 months, did you worry whether your food would run out before you got money to buy more?: Sometimes True Do you have trouble paying for medicines?: No Do you have trouble getting transportation to medical appointments?: Yes Do you have trouble paying your heating and electricity bill?: No Do you have trouble taking care of your child, family member or friend?: I choose not to answer this question Do you have trouble with day-to-day activities such as bathing, preparing meals, shopping, managing finances, etc.?: Yes Are you currently unemployed and looking for a job?: No Are you interested in more education?: No Currently or been in a relationship where the following occur: No concerns reported THRIVE Score: 3 GABI-7 AMB Questionnaire GABI-7 Date GABI - 7 assessed: 07/03/24 Source: Developed by Drs. Malcolm Sauceda, Lilliana Biswas, Francis Schmitt and colleagues, with an educational rich from [employer]. Review of Systems Const Reports body aches, Denies chills, Reports fatigue, Denies fever(s), Denies headache(s) and Reports malaise Eyes Reports dry eyes ENT Denies dysphagia, Denies dizziness, Reports dry mouth, Denies otalgia, Denies headache(s), Denies neck pain, Reports odynophagia (due to sore throat/dry throat) and Reports sore throat (persistent/recurrent) Card Denies chest pain, Denies palpitations and Denies dyspnea Resp Denies chest congestion, Denies cough and Denies dyspnea GI Denies abdominal pain, Reports constipation, Denies dysphagia, Denies heartburn, Reports diarrhea (intermittent, occurring between bouts of constipation), Denies nausea, Reports odynophagia (due to sore throat/dry throat) and Denies vomiting Denies difficulty voiding, Denies nocturia, Denies dysuria and Denies urinary urgency Musc Reports back pain (on and off), Denies neck pain, Reports numbness (on and off, over the right side and in both hands ) and Reports tingling (right-sided, on and off) Skin/Breast Denies rash Neuro Denies dizziness, Denies headache(s), Reports numbness (on and off, over the right side and in both hands ) and Reports tingling (right-sided, on and off) Endo Reports fatigue and Denies palpitations Dorian/Lymph Denies easy bruising Physical exam (Primary Care) Vital Signs: Last Vital Signs Pulse 90 08/14/24 09:42 BP 106/80 08/14/24 09:42 Pulse Ox 98 08/14/24 09:42 Oxygen Delivery Method Room Air 08/14/24 09:42 BMI result Body Mass Index 35.3 Tobacco/Smoking Status: Tobacco use Status Tobacco use date assessed 07/03/24 08/14/24 09:43 Patient Tobacco Use Status Never used Tobacco 08/14/24 09:43 Tobacco use type Cigarette 08/14/24 09:43 e-Cigarette/Vaping Use Never Used 08/14/24 09:43 Thrive Assessment: Date of Thrive Assessment Date Thrive assessed 06/26/24 08/14/24 09:43 Currently or been in a relationship where the following occur: No concerns reported Const General: no acute distress and alert HENMT Ears: TM's normal bilaterally and EAC's normal Throat: Yes posterior oropharynx normal and Yes tonsils normal (no TP congestion) Neck Neck: Yes no lymphadenopathy and Yes supple Thyroid: Thyroid normal Resp Auscultation: clear to auscultation bilaterally, no rales and no wheezes Cardio Rate: regular rate Rhythm: regular rhythm Heart sounds: no murmurs GI Palpation (GI): Soft to palpation and nontender Auscultation: normal bowel sounds General: Yes no CVA tenderness Back/Spine/Pelvis Back: no CVA tenderness Cervical Spine: No Cervical spine tenderness Thoracic/Lumbar Spine: No lumbar spinal tenderness Skin Rashes: no rashes Extrem General: Yes no clubbing, cyanosis or edema Office Procedures Flu Questionnaire Does the patient have a severe egg allergy?: No Does the patient have severe life threatening allergies?: No Does the patient have a fever or illness today?: No Has the patient ever had Guillain-[place] Syndrome?: No Has the patient ever had any past reaction to a flu shot?: No Immunizations Fluarix Triv [id number] (PF) 45 mcg (15 mcg x 3)/0.5 mL IM syringe Performing Provider: Narendra Jeff MD Per[facility] [place] [facility] Administered by: LAYLA Cruz on 08/14/24 09:44 Dose Route Admin Location Dispensed Lot Number Expiration Date [facility] Sales Consulting Director 0.5 mL IM Left Deltoid 0.5 mL [id number] 04/19/25 [id number] TRiQ VIS Given Date VIS Provided VIS Publication Date 08/14/24 Single Vaccine 21 Eligibility Eligibility Date Funding Source Not VFC Eligible 08/14/24 Private Results Reviewed Results Reviewed: Laboratory Tests 07/09/24 07/09/24 11:03 11:04 WBC 9.3 Hgb 15.7 Hct 44.3 Plt Count 209 Sodium 136 Potassium 4.5 Creatinine 0.78 Estimated GFR > 60 Fasting Glucose 414 H* Hemoglobin A1c % 12.6 H Calcium 10.0 AST 59 H ALT 102 H Triglycerides 281 H Cholesterol 238 H LDL Cholesterol, Calc 144 H HDL Cholesterol 38 L Vitamin B12 667 25-OH Vitamin D Total 20.6 L TSH 0.78 Ur Specific [place] >= 1.030 H Urine Protein Trace Urine Glucose (UA) >=1000 H Urine Blood Negative Urine Nitrite Negative Ur Leukocyte Esterase Negative Microalb/Creat Ratio 47.0 H Coding Level of Care Code Est Pt Level 4 (32561) Diagnoses Myalgia M79.10 Multiple sclerosis G35 Type 2 diabetes mellitus with hyperglycemia, without long-term current use of insulin E11.65 Diabetes mellitus type: type 2 Diabetes mellitus supervisor intermediates insulin use: without supervisor intermediates use Diabetes mellitus complication status: with hyperglycemia Benign essential hypertension I10 Pure hypercholesterolemia E78.00 Gastritis without bleeding, unspecified chronicity, unspecified gastritis type K29.70 Gastritis type: unspecified gastritis Chronicity: unspecified Gastritis bleeding: without bleeding Elevated LFTs R79.89 Vitamin D deficiency E55.9 Bipolar affective disorder, current episode mixed, current episode severity unspecified F31.60 Active/Remission status: currently active Current bipolar episode type: mixed Current episode severity: unspecified Obesity (BMI 30-39.9) E66.9 Assessment & Plan Assessment & Plan (1) Myalgia: Code(s): M79.10 - Myalgia, unspecified site Category: Medical Plan: Patient c/o dry throat, dry eyes and dry mouth - will need to consider the possibility of Sjogren's Will send patient for some labs AKILA for further evaluation (2) Multiple sclerosis: Code(s): G35 - Multiple sclerosis Category: Medical Plan: Her brain MRI done last year (September 2023) revealed the presence of multiple T2 signal hyperintense lesions within the supratentorial, periventricular and subcortical white matter with distribution suggestive of sequela of demyelinating disease She received 3 doses of 1 g IV Solu-Medrol in the hospital back then with some relief of her symptoms; went through similar issues in March 2024 that also eventually subsided with IV Solumedrol treatments She was seen by neurology last year and was diagnosed with multiple sclerosis and was started on Kesimpta, which she is still on at 20 mg SQ once a month Follow up with neurology as scheduled (3) Diabetes mellitus: Code(s): E11.9 - Type 2 diabetes mellitus without complications Category: Medical Qualifiers: Diabetes mellitus type: type 2 Diabetes mellitus supervisor intermediates insulin use: without intermediate use Diabetes mellitus complication status: with hyperglycemia Qualified Code(s): E11.65 - Type 2 diabetes mellitus with hyperglycemia Plan: Her HgbA1c was at 12.6% on her labs done last month (was previously at 8.9% back in December 2023) - goal is <7.0% Reinforced diabetic diet She was seen by endocrinology for the first time last month - was supposed to be on Lantus Solostar 12 units QD and Ozempic 0.25 mg weekly but she was apparently not taking any Rx for a while now when she was seen by endocrinology last month as she self-discontinues all of her Rx due to side effects She was started back on Ozempic 0.25 mg once a week, followed by Pioglitazone 30 mg QD by endocrinology last month Follow up with endocrinology as scheduled Patient is advised that a lot of her recent symptoms are also likely due to her uncontrolled diabetes (4) Benign essential hypertension: Code(s): I10 - Essential (primary) hypertension Category: Medical Plan: Reinforced low sodium diet - goal is systolic BP of 120 mm or less Continue Lisinopril 5 mg QD Patient is reminded to continue monitoring her BP regularly (5) Pure hypercholesterolemia: Code(s): E78.00 - Pure hypercholesterolemia, unspecified Category: Medical Plan: Results of her labs done last month reviewed and discussed with patient - patient is advised that her cholesterol levels were still elevated on her recent labs, with total cholesterol at 238 mg/dl and LDL cholesterol at 144 mg/dl Reinforced low cholesterol diet We have not been able to start her on statins due to her elevated LFTs Will recheck her labs and fasting lipids in a few months for follow up (6) Gastritis: Code(s): K29.70 - Gastritis, unspecified, without bleeding Category: Medical Qualifiers: Gastritis type: unspecified gastritis Chronicity: unspecified Gastritis bleeding: without bleeding Qualified Code(s): K29.70 - Gastritis, unspecified, without bleeding Plan: Dietary restrictions reinforced EGD done back in March 2024 revealed (+) findings of grade B esophagitis, gastritis and duodenitis; biopsies have all come back normal or negative She was started on Omeprazole 20 mg BID by GI in March 2024 but she feels that it has not helped much Will try switching her over to Pantoprazole 20 mg BID today Follow up with GI as scheduled (7) Elevated LFTs: Comment: Patient very frustrated since she has been diagnosed with fatty liver-I will do liver workup to include labs and ultrasound Code(s): R79.89 - Other specified abnormal findings of blood chemistry Category: Medical Plan: Her LFTs are still elevated on her labs done last month and are higher than previous - is most likely related to her weight (hepatosteatosis) Abdominal US done in December 2023 confirmed this - (+) hepatic steatosis and no biliary ductal dilatation seen She has been advised that this should improve with weight loss but her weight continues to be a struggle for her Will continue to monitor her LFTs regularly (8) Vitamin D deficiency: Code(s): E55.9 - Vitamin D deficiency, unspecified Category: Medical Plan: Continue Vitamin D3 2000 units QD (9) Bipolar disorder: Code(s): F31.9 - Bipolar disorder, unspecified Category: Medical Qualifiers: Active/Remission status: currently active Current bipolar episode type: mixed Current episode severity: unspecified Qualified Code(s): F31.60 - Bipolar disorder, current episode mixed, unspecified Plan: Patient used to take Hydroxyzine 25 mg Q HS and Quetiapine 100 mg Q HS but she has not taken these in over a year now since she decided to stop taking all of her meds last year (10) Obesity (BMI 30-39.9): Comment: Pleasant, anxious/animated 48-year-old recent MS-presents with persistent acid reflux, bloating, chronic constipation-may likely have functional component however needs further eval GI history is unclear- Code(s): E66.9 - Obesity, unspecified Category: Medical Plan: Reinforced diet; exercise and weight loss are not realistic at this time due to her physical incapacities and comorbidities Plan As requested, flu vaccine given to the patient today To return in October 2024 for her annual physical examination Orders: Orders Rheumatoid Factor 08/14/24 H04.123 - Dry eye syndrome of bilateral lacrimal glands, J39.2 - Other diseases of pharynx, R53.81 - Other malaise, R53.83 - Other fatigue, R68.2 - Dry mouth, unspecified Erythrocyte Sedimentation Rate 08/14/24 H04.123 - Dry eye syndrome of bilateral lacrimal glands, J39.2 - Other diseases of pharynx, M79.7 - Fibromyalgia, R53.81 - Other malaise, R53.83 - Other fatigue, R68.2 - Dry mouth, unspecified Influenza [id number] Immunization 08/14/24 Z23 - Encounter for immunization YAQUELIN Reflex Titer and Pattern 08/14/24 H04.123 - Dry eye syndrome of bilateral lacrimal glands, J39.2 - Other diseases of pharynx, R53.81 - Other malaise, R53.83 - Other fatigue, R68.2 - Dry mouth, unspecified Sjogren's Antibodies 08/14/24 H04.123 - Dry eye syndrome of bilateral lacrimal glands, J39.2 - Other diseases of pharynx, R53.81 - Other malaise, R53.83 - Other fatigue, R68.2 - Dry mouth, unspecified Complete Blood Count Auto Diff 08/14/24 D64.9 - Anemia, unspecified, H04.123 - Dry eye syndrome of bilateral lacrimal glands, J39.2 - Other diseases of pharynx, R53.81 - Other malaise, R53.83 - Other fatigue, R68.2 - Dry mouth, unspecified C Reactive Protein 08/14/24 H04.123 - Dry eye syndrome of bilateral lacrimal glands, J39.2 - Other diseases of pharynx, R53.81 - Other malaise, R53.83 - Other fatigue, R68.2 - Dry mouth, unspecified Comprehensive Met. Panel 08/14/24 R53.83 - Other fatigue TSH reflex Free T4 08/14/24 E78.00 - Pure hypercholesterolemia, unspecified, R53.83 - Other fatigue Medications: Changed From pantoprazole 20 mg PO BID K20.90 - Esophagitis, unspecified without bleeding, K29.90 - Gastroduodenitis, unspecified, without bleeding To pantoprazole 20 mg PO BID 90 days 180 tabs 3RF K20.90 - Esophagitis, unspecified without bleeding, K29.90 - Gastroduodenitis, unspecified, without bleeding
== END 2024-08-14 10:36 | disposition home or self-care (01) ==
PROVIDERS: PCP Internal Medicine; Visit Provider Internal Medicine
DX: M79.10 Myalgia, unspecified site (principal); G35 Multiple sclerosis; E11.65 Type 2 diabetes mellitus with hyperglycemia; I10 Essential (primary) hypertension; E78.00 Pure hypercholesterolemia, unspecified; K29.70 Gastritis, unspecified, without bleeding; R79.89 Other specified abnormal findings of blood chemistry; E55.9 Vitamin D deficiency, unspecified; F31.60 Bipolar disorder, current episode mixed, unspecified; E66.9 Obesity, unspecified

== ENCOUNTER 2024-08-14 09:29 | Outpatient (REF) | payer OTHER, SELFPAY ==
[2024-08-14 11:09] LABS: MANUAL DIFF FLAG NO
[2024-08-14 11:45] LABS: Basophils Absolute Auto 0.1 X10*3/uL (0.0-0.2); Basophils Percent Auto 0.6 % (0-2); Eosinophils Absolute Auto 0.2 X10*3/uL (0.0-0.4); Eosinophils Percent Auto 2.5 % (0-4); Hematocrit 46.6 % (37.0-47.0); Hemoglobin 16.2 g/dl (12.0-16.0); Imm Gran Abs Auto 0.09 X10*3/uL (0.00-0.03); Imm Gran Pct Auto 0.9 % (0.0-0.4); Lymphocytes Absolute Auto 3.3 X10*3/uL (1.2-4.9); Lymphocytes Percent Auto 34.4 % (20-40); Mean Corpuscular HGB Conc 34.8 g/dl (31.0-35.0); Mean Corpuscular Hemoglobin 29.3 pg (27.0-33.0); Mean Corpuscular Volume 84.4 fL (80.0-98.0); Mean Platelet Volume 11.2 fL (9.4-12.3); Monocytes Absolute Auto 0.5 X10*3/uL (0.1-1.2); Monocytes Percent Auto 4.9 % (2-11); Neutrophils Absolute Auto 5.4 x10*3/uL (2.0-8.3); Neutrophils Percent Auto 56.7 % (45-73); Platelet Count 241 X10*3/uL (160-400); Red Blood Count 5.52 X10*6/uL (4.20-5.50); White Blood Count 9.6 X10*3/uL (4.8-10.8)
[2024-08-14 11:56] LABS: Appearance Urine Clear; Color Urine Yellow; Glucose Urine UA >=1000 mg/dL (Negative); Leukocyte Esterase Urine Negative (Negative); Nitrite Urine Negative (Negative); PH 5.5 (5.0-9.0); Specific Gravity - Urine >= 1.030 (1.005-1.025); UMIC TRIGGER UACC YES; Urine Blood Negative (Negative); Urine Ketones 15 mg/dL (Negative); Urine Protein Negative (Neg-Trace)
[2024-08-14 12:07] LABS: Bacteria Urine Trace (None Seen); Hyaline Casts Urine 0-2 /LPF (0-2); RBC Urine 0-2 /HPF (0-2); WBC Urine 0-5 /HPF (0-5)
[2024-08-14 12:25] LABS: Erythrocyte Sedimentation Rate 13 MM/HR (0-20)
[2024-08-14 12:37] LABS: Rheumatoid Factor < 13.0 IU/mL (<15.0)
[2024-08-14 12:40] LABS: Alanine Aminotransferase 110 U/L (0-31); Albumin Level 4.3 g/dL (3.5-5.0); Alkaline Phosphatase 110 U/L (39-117); Anion Gap 13 (12-20); Aspartate Amino Transferase 74 U/L (5-31); Bilirubin Total 0.4 mg/dL (0.0-1.0); Blood Urea Nitrogen 10 mg/dL (9-16); C Reactive Protein 0.64 mg/dL (< or = 0.50); Calcium 10.2 mg/dL (8.4-10.2); Carbon Dioxide 26 mmol/L (22-29); Chloride 103 mmol/L (96-108); Estimated Glomerular Filt Rate > 60; Glucose Random 379 mg/dL (60-115); Potassium 4.5 mmol/L (3.3-5.1); Sodium 137 mmol/L (135-145); Total Protein 7.7 g/dL (6.5-8.0)
[2024-08-14 12:52] LABS: TSH reflex Free T4 0.64 uIU/mL (0.32-4.0)
[2024-08-17 14:43] LABS: Antibody to SS-A Antigen <1.0 NEG AI (<1.0 NEG); Antibody to SS-B Antigen <1.0 NEG AI (<1.0 NEG)
[2024-08-20 14:49] LABS: Anti Nuclear Antibody Screen NEGATIVE (NEGATIVE)
== END 2024-08-14 09:30 | disposition home or self-care (01) ==
LOC: HO.LAB 09:29
PROVIDERS: PCP Internal Medicine; Visit Provider Internal Medicine
DX: R53.81 Other malaise (principal); R53.83 Other fatigue; R68.2 Dry mouth, unspecified; H04.123 Dry eye syndrome of bilateral lacrimal glands; J39.2 Other diseases of pharynx; D64.9 Anemia, unspecified; M79.7 Fibromyalgia; E78.00 Pure hypercholesterolemia, unspecified; M79.10 Myalgia, unspecified site; G35 Multiple sclerosis; E11.65 Type 2 diabetes mellitus with hyperglycemia; I10 Essential (primary) hypertension; K29.70 Gastritis, unspecified, without bleeding; R79.89 Other specified abnormal findings of blood chemistry; E55.9 Vitamin D deficiency, unspecified; Z79.899 Other long term (current) drug therapy; Z23 Encounter for immunization
CPT/HCPCS: 36415; 80053; 81001; 84443; 85025; 85652; 86038; 86140; 86235; 86431; 90471; 90656; 99212

== ENCOUNTER 2024-08-25 12:15 | Outpatient (REF) | payer OTHER, SELFPAY ==
--- NOTE | ~2024-08-25 | MM_ITS ---
EXAMINATION: MM SCREENING DIGITAL BREAST TOMOSYNTHESIS, BILATERAL CLINICAL INFORMATION: Screening. Asymptomatic. COMPARISON: Mammography: Comparison is made with available priors TECHNIQUE: Digital breast mammography with tomosynthesis is performed in both the craniocaudal and mediolateral oblique views along with computer-aided detection (CAD). FINDINGS: There are scattered areas of fibroglandular density (ACR BI-RADS breast composition Category b). Left marker clip. There are no significant masses, abnormal calcifications, or other abnormalities. MM/MM tomosynthesis screening BI IMPRESSION: No mammographic evidence of malignancy. ASSESSMENT: BI-RADS BI-RADS 2 - Benign Findings RECOMMENDATION: Routine annual mammography screening. 1 year F/U This examination should not preclude the clinical evaluation of a suspicious palpable abnormality. This patient's information was entered into a reminder system with a target due date for their next mammogram. Electronically signed by: Rae Sánchez DO 09/02/2024 01:52 PM TAM
== END 2024-08-25 12:16 | disposition home or self-care (01) ==
LOC: HO.MAMMO 12:15
PROVIDERS: PCP Internal Medicine; Visit Provider Internal Medicine
DX: Z12.31 Encounter for screening mammogram for malignant neoplasm of breast (principal)
CPT/HCPCS: 77063; 77067

== ENCOUNTER → 2024-08-25 12:45 | Outpatient (BNV) | payer OTHER, SELFPAY | PROVIDERS: PCP Internal Medicine; Visit Provider Internal Medicine | DX: Z12.31 Encounter for screening mammogram for malignant neoplasm of breast (principal) | CPT/HCPCS: 77063; 77067 ==

== ENCOUNTER 2024-08-27 10:20 | Outpatient (AMB) | payer OTHER, SELFPAY ==
[2024-08-27 10:24] VITALS: BP 118/84; PULSE 107; O2SAT 99; BMI 35.0
--- NOTE | 2024-08-27 10:24 | A.OFFPC_ITS ---
Vital Signs 08/27/24 10:24 Height 5 ft 5 in Weight 210 lb 8 oz BMI 35.0 BP 118/84 Blood Pressure Location Lt brachial Position Sitting Pulse 107 H Pulse Source Pulse Oximeter Pulse Oximetry (%) 99 Oxygen Delivery Method Room Air Intake Visit Reasons: black dots under feet Director Talent Management Required: No Accompanied by: Self / Same As Patient Allergies empagliflozin [From Jardiance] Adverse Reaction (Severe, Verified 08/27/24 22:00) UTI semaglutide [From Ozempic] Adverse Reaction (Severe, Verified 08/27/24 22:00) Gastrointestinal Upset Chantix Adverse Reaction (Unknown, Uncoded 08/27/24 22:00) worsening bipolar disorder Medication List - Last Reconciled 08/27/24 by Narendra Jeff MD acetaminophen (Tylenol Extra Strength) 1,000 mg (2 x 500 mg) PO Q6H PRN blood pressure kit-extra large As directed blood sugar diagnostic (FreeStyle Lite Strips) test daily blood-glucose meter (FreeStyle Lite Meter kit) test daily cyclobenzaprine 10 mg PO TID PRN dulaglutide (Trulicity) 0.75 mg (0.5 mL) subcut QWEEK ibuprofen 400 mg PO TID PRN lancets (FreeStyle Lancets) test daily lisinopril 5 mg PO DAILY 90 days ofatumumab (Kesimpta Pen) 20 mg subcut .once a month Ozempic (semaglutide) 0.25 mg (0.368 mL) subcut QWEEK 12 weeks NS pantoprazole 20 mg PO BID 90 days pen needle, diabetic Use four times a day or as directed. pioglitazone (Actos) 30 mg PO DAILY Tobacco use date assessed: 08/27/24 Dental Screening Dental Screen Date: 08/27/24 Did you have a dental visit in the last 12 months?: No Did you have a dental problem in the last 6 months where you did not have access to dental care?: No Was dental information given to patient?: Patient has dentist HPI black dots under feet HPI Details Patient comes in today for evaluation of some dark spots on the soles of both of her feet that she noticed a few days ago States that the dark spots she noticed were more numerous then and some of them appear to have cleared up since She is concerned about the possibility that these may become cancerous (melanoma) and would like to have them checked out further States that the lesions do not hurt or itch No other acute complaints or symptoms are noted COUNT INCLUDES [facility] Medical History Multiple sclerosis Demyelinating disease Elevated LFTs Vitamin D deficiency Pure hypercholesterolemia Benign essential hypertension Obesity (BMI 30-39.9) Gastritis Bulimia nervosa Bipolar disorder Impaired fasting glucose Hyperlipidemia Surgical History Hx of Achilles tendon repair History of endometrial ablation History of cholecystectomy History of colonoscopy History of hernia surgery History of tubal ligation History of carpal tunnel surgery H/O bursectomy Family History Mother High blood pressure Dementia Kidney stones Arthritis Father Hepatitis B Cirrhosis of liver Other Mental health problem Social History Household Members: None Housing: Apartment Do you presently have visiting nurse or other home services: No Alcohol intake: never Patient Tobacco Use Status: Never used Tobacco Tobacco use type: Cigarette Cigarettes Per Day: 5 e-Cigarette/Vaping Use: Never Used Second Hand Smoke Exposure: No service: No Current occupational status: employed 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 1. Little interest or pleasure in doing things: not at all 2. Feeling down, depressed, or hopeless: nearly every day 3. Trouble falling or staying asleep, or sleeping too much: not at all 4. Feeling tired or having little energy: not at all 5. Poor appetite or overeating: not at all 6. Feeling bad about yourself - or that you are a failure or have let yourself or your family down: not at all 7. Trouble concentrating on things, such as reading the newspaper or watching television: not at all 8. Moving or speaking so slowly that other people could have noticed. Or the opposite - being so fidgety or restless that you have been moving around a lot more than usual: not at all 9. Thoughts that you would be better off or of hurting yourself in some way: not at all Total score: 3 Depression Screening Interpretation: Negative Depression Screening Done: Yes 84830 - PHQ-9 Billing: Yes Source: Developed by Drs. Malcolm Sauceda, Lilliana Biswas, Francis Schmitt and colleagues, with an educational rich from [employer]. Thrive Questionnaire Date Thrive assessed: 08/27/24 I am a: Patient What is your living situation today?: I have a steady place to live Within the past 12 months, did the food you bought not last and you didn't have the money to get more?: Often true Within the past 12 months, did you worry whether your food would run out before you got money to buy more?: Sometimes True Do you have trouble paying for medicines?: No Do you have trouble getting transportation to medical appointments?: Yes Do you have trouble paying your heating and electricity bill?: No Do you have trouble taking care of your child, family member or friend?: I choose not to answer this question Do you have trouble with day-to-day activities such as bathing, preparing meals, shopping, managing finances, etc.?: Yes Are you currently unemployed and looking for a job?: No Are you interested in more education?: No Please select the resources that you would like help with: None Currently or been in a relationship where the following occur: No concerns reported THRIVE Score: 3 AUDIT C Alcohol Use Questionnaire (AUDIT-C) 1. How often do you have a drink containing alcohol?: Never 3. How often do you have six or more drinks on one occasion?: Never Total Score: 0 Score Reviewed/Action Taken: Yes GABI-7 AMB Questionnaire GABI-7 Date GABI - 7 assessed: 08/27/24 Feeling nervous, anxious, or on edge: 0 = Not at all Not being able to stop or control worryin = Not at all Worrying too much about different things: 0 = Not at all Trouble relaxin = Not at all Being so restless that it is hard to sit still: 0 = Not at all Becoming easily annoyed or irritable: 0 = Not at all Feeling afraid as if something awful might happen: 0 = Not at all Total GABI-7 score (0-4 normal; 5-9 mild; 10-14 moderate; 15-21 severe): 0 Source: Developed by Drs. Malcolm Sauceda, Lilliana Biswas, Francis Schmitt and colleagues, with an educational rich from [employer]. Review of Systems Const Denies chills, Reports fatigue, Denies fever(s) and Denies headache(s) ENT Denies dysphagia, Denies dizziness, Denies otalgia, Denies headache(s), Denies neck pain and Denies sore throat Card Denies chest pain, Denies palpitations and Denies dyspnea Resp Denies chest congestion, Denies cough and Denies dyspnea GI Denies abdominal pain, Reports constipation, Denies dysphagia, Denies heartburn, Reports diarrhea (intermittent, occurring between bouts of constipation), Denies nausea and Denies vomiting Denies difficulty voiding, Denies nocturia, Denies dysuria and Denies urinary urgency Musc Reports back pain (on and off), Denies neck pain, Reports numbness (on and off, over the right side and in both hands ) and Reports tingling (right-sided, on and off) Skin/Breast Details: (+) several dark spots on the soles of both feet - see HPI Denies rash Neuro Denies dizziness, Denies headache(s), Reports numbness (on and off, over the right side and in both hands ) and Reports tingling (right-sided, on and off) Endo Reports fatigue and Denies palpitations Dorian/Lymph Denies easy bruising Physical exam (Primary Care) Vital Signs: Last Vital Signs Pulse 107 H 08/27/24 10:24 BP 118/84 08/27/24 10:24 Pulse Ox 99 08/27/24 10:24 Oxygen Delivery Method Room Air 08/27/24 10:24 BMI result Body Mass Index 35.0 Tobacco/Smoking Status: Tobacco use Status Tobacco use date assessed 08/27/24 08/27/24 10:27 Patient Tobacco Use Status Never used Tobacco 08/27/24 10:27 Tobacco use type Cigarette 08/27/24 10:27 e-Cigarette/Vaping Use Never Used 08/27/24 10:27 PHQ-9: PHQ-9 Score PHQ-9: Total score 3 08/27/24 21:58 Depression Screening Interpretation: Negative Thrive Assessment: Date of Thrive Assessment Date Thrive assessed 08/27/24 08/27/24 10:27 Currently or been in a relationship where the following occur: No concerns reported Const General: no acute distress and alert Neck Neck: Yes no lymphadenopathy and Yes supple Thyroid: Thyroid normal Resp Auscultation: clear to auscultation bilaterally, no rales and no wheezes Cardio Rate: regular rate Rhythm: regular rhythm Heart sounds: no murmurs GI Palpation (GI): Soft to palpation and nontender Auscultation: normal bowel sounds Skin Rashes: no rashes Extrem Other: (+) several black spots / flynn on the soles of both feet but these appear to be easily rubbed/scratched off when forcibly rubbed against; there is a small and slightly dark lesion on the sole of the right foot near the base of the big toe that appears to be subcutaneous in location that is completely different from all of the other lesions that patient has been concerned about General: Yes no clubbing, cyanosis or edema Office Procedures Flu Questionnaire Does the patient have a severe egg allergy?: No Immunizations Fluarix Triv [id number] (PF) 45 mcg (15 mcg x 3)/0.5 mL IM syringe Performing Provider: Narendra Jeff MD [place]forming Location[facility] [place] [facility] Documented (not given) by: ALMA Sears on 08/27/24 10:32 Reason Not Given: Received Previously Coding Level of Care Code Est Pt Level 3 (31960) Diagnoses Foot lesion L98.9 Uncontrolled type 2 diabetes mellitus with hyperglycemia E11.65 Diabetes mellitus type: type 2 Additional Codes PHQ-9 - 95323 - PHQ-9 Billing: Yes ([id number]) Assessment & Plan Assessment & Plan (1) Foot lesion: Code(s): L98.9 - Disorder of the skin and subcutaneous tissue, unspecified Category: Medical (2) Uncontrolled diabetes mellitus with hyperglycemia: Code(s): E11.65 - Type 2 diabetes mellitus with hyperglycemia Category: Medical Qualifiers: Diabetes mellitus type: type 2 Qualified Code(s): E11.65 - Type 2 diabetes mellitus with hyperglycemia Plan Have reassured patient that aside from the ONE lesion on the sole of her right foot near the base of the big toe, the rest of the black spots on the soles of both of her feet that she was worried about are mostly dirt, fibers or other stuffs that appear to be tranferred onto her skin as these readily come off when they are forcibly rubbbed against and are by no means concerning for melanoma or cancerous skin lesions The one dark spot on her ventral right foot near the base of the big toe will need to be evaluated further and as she is a diabetic, can refer her to podiatry to have this checked out further and at the same time, have her annual diabetic foot exam done as well Follow up as scheduled in October 2024 Orders: Orders Influenza [id number] Immunization Today Z23 - Encounter for immunization Referrals Podiatry Referral E11.65 - Type 2 diabetes mellitus with hyperglycemia, L98.9 - Disorder of the skin and subcutaneous tissue, unspecified
== END 2024-08-27 11:51 | disposition home or self-care (01) ==
LOC: HO.HMCH 10:21
PROVIDERS: PCP Internal Medicine; Visit Provider Internal Medicine
DX: L98.9 Disorder of the skin and subcutaneous tissue, unspecified (principal); E11.65 Type 2 diabetes mellitus with hyperglycemia

== ENCOUNTER → 2024-08-27 10:20 | Outpatient (BNVA) | payer OTHER, SELFPAY | PROVIDERS: PCP Internal Medicine; Visit Provider Internal Medicine | DX: L98.9 Disorder of the skin and subcutaneous tissue, unspecified (principal); E11.65 Type 2 diabetes mellitus with hyperglycemia | CPT/HCPCS: 90471; 96127; 99212 ==

== ENCOUNTER 2024-10-28 12:04 | Outpatient (REF) | payer OTHER, SELFPAY ==
[2024-10-28 12:53] LABS: MANUAL DIFF FLAG NO
[2024-10-28 13:44] LABS: Basophils Absolute Auto 0.1 X10*3/uL (0.0-0.2); Basophils Percent Auto 0.6 % (0-2); Eosinophils Absolute Auto 0.2 X10*3/uL (0.0-0.4); Eosinophils Percent Auto 2.1 % (0-4); Hematocrit 44.9 % (37.0-47.0); Hemoglobin 15.8 g/dl (12.0-16.0); Imm Gran Abs Auto 0.04 X10*3/uL (0.00-0.03); Imm Gran Pct Auto 0.5 % (0.0-0.4); Lymphocytes Absolute Auto 3.2 X10*3/uL (1.2-4.9); Lymphocytes Percent Auto 38.4 % (20-40); Mean Corpuscular HGB Conc 35.2 g/dl (31.0-35.0); Mean Corpuscular Hemoglobin 29.4 pg (27.0-33.0); Mean Corpuscular Volume 83.5 fL (80.0-98.0); Mean Platelet Volume 12.4 fL (9.4-12.3); Monocytes Absolute Auto 0.4 X10*3/uL (0.1-1.2); Monocytes Percent Auto 4.5 % (2-11); Neutrophils Absolute Auto 4.5 x10*3/uL (2.0-8.3); Neutrophils Percent Auto 53.9 % (45-73); Platelet Count 213 X10*3/uL (160-400); Red Blood Count 5.38 X10*6/uL (4.20-5.50); Red Cell Distribution Width 12.3 % (11.0-16.0); White Blood Count 8.3 X10*3/uL (4.8-10.8)
[2024-10-28 13:55] LABS: Appearance Urine Clear; Color Urine Yellow; Glucose Urine UA >=1000 mg/dL (Negative); Leukocyte Esterase Urine Negative (Negative); Nitrite Urine Negative (Negative); PH 5.5 (5.0-9.0); Specific Gravity - Urine >= 1.030 (1.005-1.025); UMIC TRIGGER UACC YES; Urine Blood Negative (Negative); Urine Ketones 15 mg/dL (Negative); Urine Protein Negative (Neg-Trace)
[2024-10-28 14:00] LABS: Bacteria Urine None Seen (None Seen); Hyaline Casts Urine 0-2 /LPF (0-2); RBC Urine 0-2 /HPF (0-2); WBC Urine 0-5 /HPF (0-5)
[2024-10-28 14:07] LABS: Alanine Aminotransferase 118 U/L (0-31); Albumin Level 4.4 g/dL (3.5-5.0); Alkaline Phosphatase 137 U/L (39-117); Aspartate Amino Transferase 70 U/L (5-31); Bilirubin Direct 0.2 mg/dL (0.0-0.5); Bilirubin Total 0.5 mg/dL (0.0-1.0); Total Protein 7.9 g/dL (6.5-8.0)
[2024-10-28 14:09] LABS: Estimated Average Glucose 352 mg/dL; Hemoglobin A1C 534.6839 umol/L; Hemoglobin A1c % 13.9 % (<6.0); Total Hemoglobin (HGBA1C) 4150.4647 umol/L
[2024-10-28 14:13] LABS: Creatinine Urine 44.08 mg/dL; Microalbum/Creatinine Ratio Ur 56.7 ug/mg cr (<30)
[2024-10-28 14:18] LABS: Albumin Level 4.4 g/dL (3.5-5.0); Alkaline Phosphatase 137 U/L (39-117); Anion Gap 17 (12-20); Aspartate Amino Transferase 69 U/L (5-31); Bilirubin Total 0.5 mg/dL (0.0-1.0); Blood Urea Nitrogen 9 mg/dL (9-16); Calcium 10.2 mg/dL (8.4-10.2); Carbon Dioxide 25 mmol/L (22-29); Chloride 100 mmol/L (96-108); Cholesterol 253 mg/dL (<200); Estimated Glomerular Filt Rate > 60; HDL Cholesterol 39 mg/dL (>40); LDL Cholesterol Calculated 149 mg/dL (<100); Potassium 4.5 mmol/L (3.3-5.1); Sodium 137 mmol/L (135-145); Total Protein 7.8 g/dL (6.5-8.0); Triglycerides 325 mg/dL (<150)
[2024-10-28 14:21] LABS: Alanine Aminotransferase 119 U/L (0-31); Glucose Fasting 485 mg/dL (60-99)
[2024-10-28 14:27] LABS: HBc Num1 0.05 S/CO (0.00-0.79); HBsAGNum1 0.32 S/CO (0.00-0.99); Hepatitis B Core Antibody Nonreactive (Nonreactive); Hepatitis B Surface Antigen Negative (Negative); ~Hepatitis B Surface Antibody NONREACTIVE (Nonreactive)
[2024-10-28 14:33] LABS: TSH reflex Free T4 0.69 uIU/mL (0.32-4.0); Vitamin D 25-OH Total 22.7 ng/mL (>30)
[2024-10-29 19:19] LABS: IgA 320 mg/dL (47-310); IgG 834 mg/dL (600-1640); IgM 117 mg/dL (50-300)
== END 2024-10-28 12:05 | disposition home or self-care (01) ==
LOC: HO.LAB 12:04
PROVIDERS: PCP Internal Medicine; Visit Provider Registered Nurse
DX: D64.9 Anemia, unspecified (principal); E78.00 Pure hypercholesterolemia, unspecified; E11.9 Type 2 diabetes mellitus without complications; E55.9 Vitamin D deficiency, unspecified
CPT/HCPCS: 36415; 80053; 80061; 80076; 81001; 82043; 82248; 82306; 82570; 82784; 83036; 84443; 85025; 86704; 86706; 87340

== ENCOUNTER 2024-11-14 15:17 | Outpatient (REF) | payer OTHER, SELFPAY ==
--- NOTE | ~2024-11-14 | MR_ITS ---
EXAMINATION: MR BRAIN WITHOUT AND WITH CONTRAST CLINICAL INFORMATION: MS COMPARISON: MRI dated October 13, 2023. TECHNIQUE: Multiplanar, multisequence MRI of the brain was obtained before and after the intravenous administration of 9.5 mL (Gadavist) without reported immediate complications.. FINDINGS: There are bilateral, multifocal patchy, perpendicularly oriented to the corpus callosum, nonenhancing, nonrestricted diffusion deep periventricular white matter hyperintense T2 FLAIR signal abnormalities involving mostly the supratentorial compartment and the most conspicuous in the right frontal white matter, left cingulate gyrus and periatrial left lateral ventricle. No signal abnormality in the infratentorial compartment. No acute intracranial hemorrhage, mass effect, midline shift, hydrocephalus or herniation. Ross-white matter differentiation is normal. Flow-void signal within the main cerebral vessels is normal. There is a 4 mm slightly thoracic hyperintense T1 questionable homogeneous enhancing round lesion in the right sella turcica. Pituitary stalk is normal. Optic chiasm is intact without signal abnormality. No signal abnormality within the intracanalicular and intraconal segments of the optic nerves.. Craniocervical junction is intact. There is a lobulated nonenhancing or restricted diffusion hyperintense T2 signal centered in the retroclival/prepontine region. MR/MR head/brain wo/w con IMPRESSION: Stable nonenhancing nonrestricted supratentorial the malalignment plaques. Right-sided intrasellar lesion questionable Rathke's cleft cyst versus pituitary microadenoma. Recommend dedicated contrast enhanced MRI sella turcica protocol. 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 Electronically signed by: Dilip Chen MD 11/16/2024 12:23 PM TAM
--- NOTE | ~2024-11-14 | MR_ITS ---
EXAMINATION: MR CERVICAL SPINE WITHOUT AND WITH CONTRAST CLINICAL INFORMATION: MS COMPARISON: None available. TECHNIQUE: MRI of the cervical spine was obtained using routine sequences with and without contrast. Intravenous contrast: Gadavist 9.5 mL. No reported immediate complications. FINDINGS: Multifocal, different sizes, intra-axial hyperintense T2 STIR signal abnormality throughout the cervical spinal cord and brainstem, the most conspicuous at the level of the odontoid process, right dorsal spinal cord C3-4 and midline dorsal aspect of the spinal cord at T1 level without gross enhancement.. There is a focal 1 mm punctate enhancement in the right side of the felipe seen on the sagittal T1 postcontrast fat-sat sequence. Craniocervical junction is intact. Multilevel marginal osteophyte formation, C3-C7 levels. No bone marrow STIR signal abnormality. No gross malalignment. C2-3: Central disc osteophyte complex formation. No cord compression. No neuroforamina stenosis. C3-4: Broad-based disc osteophyte complex formation abutting the cord. No cord compression. No neuroforamina stenosis. C4-5: No disc herniation. No neuroforamina stenosis. C5-6: Broad-based disc osteophyte complex formation abutting the cord. No cord compression. Bilateral neuroforamina narrowing. C6-7: No disc herniation. No neuroforamina stenosis. C7-T1: No disc herniation. No neuroforamina stenosis. Flow-void signal within the main vessels is normal. Codominant vertebral arteries. Probable intraparenchymal lymph nodes, right parotid gland. MR/MR cervical spine wo/w con IMPRESSION: Diffuse and extensive demyelinating plaques throughout the spinal cord and brainstem/infratentorial compartment with questionable active demyelinating plaque right mid felipe versus artifact. Multilevel cervical spondylosis C3-C7 more conspicuous at C3-4 and C5-6 levels. Electronically signed by: Dilip Chen MD 11/16/2024 02:46 PM EST
--- OUTSIDE RECORDS SUMMARY | 2024-11-14 15:20 | XMS_ITS | Patient Health Record ---
Author Organization [facility] Address [address] [place] [address] Care Team Providers Care Rn Resource Nurse Name Role Phone Yao JORGENSEN, Sunni Primary Care Provider Unavail able Reason For Referral No Information Medications Medication SIG (Take, Route, Frequency, Duration) Notes Start Date End Date Status Metoprolol Succinate ER 50 MG TAKE 1 TABLET BY MOUTH EVERY DAY Oral TAKE 1 TABLET BY MOUTH EVERY DAY for 30 Active Naproxen 500 MG 1 tablet BID Oral BID for 0 Active LORazepam 1 MG Oral BID for 0 Managed by Psych Active QUEtiapine Fumarate 100 MG Oral QD for 0 Manag ed by Psych Active Nitroglycerin 0.6 MG 1 TABLET UNDER TONGUE NEEDED FOR CHEST PAIN EVERY 5 MINUTES. Sublingual 1 TABLET UNDER TONGUE NEEDED FOR CHEST PAIN EVERY 5 MINUTES. for 30 Active hydroCHLOROthiazide 50 MG 1 tablet QD Or al QD for 0 Active Problems Problem Type SNOMED Code ICD Code Onset Dates Problem Status W/U Status Risk Notes Problem Bipolar disorder (08493563) Bipolar disorder, unspecified (F31.9) Active confirmed Problem Essential hypertension (55996447) Essential (primary) hypertension (I10) Active confirmed Problem Ventral hernia without obstruction AND without gangrene (858792004) Unspecified abdominal hernia without obstruction or gangrene (K46.9) Active confirmed Problem Diverticulitis of colon (304254688) Diverticulitis of intestine, part unspecified, without perforation or abscess without bleeding (K57.92) Active confirmed Problem Sciatica (05767425) Sciatica, unspecified side (M54.30) Active confirmed Problem Endometriosis (820082316) Endometriosis, unspecified (N80.9) Active confirmed Problem Chest pain (34503931) Chest pain, unspecified (R07.9) Active confirmed Problem Essential hypertension (27620137) Essential (primary) hypertension (I11.9) Active confirmed Problem Hypertension (59057924) Uncontrolled Hypertension (I10) Active confirmed Plan Of Treatment No Information Insurance Providers Payer Name Payer Address Payer Phone Subscriber Number Group Number Insured Name Patient Relationship to Insured Coverage Start Date Coverage End Date [facility] [address] [place] [phone] [id number] Carlie Walker Self - patient is the insured Medical (General) History Surgical History Surgery Date(Month/Year) Gall bladder surgery 2003
[2024-11-14] MEDS: gadobutroL 10 ML VIAL IVPUSH (16:17)
== END 2024-11-14 15:18 | disposition home or self-care (01) ==
LOC: HO.MRI 15:17
PROVIDERS: PCP Internal Medicine; Visit Provider Registered Nurse
DX: G35 Multiple sclerosis (principal)
CPT/HCPCS: 70553; 72156; A9585

== ENCOUNTER → 2024-11-14 15:30 | Outpatient (BNV) | payer OTHER, SELFPAY | PROVIDERS: PCP Internal Medicine; Visit Provider Radiology Diagnostic Radiology | DX: M47.812 Spondylosis without myelopathy or radiculopathy, cervical region (principal); G37.9 Demyelinating disease of central nervous system, unspecified | CPT/HCPCS: 70553; 72156 ==

== ENCOUNTER 2025-06-30 15:01 | Outpatient (AMB) | payer OTHER, SELFPAY ==
[2025-06-30 15:09] VITALS: BP 128/82; PULSE 108; O2SAT 97; BMI 34.7
--- NOTE | 2025-06-30 15:09 | A.OFFPC_ITS ---
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 Required: No Accompanied by: Self / Same As Patient Allergies empagliflozin (From Jardiance) Adverse Reaction (Severe, Verified 06/30/25 15:11) UTI semaglutide (From Ozempic) Adverse Reaction (Severe, Verified 06/30/25 15:11) Gastrointestinal Upset Chantix Adverse Reaction (Unknown, Uncoded 06/30/25 15:11) worsening bipolar disorder Tobacco use date assessed: 06/30/25 Dental Screening Dental Screen Date: 06/30/25 Did you have a dental visit in the last 12 months?: Yes Did you have a dental problem in the last 6 months where you did not have access to dental care?: No Was dental information given to patient?: Patient has dentist [facility] Medical History Multiple sclerosis Demyelinating disease Elevated LFTs Vitamin D deficiency Pure hypercholesterolemia Benign essential hypertension Obesity (BMI 30-39.9) Gastritis Bulimia nervosa Bipolar disorder Impaired fasting glucose Hyperlipidemia Surgical History Hx of Achilles tendon repair History of endometrial ablation History of cholecystectomy History of colonoscopy History of hernia surgery History of tubal ligation History of carpal tunnel surgery H/O bursectomy Family History Mother High blood pressure Dementia Kidney stones Arthritis Father Hepatitis B Cirrhosis of liver Other Mental health problem Social History Household Members: None Housing: Apartment Do you presently have visiting nurse or other home services: No Alcohol intake: never Patient Tobacco Use Status: Never used Tobacco Tobacco use type: Cigarette Cigarettes Per Day: 5 e-Cigarette/Vaping Use: Never Used Second Hand Smoke Exposure: No service: No Current occupational status: employed 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 1. Little interest or pleasure in doing things: not at all 2. Feeling down, depressed, or hopeless: not at all 3. Trouble falling or staying asleep, or sleeping too much: not at all 4. Feeling tired or having little energy: not at all 5. Poor appetite or overeating: not at all 6. Feeling bad about yourself - or that you are a failure or have let yourself or your family down: not at all 7. Trouble concentrating on things, such as reading the newspaper or watching television: not at all 8. Moving or speaking so slowly that other people could have noticed. Or the opposite - being so fidgety or restless that you have been moving around a lot more than usual: not at all 9. Thoughts that you would be better off or of hurting yourself in some way: not at all Total score: 0 Source: Developed by Drs. Malcolm Sauceda, Lilliana Biswas, Francis Schmitt and colleagues, with an educational rich from [employer]. Thrive Questionnaire Date Thrive assessed: 06/30/25 I am a: Patient What is your living situation today?: I choose not to answer this question Within the past 12 months, did the food you bought not last and you didn't have the money to get more?: I choose not to answer this question Within the past 12 months, did you worry whether your food would run out before you got money to buy more?: I choose not to answer this question Do you have trouble paying for medicines?: I choose not to answer this question Do you have trouble getting transportation to medical appointments?: I choose not to answer this question Do you have trouble paying your heating and electricity bill?: I choose not to answer this question Do you have trouble taking care of your child, family member or friend?: I choose not to answer this question Do you have trouble with day-to-day activities such as bathing, preparing meals, shopping, managing finances, etc.?: I choose not to answer this question Are you currently unemployed and looking for a job?: I choose not to answer this question Are you interested in more education?: I choose not to answer this question Please select the resources that you would like help with: None Currently or been in a relationship where the following occur: I choose not to answer THRIVE Score: 0 AUDIT C Alcohol Use Questionnaire (AUDIT-C) 1. How often do you have a drink containing alcohol?: Never 3. How often do you have six or more drinks on one occasion?: Never Total Score: 0 GABI-7 AMB Questionnaire GABI-7 Date GABI - 7 assessed: 06/30/25 Feeling nervous, anxious, or on edge: 3 = Nearly every day Not being able to stop or control worryin = Nearly every day Worrying too much about different things: 3 = Nearly every day Trouble relaxin = Nearly every day Being so restless that it is hard to sit still: 3 = Nearly every day Becoming easily annoyed or irritable: 3 = Nearly every day Feeling afraid as if something awful might happen: 0 = Not at all Total GABI-7 score (0-4 normal; 5-9 mild; 10-14 moderate; 15-21 severe): 18 Source: Developed by Drs. Malcolm Sauceda, Lilliana Biswas, Francis Schmitt and colleagues, with an educational rich from [employer]. Physical exam (Primary Care) Vital Signs: Last Vital Signs Pulse 108 H 06/30/25 15:09 BP 128/82 06/30/25 15:09 Pulse Ox 97 06/30/25 15:09 Oxygen Delivery Method Room Air 06/30/25 15:09 BMI result Body Mass Index 34.7 Tobacco/Smoking Status: Tobacco use Status Tobacco use date assessed 06/30/25 06/30/25 15:13 Patient Tobacco Use Status Never used Tobacco 06/30/25 15:13 Tobacco use type Cigarette 06/30/25 15:13 e-Cigarette/Vaping Use Never Used 06/30/25 15:13 PHQ-9: PHQ-9 Score PHQ-9: Total score 0 06/30/25 15:44 Thrive Assessment: Date of Thrive Assessment Date Thrive assessed 06/30/25 06/30/25 15:13 Currently or been in a relationship where the following occur: I choose not to answer Results AMB Hemoglobin A1c AMB Hemoglobin A1c 13.9 % Last Edit by Val Villanueva MA on 06/30/25 15:47 Coding Assessment & Plan Assessment & Plan Plan Follow up in 3 months Orders: Orders AMB Hemoglobin A1c Today E11.65 - Type 2 diabetes mellitus with hyperglycemia Lipid Panel 3 Months E78.00 - Pure hypercholesterolemia, unspecified Hemoglobin A1c 3 Months E11.9 - Type 2 diabetes mellitus without complications Glutamic acid decarboxylase Ab 3 Months E11.9 - Type 2 diabetes mellitus without complications Microalbumin, Random (w Creat) 3 Months E11.9 - Type 2 diabetes mellitus without complications Liver Fibrosis Pnl 3 Months R79.89 - Other specified abnormal findings of blood chemistry Vitamin B12 and Folate 3 Months E53.8 - Deficiency of other specified B group vitamins Complete Blood Count Auto Diff 3 Months D64.9 - Anemia, unspecified Comprehensive [place]. Panel Fast 3 Months E78.00 - Pure hypercholesterolemia, unspecified C Peptide 3 Months E11.9 - Type 2 diabetes mellitus without complications TSH reflex Free T4 3 Months E78.00 - Pure hypercholesterolemia, unspecified UA CC w/rflx Micro + Cult 3 Months R30.0 - Dysuria Vitamin D 25-OH Total 3 Months E55.9 - Vitamin D deficiency, unspecified Medications: New insulin glargine (Lantus Solostar U-100 Insulin) 20 units (0.2 mL) subcut QPM 6 mL 3RF 30 days insulin lispro (Humalog KwikPen (U-100) Insulin) 10 units (0.1 mL) subcut TIDWMEAL 9 mL 3RF 30 days
--- OUTSIDE RECORDS SUMMARY | 2025-06-30 18:09 | XMS_ITS | Clinical Summary ---
Author Organization [address] [place] [address] Address [address] [place] [address] Phone Care Team Providers Care Action Finisher Name Role Phone Narendra Jeff MD Primary Care Provider Social History Tobacco Use Types Packs/Day Years Used Date Smoking Tobacco: Former Cigarettes Q uit: 04/20/2022 Smokeless Tobacco: Never Comments Unknown Sex and Gender Information Value Date Recorded Sex Assigned at Not on file Legal Sex Female 2:09 PM EDT Gender Identity Not on file Sexual Orientation Not on file Obstetrics History Last Filed Vital Signs Vital Sign Reading Time Taken Comments Blood Pressure 115/60 01/10/2024 3:35 PM EDT Pulse 100 01/10/2024 3:35 PM EDT Temperature - - Respiratory Rate - - Oxygen Saturation - - Inhaled Oxygen Concentration - - Weight 106 kg (233 lb 9.6 oz) 01/10/2024 3:35 PM EDT Height 165.1 cm (5' 5 ) 01/10/2024 3:35 PM EDT Body Mass Index 38.87 01/10/2024 3:35 PM EDT Plan of Treatment Health Maintenance Due Date Last Done Comments Breast Cancer Screening 1976 DTaP,Tdap,and Td Vaccines (1 - Tdap) 1995 Hepatitis B Vaccines (1 of 3 - 19+ 3-dose series) 1995 Cervical Cancer Screening: P ap Smear 1997 Colorectal Cancer Screening: Colonoscopy 01/01/2024 HIV Screening 01/01/2024 Hepatitis C Screening 01/01/2024 Social Influencers of Health Screening 01/01/2024 Depression Screening 10/21/2024 COVID-19 Vaccine ( - 2023-2 5 season) 2025 Influenza Vaccine (#1) 2025 HIB Vaccines Aged Out No longer eligi ble based on patient's age to complete this topic HPV Vaccines Aged Out No longer eligi ble based on patient's age to complete this topic Hepatitis A Vaccines Aged Out No long er eligible based on patient's age to complete this topic IPV Vaccines Aged Out No longer eligi ble based on patient's age to complete this topic MMR Vaccines Aged Out No longer eligi ble based on patient's age to complete this topic Meningococcal ACWY Vaccine Aged Out N o longer eligible based on patient's age to complete this topic Meningococcal B Vaccine Aged Out No l onger eligible based on patient's age to complete this topic Pneumococcal Vaccine: Pediat rics (0 to 5 Years) and At-Risk Patients (6 to 49 Years) Aged Out No longer eligible b ased on patient's age to complete this topic RSV Immunization Patients Un tk 20 months Aged Out No longer eligible b ased on patient's age to complete this topic Varicella Vaccines Aged Out No longer eligible based on patient's age to complete this topic Insurance PLAN Care Teams Action Finisher Relationship Specialty Start Date End Date Narendra Jeff MD [address] [place] [address] [address] [place], [place] PCP - General 10/24/23
--- OUTSIDE RECORDS SUMMARY | 2025-06-30 18:09 | XMS_ITS | Patient Health Record ---
Author Organization [facility] Address [address] [place] [address] Care Team Providers Care Gelatin Maker Utility Name Role Phone Sunni Samayoa MD Primary Care Provider Unavail able Reason For Referral No Information Medications Medication SIG (Take, Route, Frequency, Duration) Notes Start Date End Date Status Metoprolol Succinate ER 50 MG TAKE 1 TABLET BY MOUTH EVERY DAY Oral TAKE 1 TABLET BY MOUTH EVERY DAY; Duration: 30 Active Naproxen 500 MG 1 tablet BID Oral BID; Duration: 0 Active LORazepam 1 MG Oral BID; Duration: 0 Managed by Psych Active QUEtiapine Fumarate 100 MG Oral QD; Duration: 0 Managed by Psych Active Nitroglycerin 0.6 MG 1 TABLET UNDER TONGUE NEEDED FOR CHEST PAIN EVERY 5 MINUTES. Sublingual 1 TABLET UNDER TONGUE NEEDED FOR CHEST PAIN EVERY 5 MINUTES.; Duration: 30 Active hydroCHLOROthiazide 50 MG 1 tablet QD Or al QD; Duration: 0 Active Problems Problem Type SNOMED Code ICD Code Onset Dates Problem Status W/U Status Risk Notes Problem Bipolar disorder (92115898) Bipolar disorder, unspecified (F31.9) Active confirmed Problem Essential hypertension (79191118) Essential (primary) hypertension (I10) Active confirmed Problem Hernia of abdominal cavity (disorder) (89701243) Unspecified abdominal hernia without obstruction or gangrene (K46.9) Active confirmed Problem Diverticulitis of colon (799543450) Diverticulitis of intestine, part unspecified, without perforation or abscess without bleeding (K57.92) Active confirmed Problem Sciatica (19658069) Sciatica, unspecified side (M54.30) Active confirmed Problem Endometriosis (114753818) Endometriosis, unspecified (N80.9) Active confirmed Problem Chest pain (53544739) Chest pain, unspecified (R07.9) Active confirmed Problem Essential hypertension (49471761) Essential (primary) hypertension (I11.9) Active confirmed Problem Hypertension (16570226) Uncontrolled Hypertension (I10) Active confirmed Plan Of Treatment No Information Insurance Providers Payer Name Payer Address Payer Phone Subscriber Number Group Number Insured Name Patient Relationship to Insured Coverage Start Date Coverage End Date [facility] [address] [place] [address] [id number] Carlie Walker Self - patient is the insured Medical (General) History Surgical History Surgery Date(Month/Year) Gall bladder surgery 2003
== END 2025-06-30 16:01 | disposition home or self-care (01) ==
LOC: HO.HMCH 15:02
PROVIDERS: PCP Internal Medicine; Visit Provider Internal Medicine
DX: E11.65 Type 2 diabetes mellitus with hyperglycemia (principal)

== ENCOUNTER → 2025-06-30 15:01 | Outpatient (BNVA) | payer OTHER, SELFPAY | PROVIDERS: PCP Internal Medicine; Visit Provider Internal Medicine | DX: E11.65 Type 2 diabetes mellitus with hyperglycemia (principal); G35 Multiple sclerosis; I10 Essential (primary) hypertension; E78.00 Pure hypercholesterolemia, unspecified; K29.70 Gastritis, unspecified, without bleeding; R79.89 Other specified abnormal findings of blood chemistry; E55.9 Vitamin D deficiency, unspecified; F31.60 Bipolar disorder, current episode mixed, unspecified; E66.9 Obesity, unspecified; E53.8 Deficiency of other specified B group vitamins; D64.9 Anemia, unspecified; E11.9 Type 2 diabetes mellitus without complications; R30.0 Dysuria; Z68.34 Body mass index [BMI] 34.0-34.9, adult | CPT/HCPCS: 83036; 96127; 99212 ==

== ENCOUNTER 2025-10-20 10:09 | Outpatient (REF) | payer OTHER, SELFPAY ==
--- NOTE | ~2025-10-20 | XR_ITS ---
EXAMINATION: XR SHOULDER 2 OR MORE VIEWS LEFT HISTORY: M25.511 - Pain in left shoulder COMPARISON: There are no prior studies available for comparison. FINDINGS: Two views of the left shoulder are submitted. Osseous mineralization is normal. There is no fracture or dislocation. The glenohumeral joint is maintained. There is mild narrowing of the AC joint. Soft tissue calcifications adjacent to the greater tuberosity of the humerus are likely related to the rotator cuff. XR/XR shoulder LT min 2V IMPRESSION: Mild narrowing of the AC joint. Probable rotator cuff calcifications. Electronically signed by: Malcolm Haji MD 10/20/2025 01:38 PM TAM
--- OUTSIDE RECORDS SUMMARY | 2025-10-22 10:33 | XMS_ITS | Patient Health Record ---
Author Organization [facility] Address [address] [place] [address] Care Team Providers Care Gauge Inspector Name Role Phone Sunni Samayoa MD Primary [...] W/U Status Risk Notes Problem Bipolar disorder (95996099) Bipolar disorder, unspecified (F31.9) Active confirmed Problem Essential hypertension (76747408) Essential (primary) hypertension (I10) Active confirmed Problem Hernia of abdominal cavity (disorder) (99221917) Unspecified abdominal hernia without obstruction or gangrene (K46.9) Active confirmed Problem Diverticulitis of colon (558269501) Diverticulitis of intestine, part unspecified, without perforation or abscess without bleeding (K57.92) Active confirmed Problem Sciatica (39480022) Sciatica, unspecified side (M54.30) Active confirmed Problem Endometriosis (200205867) Endometriosis, unspecified (N80.9) Active confirmed Problem Chest pain (80652831) Chest pain, unspecified (R07.9) Active confirmed Problem Essential hypertension (90647464) Essential (primary) hypertension (I11.9) Active confirmed Problem Hypertension (21473074) Uncontrolled Hypertension (I10) Active confirmed Plan Of Treatment No Information Insurance Providers Payer Name Payer Address Payer Phone Subscriber Number Group Number Insured Name Patient Relationship to Insured Coverage Start Date Coverage End Date [facility] [address] [place] [address] [phone] [id number] Carlie Walker Self - patient is the insured Medical (General) History Surgical History Surgery Date(Month/Year) Gall bladder surgery 2003
--- OUTSIDE RECORDS SUMMARY | 2025-10-22 10:33 | XMS_ITS | Clinical Summary ---
Author Organization [address] [place] [address] Address [address] [place] [address] Phone Care Team Providers Care Inspector Conveyor Line Name Role Phone Narendra Jeff MD Primary [...] complete this topic Insurance PLAN Care Teams Inspector Conveyor Line Relationship Specialty Start Date End Date Narendra Jeff MD [address] [place] [address] [address] [place], [place] PCP - General 10/24/23
== END 2025-10-20 10:10 | disposition home or self-care (01) ==
LOC: HO.HOSX 10:09
PROVIDERS: Visit Provider Orthopaedic Surgery
DX: G35.D Multiple sclerosis, unspecified (principal); M75.42 Impingement syndrome of left shoulder
CPT/HCPCS: 20610; 73030; 99202; J1010; J2003

== ENCOUNTER 2025-10-20 12:28 | Outpatient (AMB) | payer OTHER, SELFPAY ==
--- NOTE | 2025-10-20 12:47 | MHC.OFFVIS ---
Intake Visit Reasons: left shoulder pain Intake Note: Carlie is a 50 year old female who presents with complaints of left shoulder pain. She describes her pain as sharp in nature. Most of the pain is along the lateral aspect of her shoulder. She reports difficulty lifting her left hand above shoulder height. She did have a cortisone injection given into her left knee several years ago which gave her good relief. She has tried Tylenol and anti-inflammatory medicines which gave her mild relief. The patient does have a history of multiple sclerosis. She states that her neurologist is retiring. Allergies empagliflozin (From Jardiance) Adverse Reaction (Severe, Verified 10/20/25 12:48) UTI semaglutide (From Ozempic) Adverse Reaction (Severe, Verified 10/20/25 12:48) Gastrointestinal Upset Chantix Adverse Reaction (Unknown, Uncoded 10/20/25 12:48) worsening bipolar disorder Medication List - Last Reviewed 10/20/25 by LAYLA Oneil blood pressure kit-extra large As directed blood sugar diagnostic (FreeStyle Lite Strips) test daily blood-glucose meter (FreeStyle Lite Meter kit) test daily dulaglutide (Trulicity) 0.75 mg (0.5 mL) subcut QWEEK insulin glargine (Lantus Solostar U-100 Insulin) 20 units (0.2 mL) subcut QPM 30 days insulin lispro (Humalog KwikPen (U-100) Insulin) 10 units (0.1 mL) subcut TIDWMEAL 30 days lancets (FreeStyle Lancets) test daily lisinopril 5 mg PO DAILY 90 days ofatumumab (Kesimpta Pen) 20 mg subcut .once a month Ozempic (semaglutide) 0.25 mg (0.368 mL) subcut QWEEK 12 weeks NS pantoprazole 20 mg PO BID 90 days pen needle, diabetic Use four times a day or as directed. pioglitazone (Actos) 30 mg PO DAILY PFSH Medical History Multiple sclerosis Demyelinating disease Elevated LFTs Vitamin D deficiency Pure hypercholesterolemia Benign essential hypertension Obesity (BMI 30-39.9) Gastritis Bulimia nervosa Bipolar disorder Impaired fasting glucose Hyperlipidemia Surgical History Hx of Achilles tendon repair History of endometrial ablation History of cholecystectomy History of colonoscopy History of hernia surgery History of tubal ligation History of carpal tunnel surgery H/O bursectomy Family History Mother High blood pressure Dementia Kidney stones Arthritis Father Hepatitis B Cirrhosis of liver Other Mental health problem Social History Household Members: None Housing: Apartment Do you presently have visiting nurse or other home services: No Alcohol intake: never Patient Tobacco Use Status: Never used Tobacco Tobacco use type: Cigarette Cigarettes Per Day: 5 e-Cigarette/Vaping Use: Never Used Second Hand Smoke Exposure: No service: No Current occupational status: employed 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[employer] Current occupational exposures/hazards: No Cognitive needs: No Hearing needs: No Vision needs: Yes Female Reproductive History Menstrual Age of Menarche: 13 Physical Exam Extrem Other: Left shoulder examination shows decreased range of motion when compared to her right shoulder, 4+ out of 5 strength with supraspinatus testing, positive impingement signs, no instability Office Procedures AMB Joint Injection/Aspiration Joint Injection/Aspiration Primary Site: Left Shoulder Prep: site was prepped using aseptic technique Injected: 40 mg of, DepoMedrol, with 3 mL of and 1% plain Lidocaine Procedure: The patient tolerated the procedure well Coding 12724 - Large joint Procedure code (CPT) selection complete Results Reviewed Results Reviewed: X-rays of the patient's left shoulder show severe acromioclavicular joint narrowing, a type 2 acromion, no acute bony abnormalities Assessment & Plan Assessment & Plan (1) Multiple sclerosis: Code(s): G35 - Multiple sclerosis Category: Medical (2) Impingement syndrome of left shoulder: Code(s): M75.42 - Impingement syndrome of left shoulder Category: Medical Plan Ms. Aaron Plasencia presents with left shoulder pain due to impingement syndrome as well as possible rotator cuff tearing. The risks and benefits of a left shoulder cortisone injection were discussed at length with the patient. The patient wished to proceed. She tolerated the injection well. She will continue with her home stretching program. She will contact me prior to her follow-up appointment in 3 months should any questions or concerns arise. Feel free to call me at any time should questions regarding her orthopedic management arise. Thank you very much for asking me to see this very friendly patient. I spent 22 minutes in reviewing the patient's records and imaging studies, seeing the patient and documenting in the medical record. Orders: Orders AMB Joint Injection/Aspiration Today M75.42 - Impingement syndrome of left shoulder Referrals Neurology Referral G35 - Multiple sclerosis Coding Level of Care Code New Pt Level 3 (19337) Add On Problem Visit Only Diagnoses Multiple sclerosis G35 Impingement syndrome of left shoulder M75.42 CPT Codes Coding - 52361 Large joint: 45786 - Large joint ([id number])
--- OUTSIDE RECORDS SUMMARY | 2025-10-20 14:07 | XMS_ITS | Clinical Summary ---
Author Organization [address] [place] [address] Address [address] [place] [address] Phone Care Team Providers Care System Support Analyst Name Role Phone Narendra Jeff MD Primary Care Provider [phone] Social History Tobacco Use Types Packs/Day Years Used Date Smoking Tobacco: Former Cigarettes 0 Q uit: 04/20/2022 Smokeless Tobacco: Never Comments Unknown Sex and Gender Information Value Date Recorded Sex Assigned at Not on file Legal Sex Female 2:09 PM EDT Gender Identity Not on file Sexual Orientation Not on file Last Filed Vital Signs Vital Sign Reading [...] Last Done Comments Breast Cancer Screening 1976 Colorectal Cancer Screening: Colonoscopy 1976 DTaP,Tdap,and Td Vaccines (1 - Tdap) 1995 Hepatitis B Vaccines (1 of 3 - 19+ 3-dose series) 1995 Cervical Cancer Screening: P ap Smear 1997 HIV Screening 01/01/2024 Hepatitis C Screening 01/01/2024 Social Influencers of Health Screening 01/01/2024 Depression Screening 10/21/2024 COVID-19 Vaccine ( - 2024-2 6 season) 2025 Influenza Vaccine (#1) 2025 RSV Immunization Adult Patie nts (1 - 1-dose 75+ series) 2051 HIB Vaccines Aged Out No longer eligi [...] complete this topic Insurance PLAN Care Teams System Support Analyst Relationship Specialty Start Date End Date Narendra Jeff MD [address] [place] [address] [address] [place], [place] PCP - General 10/24/23
--- OUTSIDE RECORDS SUMMARY | 2025-10-20 14:08 | XMS_ITS | Patient Health Record ---
Author Organization [facility] Address [address] [place] [address] Care Team Providers Care Upper Marker Name Role Phone Sunni Samayoa MD Primary Care Provider Unavail able Reason For Referral No Information Medications Medication SIG (Take, Route, Frequency, Duration) Notes Start Date End Date Status Metoprolol Succinate ER 50 MG Tablet Extended Release 24 Hour TAKE 1 TABLET BY MOUTH EVERY DAY Oral TAKE 1 TABLET BY MOUTH EVERY DAY; Duration: 30 Active Naproxen 500 MG Tablet 1 tablet BID Oral BID; Duration: 0 Active LORazepam 1 MG Tablet Oral BID; Duration: 0 Managed by Psych Active QUEtiapine Fumarate 100 MG Tablet Oral QD; Duration: 0 Managed by Psych Active Nitroglycerin 0.6 MG Tablet Sublingual 1 TABLET UNDER TONGUE NEEDED FOR CHEST PAIN EVERY 5 MINUTES. Sublingual 1 TABLET UNDER TONGUE NEEDED FOR CHEST PAIN EVERY 5 MINUTES.; Duration: 30 Active hydroCHLOROthiazide 50 MG Tablet 1 tablet QD Oral QD; Duration: 0 Active Problems Problem Type SNOMED Code ICD Code Onset Dates Problem Status W/U Status Risk Notes Problem Bipolar disorder (19968394) Bipolar disorder, unspecified (F31.9) Active confirmed Problem Essential hypertension (15466271) Essential (primary) hypertension (I10) Active confirmed Problem Hernia of abdominal cavity (disorder) (74867031) Unspecified abdominal hernia without obstruction or gangrene (K46.9) Active confirmed Problem Diverticulitis of colon (892421057) Diverticulitis of intestine, part unspecified, without perforation or abscess without bleeding (K57.92) Active confirmed Problem Sciatica (51303336) Sciatica, unspecified side (M54.30) Active confirmed Problem Endometriosis (285616798) Endometriosis, unspecified (N80.9) Active confirmed Problem Chest pain (17687217) Chest pain, unspecified (R07.9) Active confirmed Problem Essential hypertension (61303635) Essential (primary) hypertension (I11.9) Active confirmed Problem Hypertension (26990268) Uncontrolled Hypertension (I10) Active confirmed Plan Of Treatment No Information Insurance Providers Payer Name Payer Address Payer Phone Subscriber Number Group Number Insured Name Patient Relationship to Insured Coverage Start Date Coverage End Date [facility] [address] [place] [phone] [id number] Carlie Walker Self - patient is the insured Medical (General) History Surgical History Surgery Date(Month/Year) Gall bladder surgery 2003
== END 2025-10-20 13:02 | disposition home or self-care (01) ==
LOC: HO.HOS 12:29
PROVIDERS: PCP Internal Medicine; Visit Provider Orthopaedic Surgery
DX: M75.42 Impingement syndrome of left shoulder (principal); G35.D Multiple sclerosis, unspecified
CPT/HCPCS: 20610; 99203

== ENCOUNTER → 2025-10-20 12:30 | Outpatient (BNV) | payer OTHER, SELFPAY | PROVIDERS: Visit Provider Radiology Diagnostic Radiology | DX: M25.512 Pain in left shoulder (principal) | CPT/HCPCS: 73030 ==